=== PATIENT | female | born 1940 | race Caucasian/White ===

== ENCOUNTER 2017-02-01 23:55 | Emergency (ER) | payer MEDICARE, MEDICAID ==
--- NOTE | 2017-02-02 01:19 | EDM.PDOC ---
ED HPI GENERAL MEDICAL PROBLEM - General Chief Complaint: Respiratory Problem Stated Complaint: SAÚL WILSON Time Seen by Provider: 02/02/17 00:15 Source of Information: Reports: Custodial Records, RN Notes Reviewed History Limitations: Reports: Other (Pt sleeping - answered no questions) - History of Present Illness INITIAL COMMENTS - FREE TEXT/NARRATIVE: The patient is brought from the senior living by EMS with a report that the patient is ordinarily on oxygen 3 L per nasal cannula, but that her oxygen saturations were found to be in the low 80s, therefore they increased her oxygen to 4 L, but that her saturation was still in the low 80s. She was also found to have a temperature of 101.8, although when all of this occurred is not known. EMS reports that they placed the patient on 5 L of oxygen per nasal cannula with a resulting oxygen saturation of 86%. They also mentioned that the patient has had a dry cough of unknown duration, however, that is not mentioned in the senior living report. Here in the ED, the patient opened her eyes when I asked her name, but then closed them and went back to sleep. She is afebrile. - Related Data Allergies Allergy/AdvReac Type Severity Reaction Status Date / Time clindamycin Allergy unknown Verified 02/02/17 00:09 Home Meds: Home Meds Acetaminophen [Tylenol] 650 mg PO Q6HR PRN 03/20/14 [History] Calcium Carb & Citrate/Vit D3 [Calcium + Vitamin D3 Caplet] 1 tab PO BID [History] Cranberry Extract [Cranberry] 400 mg PO BID 03/20/14 [History] Divalproex Sodium [Divalproex Sodium ER] 500 mg PO BID 03/20/14 [History] Insulin Aspart [NovoLOG] 18 units SQ TIDMEALS 03/20/14 [History] Insulin Detemir [Levemir] 40 units SQ DAILY 03/20/14 [History] Ipratropium/Albuterol Sulfate [Duoneb 0.5 mg-3 mg/3 ml Soln] 3 ml IH QID PRN 03/27 [History] Ipratropium/Albuterol Sulfate [Iprat-Albut 0.5-3(2.5) MG/3 ML] 1 unit INH BID [History] Magnesium Oxide 400 mg PO BID 03/20/14 [History] Multivitamin [Multivitamins] 1 each PO DAILY 03/20/14 [History] OLANZapine [Olanzapine] 15 mg PO BEDTIME 03/20/14 [History] Paliperidone [Invega] 12 mg PO DAILY 03/20/14 [History] Polyethylene Glycol 3350 [MiraLAX] 17 gm PO DAILY PRN 03/20/14 [History] Rosuvastatin Calcium [Crestor] 10 mg PO DAILY 03/20/14 [History] traZODone HCl [Trazodone HCl] 25 mg PO BEDTIME 03/20/14 [History] Aspirin [Adult Low Dose Aspirin EC] 81 mg PO DAILY 09/21/14 [History] Bisacodyl [Dulcolax] 10 mg RECTAL TID PRN 07/01/15 [History] Ranitidine HCl [Zantac] 150 mg PO BID 05/01/16 [History] guaiFENesin [Mucinex] 600 mg PO BID 05/01/16 [History] Budesonide [Pulmicort] 1 unit INH BID 02/02/17 [History] Levofloxacin [Levaquin] 1 tab PO QPM #4 tablet 02/02/17 [Rx] Levothyroxine [Synthroid] 100 mcg PO DAILY 02/02/17 [History] Liraglutide [Victoza] 1.8 mg SQ BEDTIME 02/02/17 [History] Past Medical History Cardiovascular History: Reports: High Cholesterol, Hypertension Respiratory History: Reports: COPD Psychiatric History: Reports: Anxiety, Schizophrenia Endocrine/Metabolic History: Reports: Diabetes, Type II, Hypothyroidism, Obesity /BMI 30+, Vitamin D Deficiency - Infectious Disease History Infectious Disease History: Reports: MRSA Social & Family History - Family History Family Medical History: Noncontributory - Tobacco Use Smoking Status *Q: Unknown Ever Smoked Second Hand Smoke Exposure: No - Caffeine Use Caffeine Use: Reports: None - Alcohol Use Days Per Week of Alcohol Use: 0 - Recreational Drug Use Recreational Drug Use: No - Living Situation & Occupation Living situation: Reports: Extended Care Facility Occupation: Retired ED ROS GENERAL - Review of Systems Review Of Systems: Unable To Obtain Respiratory: Reports: Cough (as per the HPI) ED EXAM, GENERAL - Physical Exam Exam: See Below Exam Limited By: Uncooperative (Pt did not follow commands) General Appearance: WD/WN, No Apparent Distress Eye Exam: Bilateral Eye: Normal Inspection Ears: Normal External Exam, Hearing Grossly Normal Ear Exam: Bilateral Ear: Auricle Normal Nose: Normal Inspection, No Blood Throat/Mouth: Normal Inspection, Normal Lips, No Airway Compromise Head: Atraumatic, Normocephalic Neck: Normal Inspection Respiratory/Chest: No Respiratory Distress, Lungs Clear, Normal Breath Sounds, No Accessory Muscle Use Cardiovascular: Normal Peripheral Pulses, No Gallop, No JVD, No Murmur, No Rub, Tachycardia (regular) Peripheral Pulses: 4+: Radial (L), Radial (R) GI/Abdominal: Normal Bowel Sounds, Soft, Non-Tender, No Organomegaly, No Distention, No Abnormal Bruit, Other (Obese) (Female) Exam: Deferred Rectal (Female) Exam: Deferred Extremities: No Pedal Edema, Normal Capillary Refill, Other (Bilateral SCD boots on) Neurological: Other (Unable to assess) Psychiatric: Other (Unable to assess) Skin Exam: Warm, Dry, Intact, Normal Color, No Rash Lymphatic: No Adenopathy EKG INTERPRETATION EKG Date: 02/02/17 Time: 00:29 Rhythm: other (Sinus tachycardia) Rate (beats/min): 113 [place]: LAD-left axis deviation P-wave: present QRS: normal ST-T: normal QT: normal Comparison: change from previous EKG (QT prolongation and T-wave inversion in anterior leads on ECG 05/01/2016) Course - Vital Signs Last Recorded V/S: Last Vital Signs Temp 37.2 C 02/02/17 00:05 Pulse 94 02/02/17 03:44 Resp 19 02/02/17 03:44 BP 109/62 02/02/17 03:44 Pulse Ox 88 L 02/02/17 03:44 - Orders/Labs/Meds Orders: Active Orders 24 hr Category Date Time Status EKG Documentation Completion [RC] STAT Care 02/02/17 00:23 Active CULTURE BLOOD [BC] Stat Lab 02/02/17 00:55 Received CULTURE BLOOD [BC] Stat Lab 02/02/17 01:03 Received Labs: Laboratory Tests 02/02/17 02/02/17 02/02/17 Range/Units 00:00 00:00 00:00 WBC 19.05 H (3.98-10.04) K/mm3 RBC 4.11 (3.98-5.22) M/mm3 Hgb 13.8 (11.2-15.7) gm/L Hct 43.3 (34.1-44.9) % MCV 105.4 H (79.4-94.8) fl MCH 33.6 H (25.6-32.2) pg MCHC 31.9 L (32.2-35.5) g/dl RDW Std Deviation 52.9 H (36.4-46.3) fL Plt Count 203 (182-369) K/mm3 MPV 8.9 L (9.4-12.3) fl Neutrophils % (Manual) 83 H (40-60) % Band Neutrophils % 10 (0-10) % Lymphocytes % (Manual) 7 L (20-40) % Atypical Lymphs % 0 % Immat Monocytes % (Man) 0 Monocytes % (Manual) 0 L (2-10) % Eosinophils % (Manual) 0 L (0.7-5.8) % Basophils % (Manual) 0 L (0.1-1.2) Metamyelocytes % 0 Myelocytes % 0 Promyelocytes % 0 Blast Cells % 0 Plasma Cell % (Manual) 0 Nucleated RBCs 0.0 % Platelet Estimate Adequate Anisocytosis 1+ slight Macrocytosis 1+ slight RBC Morph Comment Not Reportable PT 10.5 (8.0-13.0) SECONDS INR 0.97 APTT 35 (22-36) SECONDS D-Dimer, Quantitative 1.56 H (0.19-0.59) mg/L Puncture Site ABG pH (7.35-7.45) ABG pCO2 (35.0-45.0) mmHg ABG pO2 (80.0-100.0) mmHg ABG HCO3 (22.0-26.0) meq/L ABG O2 Saturation (96.0-97.0) % ABG Base Excess (-2-2.0) A-a Gradient mmHg O2 Delivery Device Oxygen Flow Rate FiO2 (21.00-100.00) % Sodium 143 (136-145) mEq/L Potassium 4.7 (3.5-5.1) mEq/L Chloride 103 (98-107) mEq/L Carbon Dioxide 34 H (21-32) mEq/L Anion Gap 10.7 (5-15) BUN 26 H (7-18) mg/dL Creatinine 0.9 (0.55-1.02) mg/dL Est Cr Clr Drug Dosing 50.56 mL/min Estimated GFR (MDRD) > 60 (>60) mL/min BUN/Creatinine Ratio 28.9 H (14-18) Glucose 231 H (83-115) mg/dL Lactic Acid (0.4-2.0) mmol/L Calcium 8.6 (8.5-10.1) mg/dL Total Bilirubin 0.4 (0.2-1.0) mg/dL AST 10 L (15-37) U/L ALT 15 (14-59) U/L Alkaline Phosphatase 54 (46-116) U/L Troponin I < 0.017 (0.00-0.056) ng/mL C-Reactive Protein 3.0 H* (<1.0) mg/dL B-Natriuretic Peptide (0-100) pg/mL Total Protein 7.1 (6.4-8.2) g/dl Albumin 3.0 L (3.4-5.0) g/dl Globulin 4.1 gm/dL Albumin/Globulin Ratio 0.7 L (1-2) Urine Color (Yellow) Urine Appearance (Clear) Urine pH (5.0-8.0) Ur Specific [place] (1.005-1.030) Urine Protein (Negative) Urine Glucose (UA) (Negative) Urine Ketones (Negative) Urine Occult Blood (Negative) Urine Nitrite (Negative) Urine Bilirubin (Negative) Urine Urobilinogen (0.2-1.0) Ur Leukocyte Esterase (Negative) Urine RBC (0-5) /hpf Urine WBC (0-5) /hpf Ur Epithelial Cells Ur Squamous Epith Cells (0-5) /hpf Urine Bacteria (FEW) /hpf Urine Mucus (FEW) /hpf 02/02/17 02/02/17 02/02/17 Range/Units 00:00 00:35 00:55 WBC (3.98-10.04) K/mm3 RBC (3.98-5.22) M/mm3 Hgb (11.2-15.7) gm/L Hct (34.1-44.9) % MCV (79.4-94.8) fl MCH (25.6-32.2) pg MCHC (32.2-35.5) g/dl RDW Std Deviation (36.4-46.3) fL Plt Count (182-369) K/mm3 MPV (9.4-12.3) fl Neutrophils % (Manual) (40-60) % Band Neutrophils % (0-10) % Lymphocytes % (Manual) (20-40) % Atypical Lymphs % % Immat Monocytes % (Man) Monocytes % (Manual) (2-10) % Eosinophils % (Manual) (0.7-5.8) % Basophils % (Manual) (0.1-1.2) Metamyelocytes % Myelocytes % Promyelocytes % Blast Cells % Plasma Cell % (Manual) Nucleated RBCs % Platelet Estimate Anisocytosis Macrocytosis RBC Morph Comment PT (8.0-13.0) SECONDS INR APTT (22-36) SECONDS D-Dimer, Quantitative (0.19-0.59) mg/L Puncture Site Rt radial ABG pH 7.35 (7.35-7.45) ABG pCO2 68.5 H (35.0-45.0) mmHg ABG pO2 51.0 L (80.0-100.0) mmHg ABG HCO3 36.4 H (22.0-26.0) meq/L ABG O2 Saturation 85.5 L (96.0-97.0) % ABG Base Excess 8.4 H (-2-2.0) A-a Gradient 120 mmHg O2 Delivery Device Cannula Oxygen Flow Rate 6.0 FiO2 44.00 (21.00-100.00) % Sodium (136-145) mEq/L Potassium (3.5-5.1) mEq/L Chloride (98-107) mEq/L Carbon Dioxide (21-32) mEq/L Anion Gap (5-15) BUN (7-18) mg/dL Creatinine (0.55-1.02) mg/dL Est Cr Clr Drug Dosing mL/min Estimated GFR (MDRD) (>60) mL/min BUN/Creatinine Ratio (14-18) Glucose (83-115) mg/dL Lactic Acid 2.4 H (0.4-2.0) mmol/L Calcium (8.5-10.1) mg/dL Total Bilirubin (0.2-1.0) mg/dL AST (15-37) U/L ALT (14-59) U/L Alkaline Phosphatase (46-116) U/L Troponin I (0.00-0.056) ng/mL C-Reactive Protein (<1.0) mg/dL B-Natriuretic Peptide 18 (0-100) pg/mL Total Protein (6.4-8.2) g/dl Albumin (3.4-5.0) g/dl Globulin gm/dL Albumin/Globulin Ratio (1-2) Urine Color (Yellow) Urine Appearance (Clear) Urine pH (5.0-8.0) Ur Specific [place] (1.005-1.030) Urine Protein (Negative) Urine Glucose (UA) (Negative) Urine Ketones (Negative) Urine Occult Blood (Negative) Urine Nitrite (Negative) Urine Bilirubin (Negative) Urine Urobilinogen (0.2-1.0) Ur Leukocyte Esterase (Negative) Urine RBC (0-5) /hpf Urine WBC (0-5) /hpf Ur Epithelial Cells Ur Squamous Epith Cells (0-5) /hpf Urine Bacteria (FEW) /hpf Urine Mucus (FEW) /hpf 02/02/17 Range/Units 01:54 WBC (3.98-10.04) K/mm3 RBC (3.98-5.22) M/mm3 Hgb (11.2-15.7) gm/L Hct (34.1-44.9) % MCV (79.4-94.8) fl MCH (25.6-32.2) pg MCHC (32.2-35.5) g/dl RDW Std Deviation (36.4-46.3) fL Plt Count (182-369) K/mm3 MPV (9.4-12.3) fl Neutrophils % (Manual) (40-60) % Band Neutrophils % (0-10) % Lymphocytes % (Manual) (20-40) % Atypical Lymphs % % Immat Monocytes % (Man) Monocytes % (Manual) (2-10) % Eosinophils % (Manual) (0.7-5.8) % Basophils % (Manual) (0.1-1.2) Metamyelocytes % Myelocytes % Promyelocytes % Blast Cells % Plasma Cell % (Manual) Nucleated RBCs % Platelet Estimate Anisocytosis Macrocytosis RBC Morph Comment PT (8.0-13.0) SECONDS INR APTT (22-36) SECONDS D-Dimer, Quantitative (0.19-0.59) mg/L Puncture Site ABG pH (7.35-7.45) ABG pCO2 (35.0-45.0) mmHg ABG pO2 (80.0-100.0) mmHg ABG HCO3 (22.0-26.0) meq/L ABG O2 Saturation (96.0-97.0) % ABG Base Excess (-2-2.0) A-a Gradient mmHg O2 Delivery Device Oxygen Flow Rate FiO2 (21.00-100.00) % Sodium (136-145) mEq/L Potassium (3.5-5.1) mEq/L Chloride (98-107) mEq/L Carbon Dioxide (21-32) mEq/L Anion Gap (5-15) BUN (7-18) mg/dL Creatinine (0.55-1.02) mg/dL Est Cr Clr Drug Dosing mL/min Estimated GFR (MDRD) (>60) mL/min BUN/Creatinine Ratio (14-18) Glucose (83-115) mg/dL Lactic Acid (0.4-2.0) mmol/L Calcium (8.5-10.1) mg/dL Total Bilirubin (0.2-1.0) mg/dL AST (15-37) U/L ALT (14-59) U/L Alkaline Phosphatase (46-116) U/L Troponin I (0.00-0.056) ng/mL C-Reactive Protein (<1.0) mg/dL B-Natriuretic Peptide (0-100) pg/mL Total Protein (6.4-8.2) g/dl Albumin (3.4-5.0) g/dl Globulin gm/dL Albumin/Globulin Ratio (1-2) Urine Color [place] H (Yellow) Urine Appearance Clear (Clear) Urine pH 6.5 (5.0-8.0) Ur Specific [place] 1.025 (1.005-1.030) Urine Protein Negative (Negative) Urine Glucose (UA) Negative (Negative) Urine Ketones Negative (Negative) Urine Occult Blood Negative (Negative) Urine Nitrite Negative (Negative) Urine Bilirubin Negative (Negative) Urine Urobilinogen 1.0 (0.2-1.0) Ur Leukocyte Esterase Negative (Negative) Urine RBC Not seen (0-5) /hpf Urine WBC Not seen (0-5) /hpf Ur Epithelial Cells Not Reportable Ur Squamous Epith Cells 0-5 (0-5) /hpf Urine Bacteria Not seen (FEW) /hpf Urine Mucus Few (FEW) /hpf Meds: Medications Discontinued Medications Generic Name Dose Route Start Last Admin Trade Name Freq PRN Reason Stop Dose Admin Sodium Chloride 1,000 mls @ 100 mls/hr 02/02/17 01:30 02/02/17 02:06 Normal Saline IV 100 mls/hr ASDIRECTED FITO Administration Levofloxacin/Dextrose 750 mg/ 150 mls @ 100 mls/hr 02/02/17 01:24 02/02/17 02 :07 Premix IV 02/02/17 02:53 100 mls/hr ONETIME ONE Administration Sodium Chloride 100 mls @ 65 mls/hr 02/02/17 01:30 02/02/17 02:03 Normal Saline IV 65 mls/hr ASDIRECTED FITO Administration Iopamidol 50 ml 02/02/17 01:28 02/02/17 02:03 Isovue-370 (76%) IVPUSH 02/02/17 01:29 50 ml ONETIME ONE Administration Iopamidol 100 ml 02/02/17 01:28 02/02/17 02:03 Isovue-370 (76%) IVPUSH 02/02/17 01:29 100 ml ONETIME ONE Administration Sodium Chloride 10 ml 02/02/17 01:28 02/02/17 02:03 Saline Flush FLUSH 10 ml ONETIME PRN Administration IV FLUSH - Radiology Interpretation Free Text/Narrative:: Portable chest radiograph reviewed. Cardiac silhouette appears to be at the upper limits of normal. Mild pulmonary vascular congestion. No pleural effusions seen. No focal infiltrate seen, although cannot be excluded. No pneumothorax. Tortuous aorta. Formal read per the Radiologist pending. CT angiogram of the chest is read by [facility] as: 1. No evidence of pulmonary emboli 2. Alveolar and interstitial lung opacities would be most consistent with a diffuse postinflammatory process and small airways disease. - Re-Assessments/Exams Free Text/Narrative Re-Assessment/Exam: 02/02/17 01:25 The patient's ABG reflects chronic hypercapnia and hypoxemia. She is tachycardic, and her D-dimer is mildly elevated at 1.56. I have ordered a CT angiogram to evaluate for PE. Her WBC count is elevated at 19.05 with 10% bandemia, consistent with pneumonia, therefore I have ordered IV Levaquin 750 mg. 02/02/17 02:[address] angiogram of the chest indicates either current or recent pneumonia. I am recommending continuation of Levaquin, which can be given at the senior living orally. Her oxygen saturation is 89% on 4 L O2 per nasal cannula. The patient may therefore return to the senior living. Departure - Departure Time of Disposition: 02:40 Disposition: Home, Self-Care 01 Condition: fair Clinical Impression: Pneumonia - Discharge Information Prescriptions: Levofloxacin [Levaquin] 1 tab PO QPM #4 tablet Instructions: Community-Acquired Pneumonia, Adult, [id number] Referrals: Ray Bonilla MD [Primary Care Provider] - Forms: ED Department Discharge Additional Instructions: Ms. Walker was seen in the emergency room for increased oxygen requirements and fever. Workup in the ER included blood work, blood cultures, an ABG, a urinalysis, an ECG, a chest X-Ray, and a CT angiogram of the chest. Her workup shows that she either has pneumonia, or recently had pneumonia. We are treating her as if she has current pneumonia. She has been started on IV Levaquin 750 mg. Give one bag every 24 hours, starting this evening, 2016, for 4 days. She may continue the rest of her usual medications. Her oxygen has been increased to 4 L per nasal cannula. Please notify her primary care physician in the morning of the situation. If any other problems, please do not hesitate to return Ms. Walker to the ER. - My Orders Last 24 Hours: My Active Orders 02/02/17 00:23 EKG Documentation Completion [RC] STAT 02/02/17 00:55 CULTURE BLOOD [BC] Stat 02/02/17 01:03 CULTURE BLOOD [BC] Stat - Assessment/Plan Last 24 Hours: My Active Orders 02/02/17 00:23 EKG Documentation Completion [RC] STAT 02/02/17 00:55 CULTURE BLOOD [BC] Stat 02/02/17 01:03 CULTURE BLOOD [BC] Stat
[2017-02-02] MEDS ORDERED: Levofloxacin/Dextrose 5%-Water 750 MG in Premix Bag 1 BAG IV ONE (01:24)
[2017-02-02] MEDS ORDERED: Iopamidol 755 MG/ML 50 ML Bottle IVPUSH ONE (01:28)
[2017-02-02] MEDS ORDERED: Iopamidol 755 Mg/ML 100 ML Bottle IVPUSH ONE (01:28)
[2017-02-02] MEDS ORDERED: Sodium Chloride 0.9% 10 ML Syringe FLUSH PRN (01:28)
[2017-02-02] MEDS ORDERED: Sodium Chloride 0.9% 100 ML IV SCH (01:30)
[2017-02-02] MEDS ORDERED: Sodium Chloride 0.9% 1,000 ML IV SCH (01:30)
[2017-02-02 03:57] VITALS: BP 109/62
--- NOTE | 2017-02-02 07:37 | CT ---
CT chest Technique: Multiple axial sections were obtained through the chest. Intravenous contrast was utilized. Study has been performed as a pulmonary angiogram protocol. Findings: Pulmonary arteries are moderately well-opacified and show no filling defects of pulmonary embolism. Heart is enlarged. Small portion of the visualized upper abdominal structures are within normal limits. Several mediastinal lymph nodes are seen which appear within normal limits. No axillary adenopathy is seen. Aorta shows no aneurysmal dilatation as questioned on recent plain film exam. Increased lung markings are noted which appear to be chronic as comparing to chest x-ray. No pleural effusions are seen. Bone window settings show scattered degenerative spurring and disc space narrowing throughout the spine. Impression: 1. No findings of pulmonary embolism. 2. Increased lung markings believed to represent fibrosis and scarring when compared to prior chest x-rays. 3. Other incidental findings. Diagnostic code #3 I agree with preliminary report issued by [facility] ([facility] preliminary report dictated on 02/02/17, 3:18 AM Central Time)
--- NOTE | 2017-02-02 07:37 | CR ---
Chest: Portable view of the chest was obtained. Comparison: Previous chest x-ray of 05/03/16. Heart is enlarged. Aortic knob is enlarged suggesting aortic aneurysm. Lung markings are increased which appear chronic. No acute infiltrates are seen. Bony structures are osteopenic. Degenerative change noted within the spine. Impression: 1. Aortic knob is enlarged suggesting thoracic aortic aneurysm. 2. Chronic increased lung markings and mild cardiomegaly. Diagnostic code #3
== END 2017-02-02 03:44 | disposition home or self-care (01) ==
LOC: JD.ED 23:55
DX: J18.9 Pneumonia, unspecified organism (principal); I10 Essential (primary) hypertension; E78.00 Pure hypercholesterolemia, unspecified; J44.9 Chronic obstructive pulmonary disease, unspecified; F41.9 Anxiety disorder, unspecified; E11.9 Type 2 diabetes mellitus without complications; E03.9 Hypothyroidism, unspecified; E66.9 Obesity, unspecified; Z88.1 Allergy status to other antibiotic agents; Z79.4 Long term (current) use of insulin; Z79.82 Long term (current) use of aspirin; Z79.899 Other long term (current) drug therapy; Z68.38 Body mass index [BMI] 38.0-38.9, adult
CPT/HCPCS: 36415; 36600; 71010; 71275; 80053; 81001; 82803; 83605; 83880; 84484; 85025; 85379; 85610; 85730; 86140; 87040; 93005; 96365; 99285; J1956; J7030; J7040; J7050; P9612; Q9967

== ENCOUNTER 2017-05-25 13:14 | Emergency (ER) | payer MEDICARE, MEDICAID ==
[2017-05-25 13:25] VITALS: BP 118/99
[2017-05-25] MEDS ORDERED: Sodium Chloride 0.9% 10 ML Syringe FLUSH PRN (13:50)
[2017-05-25] MEDS ORDERED: Albuterol/Ipratropium 3.0-0.5 MG/3 ML Neb Soln NEB ONE (16:58)
[2017-05-25] MEDS ORDERED: Levofloxacin 500 MG Tab PO ONE (17:13)
--- NOTE | 2017-05-25 17:36 | EDM.PDOC ---
ED HPI GENERAL MEDICAL PROBLEM - General Chief Complaint: Respiratory Problem Stated Complaint: [facility] Time Seen by Provider: 05/25/17 13:30 Source of Information: Reports: Patient, EMS, Prison Records History Limitations: Reports: No Limitations - History of Present Illness INITIAL COMMENTS - FREE TEXT/NARRATIVE: The patient is a resident of [facility] in [place]. Her oxygen saturations have been lower to day in the mid 80s. She has a history of COPD and pneumonia. She is oxygen dependent. She has been coughing. She feels short of breath. She has no fever here. She has no abdominal pain, nausea or vomiting. She has no dysuria. Onset: Gradual Duration: Hour(s): Severity: Mild Improves with: Reports: None Worsens with: Reports: None Associated Symptoms: Reports: Cough, Shortness of Breath. Denies: Chest Pain, Fever/Chills, Nausea/Vomiting - Related Data Allergies Allergy/AdvReac Type Severity Reaction Status Date / Time clindamycin Allergy unknown Verified 05/25/17 13:53 Home Meds: Home Meds Calcium Carb & Citrate/Vit D3 [Calcium + Vitamin D3 Caplet] 1 tab PO BID [History] Cranberry Extract [Cranberry] 400 mg PO BID 03/20/14 [History] Divalproex Sodium [Divalproex Sodium ER] 500 mg PO BID 03/20/14 [History] Insulin Aspart [NovoLOG] 18 units SQ TIDMEALS 03/20/14 [History] Insulin Detemir [Levemir] 40 units SQ DAILY 03/20/14 [History] Ipratropium/Albuterol Sulfate [Duoneb 0.5 mg-3 mg/3 ml Soln] 3 ml IH BID PRN 03/27 [History] Ipratropium/Albuterol Sulfate [Iprat-Albut 0.5-3(2.5) MG/3 ML] 1 unit INH QID PRN 03/20/14 [History] Magnesium Oxide 400 mg PO BID 03/20/14 [History] Multivitamin [Multivitamins] 1 each PO DAILY 03/20/14 [History] Paliperidone [Invega] 12 mg PO DAILY 03/20/14 [History] Polyethylene Glycol 3350 [MiraLAX] 17 gm PO DAILY PRN 03/20/14 [History] Rosuvastatin Calcium [Crestor] 10 mg PO DAILY 03/20/14 [History] traZODone HCl [Trazodone HCl] 25 mg PO BEDTIME 03/20/14 [History] Aspirin [Adult Low Dose Aspirin EC] 81 mg PO DAILY 09/21/14 [History] Bisacodyl [Dulcolax] 10 mg RECTAL TID PRN 07/01/15 [History] Ranitidine HCl [Zantac] 150 mg PO BID 05/01/16 [History] guaiFENesin [Mucinex] 600 mg PO BID 05/01/16 [History] Budesonide [Pulmicort] 1 unit INH BID 02/02/17 [History] Levothyroxine [Synthroid] 100 mcg PO DAILY 02/02/17 [History] Liraglutide [Victoza] 1.8 mg SQ BEDTIME 02/02/17 [History] Levofloxacin [Levaquin] 500 mg PO Q24H #7 tablet 05/25/17 [Rx] Nystatin [Nystatin Crm] 1 gm TOP BID 05/25/17 [History] OLANZapine [Zyprexa] 15 mg PO BEDTIME 05/25/17 [History] Past Medical History HEENT History: Reports: Cataract Cardiovascular History: Reports: High Cholesterol, Hypertension Other Cardiovascular History: edema, hyponatremia Respiratory History: Reports: COPD Other Respiratory History: aspiration pneumonia, 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, hypoxemia Gastrointestinal History: Reports: Pancreatitis Other Gastrointestinal History: pancreatic mass, Vit D deficiency Genitourinary History: Reports: Urinary Incontinence Musculoskeletal History: Reports: Arthritis Other Musculoskeletal History: ingrown nail Neurological History: Reports: Neuropathy, Diabetic Other Neuro History: resting tremor left arm Psychiatric History: Reports: Anxiety, Schizophrenia Other Psychiatric History: delusional disorder Endocrine/Metabolic History: Reports: Diabetes, Type II, Hypothyroidism, Obesity /BMI 30+, Vitamin D Deficiency Other Oncologic History: Pancreatic mass (dx 2013) of unknown etiology - no tx desired - Infectious Disease History Infectious Disease History: Reports: MRSA - Past Surgical History Other Oncologic Surgeries/Procedures: PANCREATIC MASS Social & Family History - Family History Family Medical History: Noncontributory - Tobacco Use Smoking Status *Q: Unknown Ever Smoked Second Hand Smoke Exposure: No - Caffeine Use Caffeine Use: Reports: None - Alcohol Use Days Per Week of Alcohol Use: 0 - Recreational Drug Use Recreational Drug Use: No - Living Situation & Occupation Living situation: Reports: Extended Care Facility Occupation: Retired ED ROS GENERAL - Review of Systems Review Of Systems: See Below Constitutional: Reports: No Symptoms HEENT: Reports: No Symptoms Respiratory: Reports: Shortness of Breath, Cough Cardiovascular: Reports: No Symptoms Endocrine: Reports: No Symptoms GI/Abdominal: Reports: No Symptoms : Reports: No Symptoms Musculoskeletal: Reports: No Symptoms Skin: Reports: No Symptoms ED EXAM, GENERAL - Physical Exam Exam: See Below Exam Limited By: No Limitations General Appearance: Alert, No Apparent Distress Ears: Normal External Exam Nose: Normal Inspection Head: Atraumatic, Normocephalic Neck: Normal Inspection Respiratory/Chest: No Respiratory Distress, Decreased Breath Sounds Cardiovascular: Regular Rate, Rhythm, No Edema, No Murmur GI/Abdominal: Soft, Non-Tender, No Organomegaly, No Mass Back Exam: Normal Inspection Extremities: Pedal Edema EKG INTERPRETATION EKG Date: 05/25/17 Time: 13:57 Rhythm: NSR Rate (Beats/Min): 82 [place]: LAD-Left [place] Deviation P-Wave: Present QRS: Normal ST-T: Normal QT: Normal Course - Vital Signs Last Recorded V/S: Last Vital Signs Temp 97.4 F 05/25/17 13:21 Pulse 88 05/25/17 13:21 Resp 12 05/25/17 13:21 BP 118/99 H 05/25/17 13:21 Pulse Ox 93 L 05/25/17 17:23 - Orders/Labs/Meds Orders: Active Orders 24 hr Category Date Time Status Cardiac Monitoring [RC] . DIRECTED Care 05/25/17 13:50 Active EKG Documentation Completion [RC] STAT Care 05/25/17 13:51 Active Oxygen Therapy [RC] PRN Care 05/25/17 13:50 Active Peripheral IV Care [RC] . DIRECTED Care 05/25/17 13:51 Active RT Aerosol Therapy [RC] ASDIRECTED Care 05/25/17 16:58 Active Chest 1V Frontal [CR] Stat Exams 05/25/17 13:51 Taken CULTURE BLOOD [BC] Stat Lab 05/25/17 14:40 Received CULTURE BLOOD [BC] Stat Lab 05/25/17 14:55 Received CULTURE URINE [RM] Stat Lab 05/25/17 16:57 Uncollected Sodium Chloride 0.9% [Saline Flush] Med 05/25/17 13:50 Active 10 ml FLUSH ASDIRECTED PRN Blood Culture x2 Reflex Set [OM.PC] Stat Ot 05/25/17 13:52 Ordered Peripheral IV Insertion Adult [OM.PC] Stat Ot 05/25/17 13:50 Ordered Medication Orders Sodium Chloride (Saline Flush) 10 ml FLUSH ASDIRECTED PRN PRN Reason: Keep Vein Open Last Admin: 05/25/17 14:18 Dose: 10 ml Labs: Laboratory Tests 05/25/17 05/25/17 05/25/17 Range/Units 14:40 14:40 15:25 WBC 8.35 (3.98-10.04) K/mm3 RBC 3.92 L (3.98-5.22) M/mm3 Hgb 12.9 (11.2-15.7) gm/L Hct 41.2 (34.1-44.9) % MCV 105.1 H (79.4-94.8) fl MCH 32.9 H (25.6-32.2) pg MCHC 31.3 L (32.2-35.5) g/dl RDW Std Deviation 57.9 H (36.4-46.3) fL Plt Count 212 (182-369) K/mm3 MPV 8.8 L (9.4-12.3) fl Neut % (Auto) 73.6 H (34.0-71.1) % Lymph % (Auto) 15.1 L (19.3-51.7) % [place] % (Auto) 8.5 (4.7-12.5) % Eos % (Auto) 1.8 (0.7-5.8) Baso % (Auto) 0.0 L (0.1-1.2) % Neut # (Auto) 6.15 H (1.56-6.13) K/mm3 Lymph # (Auto) 1.26 (1.18-3.74) K/mm3 [place] # (Auto) 0.71 H (0.24-0.36) K/mm3 Eos # (Auto) 0.15 (0.04-0.36) K/mm3 Baso # (Auto) 0.00 L (0.01-0.08) K/mm3 Manual Slide Review Abnormal smear Sodium 143 (136-145) mEq/L Potassium 4.2 (3.5-5.1) mEq/L Chloride 104 (98-107) mEq/L Carbon Dioxide 36 H (21-32) mEq/L Anion Gap 7.2 (5-15) BUN 15 (7-18) mg/dL Creatinine 0.8 (0.55-1.02) mg/dL Est Cr Clr Drug Dosing 57.19 mL/min Estimated GFR (MDRD) > 60 (>60) mL/min BUN/Creatinine Ratio 18.8 H (14-18) Glucose 152 H (83-115) mg/dL Calcium 9.0 (8.5-10.1) mg/dL Total Bilirubin 0.2 (0.2-1.0) mg/dL AST 12 L (15-37) U/L ALT 14 (14-59) U/L Alkaline Phosphatase 62 (46-116) U/L Troponin I < 0.017 (0.00-0.056) ng/mL NT-Pro-B Natriuret Pep 167 (0-450) pg/mL Total Protein 6.9 (6.4-8.2) g/dl Albumin 2.7 L (3.4-5.0) g/dl Globulin 4.2 gm/dL Albumin/Globulin Ratio 0.6 L (1-2) Urine Color Yellow (Yellow) Urine Appearance Cloudy H (Clear) Urine pH 7.5 (5.0-8.0) Ur Specific [place] 1.025 (1.005-1.030) Urine Protein 1+ H (Negative) Urine Glucose (UA) Negative (Negative) Urine Ketones 1+ H (Negative) Urine Occult Blood Trace-intact H (Negative) Urine Nitrite Negative (Negative) Urine Bilirubin Negative (Negative) Urine Urobilinogen 2.0 H (0.2-1.0) Ur Leukocyte Esterase 1+ H (Negative) Urine RBC 5-10 H (0-5) /hpf Urine WBC >100 H (0-5) /hpf Ur Epithelial Cells 0-5 (0-5) /hpf Amorphous Sediment Moderate H (NOT SEEN) /hpf Urine Bacteria Many H (FEW) /hpf Urine Mucus Not seen (FEW) /hpf Meds: Medications Generic Name Dose Route Start Last Admin Trade Name Freq PRN Reason Stop Dose Admin Sodium Chloride 10 ml 05/25/17 13:50 05/25/17 14:18 Saline Flush FLUSH 10 ml ASDIRECTED PRN Administration Keep Vein Open Discontinued Medications Generic Name Dose Route Start Last Admin Trade Name Chemo PRN Reason Stop Dose Admin Albuterol/Ipratropium 3 ml 05/25/17 16:58 05/25/17 17:22 Duoneb 3.0-0.5 Mg/3 Ml NEB 05/25/17 16:59 3 ml ONETIME ONE Administration Levofloxacin 500 mg 05/25/17 17:13 Levaquin PO 05/25/17 17:14 ONETIME ONE - Re-Assessments/Exams Free Text/Narrative Re-Assessment/Exam: 05/25/17 17:33 I ordered oxygen, EKG, CXR, labs and a cath UA. Her EKG shows a NSR with no acute changes. Her CXR shows no infiltrates just poor inspiration. 05/25/17 17:35 Her CBC looks good. Her CO2 was elevated at 36. Her glucose was 152. Her troponin is negative. Her BNP was negative. Her UA shows a UTI. I ordered blood cultures and urine cultures. I will give her some levaquin 500mg here and a prescription for more. I also ordered a duo neb. 05/25/17 17:36 She has a UTI. Departure - Departure Time of Disposition: 17:40 Disposition: DC/Tfer to [facility] Condition: Good Clinical Impression: UTI (urinary tract infection) Qualifiers: Urinary tract infection type: site unspecified Hematuria presence: without hematuria Qualified Code(s): N39.0 - Urinary tract infection, site not specified - Discharge Information Prescriptions: Levofloxacin [Levaquin] 500 mg PO Q24H #7 tablet Referrals: PCP,None [Primary Care Provider] - Additional Instructions: Take the levaquin daily for 7 days. Continue your other medications. Please return if you are worse. - My Orders Last 24 Hours: My Active Orders 05/25/17 13:50 Cardiac Monitoring [RC] . DIRECTED Oxygen Therapy [RC] PRN Sodium Chloride 0.9% [Saline Flush] 10 ml FLUSH ASDIRECTED PRN Peripheral IV Insertion Adult [OM.PC] Stat 05/25/17 13:51 EKG Documentation Completion [RC] STAT Peripheral IV Care [RC] . DIRECTED Chest 1V Frontal [CR] Stat 05/25/17 13:52 Blood Culture x2 Reflex Set [OM.PC] Stat 05/25/17 14:40 CULTURE BLOOD [BC] Stat 05/25/17 14:55 CULTURE BLOOD [BC] Stat 05/25/17 16:57 CULTURE URINE [RM] Stat 05/25/17 16:58 RT Aerosol Therapy [RC] ASDIRECTED - Assessment/Plan Last 24 Hours: My Active Orders 05/25/17 13:50 Cardiac Monitoring [RC] . DIRECTED Oxygen Therapy [RC] PRN Sodium Chloride 0.9% [Saline Flush] 10 ml FLUSH ASDIRECTED PRN Peripheral IV Insertion Adult [OM.PC] Stat 05/25/17 13:51 EKG Documentation Completion [RC] STAT Peripheral IV Care [RC] . DIRECTED Chest 1V Frontal [CR] Stat 05/25/17 13:52 Blood Culture x2 Reflex Set [OM.PC] Stat 05/25/17 14:40 CULTURE BLOOD [BC] Stat 05/25/17 14:55 CULTURE BLOOD [BC] Stat 05/25/17 16:57 CULTURE URINE [RM] Stat 05/25/17 16:58 RT Aerosol Therapy [RC] ASDIRECTED
--- NOTE | 2017-05-26 07:57 | CR ---
Chest: Portable view of the chest was obtained. Comparison: Previous chest x-ray of 02/02/17. Heart size is slightly enlarged. Widened upper mediastinum is seen which is stable. Slight scarring is noted within both lungs. No acute infiltrates are seen. Bony structures are grossly intact. Impression: 1. Findings as described above which appears stable from prior chest x-ray. Nothing acute is seen. Diagnostic code #2
== END 2017-05-25 19:41 ==
LOC: JD.ED 13:14
DX: J44.9 Chronic obstructive pulmonary disease, unspecified (principal); I10 Essential (primary) hypertension; E78.00 Pure hypercholesterolemia, unspecified; E11.40 Type 2 diabetes mellitus with diabetic neuropathy, unspecified; F41.9 Anxiety disorder, unspecified; E66.9 Obesity, unspecified; Z68.37 Body mass index [BMI] 37.0-37.9, adult; Z87.440 Personal history of urinary (tract) infections; Z79.4 Long term (current) use of insulin; Z88.1 Allergy status to other antibiotic agents; Z79.82 Long term (current) use of aspirin; Z79.899 Other long term (current) drug therapy; Z99.81 Dependence on supplemental oxygen; Z87.01 Personal history of pneumonia (recurrent)
CPT/HCPCS: 36415; 71010; 80053; 81001; 83880; 84484; 85025; 87040; 87086; 87088; 87181; 87184; 93005; 94664; 99285; A9270; J7050; P9612; 99284

== ENCOUNTER 2017-09-03 08:45 | Inpatient (IN) | payer MEDICARE, MEDICAID ==
[2017-09-03] MEDS ORDERED: Sodium Chloride 0.9% 10 ML Syringe FLUSH PRN (09:09)
[2017-09-03] MEDS ORDERED: Albuterol/Ipratropium 3.0-0.5 MG/3 ML Neb Soln NEB ONE (09:11)
[2017-09-03] MEDS ORDERED: Levofloxacin/Dextrose 5%-Water 750 MG in Premix Bag 1 BAG IV ONE (09:12)
--- NOTE | 2017-09-03 09:19 | EDM.PDOC ---
ED HPI GENERAL MEDICAL PROBLEM - General Chief Complaint: Respiratory Problem Stated Complaint: [facility] Time Seen by Provider: 09/03/17 09:01 Source of Information: Reports: Patient, Snf Records History Limitations: Reports: No Limitations - History of Present Illness INITIAL COMMENTS - FREE TEXT/NARRATIVE: The patient presents from [facility] with hypoxia, fever and a productive cough. She has been having troubles for a few days. The mcc checked an influenza on Thursday and that was negative. She had a temp of 101 this morning. She has a productive cough. She has COPD and she is oxygen dependent on 3L by MA. Her oxygen saturations were in the low 80s when EMS arrived. They did a neb treatment and bumped her up to 5L. Her oxygen saturations were better. She complains of a cough and some lower abdominal pain. She denies chest pain. She is short of breath. She has no nausea and vomiting. Onset: Gradual Duration: Day(s): (4) Location: Reports: Abdomen Quality: Reports: Ache Severity: Mild Improves with: Reports: None Worsens with: Reports: None Associated Symptoms: Reports: Cough, Fever/Chills, Shortness of Breath. Denies : Chest Pain, Headaches, Nausea/Vomiting Treatments [employer] DEFENCE: Reports: Acetaminophen, See EMS Report - Related Data Allergies Allergy/AdvReac Type Severity Reaction Status Date / Time clindamycin Allergy unknown Verified 05/25/17 13:53 herbs in pizza Allergy Cannot Uncoded 09/03/17 09:09 Remember Home Meds: Home Meds Acetaminophen 650 mg PO Q4H PRN 09/03/17 [History] Albuterol/Ipratropium [DuoNeb 3.0-0.5 MG/3 ML] 3 ml NEB BIDRT 09/03/17 [History] Albuterol/Ipratropium [DuoNeb 3.0-0.5 MG/3 ML] 3 ml NEB QID PRN 09/03/17 [ History] Aspirin [Halfprin] 81 mg PO DAILY 09/03/17 [History] Budesonide [Pulmicort] 0.5 mg IH BID 09/03/17 [History] Calcium Carbonate/Vitamin D3 [Calcium 600 + Vit D 200] 1 each PO BID 09/03/17 [ History] Cranberry Extract [Cranberry] 400 mg PO BID 09/03/17 [History] Divalproex Sodium [Depakote ER] 500 mg PO BID 09/03/17 [History] Insulin Aspart [Novolog] 18 unit SQ TIDMEALS 09/03/17 [History] Insulin Detemir [Levemir] 40 unit SQ QAM 09/03/17 [History] Levothyroxine [Synthroid] 100 mcg PO QPM 09/03/17 [History] Liraglutide [Victoza] 1.8 mg SUBCUT BEDTIME 09/03/17 [History] Magnesium Oxide [Magnesium] 400 mg PO BID 09/03/17 [History] Multivitamin [Daily Multiple Vitamin] 1 tab PO DAILY 09/03/17 [History] Nystatin [Nystatin Crm] 30 gm TOP BID 09/03/17 [History] OLANZapine [Zyprexa] 15 mg PO BEDTIME 09/03/17 [History] Paliperidone [Invega] 12 mg PO DAILY 09/03/17 [History] Ranitidine [Zantac] 150 mg PO BID 09/03/17 [History] Rosuvastatin [Crestor] 10 mg PO QPM 09/03/17 [History] guaiFENesin [Mucinex] 600 mg PO BID 09/03/17 [History] Past Medical History HEENT History: Reports: Cataract Cardiovascular History: Reports: High Cholesterol, Hypertension Other Cardiovascular History: edema, hyponatremia Respiratory History: Reports: COPD Other Respiratory History: aspiration pneumonia, 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, hypoxemia Gastrointestinal History: Reports: Pancreatitis Other Gastrointestinal History: pancreatic mass, Vit D deficiency Genitourinary History: Reports: Urinary Incontinence Musculoskeletal History: Reports: Arthritis Other Musculoskeletal History: ingrown nail Neurological History: Reports: Neuropathy, Diabetic Other Neuro History: resting tremor left arm Psychiatric History: Reports: Anxiety, Schizophrenia Other Psychiatric History: delusional disorder Endocrine/Metabolic History: Reports: Diabetes, Type II, Hypothyroidism, Obesity /BMI 30+, Vitamin D Deficiency Other Oncologic History: Pancreatic mass (dx 2013) of unknown etiology - no tx desired - Infectious Disease History Infectious Disease History: Reports: MRSA - Past Surgical History Other Oncologic Surgeries/Procedures: PANCREATIC MASS Social & Family History - Family History Family Medical History: Noncontributory - Tobacco Use Smoking Status *Q: Never Smoker Second Hand Smoke Exposure: No - Caffeine Use Caffeine Use: Reports: Coffee - Alcohol Use Days Per Week of Alcohol Use: 0 - Recreational Drug Use Recreational Drug Use: No - Living Situation & Occupation Living situation: Reports: Extended Care Facility Occupation: Retired ED ROS GENERAL - Review of Systems Review Of Systems: See Below Constitutional: Reports: Fever, Weakness, Fatigue HEENT: Reports: No Symptoms Respiratory: Reports: Shortness of Breath, Cough Cardiovascular: Reports: No Symptoms Endocrine: Reports: Fatigue GI/Abdominal: Reports: No Symptoms : Reports: No Symptoms Musculoskeletal: Reports: No Symptoms ED EXAM, GENERAL - Physical Exam Exam: See Below Exam Limited By: No Limitations General Appearance: Alert, No Apparent Distress Ears: Normal External Exam Nose: Normal Inspection Head: Atraumatic, Normocephalic Neck: Normal Inspection Respiratory/Chest: Decreased Breath Sounds, Rhonchi Cardiovascular: Regular Rate, Rhythm, No Edema, No Murmur GI/Abdominal: Soft, Non-Tender, No Organomegaly, No Mass Back Exam: Normal Inspection Extremities: Normal Inspection Course - Vital Signs Last Recorded V/S: Last Vital Signs Temp 98.9 F 09/03/17 09:00 Pulse 86 09/03/17 09:00 Resp 22 H 09/03/17 09:00 BP 102/64 09/03/17 09:00 Pulse Ox 98 09/03/17 09:11 - Orders/Labs/Meds Orders: Active Orders 24 hr Category Date Time Status Cardiac Monitoring [RC] . DIRECTED Care 09/03/17 09:09 Active Insert Urinary Catheter [OM.PC] Q24H Care 09/03/17 10:45 Ordered Oxygen Therapy [RC] PRN Care 09/03/17 09:09 Active Peripheral IV Care [RC] . DIRECTED Care 09/03/17 09:10 Active RT Aerosol Therapy [RC] ASDIRECTED Care 09/03/17 09:11 Active Urinary Catheter Assessment [RC] ASDIRECTED Care 09/03/17 10:34 Active CULTURE BLOOD [BC] Stat Lab 09/03/17 09:37 Received CULTURE BLOOD [BC] Stat Lab 09/03/17 09:53 Received Sodium Chloride 0.9% [Saline Flush] Med 09/03/17 09:09 Active 10 ml FLUSH ASDIRECTED PRN Blood Culture x2 Reflex Set [OM.PC] Stat Oth 09/03/17 09:10 Ordered Peripheral IV Insertion Adult [OM.PC] Stat Oth 09/03/17 09:09 Ordered Medication Orders Sodium Chloride (Saline Flush) 10 ml FLUSH ASDIRECTED PRN PRN Reason: Keep Vein Open Last Admin: 09/03/17 09:32 Dose: 10 ml Labs: Laboratory Tests 09/03/17 09/03/17 09/03/17 Range/Units 08:50 08:50 09:37 WBC 8.39 (3.98-10.04) K/mm3 RBC 3.69 L (3.98-5.22) M/mm3 Hgb 12.3 (11.2-15.7) gm/L Hct 39.2 (34.1-44.9) % MCV 106.2 H (79.4-94.8) fl MCH 33.3 H (25.6-32.2) pg MCHC 31.4 L (32.2-35.5) g/dl RDW Std Deviation 53.9 H (36.4-46.3) fL Plt Count 171 L (182-369) K/mm3 MPV 8.8 L (9.4-12.3) fl Neut % (Auto) 79.4 H (34.0-71.1) % Lymph % (Auto) 9.8 L (19.3-51.7) % [place] % (Auto) 9.4 (4.7-12.5) % Eos % (Auto) 1.1 (0.7-5.8) Baso % (Auto) 0.1 (0.1-1.2) % Neut # (Auto) 6.66 H (1.56-6.13) K/mm3 Lymph # (Auto) 0.82 L (1.18-3.74) K/mm3 [place] # (Auto) 0.79 H (0.24-0.36) K/mm3 Eos # (Auto) 0.09 (0.04-0.36) K/mm3 Baso # (Auto) 0.01 (0.01-0.08) K/mm3 Manual Slide Review Abnormal smear Sodium 144 (136-145) mEq/L Potassium 4.6 (3.5-5.1) mEq/L Chloride 105 (98-107) mEq/L Carbon Dioxide 35 H (21-32) mEq/L Anion Gap 8.6 (5-15) BUN 14 (7-18) mg/dL Creatinine 0.6 (0.55-1.02) mg/dL Est Cr Clr Drug Dosing TNP Estimated GFR (MDRD) > 60 (>60) mL/min BUN/Creatinine Ratio 23.3 H (14-18) Glucose 134 H (83-115) mg/dL Lactic Acid 1.0 (0.4-2.0) mmol/L Calcium 9.0 (8.5-10.1) mg/dL Total Bilirubin 0.2 (0.2-1.0) mg/dL AST 16 (15-37) U/L ALT 17 (14-59) U/L Alkaline Phosphatase 48 (46-116) U/L Total Protein 6.5 (6.4-8.2) g/dl Albumin 2.4 L (3.4-5.0) g/dl Globulin 4.1 gm/dL Albumin/Globulin Ratio 0.6 L (1-2) Urine Color (Yellow) Urine Appearance (Clear) Urine pH (5.0-8.0) Ur Specific [place] (1.005-1.030) Urine Protein (Negative) Urine Glucose (UA) (Negative) Urine Ketones (Negative) Urine Occult Blood (Negative) Urine Nitrite (Negative) Urine Bilirubin (Negative) Urine Urobilinogen (0.2-1.0) Ur Leukocyte Esterase (Negative) Urine RBC (0-5) /hpf Urine WBC (0-5) /hpf Ur Epithelial Cells (0-5) /hpf Urine Bacteria (FEW) /hpf Urine Mucus (FEW) /hpf 09/03/17 Range/Units 10:20 WBC (3.98-10.04) K/mm3 RBC (3.98-5.22) M/mm3 Hgb (11.2-15.7) gm/L Hct (34.1-44.9) % MCV (79.4-94.8) fl MCH (25.6-32.2) pg MCHC (32.2-35.5) g/dl RDW Std Deviation (36.4-46.3) fL Plt Count (182-369) K/mm3 MPV (9.4-12.3) fl Neut % (Auto) (34.0-71.1) % Lymph % (Auto) (19.3-51.7) % [place] % (Auto) (4.7-12.5) % Eos % (Auto) (0.7-5.8) Baso % (Auto) (0.1-1.2) % Neut # (Auto) (1.56-6.13) K/mm3 Lymph # (Auto) (1.18-3.74) K/mm3 [place] # (Auto) (0.24-0.36) K/mm3 Eos # (Auto) (0.04-0.36) K/mm3 Baso # (Auto) (0.01-0.08) K/mm3 Manual Slide Review Sodium (136-145) mEq/L Potassium (3.5-5.1) mEq/L Chloride (98-107) mEq/L Carbon Dioxide (21-32) mEq/L Anion Gap (5-15) BUN (7-18) mg/dL Creatinine (0.55-1.02) mg/dL Est Cr Clr Drug Dosing Estimated GFR (MDRD) (>60) mL/min BUN/Creatinine Ratio (14-18) Glucose (83-115) mg/dL Lactic Acid (0.4-2.0) mmol/L Calcium (8.5-10.1) mg/dL Total Bilirubin (0.2-1.0) mg/dL AST (15-37) U/L ALT (14-59) U/L Alkaline Phosphatase (46-116) U/L Total Protein (6.4-8.2) g/dl Albumin (3.4-5.0) g/dl Globulin gm/dL Albumin/Globulin Ratio (1-2) Urine Color Yellow (Yellow) Urine Appearance Clear (Clear) Urine pH 6.0 (5.0-8.0) Ur Specific [place] 1.025 (1.005-1.030) Urine Protein Negative (Negative) Urine Glucose (UA) Negative (Negative) Urine Ketones 1+ H (Negative) Urine Occult Blood Negative (Negative) Urine Nitrite Negative (Negative) Urine Bilirubin 1+ H (Negative) Urine Urobilinogen 0.2 (0.2-1.0) Ur Leukocyte Esterase Negative (Negative) Urine RBC 0-5 (0-5) /hpf Urine WBC 0-5 (0-5) /hpf Ur Epithelial Cells 0-5 (0-5) /hpf Urine Bacteria Few (FEW) /hpf Urine Mucus Few (FEW) /hpf Meds: Medications Generic Name Dose Route Start Last Admin Trade Name Freq PRN Reason Stop Dose Admin Sodium Chloride 10 ml 09/03/17 09:09 09/03/17 09:32 Saline Flush FLUSH 10 ml ASDIRECTED PRN Administration Keep Vein Open Discontinued Medications Generic Name Dose Route Start Last Admin Trade Name Freq PRN Reason Stop Dose Admin Albuterol/Ipratropium 3 ml 09/03/17 09:11 09/03/17 09:53 Duoneb 3.0-0.5 Mg/3 Ml NEB 09/03/17 09:12 3 ml ONETIME ONE Administration Levofloxacin/Dextrose 750 mg/ 150 mls @ 100 mls/hr 09/03/17 09:12 09/03/17 09 :33 Premix IV 09/03/17 10:41 100 mls/hr ONETIME ONE Administration Sodium Chloride 500 mls @ 500 mls/hr 09/03/17 09:11 09/03/17 10:04 Normal Saline IV 09/03/17 10:10 Not Given .BOLUS ONE Sodium Chloride 1,000 mls @ 500 mls/hr 09/03/17 09:23 09/03/17 09:48 Normal Saline IV 09/03/17 11:10 500 mls/hr .BOLUS ONE Administration - Re-Assessments/Exams Free Text/Narrative Re-Assessment/Exam: 09/03/17 09:17 I am suspecting the patient has pneumonia. I will continue the oxygen and get a CXR, labs, blood cultures and a UA. I will also give her a duoneb and start levaquin after the blood cultures. I will give her a fluid bolus of 1L. This is far less then the 30mLs/kg bolus recommended per guidelines. That comes out to about 2.9Ls. That is an excessive amount for the patient. I discussed this with the patient that this is outside of the recommendations but this is an excessive amount and she is in agreement. Her blood pressure is good. 09/03/17 11:58 Her WBC is normal at 8.39. Her CMP is negative. Her UA shows no UTI. Her influenza is negative. Her UA shows no UTI. Dr Arevalo read her CXR as bronchitis. I feel she has bronchitis and early pneumonia. I talked to Dr Min and he agreed to the admission. Departure - Departure Time of Disposition: 12:05 Disposition: Admitted As Inpatient 67 Condition: Serious Clinical Impression: Bronchitis, Hypoxia Pneumonia Qualifiers: Pneumonia type: due to unspecified organism Laterality: right Lung location: lower lobe of lung Qualified Code(s): J18.9 - Pneumonia, unspecified organism Sepsis Qualifiers: Sepsis type: sepsis due to unspecified organism Qualified Code(s): A41.9 - Sepsis, unspecified organism - Discharge Information Forms: ED Department Discharge - My Orders Last 24 Hours: My Active Orders 09/03/17 09:09 Cardiac Monitoring [RC] . DIRECTED Oxygen Therapy [RC] PRN Sodium Chloride 0.9% [Saline Flush] 10 ml FLUSH ASDIRECTED PRN Peripheral IV Insertion Adult [OM.PC] Stat 09/03/17 09:10 Peripheral IV Care [RC] . DIRECTED Blood Culture x2 Reflex Set [OM.PC] Stat 09/03/17 09:11 RT Aerosol Therapy [RC] ASDIRECTED 09/03/17 09:37 CULTURE BLOOD [BC] Stat 09/03/17 09:53 CULTURE BLOOD [BC] Stat 09/03/17 10:34 Urinary Catheter Assessment [RC] ASDIRECTED 09/03/17 10:45 Insert Urinary Catheter [OM.PC] Q24H - Assessment/Plan Last 24 Hours: My Active Orders 09/03/17 09:09 Cardiac Monitoring [RC] . DIRECTED Oxygen Therapy [RC] PRN Sodium Chloride 0.9% [Saline Flush] 10 ml FLUSH ASDIRECTED PRN Peripheral IV Insertion Adult [OM.PC] Stat 09/03/17 09:10 Peripheral IV Care [RC] . DIRECTED Blood Culture x2 Reflex Set [OM.PC] Stat 09/03/17 09:11 RT Aerosol Therapy [RC] ASDIRECTED 09/03/17 09:37 CULTURE BLOOD [BC] Stat 09/03/17 09:53 CULTURE BLOOD [BC] Stat 09/03/17 10:34 Urinary Catheter Assessment [RC] ASDIRECTED 09/03/17 10:45 Insert Urinary Catheter [OM.PC] Q24H
[2017-09-03] MEDS ORDERED: Sodium Chloride 0.9% 1,000 ML IV ONE (09:23)
[2017-09-03] MEDS: Sodium Chloride 0.9% 500 ML IV ONE ×2 (09:31→10:04)
--- NOTE | 2017-09-03 11:45 | CR ---
Chest: Portable view of the chest was obtained. Comparison: Prior chest x-ray of 05/25/17. Heart size is slightly enlarged. Upper mediastinum is mildly widened which appears stable. Lung markings are increased which appear slightly more prominent on the left side from prior exam and difficult to exclude slight bronchitis. Lungs otherwise are clear. Bony structures show scoliosis within the spine with osteopenia. Impression: 1. Equivocal left-sided bronchitis. 2. Other findings as noted above which are stable from prior chest x-ray. Diagnostic code #3
--- NOTE | 2017-09-03 12:11 | PCM.HP ---
<Darrius Min T - Last Filed: 09/03/17 12:11> H&P History of Present Illness - General Date of Service: 09/03/17 Admit Problem/Dx: Acute Bronchitis with Hypoxemia Source of Information: Patient, Old Records, Provider, RN Notes Reviewed History Limitations: Reports: Respiratory Distress - Related Data Allergies/Adverse Reactions: Allergies Allergy/AdvReac Type Severity Reaction Status Date / Time clindamycin Allergy unknown Verified 09/03/17 13:31 herbs in pizza Allergy Cannot Uncoded 09/03/17 09:09 Remember Home Medications: Home Meds Acetaminophen 650 mg PO Q4H PRN 09/03/17 [History] Albuterol/Ipratropium [DuoNeb 3.0-0.5 MG/3 ML] 3 ml NEB BIDRT 09/03/17 [History] Albuterol/Ipratropium [DuoNeb 3.0-0.5 MG/3 ML] 3 ml NEB QID PRN 09/03/17 [ History] Aspirin [Halfprin] 81 mg PO DAILY 09/03/17 [History] Budesonide [Pulmicort] 0.5 mg IH BID 09/03/17 [History] Calcium Carbonate/Vitamin D3 [Calcium 600 + Vit D 200] 1 each PO BID 09/03/17 [ History] Cranberry Extract [Cranberry] 400 mg PO BID 09/03/17 [History] Divalproex Sodium [Depakote ER] 500 mg PO BID 09/03/17 [History] Insulin Aspart [Novolog] 18 unit SQ TIDMEALS 09/03/17 [History] Insulin Detemir [Levemir] 40 unit SQ QAM 09/03/17 [History] Levothyroxine [Synthroid] 100 mcg PO QPM 09/03/17 [History] Liraglutide [Victoza] 1.8 mg SUBCUT BEDTIME 09/03/17 [History] Magnesium Oxide [Magnesium] 400 mg PO BID 09/03/17 [History] Multivitamin [Daily Multiple Vitamin] 1 tab PO DAILY 09/03/17 [History] Nystatin [Nystatin Crm] 30 gm TOP BID 09/03/17 [History] OLANZapine [Zyprexa] 15 mg PO BEDTIME 09/03/17 [History] Paliperidone [Invega] 12 mg PO DAILY 09/03/17 [History] Ranitidine [Zantac] 150 mg PO BID 09/03/17 [History] Rosuvastatin [Crestor] 10 mg PO QPM 09/03/17 [History] guaiFENesin [Mucinex] 600 mg PO BID 09/03/17 [History] Past Medical History HEENT History: Reports: Cataract Cardiovascular History: Reports: High Cholesterol, Hypertension Other Cardiovascular History: edema, hyponatremia Respiratory History: Reports: COPD Other Respiratory History: aspiration pneumonia, 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, hypoxemia Gastrointestinal History: Reports: Pancreatitis Other Gastrointestinal History: pancreatic mass, Vit D deficiency Genitourinary History: Reports: Urinary Incontinence Musculoskeletal History: Reports: Arthritis Other Musculoskeletal History: ingrown nail Neurological History: Reports: Neuropathy, Diabetic Other Neuro History: resting tremor left arm Psychiatric History: Reports: Anxiety, Schizophrenia Other Psychiatric History: delusional disorder Endocrine/Metabolic History: Reports: Diabetes, Type II, Hypothyroidism, Obesity /BMI 30+, Vitamin D Deficiency Other Oncologic History: Pancreatic mass (dx 2013) of unknown etiology - no tx desired - Infectious Disease History Infectious Disease History: Reports: MRSA - Past Surgical History Other Oncologic Surgeries/Procedures: PANCREATIC MASS Social & Family History - Family History Family Medical History: Noncontributory - Tobacco Use Smoking Status *Q: Never Smoker Second Hand Smoke Exposure: No - Caffeine Use Caffeine Use: Reports: Coffee - Alcohol Use Days Per Week of Alcohol Use: 0 - Recreational Drug Use Recreational Drug Use: No - Living Situation & Occupation Living situation: Reports: Extended Care Facility Occupation: Retired H&P Review of Systems - Review of Systems: Review Of Systems: See Below Exam - Exam Exam: See Below - Vital Signs Vital Signs: Last Vital Signs Temp 37.2 C 09/03/17 09:00 Pulse 86 09/03/17 09:00 Resp 22 H 09/03/17 09:00 BP 102/64 09/03/17 09:00 Pulse Ox 98 09/03/17 09:11 Weight: 214 lb 8 oz - Patient Data Lab Results Last 24 hrs: Laboratory Results - last 24 hr 09/03/17 09/03/17 09/03/17 Range/Units 08:50 08:50 09:37 WBC 8.39 (3.98-10.04) K/mm3 RBC 3.69 L (3.98-5.22) M/mm3 Hgb 12.3 (11.2-15.7) gm/L Hct 39.2 (34.1-44.9) % MCV 106.2 H (79.4-94.8) fl MCH 33.3 H (25.6-32.2) pg MCHC 31.4 L (32.2-35.5) g/dl RDW Std Deviation 53.9 H (36.4-46.3) fL Plt Count 171 L (182-369) K/mm3 MPV 8.8 L (9.4-12.3) fl Neut % (Auto) 79.4 H (34.0-71.1) % Lymph % (Auto) 9.8 L (19.3-51.7) % [place] % (Auto) 9.4 (4.7-12.5) % Eos % (Auto) 1.1 (0.7-5.8) Baso % (Auto) 0.1 (0.1-1.2) % Neut # (Auto) 6.66 H (1.56-6.13) K/mm3 Lymph # (Auto) 0.82 L (1.18-3.74) K/mm3 [place] # (Auto) 0.79 H (0.24-0.36) K/mm3 Eos # (Auto) 0.09 (0.04-0.36) K/mm3 Baso # (Auto) 0.01 (0.01-0.08) K/mm3 Manual Slide Review Abnormal smear Sodium 144 (136-145) mEq/L Potassium 4.6 (3.5-5.1) mEq/L Chloride 105 (98-107) mEq/L Carbon Dioxide 35 H (21-32) mEq/L Anion Gap 8.6 (5-15) BUN 14 (7-18) mg/dL Creatinine 0.6 (0.55-1.02) mg/dL Est Cr Clr Drug Dosing TNP Estimated GFR (MDRD) > 60 (>60) mL/min BUN/Creatinine Ratio 23.3 H (14-18) Glucose 134 H (83-115) mg/dL Lactic Acid 1.0 (0.4-2.0) mmol/L Calcium 9.0 (8.5-10.1) mg/dL Total Bilirubin 0.2 (0.2-1.0) mg/dL AST 16 (15-37) U/L ALT 17 (14-59) U/L Alkaline Phosphatase 48 (46-116) U/L Total Protein 6.5 (6.4-8.2) g/dl Albumin 2.4 L (3.4-5.0) g/dl Globulin 4.1 gm/dL Albumin/Globulin Ratio 0.6 L (1-2) Urine Color (Yellow) Urine Appearance (Clear) Urine pH (5.0-8.0) Ur Specific [place] (1.005-1.030) Urine Protein (Negative) Urine Glucose (UA) (Negative) Urine Ketones (Negative) Urine Occult Blood (Negative) Urine Nitrite (Negative) Urine Bilirubin (Negative) Urine Urobilinogen (0.2-1.0) Ur Leukocyte Esterase (Negative) Urine RBC (0-5) /hpf Urine WBC (0-5) /hpf Ur Epithelial Cells (0-5) /hpf Urine Bacteria (FEW) /hpf Urine Mucus (FEW) /hpf 09/03/17 Range/Units 10:20 WBC (3.98-10.04) K/mm3 RBC (3.98-5.22) M/mm3 Hgb (11.2-15.7) gm/L Hct (34.1-44.9) % MCV (79.4-94.8) fl MCH (25.6-32.2) pg MCHC (32.2-35.5) g/dl RDW Std Deviation (36.4-46.3) fL Plt Count (182-369) K/mm3 MPV (9.4-12.3) fl Neut % (Auto) (34.0-71.1) % Lymph % (Auto) (19.3-51.7) % [place] % (Auto) (4.7-12.5) % Eos % (Auto) (0.7-5.8) Baso % (Auto) (0.1-1.2) % Neut # (Auto) (1.56-6.13) K/mm3 Lymph # (Auto) (1.18-3.74) K/mm3 [place] # (Auto) (0.24-0.36) K/mm3 Eos # (Auto) (0.04-0.36) K/mm3 Baso # (Auto) (0.01-0.08) K/mm3 Manual Slide Review Sodium (136-145) mEq/L Potassium (3.5-5.1) mEq/L Chloride (98-107) mEq/L Carbon Dioxide (21-32) mEq/L Anion Gap (5-15) BUN (7-18) mg/dL Creatinine (0.55-1.02) mg/dL Est Cr Clr Drug Dosing Estimated GFR (MDRD) (>60) mL/min BUN/Creatinine Ratio (14-18) Glucose (83-115) mg/dL Lactic Acid (0.4-2.0) mmol/L Calcium (8.5-10.1) mg/dL Total Bilirubin (0.2-1.0) mg/dL AST (15-37) U/L ALT (14-59) U/L Alkaline Phosphatase (46-116) U/L Total Protein (6.4-8.2) g/dl Albumin (3.4-5.0) g/dl Globulin gm/dL Albumin/Globulin Ratio (1-2) Urine Color Yellow (Yellow) Urine Appearance Clear (Clear) Urine pH 6.0 (5.0-8.0) Ur Specific [place] 1.025 (1.005-1.030) Urine Protein Negative (Negative) Urine Glucose (UA) Negative (Negative) Urine Ketones 1+ H (Negative) Urine Occult Blood Negative (Negative) Urine Nitrite Negative (Negative) Urine Bilirubin 1+ H (Negative) Urine Urobilinogen 0.2 (0.2-1.0) Ur Leukocyte Esterase Negative (Negative) Urine RBC 0-5 (0-5) /hpf Urine WBC 0-5 (0-5) /hpf Ur Epithelial Cells 0-5 (0-5) /hpf Urine Bacteria Few (FEW) /hpf Urine Mucus Few (FEW) /hpf Result Diagrams: 09/03/17 08:50 09/03/17 08:50 Gene Results Last 24 hrs: Microbiology 09/03/17 10:20 Influenza Type A Antigen Screen - Final Nasopharyngeal Swab - Nare, Unspecified NEGATIVE INFLUENZA A VIRUS AG Influenza Type B Antigen Screen - Final NEGATIVE INFLUENZA B VIRUS AG *Q Meaningful Use (ADM) - VTE *Q VTE Criteria *Q: - Stroke *Q Stroke Criteria *Q: - AMI *Q AMI Criteria *Q: Problem List Initiated/Reviewed/Updated: Yes Orders Last 24hrs: Active Orders 24 hr Category Date Time Status Cardiac Monitoring [RC] . DIRECTED Care 09/03/17 09:09 Active Insert Urinary Catheter [OM.PC] Q24H Care 09/03/17 10:45 Ordered Oxygen Therapy [RC] PRN Care 09/03/17 09:09 Active Peripheral IV Care [RC] . DIRECTED Care 09/03/17 09:10 Active RT Aerosol Therapy [RC] ASDIRECTED Care 09/03/17 09:11 Active Urinary Catheter Assessment [RC] ASDIRECTED Care 09/03/17 10:34 Active CULTURE BLOOD [BC] Stat Lab 09/03/17 09:37 Received CULTURE BLOOD [BC] Stat Lab 09/03/17 09:53 Received Sodium Chloride 0.9% [Saline Flush] Med 09/03/17 09:09 Active 10 ml FLUSH ASDIRECTED PRN Blood Culture x2 Reflex Set [OM.PC] Stat Oth 09/03/17 09:10 Ordered Peripheral IV Insertion Adult [OM.PC] Stat Oth 09/03/17 09:09 Ordered Medication Orders Sodium Chloride (Saline Flush) 10 ml FLUSH ASDIRECTED PRN PRN Reason: Keep Vein Open Last Admin: 09/03/17 09:32 Dose: 10 ml <Ismael Albarran - Last Filed: 09/03/17 18:16> H&P History of Present Illness - General Admit Problem/Dx: Admission Diagnosis/Problem Admission Diagnosis/Problem Hypoxia Source of Information: Patient, Old Records, Provider, RN, RN Notes Reviewed History Limitations: Reports: Respiratory Distress, Other (Hx/o schizophrenia and dilusional disorder. Somewhat difficult to inverview as her answers often are unrleated to questions. ) - History of Present Illness Initial Comments - Free Text/Narative: Malika Walker is a 76 yo female who resides at [facility] in [place] who presents to our ED today (09/03/17) with hypoxia, fever, productive cough. She has been having trouble for several days. Influenza was checked on Thursday by nursing staff and that was negative. As far she was found to have a temp of 101 as well as a productive cough. She is a history of COPD and is oxygen dependent, usually on 3 L by nasal cannula. EMS was called and saturations were found to be in the 80s on their arrival. In route now treatments were given and oxygen was increased to 5 L. Arrival her oxygen saturation are better. She complains of cough and some lower abdominal pain. Denies chest pain. She is short of breath, but denies nausea or vomiting. In the ED temp was 98.9F. Pulse 86. Respirations 22. BNP was 102/64. Pulse ox is 90%. Labs were obtained: W CBC was normal at 8.39. Hemoglobin 12.3. Hematocrit 39.2. She is macrocytic. Neutrophils were elevated at 79.4%. Sodium was good at 144. Potassium 4.6. Chloride 105. Carbon dioxide was elevated at 35. Anion gap was 8.6. BUN was 14. Creatinine 0.6. EGFR is greater than 60. Glucose 134. Lactic acid 1.0. Calcium 9.0. Bilirubin was 0.2. Liver enzymes looked good with AST at 16, ALT of 17, alkaline phosphatase of 48. Albumin was low at 2.4. UA was negative however, one plus ketones and 1 + bilirubin were noted. She was given a 500 mL and asked bolus. Levaquin 750 mg was initiated. She was also given duo nebs. Chest x-ray was obtained and interpreted by Dr. Arevalo as 1. He is equivocal left-sided bronchitis. 2. Other findings as noted above which are stable from prior chest x-ray. She carries a history of: HLD, HTN, edema, COPD, vitamin C deficiency, urinary incontinence, diabetic neuropathy, resting left arm tremor, anxiety, schizophrenia, delusional disorder, diabetes type 2, hypothyroidism, obesity, and a pancreatic mass diagnosed in 2013 of unknown etiology-no treatment is desired. She is a nonsmoker. She has subsequently admitted to the medical floor. She is a DNR. Her PCP is Dr. Bonilla at [facility] here in [place]. H&P Review of Systems - Review of Systems: Review Of Systems: See Below Free Text/Narrative: As noted, patient is somewhat difficult to obtain a review of systems from as she often answers questions appropriately or changes in mood from happy to sad. General: Reports: Fever, Chills, Weakness, Fatigue HEENT: Reports: No Symptoms Pulmonary: Reports: Shortness of Breath, Cough, Sputum Cardiovascular: Reports: Edema (chronic ). Denies: Chest Pain, Lightheadedness Gastrointestinal: Reports: No Symptoms. Denies: Abdominal Pain, Constipation, Diarrhea, Nausea, Vomiting Genitourinary: Reports: No Symptoms Musculoskeletal: Reports: No Symptoms Skin: Reports: Wound ("on left foot that will go into my heart and then to my brain") Psychiatric: Reports: Confusion, Mood Lability, Anxiety, Other (History of schizophrenia and delusional disorder.) Neurological: Reports: Confusion. Denies: Headache, Numbness, Trouble Speaking Hematologic/Lymphatic: Reports: No Symptoms Immunologic: Reports: No Symptoms Exam - Exam Exam: See Below - Vital Signs Vital Signs: Last Vital Signs Temp 98.2 F 09/03/17 15:48 Pulse 79 09/03/17 15:48 Resp 20 09/03/17 15:48 BP 112/58 L 09/03/17 15:48 Pulse Ox 93 L 09/03/17 15:48 - Exam Quality Assessment: Supplemental Oxygen, DVT Prophylaxis General: Alert, Cooperative. No: Mild Distress HEENT: Conjunctiva Clear, EACs Clear, EOMI, Hearing Intact, Mucosa Moist & [place] , Nares Patent, Normal Nasal Septum, Posterior Pharynx Clear, PERRLA Neck: Supple, Trachea Midline. No: JVD, Thyromegaly Lungs: Normal Respiratory Effort, Decreased Breath Sounds, Rhonchi Cardiovascular: Regular Rate, Regular Rhythm, Normal S1, Normal S2 GI/Abdominal Exam: Normal Bowel Sounds, Soft, Non-Tender, No Organomegaly, No Distention, No Abnormal Bruit, No Mass, Pelvis Stable (Female) Exam: Deferred Rectal (Female) Exam: Deferred Back Exam: Normal Inspection Extremities: Normal Inspection, Non-Tender, Pedal Edema (1+ ) Peripheral Pulses: 2+: Radial (L), Radial (R), Posterior Tibial (L), Posterior Tibial (R), Dorsalis Pedis (L), Dorsalis Pedis (R) Skin: Warm, Dry, Wound (to left and right buttocks and coccyx. Dressings in place. ) Neurological: Cranial Nerves Intact (Grossly) Neuro Extensive - Mental Status: Alert, Disorientation to Time, Inattentive, Other (Frequently changes conversation. Mood fluctuates rapidly.) Neuro Extensive - Motor, Sensory, Reflexes: CN II-XII Intact (Grossly) Psychiatric: Alert, Labile Mood, Anxious, Other (History of schizophrenia and delusional disorder) - Patient Data Lab Results Last 24 hrs: Laboratory Results - last 24 hr 09/03/17 09/03/17 Range/Units 13:25 16:29 POC Glucose 90 (83-110) mg/dL MRSA (PCR) Negative Result Diagrams: 09/03/17 08:50 09/03/17 08:50 *Q Meaningful Use (ADM) - VTE *Q VTE Criteria *Q: - Stroke *Q Stroke Criteria *Q: - AMI *Q AMI Criteria *Q: - Problem List (1) Bronchitis SNOMED Code(s): 97447104 ICD Code: J40 - BRONCHITIS, NOT SPECIFIED ACUTE OR CHRONIC Status: Acute Priority: High Current Visit: Yes (2) Hypoxia SNOMED Code(s): 801233960 ICD Code: R09.02 - HYPOXEMIA Status: Acute Current Visit: Yes (3) HLD (hyperlipidemia) SNOMED Code(s): 03257173 ICD Code: E78.5 - HYPERLIPIDEMIA, UNSPECIFIED Status: Chronic Priority: Low Current Visit: No Qualifiers: Hyperlipidemia type: unspecified Qualified Code(s): E78.5 - Hyperlipidemia , unspecified (4) HTN (hypertension) SNOMED Code(s): 66959659 ICD Code: I10 - ESSENTIAL (PRIMARY) HYPERTENSION Status: Chronic Priority : Low Current Visit: No Qualifiers: Hypertension type: essential hypertension Qualified Code(s): I10 - Essential (primary) hypertension (5) Diabetic neuropathy SNOMED Code(s): 025732334 ICD Code: E11.40 - TYPE 2 DIABETES MELLITUS WITH DIABETIC NEUROPATHY, UNSP Status: Chronic Priority: Low Current Visit: No Qualifiers: Diabetes mellitus type: type 2 Diabetes mellitus complication detail: with other neurological complication Qualified Code(s): E11.49 - Type 2 diabetes mellitus with other diabetic neurological complication (6) Type II diabetes mellitus SNOMED Code(s): 70101439 ICD Code: E11.9 - TYPE 2 DIABETES MELLITUS WITHOUT COMPLICATIONS Status: Chronic Priority: Medium Current Visit: Yes Qualifiers: Diabetes mellitus complication status: with unspecified complications Diabetes mellitus long-term insulin use: with ecg technician use Qualified Code(s) : E11.8 - Type 2 diabetes mellitus with unspecified complications; Z79.4 - 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 insulin; Z79.4 - 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 insulin; Z79.4 - penitentiary (current) use of insulin; Z79.4 - penitentiary (current) use of insulin (7) Resting tremor SNOMED Code(s): 97432356 ICD Code: R25.9 - UNSPECIFIED ABNORMAL INVOLUNTARY MOVEMENTS Status: Chronic Priority: Low Current Visit: No (8) Anxiety SNOMED Code(s): 05571553 ICD Code: F41.9 - ANXIETY DISORDER, UNSPECIFIED Status: Chronic Priority : Low Current Visit: No (9) Schizophrenia SNOMED Code(s): 18116471 ICD Code: F20.9 - SCHIZOPHRENIA, UNSPECIFIED Status: Chronic Priority: Low Current Visit: Yes Qualifiers: Schizophrenia type: unspecified Qualified Code(s): F20.9 - Schizophrenia, unspecified (10) Delusional disorder SNOMED Code(s): 84299029 ICD Code: F22 - DELUSIONAL DISORDERS Status: Chronic Priority: Low Current Visit: Yes (11) Hypothyroidism SNOMED Code(s): 18114983 ICD Code: E03.9 - HYPOTHYROIDISM, UNSPECIFIED Status: Chronic Priority: Low Current Visit: No Qualifiers: Hypothyroidism type: unspecified Qualified Code(s): E03.9 - Hypothyroidism , unspecified (12) Obesity (BMI 30.0-34.9) SNOMED Code(s): 437684903 ICD Code: E66.9 - OBESITY, UNSPECIFIED Status: Chronic Priority: Low Current Visit: Yes (13) Pancreatic mass SNOMED Code(s): 572380840 ICD Code: K86.9 - DISEASE OF PANCREAS, UNSPECIFIED Status: Chronic Priority: Low Current Visit: No Problem List Initiated/Reviewed/Updated: Yes Orders Last 24hrs: Active Orders 24 hr Category Date Time Status Accu Check [Blood Glucose Check, Bedside] [RC] 07,,17 Care 09/03/17 13:14 Active ,21 Dextromethorphan/guaiFENesin [Robitussin DM] Med 09/03/17 13:15 Active 10 ml PO Q6H PRN methylPREDNISolone Sod Succ [Solu-MEDROL] Med 09/03/17 13:30 Active 40 mg IVPUSH Q8H Resuscitation Status Routine Resus Stat 09/03/17 12:22 Ordered Medication Orders Acetaminophen (Tylenol) 650 mg PO Q4H PRN PRN Reason: Fever Acetaminophen (Tylenol) 650 mg PO Q4H PRN PRN Reason: Pain (Mild 1-3)/fever Hydrocodone Bitart/Acetaminophen ([place] 325-5 Mg) 1 tab PO Q4H PRN PRN Reason: Pain (moderate 4-6) Albuterol/Ipratropium (Duoneb 3.0-0.5 Mg/3 Ml) 3 ml NEB QID PRN PRN Reason: Shortness of Breath Albuterol/Ipratropium (Duoneb 3.0-0.5 Mg/3 Ml) 3 ml NEB BIDRT [facility] Aspirin (Halfprin) 81 mg PO DAILY [facility] Bisacodyl (Dulcolax) 5 mg PO DAILY PRN PRN Reason: Constipation Calcium Carbonate (Calcium Carbonate/Vitamin D 1500 Mg-200 Unit) 1 tab PO BID [facility] Divalproex Sodium (Depakote Sprinkle) 500 mg PO BID [facility] Docusate Sodium (Colace) 100 mg PO BID PRN PRN Reason: Constipation Famotidine (Pepcid) 20 mg PO BID [facility] Guaifenesin/Phenylephrine HCl (Robitussin Dm) 10 ml PO Q6H PRN PRN Reason: COUGH Hydralazine HCl (Apresoline) 20 mg IVPUSH Q4H PRN PRN Reason: Hypertension Hydromorphone HCl (Dilaudid) 0.25 mg IVPUSH Q2H PRN PRN Reason: Pain (severe 7-10) Promethazine HCl 12.5 mg/ (Sodium Chloride) 50.5 mls @ 100 mls/hr IV Q6H PRN PRN Reason: Nausea/Vomiting Azithromycin 500 mg/ Sodium (Chloride) 250 mls @ 250 mls/hr IV Q24H [facility] Ceftriaxone Sodium 1 gm/ (Sodium Chloride) 100 mls @ 200 mls/hr IV Q24H [facility] Insulin Aspart (Novolog) 18 unit SUBCUT TIDMEALS [facility] Last Admin: 09/03/17 16:31 Dose: Not Given Insulin Detemir (Levemir) 40 unit SUBCUT QAM [facility] Levothyroxine Sodium (Synthroid) 100 mcg PO QPM [facility] Lorazepam (Ativan) 0.5 mg IV Q6H PRN PRN Reason: Anxiety Magnesium Oxide (Magnesium Oxide) 400 mg PO BID [facility] Magnesium Sulfate (Pharmacy To Dose - Magnesium Replacement) 1 dose .XX ASDIRECTED [facility] Methylprednisolone Sodium Succinate (Solu-Medrol) 40 mg IVPUSH Q8H [facility] Last Admin: 09/03/17 15:12 Dose: 40 mg Metoprolol Tartrate (Lopressor) 5 mg IVPUSH Q4H PRN PRN Reason: Tachycardia Multivitamins (Thera) 1 each PO DAILY [facility] Nystatin (Nystatin Crm) 30 gm TOP BID [facility] Olanzapine (Zyprexa) 15 mg PO BEDTIME [facility] Ondansetron HCl (Zofran) 4 mg IV Q6H PRN PRN Reason: Nausea/Vomiting Liraglutide 1.8 Mg 0 each SUBCUT BEDTIME [facility] Paliperidone [Invega (] 12 Mg) 0 each PO DAILY [facility] Polyethylene Glycol (Miralax) 17 gm PO DAILY PRN PRN Reason: Constipation Potassium Chloride (Pharmacy To Dose - Potassium Replacement) 1 dose .XX ASDIRECTED [facility] Rosuvastatin Calcium (Crestor) 10 mg PO QPM [facility] Senna/Docusate Sodium (Senna Plus) 1 tab PO BID PRN PRN Reason: Constipation Sodium Chloride (Saline Flush) 10 ml FLUSH ASDIRECTED PRN PRN Reason: Keep Vein Open Last Admin: 09/03/17 09:32 Dose: 10 ml Temazepam (Restoril) 7.5 mg PO BEDTIME PRN PRN Reason: Sleep Assessment/Plan Comment:: I/P: Acute: Bronchitis -[place] reports fever of 101, negative for fever in ED -Negative influenza - checked at [facility] -Productive cough - ? early pneumonia component as well -Hypoxia - Saturations in low 80's on EMS arrival -Hx/o COPD - on oxygen 3L via [place] chronically -CXR in ED on 09/03/[address] Arevalo -1. Equivocal left-sided bronchitis -2. Other findings as noted - stable from prior chest x-ray -WBC 8.39 -Lactic acid 1.0 -CRP ordered -Blood cultures pending -Sputum culture ordered -Levaquin 750mg started in ED - stop -Will start Rocephin 1gm Q24Hr and azithromycin 500 mg Q24Hr -Duonebs/IS/RT to evaluate and treat -Robitussin DM 10ml Q6hr PRN -Solu-medrol 40mg IVP Q8hr -Oxygen, titrate as needed - attempt to return to baseline -Repeat CXR in 24-48 hours Chronic: HLD HTN - stable with home meds Edema COPD - on 3L O2 at home regularly Pancreatic mass - does not want treatment Urinary incontinence Vitamin D deficiency Arthritis Diabetic neuropathy - home meds as ordered Resting left arm tremor Anxiety - stable Schizophrenia - stable Delusional disorder - stable Type II DM - Continue home insulin routine, blood sugars QID AC and bedtime Hypothyroidism Obesity Plan: Admit to medical floor CM for discharge planning PT/OT Other orders as indicated above Home medications as ordered Routine AM labs GI prophylaxis: home pepcid DVT/PE prophylaxis: SCDs and ambulation Code Status: DNR. Her PCP is Dr. Bonilla at [facility] here in [place].
[2017-09-03] MEDS ORDERED: Albuterol/Ipratropium 3.0-0.5 MG/3 ML Neb Soln NEB PRN (12:14)
[2017-09-03] MEDS ORDERED: Acetaminophen 325 MG Tab PO PRN ×2 (12:14→12:22)
[2017-09-03] MEDS ORDERED: Metoprolol Tartrate 5 MG/5 ML SDV IVPUSH PRN (12:21)
[2017-09-03] MEDS ORDERED: hydrALAZINE 20 MG/ML SDV IVPUSH PRN (12:21)
[2017-09-03] MEDS ORDERED: Acetaminophen/HYDROcodone 325-5 MG Tab PO PRN (12:22)
[2017-09-03] MEDS ORDERED: Promethazine 12.5 MG in Sodium Chloride 0.9% 50 ML IV PRN (12:22)
[2017-09-03] MEDS ORDERED: Polyethylene Glycol 3350 Powder 17 GM Packet PO PRN (12:22)
[2017-09-03] MEDS ORDERED: Bisacodyl 5 MG Tab PO PRN (12:22)
[2017-09-03] MEDS ORDERED: Temazepam 7.5 MG Cap PO PRN (12:22)
[2017-09-03] MEDS ORDERED: Docusate Sodium 100 MG Cap PO PRN (12:22)
[2017-09-03] MEDS ORDERED: Ondansetron 4 MG/2 ML SDV IV PRN (12:22)
[2017-09-03] MEDS ORDERED: LORazepam 2 MG/ML MDV IV PRN (12:22)
[2017-09-03] MEDS ORDERED: HYDROmorphone 0.5 MG/0.5 ML Syringe IVPUSH PRN (12:22)
[2017-09-03] MEDS ORDERED: guaiFENesin/Dextromethorphan 100-10 MG/5 ML Soln 5 ML Cup PO SCH (12:30)
[2017-09-03] MEDS: methylPREDNISolone Sodium Succinate 40 MG/1 ML SDV IVPUSH SCH ×2 (15:12→22:14)
[2017-09-03] MEDS: Insulin Aspart 100 Units/ML 3 ML Pen SUBCUT SCH (16:31)
[2017-09-03] MEDS: Rosuvastatin 10 MG Tab PO SCH (18:07)
[2017-09-03] MEDS: Levothyroxine 100 MCG Tab PO SCH (18:07)
[2017-09-03] MEDS: Albuterol/Ipratropium 3.0-0.5 MG/3 ML Neb Soln NEB SCH (20:42)
[2017-09-03] MEDS: Divalproex Sodium Delayed-Release 125 MG Cap.Sprink PO SCH (22:07)
[2017-09-03] MEDS: Calcium Carbonate/Vitamin D3 1500 MG-200 Units Tab PO SCH (22:07)
[2017-09-03] MEDS: Famotidine 20 MG Tab PO SCH (22:09)
[2017-09-03] MEDS: OLANZapine 5 MG Tab PO SCH (22:09)
[2017-09-03] MEDS: Magnesium Oxide 400 MG Tab PO SCH (22:09)
[2017-09-03] MEDS: Nystatin Crm 30 GM Tube TOP SCH (22:33)
[2017-09-03] MEDS: guaiFENesin/Dextromethorphan 100-10 MG/5 ML Soln 5 ML Cup PO PRN (23:44)
[2017-09-04] MEDS ORDERED: 50% Dextrose in Water 50 ML Syringe IVPUSH PRN (00:05)
[2017-09-04] MEDS: methylPREDNISolone Sodium Succinate 40 MG/1 ML SDV IVPUSH SCH ×3 (05:22→22:24)
[2017-09-04] MEDS: Albuterol/Ipratropium 3.0-0.5 MG/3 ML Neb Soln NEB SCH ×2 (06:22→20:39)
--- NOTE | 2017-09-04 07:17 | PCM.PN ---
- General Info Date of Service: 09/04/17 Admission Dx/Problem (Free Text): Admission Diagnosis/Problem Admission Diagnosis/Problem Hypoxia Subjective Update: In to see Malika today. She reports she is feeling "much better." She states her shortness of breath is back to normal. She reports her cough has greatly improved since she began getting cough medicine. She reports no new complaints. No concerns overnight. She will have a chest x-ray tomorrow. Functional Status: Reports: Pain Controlled, Tolerating Diet, Urinating. Denies : New Symptoms - Review of Systems General: Reports: No Symptoms. Denies: Fever, Weakness, Fatigue, Malaise HEENT: Reports: No Symptoms. Denies: Ear Pain, Eye Pain, Headaches, Sore Throat Pulmonary: Reports: Shortness of Breath (chronic - at baseline ), Pleuritic Chest Pain (when coughing ), Cough, Sputum Cardiovascular: Reports: Dyspnea on Exertion (chronic ). Denies: Chest Pain, Palpitations, Lightheadedness Gastrointestinal: Reports: No Symptoms. Denies: Abdominal Pain, Constipation, Diarrhea, Nausea, Vomiting Genitourinary: Reports: No Symptoms Musculoskeletal: Reports: No Symptoms Skin: Reports: No Symptoms Neurological: Reports: No Symptoms Psychiatric: Reports: No Symptoms - Patient Data Vitals - Most Recent: Last Vital Signs Temp 97.2 F 09/04/17 05:31 Pulse 70 09/04/17 05:33 Resp 22 H 09/04/17 05:33 BP 111/61 09/04/17 05:31 Pulse Ox 93 L 09/04/17 06:24 Weight - Most Recent: 224 lb 3.2 oz I&O - Last 24 Hours: Intake & Output 09/03/17 09/04/17 09/04/17 22:59 06:59 14:59 Intake Total 100 200 Balance 100 200 Lab Results Last 24 Hours: Laboratory Results - last 24 hr 09/03/17 09/03/17 09/03/17 Range/Units 13:25 16:29 21:33 POC Glucose 90 262 H (83-110) mg/dL MRSA (PCR) Negative 09/04/17 Range/Units 05:44 POC Glucose 194 H (83-110) mg/dL MRSA (PCR) Med Orders - Current: Current Medications Acetaminophen (Tylenol) 650 mg PO Q4H PRN PRN Reason: Fever Acetaminophen (Tylenol) 650 mg PO Q4H PRN PRN Reason: Pain (Mild 1-3)/fever Hydrocodone Bitart/Acetaminophen ([place] 325-5 Mg) 1 tab PO Q4H PRN PRN Reason: Pain (moderate 4-6) Albuterol/Ipratropium (Duoneb 3.0-0.5 Mg/3 Ml) 3 ml NEB QID PRN PRN Reason: Shortness of Breath Last Admin: 09/04/17 00:04 Dose: 3 ml Albuterol/Ipratropium (Duoneb 3.0-0.5 Mg/3 Ml) 3 ml NEB BIDRT [facility], [facility] Last Admin: 09/04/17 06:22 Dose: 3 ml Aspirin (Halfprin) 81 mg PO DAILY [facility] Benzonatate (Tessalon Perles) 100 mg PO TID PRN PRN Reason: Cough Bisacodyl (Dulcolax) 5 mg PO DAILY PRN PRN Reason: Constipation Calcium Carbonate (Calcium Carbonate/Vitamin D 1500 Mg-200 Unit) 1 tab PO BID [facility] Last Admin: 09/03/17 22:07 Dose: 1 tab Dextrose/Water (Dextrose 50% In Water) 50 ml IVPUSH ASDIRECTED PRN PRN Reason: Hypoglycemia Divalproex Sodium (Depakote Sprinkle) 500 mg PO BID [facility] Last Admin: 09/03/17 22:07 Dose: 500 mg Docusate Sodium (Colace) 100 mg PO BID PRN PRN Reason: Constipation Famotidine (Pepcid) 20 mg PO BID [facility] Last Admin: 09/03/17 22:09 Dose: 20 mg Guaifenesin/Phenylephrine HCl (Robitussin Dm) 10 ml PO Q6H PRN PRN Reason: COUGH Last Admin: 09/03/17 23:44 Dose: 10 ml Hydralazine HCl (Apresoline) 20 mg IVPUSH Q4H PRN PRN Reason: Hypertension Hydromorphone HCl (Dilaudid) 0.25 mg IVPUSH Q2H PRN PRN Reason: Pain (severe 7-10) Promethazine HCl 12.5 mg/ (Sodium Chloride) 50.5 mls @ 100 mls/hr IV Q6H PRN PRN Reason: Nausea/Vomiting Azithromycin 500 mg/ Sodium (Chloride) 250 mls @ 250 mls/hr IV Q24H [facility] Ceftriaxone Sodium 1 gm/ (Sodium Chloride) 100 mls @ 200 mls/hr IV Q24H [facility] Insulin Aspart (Novolog) 18 unit SUBCUT TIDMEALS [facility] Last Admin: 09/03/17 16:31 Dose: Not Given Insulin Aspart (Novolog) 0 unit SUBCUT QIDACANDBED [facility] PRN Reason: Protocol Insulin Detemir (Levemir) 40 unit SUBCUT QAM [facility] Levothyroxine Sodium (Synthroid) 100 mcg PO QPM [facility] Last Admin: 09/03/17 18:07 Dose: 100 mcg Lorazepam (Ativan) 0.5 mg IV Q6H PRN PRN Reason: Anxiety Last Admin: 09/04/17 00:18 Dose: 0.5 mg Magnesium Oxide (Magnesium Oxide) 400 mg PO BID [facility] Last Admin: 09/03/17 22:09 Dose: 400 mg Magnesium Sulfate (Pharmacy To Dose - Magnesium Replacement) 1 dose .XX ASDIRECTED [facility], [facility]1983 Methylprednisolone Sodium Succinate (Solu-Medrol) 40 mg IVPUSH Q8H [facility] Last Admin: 09/04/17 05:22 Dose: 40 mg Metoprolol Tartrate (Lopressor) 5 mg IVPUSH Q4H PRN PRN Reason: Tachycardia Multivitamins (Thera) 1 each PO DAILY [facility] Nystatin (Nystatin Crm) 30 gm TOP BID [facility] Last Admin: 09/03/17 22:33 Dose: 1 applic Olanzapine (Zyprexa) 15 mg PO BEDTIME [facility] Last Admin: 09/03/17 22:09 Dose: 15 mg Ondansetron HCl (Zofran) 4 mg IV Q6H PRN PRN Reason: Nausea/Vomiting Liraglutide 1.8 Mg 0 each SUBCUT BEDTIME [facility] Last Admin: 09/04/17 01:47 Dose: Not Given Paliperidone [Invega (] 12 Mg) 0 each PO DAILY [facility] Polyethylene Glycol (Miralax) 17 gm PO DAILY PRN PRN Reason: Constipation Potassium Chloride (Pharmacy To Dose - Potassium Replacement) 1 dose .XX ASDIRECTED [facility] Rosuvastatin Calcium (Crestor) 10 mg PO QPM [facility] Last Admin: 09/03/17 18:07 Dose: 10 mg Senna/Docusate Sodium (Senna Plus) 1 tab PO BID PRN PRN Reason: Constipation Sodium Chloride (Saline Flush) 10 ml FLUSH ASDIRECTED PRN PRN Reason: Keep Vein Open Last Admin: 09/03/17 09:32 Dose: 10 ml Temazepam (Restoril) 7.5 mg PO BEDTIME PRN PRN Reason: Sleep Discontinued Medications Albuterol/Ipratropium (Duoneb 3.0-0.5 Mg/3 Ml) 3 ml NEB ONETIME ONE Stop: 09/03/17 09:12 Last Admin: 09/03/17 09:53 Dose: 3 ml Guaifenesin/Phenylephrine HCl (Robitussin Dm) 10 ml PO Q6H FITO Last Admin: 09/03/17 13:53 Dose: Not Given Levofloxacin/Dextrose 750 mg/ (Premix) 150 mls @ 100 mls/hr IV ONETIME ONE Stop: 09/03/17 10:41 Last Admin: 09/03/17 09:33 Dose: 100 mls/hr Sodium Chloride (Normal Saline) 500 mls @ 500 mls/hr IV .BOLUS ONE Stop: 09/03/17 10:10 Last Admin: 09/03/17 10:04 Dose: Not Given Sodium Chloride (Normal Saline) 1,000 mls @ 500 mls/hr IV .BOLUS ONE Stop: 09/03/17 11:10 Last Admin: 09/03/17 09:48 Dose: 500 mls/hr - Exam Quality Assessment: Supplemental Oxygen, DVT Prophylaxis General: Alert, Cooperative, No Acute Distress, Other (Mild confusion and somewhat difficult to keep on topic. She does have a history of schizophrenia and delusional disorder.) HEENT: Pupils Equal, Pupils Reactive, EOMI, Mucous Membr. Moist/[place] Neck: Supple, Trachea Midline, No JVD, No Thyromegaly Lungs: Normal Respiratory Effort, Decreased Breath Sounds, Wheezing (right side ) Cardiovascular: Regular Rate, Regular Rhythm, No Murmurs GI/Abdominal Exam: Normal Bowel Sounds, Soft, Non-Tender, No Organomegaly, No Distention, No Abnormal Bruit, No Mass, Pelvis Stable (Female) Exam: Deferred Back Exam: Normal Inspection, Decreased Range of Motion Extremities: Normal Inspection, Normal Range of Motion, Non-Tender, No Pedal Edema, Normal Capillary Refill Peripheral Pulses: 1+: Posterior Tibial (L), Posterior Tibial (R), Dorsalis Pedis (L), Dorsalis Pedis (R), 2+: Radial (L), Radial (R) Skin: Warm, Dry, Intact Wound/Incisions: Healing Well, Dressing Dry and Intact, No Drainage Neurological: No New Focal Deficit Psy/Mental Status: Alert - Problem List & Annotations (1) Bronchitis SNOMED Code(s): 73550046 Code(s): J40 - BRONCHITIS, NOT SPECIFIED ACUTE OR CHRONIC Status: Acute Priority: High Current Visit: Yes (2) Hypoxia SNOMED Code(s): 149807201 Code(s): R09.02 - HYPOXEMIA Status: Acute Current Visit: Yes (3) HLD (hyperlipidemia) SNOMED Code(s): 00999471 Code(s): E78.5 - HYPERLIPIDEMIA, UNSPECIFIED Status: Chronic Priority: Low Current Visit: No Qualifiers: Hyperlipidemia type: unspecified Qualified Code(s): E78.5 - Hyperlipidemia , unspecified (4) HTN (hypertension) SNOMED Code(s): 31997458 Code(s): I10 - ESSENTIAL (PRIMARY) HYPERTENSION Status: Chronic Priority : Low Current Visit: No Qualifiers: Hypertension type: essential hypertension Qualified Code(s): I10 - Essential (primary) hypertension (5) Diabetic neuropathy SNOMED Code(s): 055966390 Code(s): E11.40 - TYPE 2 DIABETES MELLITUS WITH DIABETIC NEUROPATHY, UNSP Status: Chronic Priority: Low Current Visit: No Qualifiers: Diabetes mellitus type: type 2 Diabetes mellitus complication detail: with other neurological complication Qualified Code(s): E11.49 - Type 2 diabetes mellitus with other diabetic neurological complication (6) Type II diabetes mellitus SNOMED Code(s): 23831540 Code(s): E11.9 - TYPE 2 DIABETES MELLITUS WITHOUT COMPLICATIONS Status: Chronic Priority: Medium Current Visit: Yes Qualifiers: Diabetes mellitus complication status: with unspecified complications Diabetes mellitus 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 insulin 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 Qualified Code(s) : E11.8 - Type 2 diabetes mellitus with unspecified complications; Z79.4 - MCC (current) use of insulin; Z79.4 - MCC (current) use of insulin; Z79.4 - MCC (current) use of insulin; Z79.4 - termite technician (current) use of insulin (7) Resting tremor SNOMED Code(s): 91231715 Code(s): R25.9 - UNSPECIFIED ABNORMAL INVOLUNTARY MOVEMENTS Status: Chronic Priority: Low Current Visit: No (8) Anxiety SNOMED Code(s): 19266396 Code(s): F41.9 - ANXIETY DISORDER, UNSPECIFIED Status: Chronic Priority: Low Current Visit: No (9) Schizophrenia SNOMED Code(s): 57859374 Code(s): F20.9 - SCHIZOPHRENIA, UNSPECIFIED Status: Chronic Priority: Low Current Visit: Yes Qualifiers: Schizophrenia type: unspecified Qualified Code(s): F20.9 - Schizophrenia, unspecified (10) Delusional disorder SNOMED Code(s): 63204533 Code(s): F22 - DELUSIONAL DISORDERS Status: Chronic Priority: Low Current Visit: Yes (11) Hypothyroidism SNOMED Code(s): 38582725 Code(s): E03.9 - HYPOTHYROIDISM, UNSPECIFIED Status: Chronic Priority: Low Current Visit: No Qualifiers: Hypothyroidism type: unspecified Qualified Code(s): E03.9 - Hypothyroidism , unspecified (12) Obesity (BMI 30.0-34.9) SNOMED Code(s): 615520369 Code(s): E66.9 - OBESITY, UNSPECIFIED Status: Chronic Priority: Low Current Visit: Yes (13) Pancreatic mass SNOMED Code(s): 275327350 Code(s): K86.9 - DISEASE OF PANCREAS, UNSPECIFIED Status: Chronic Priority: Low Current Visit: No - Problem List Review Problem List Initiated/Reviewed/Updated: Yes - My Orders Last 24 Hours: My Active Orders 09/04/17 00:05 Dextrose 50% in Water 50 ml IVPUSH ASDIRECTED PRN 09/04/17 00:07 Benzonatate [Tessalon Perles] 100 mg PO TID PRN 09/04/17 07:00 Insulin Aspart [NovoLOG] See Protocol SUBCUT QIDACANDBED - Plan Plan:: I/P: Acute: Bronchitis -[place] reports fever of 101, negative for fever in ED -Negative influenza - checked at [place]; repeated here - negative -Productive cough - improving with treatment - ? early pneumonia component as well -Hypoxia - Saturations in low 80's on EMS arrival - low 90's now on 4L -Hx/o COPD - on oxygen 3L via [place] chronically -CXR in ED on 09/03/[address] Arevalo -1. Equivocal left-sided bronchitis -2. Other findings as noted - stable from prior chest x-ray -WBC 8.39-->5.28 -Lactic acid 1.0 -CRP 8.0 -Blood cultures negative -Sputum culture ordered -Levaquin 750mg started in ED - stop -Will start Rocephin 1gm Q24Hr and azithromycin 500 mg Q24Hr -Duonebs/IS/RT to evaluate and treat -Robitussin DM 10ml Q6hr PRN -Tessalon Perles -Solu-medrol 40mg IVP Q8hr -Oxygen, titrate as needed - attempt to return to baseline -Repeat CXR tomorrow Chronic: HLD HTN - stable with home meds Edema COPD - on 3L O2 at home regularly Pancreatic mass - does not want treatment Urinary incontinence Vitamin D deficiency Arthritis Diabetic neuropathy - home meds as ordered Resting left arm tremor Anxiety - stable Schizophrenia - stable Delusional disorder - stable Type II DM - Continue home insulin routine, blood sugars QID AC and bedtime, will add sliding scale Hypothyroidism Obesity Plan: Admit to medical floor CM for discharge planning PT/OT Other orders as indicated above Home medications as ordered Routine AM labs GI prophylaxis: home pepcid DVT/PE prophylaxis: SCDs Code Status: DNR. Her PCP is Dr. Bonilla at [facility] here in [place].
[2017-09-04] MEDS: Nystatin Crm 30 GM Tube TOP SCH ×2 (08:44→22:25)
[2017-09-04] MEDS: Multivitamins,Therapeutic Tab PO SCH (08:44)
[2017-09-04] MEDS: Famotidine 20 MG Tab PO SCH ×2 (08:44→22:25)
[2017-09-04] MEDS: Divalproex Sodium Delayed-Release 125 MG Cap.Sprink PO SCH ×2 (08:44→22:24)
[2017-09-04] MEDS: Aspirin 81 MG Tab.EC PO SCH (08:44)
[2017-09-04] MEDS: Magnesium Oxide 400 MG Tab PO SCH ×2 (08:44→22:24)
[2017-09-04] MEDS: Calcium Carbonate/Vitamin D3 1500 MG-200 Units Tab PO SCH ×2 (08:44→22:24)
[2017-09-04] MEDS: cefTRIAXone 1 GM in Sodium Chloride 0.9% 100 ML IV SCH (08:45)
[2017-09-04] MEDS: Azithromycin 500 MG in Sodium Chloride 0.9% 250 ML IV SCH (08:45)
[2017-09-04] MEDS: Insulin Detemir 100 Units/ML 3 ML Pen SUBCUT SCH (09:04)
[2017-09-04] MEDS: Insulin Aspart 100 Units/ML 3 ML Pen SUBCUT SCH ×7 (09:05→22:29)
[2017-09-04] MEDS: Benzonatate 100 MG Cap PO PRN (09:51)
[2017-09-04] MEDS: PALIPERIDONE 12 MG PO SCH (09:59)
[2017-09-04] MEDS: guaiFENesin/Dextromethorphan 100-10 MG/5 ML Soln 5 ML Cup PO PRN (10:53)
[2017-09-04] MEDS: Rosuvastatin 10 MG Tab PO SCH (18:15)
[2017-09-04] MEDS: Levothyroxine 100 MCG Tab PO SCH (18:15)
[2017-09-04] MEDS: OLANZapine 5 MG Tab PO SCH (22:24)
[2017-09-05] MEDS: guaiFENesin/Dextromethorphan 100-10 MG/5 ML Soln 5 ML Cup PO PRN ×3 (01:44→17:21)
[2017-09-05] MEDS: methylPREDNISolone Sodium Succinate 40 MG/1 ML SDV IVPUSH SCH ×3 (04:30→20:49)
[2017-09-05] MEDS: Albuterol/Ipratropium 3.0-0.5 MG/3 ML Neb Soln NEB SCH ×2 (06:32→20:28)
[2017-09-05] MEDS: cefTRIAXone 1 GM in Sodium Chloride 0.9% 100 ML IV SCH (08:19)
[2017-09-05] MEDS: Multivitamins,Therapeutic Tab PO SCH (08:20)
[2017-09-05] MEDS: Calcium Carbonate/Vitamin D3 1500 MG-200 Units Tab PO SCH ×2 (08:20→20:48)
[2017-09-05] MEDS: Azithromycin 500 MG in Sodium Chloride 0.9% 250 ML IV SCH (08:20)
[2017-09-05] MEDS: Famotidine 20 MG Tab PO SCH ×2 (08:20→20:48)
[2017-09-05] MEDS: Aspirin 81 MG Tab.EC PO SCH (08:20)
[2017-09-05] MEDS: Divalproex Sodium Delayed-Release 125 MG Cap.Sprink PO SCH ×2 (08:20→20:48)
[2017-09-05] MEDS: Magnesium Oxide 400 MG Tab PO SCH ×2 (08:20→20:48)
[2017-09-05] MEDS: Insulin Detemir 100 Units/ML 3 ML Pen SUBCUT SCH (08:24)
[2017-09-05] MEDS: Insulin Aspart 100 Units/ML 3 ML Pen SUBCUT SCH ×7 (08:24→21:01)
[2017-09-05] MEDS: PALIPERIDONE 12 MG PO SCH (09:59)
[2017-09-05] MEDS: Nystatin Crm 30 GM Tube TOP SCH ×2 (09:59→20:49)
[2017-09-05] MEDS: Benzonatate 100 MG Cap PO PRN (10:00)
--- NOTE | 2017-09-05 17:06 | PCM.PN ---
- General Info Date of Service: 09/05/17 Admission Dx/Problem (Free Text): Admission Diagnosis/Problem Admission Diagnosis/Problem Hypoxia Subjective Update: Follow Up Functional Status: Reports: Pain Controlled, Tolerating Diet, Urinating, New Symptoms - Review of Systems General: Denies: Fever, Weakness, Fatigue, Malaise, Chills HEENT: Reports: No Symptoms Pulmonary: Reports: Cough. Denies: Shortness of Breath Cardiovascular: Denies: Chest Pain, Dyspnea on Exertion Gastrointestinal: Denies: Abdominal Pain, Nausea, Vomiting Genitourinary: Reports: No Symptoms Musculoskeletal: Reports: No Symptoms Skin: Denies: Cyanosis, Pallor, Diaphoresis Neurological: Reports: Other (Baseline schizophrenia). Denies: Confusion, Difficulty Walking, Weakness, Gait Disturbance Psychiatric: Denies: Depression, Anxiety, Agitation, Hallucinations Systems Review Comment:: No significant overnight or acute issues. She seems to be doing just fine. She reports her cough is better. However per nurse her cough is way worse then the patient wants me to believe. She is however remains afebrile w/o leukocytosis. Her vitals are stable - Patient Data Vitals - Most Recent: Last Vital Signs Temp 36.6 C 09/05/17 15:32 Pulse 61 09/05/17 15:32 Resp 20 09/05/17 15:32 BP 104/83 09/05/17 15:32 Pulse Ox 93 L 09/05/17 15:32 Weight - Most Recent: 100.199 kg I&O - Last 24 Hours: Intake & Output 09/05/17 09/05/17 09/05/17 06:59 14:59 22:59 Intake Total 8125 012 7618 Balance 7929 742 8058 Lab Results Last 24 Hours: Laboratory Results - last 24 hr 09/04/17 09/04/17 09/05/17 Range/Units 17:26 22:27 06:05 WBC 6.80 (3.98-10.04) K/mm3 RBC 3.43 L (3.98-5.22) M/mm3 Hgb 11.5 (11.2-15.7) gm/L Hct 35.8 (34.1-44.9) % MCV 104.4 H (79.4-94.8) fl MCH 33.5 H (25.6-32.2) pg MCHC 32.1 L (32.2-35.5) g/dl RDW Std Deviation 49.4 H (36.4-46.3) fL Plt Count 183 (182-369) K/mm3 MPV 8.6 L (9.4-12.3) fl Neut % (Auto) 82.4 H (34.0-71.1) % Lymph % (Auto) 12.5 L (19.3-51.7) % [place] % (Auto) 3.4 L (4.7-12.5) % Eos % (Auto) 0 L (0.7-5.8) Baso % (Auto) 0.1 (0.1-1.2) % Neut # (Auto) 5.60 (1.56-6.13) K/mm3 Lymph # (Auto) 0.85 L (1.18-3.74) K/mm3 [place] # (Auto) 0.23 L (0.24-0.36) K/mm3 Eos # (Auto) 0.00 L (0.04-0.36) K/mm3 Baso # (Auto) 0.01 (0.01-0.08) K/mm3 Manual Slide Review Abnormal smear Sodium (136-145) mEq/L Potassium (3.5-5.1) mEq/L Chloride (98-107) mEq/L Carbon Dioxide (21-32) mEq/L Anion Gap (5-15) BUN (7-18) mg/dL Creatinine (0.55-1.02) mg/dL Est Cr Clr Drug Dosing mL/min Estimated GFR (MDRD) (>60) mL/min BUN/Creatinine Ratio (14-18) Glucose (83-115) mg/dL POC Glucose 195 H 179 H (83-110) mg/dL Calcium (8.5-10.1) mg/dL C-Reactive Protein (<1.0) mg/dL 09/05/17 09/05/17 09/05/17 Range/Units 06:05 07:07 11:35 WBC (3.98-10.04) K/mm3 RBC (3.98-5.22) M/mm3 Hgb (11.2-15.7) gm/L Hct (34.1-44.9) % MCV (79.4-94.8) fl MCH (25.6-32.2) pg MCHC (32.2-35.5) g/dl RDW Std Deviation (36.4-46.3) fL Plt Count (182-369) K/mm3 MPV (9.4-12.3) fl Neut % (Auto) (34.0-71.1) % Lymph % (Auto) (19.3-51.7) % [place] % (Auto) (4.7-12.5) % Eos % (Auto) (0.7-5.8) Baso % (Auto) (0.1-1.2) % Neut # (Auto) (1.56-6.13) K/mm3 Lymph # (Auto) (1.18-3.74) K/mm3 [place] # (Auto) (0.24-0.36) K/mm3 Eos # (Auto) (0.04-0.36) K/mm3 Baso # (Auto) (0.01-0.08) K/mm3 Manual Slide Review Sodium 141 (136-145) mEq/L Potassium 4.8 (3.5-5.1) mEq/L Chloride 105 (98-107) mEq/L Carbon Dioxide 35 H (21-32) mEq/L Anion Gap 5.8 (5-15) BUN 27 H (7-18) mg/dL Creatinine 0.4 L (0.55-1.02) mg/dL Est Cr Clr Drug Dosing 122.59 mL/min Estimated GFR (MDRD) > 60 (>60) mL/min BUN/Creatinine Ratio 67.5 H (14-18) Glucose 209 H (83-115) mg/dL POC Glucose 224 H 289 H (83-110) mg/dL Calcium 8.5 (8.5-10.1) mg/dL C-Reactive Protein 2.4 H* (<1.0) mg/dL 09/05/17 Range/Units 16:57 WBC (3.98-10.04) K/mm3 RBC (3.98-5.22) M/mm3 Hgb (11.2-15.7) gm/L Hct (34.1-44.9) % MCV (79.4-94.8) fl MCH (25.6-32.2) pg MCHC (32.2-35.5) g/dl RDW Std Deviation (36.4-46.3) fL Plt Count (182-369) K/mm3 MPV (9.4-12.3) fl Neut % (Auto) (34.0-71.1) % Lymph % (Auto) (19.3-51.7) % [place] % (Auto) (4.7-12.5) % Eos % (Auto) (0.7-5.8) Baso % (Auto) (0.1-1.2) % Neut # (Auto) (1.56-6.13) K/mm3 Lymph # (Auto) (1.18-3.74) K/mm3 [place] # (Auto) (0.24-0.36) K/mm3 Eos # (Auto) (0.04-0.36) K/mm3 Baso # (Auto) (0.01-0.08) K/mm3 Manual Slide Review Sodium (136-145) mEq/L Potassium (3.5-5.1) mEq/L Chloride (98-107) mEq/L Carbon Dioxide (21-32) mEq/L Anion Gap (5-15) BUN (7-18) mg/dL Creatinine (0.55-1.02) mg/dL Est Cr Clr Drug Dosing mL/min Estimated GFR (MDRD) (>60) mL/min BUN/Creatinine Ratio (14-18) Glucose (83-115) mg/dL POC Glucose 243 H (83-110) mg/dL Calcium (8.5-10.1) mg/dL C-Reactive Protein (<1.0) mg/dL Med Orders - Current: Current Medications Acetaminophen (Tylenol) 650 mg PO Q4H PRN PRN Reason: Pain (Mild 1-3)/fever Hydrocodone Bitart/Acetaminophen ([place] 325-5 Mg) 1 tab PO Q4H PRN PRN Reason: Pain (moderate 4-6) Albuterol/Ipratropium (Duoneb 3.0-0.5 Mg/3 Ml) 3 ml NEB QID PRN PRN Reason: Shortness of Breath Last Admin: 09/04/17 00:04 Dose: 3 ml Albuterol/Ipratropium (Duoneb 3.0-0.5 Mg/3 Ml) 3 ml NEB BIDRT FITO Last Admin: 09/05/17 06:32 Dose: 3 ml Aspirin (Halfprin) 81 mg PO DAILY [facility] Last Admin: 09/05/17 08:20 Dose: 81 mg Benzonatate (Tessalon Perles) 100 mg PO TID PRN PRN Reason: Cough Last Admin: 09/05/17 10:00 Dose: 100 mg Bisacodyl (Dulcolax) 5 mg PO DAILY PRN PRN Reason: Constipation Calcium Carbonate (Calcium Carbonate/Vitamin D 1500 Mg-200 Unit) 1 tab PO BID [facility] Last Admin: 09/05/17 08:20 Dose: 1 tab Dextrose/Water (Dextrose 50% In Water) 50 ml IVPUSH ASDIRECTED PRN PRN Reason: Hypoglycemia Divalproex Sodium (Depakote Sprinkle) 500 mg PO BID [facility] Last Admin: 09/05/17 08:20 Dose: 500 mg Docusate Sodium (Colace) 100 mg PO BID PRN PRN Reason: Constipation Famotidine (Pepcid) 20 mg PO BID [facility] Last Admin: 09/05/17 08:20 Dose: 20 mg Guaifenesin/Phenylephrine HCl (Robitussin Dm) 10 ml PO Q6H PRN PRN Reason: COUGH Last Admin: 09/05/17 10:00 Dose: 10 ml Hydralazine HCl (Apresoline) 20 mg IVPUSH Q4H PRN PRN Reason: Hypertension Hydromorphone HCl (Dilaudid) 0.25 mg IVPUSH Q2H PRN PRN Reason: Pain (severe 7-10) Promethazine HCl 12.5 mg/ (Sodium Chloride) 50.5 mls @ 100 mls/hr IV Q6H PRN PRN Reason: Nausea/Vomiting Azithromycin 500 mg/ Sodium (Chloride) 250 mls @ 250 mls/hr IV Q24H [facility] Last Admin: 09/05/17 08:20 Dose: 250 mls/hr Ceftriaxone Sodium 1 gm/ (Sodium Chloride) 100 mls @ 200 mls/hr IV Q24H [facility] Last Admin: 09/05/17 08:19 Dose: 200 mls/hr Insulin Aspart (Novolog) 18 unit SUBCUT TIDMEALS [facility] Last Admin: 09/05/17 11:47 Dose: 18 units Insulin Aspart (Novolog) 0 unit SUBCUT QIDACANDBED [facility] PRN Reason: Protocol Last Admin: 09/05/17 11:48 Dose: 3 unit Insulin Detemir (Levemir) 40 unit SUBCUT QAM [facility] Last Admin: 09/05/17 08:24 Dose: 40 units Levothyroxine Sodium (Synthroid) 100 mcg PO QPM [facility] Last Admin: 09/04/17 18:15 Dose: 100 mcg Lorazepam (Ativan) 0.5 mg IV Q6H PRN PRN Reason: Anxiety Last Admin: 09/04/17 00:18 Dose: 0.5 mg Magnesium Oxide (Magnesium Oxide) 400 mg PO BID [facility] Last Admin: 09/05/17 08:20 Dose: 400 mg Magnesium Sulfate (Pharmacy To Dose - Magnesium Replacement) 1 dose .XX ASDIRECTED [facility] Methylprednisolone Sodium Succinate (Solu-Medrol) 40 mg IVPUSH Q8H [facility] Last Admin: 09/05/17 13:19 Dose: 40 mg Metoprolol Tartrate (Lopressor) 5 mg IVPUSH Q4H PRN PRN Reason: Tachycardia Multivitamins (Thera) 1 each PO DAILY [facility] Last Admin: 09/05/17 08:20 Dose: 1 each Nystatin (Nystatin Crm) 30 gm TOP BID [facility] Last Admin: 09/05/17 09:59 Dose: 1 applic Olanzapine (Zyprexa) 15 mg PO BEDTIME [facility] Last Admin: 09/04/17 22:24 Dose: 15 mg Ondansetron HCl (Zofran) 4 mg IV Q6H PRN PRN Reason: Nausea/Vomiting Liraglutide 1.8 Mg 0 each SUBCUT BEDTIME [facility] Last Admin: 09/04/17 22:25 Dose: Not Given Paliperidone [Invega (] 12 Mg) 0 each PO DAILY [facility] Last Admin: 09/05/17 09:59 Dose: Not Given Polyethylene Glycol (Miralax) 17 gm PO DAILY PRN PRN Reason: Constipation Potassium Chloride (Pharmacy To Dose - Potassium Replacement) 1 dose .XX ASDIRECTED [facility] Rosuvastatin Calcium (Crestor) 10 mg PO QPM [facility] Last Admin: 09/04/17 18:15 Dose: 10 mg Senna/Docusate Sodium (Senna Plus) 1 tab PO BID PRN PRN Reason: Constipation Sodium Chloride (Saline Flush) 10 ml FLUSH ASDIRECTED PRN PRN Reason: Keep Vein Open Last Admin: 09/03/17 09:32 Dose: 10 ml Temazepam (Restoril) 7.5 mg PO BEDTIME PRN PRN Reason: Sleep Discontinued Medications Acetaminophen (Tylenol) 650 mg PO Q4H PRN PRN Reason: Fever Albuterol/Ipratropium (Duoneb 3.0-0.5 Mg/3 Ml) 3 ml NEB ONETIME ONE Stop: 09/03/17 09:12 Last Admin: 09/03/17 09:53 Dose: 3 ml Guaifenesin/Phenylephrine HCl (Robitussin Dm) 10 ml PO Q6H [facility] Last Admin: 09/03/17 13:53 Dose: Not Given Levofloxacin/Dextrose 750 mg/ (Premix) 150 mls @ 100 mls/hr IV ONETIME ONE Stop: 09/03/17 10:41 Last Admin: 09/03/17 09:33 Dose: 100 mls/hr Sodium Chloride (Normal Saline) 500 mls @ 500 mls/hr IV .BOLUS ONE Stop: 09/03/17 10:10 Last Admin: 09/03/17 10:04 Dose: Not Given Sodium Chloride (Normal Saline) 1,000 mls @ 500 mls/hr IV .BOLUS ONE Stop: 09/03/17 11:10 Last Admin: 09/03/17 09:48 Dose: 500 mls/hr - Exam General: Alert, Oriented, Cooperative, No Acute Distress, Other (Obese) HEENT: Pupils Equal, Pupils Reactive, EOMI, Mucous Membr. Moist/[place] Lungs: Normal Respiratory Effort, Decreased Breath Sounds, Other (Poor inspiratory and expiratory effort) Cardiovascular: Regular Rate, Regular Rhythm GI/Abdominal Exam: Normal Bowel Sounds, Soft, Non-Tender, No Organomegaly, No Distention, No Abnormal Bruit, No Mass, Other (Obese) (Female) Exam: Deferred Back Exam: Normal Inspection, Decreased Range of Motion Extremities: Normal Inspection, Normal Range of Motion, Non-Tender, No Pedal Edema, Normal Capillary Refill Peripheral Pulses: 2+: Dorsalis Pedis (L), Dorsalis Pedis (R) Skin: Warm, Dry, Intact Neurological: No New Focal Deficit Psy/Mental Status: Alert, Normal Affect, Normal Mood - Problem List Review Problem List Initiated/Reviewed/Updated: Yes - My Orders Last 24 Hours: My Active Orders 09/05/17 11:16 Chest Physiotherapy [RT Chest Physiotherapy] [RC] ASDIRECTED - Plan Plan:: I/P: Acute: Bronchitis - NH reports fever of 101, negative for fever in ED - Negative influenza - checked at [place]; repeated here - negative - Productive cough - improving with treatment - ? early pneumonia component as well - Hypoxia - Saturations in low 80's on EMS arrival - low 90's now on 4L - Hx/o COPD - on oxygen 3L via [place] chronically - CXR in ED on 09/03/[address] Arevalo 1. Equivocal left-sided bronchitis 2. Other findings as noted - stable from prior chest x-ray - WBC 8.39--> 5.28; Lactic acid 1.0; CRP 8.0--> 2.4 - Blood cultures and influenza screening negative - Sputum culture- pending - Received Levaquin 750mg in ED x1; switched to Rocephin 1gm Q24Hr and azithromycin 500 mg Q24Hr - Continue Duonebs/IS/RT to evaluate and treat, Robitussin DM 10ml Q6hr PRN, Tessalon Perles, Solu-medrol 40mg IVP Q8hr - Oxygen, titrate as needed - attempt to return to baseline - Repeat CXR: Opacities in the left mid lung and left base may represent atelectasis or pneumonia- essentially the same Chronic: HLD HTN - stable with home meds Edema COPD - on 3L O2 at home regularly Pancreatic mass - does not want treatment Urinary incontinence Vitamin D deficiency Arthritis Diabetic neuropathy - home meds as ordered Resting left arm tremor Anxiety - stable Schizophrenia - stable Delusional disorder - stable Type II DM - Continue home insulin routine, blood sugars QID AC and bedtime, will add sliding scale Hypothyroidism Obesity Plan: She remains clinically stable Continue PT/OT/RT Other orders as indicated above Routine AM labs GI prophylaxis: home pepcid DVT/PE prophylaxis: SCDs CM for discharge planning Possible d/c in AM Code Status: DNR. Her PCP is Dr. Bonilla at [facility] here in [place].
[2017-09-05] MEDS: Rosuvastatin 10 MG Tab PO SCH (17:21)
[2017-09-05] MEDS: Levothyroxine 100 MCG Tab PO SCH (17:22)
[2017-09-05] MEDS: OLANZapine 5 MG Tab PO SCH (20:48)
--- NOTE | 2017-09-05 20:58 | PCM.DCSUM1 ---
Discharge Summary - Hospital Course Brief History: Malika Walker is a 76 yo female who resides at [facility] in [place] , comes in to ED with complaints of hypoxia, fever, productive cough for serval days and was admitted for acute bronchitis. - Discharge Data Discharge Date: 09/06/17 Discharge Disposition: Home, Self-Care 01 Condition: Fair - Discharge Diagnosis/Problem(s) (1) Bronchitis SNOMED Code(s): 50850344 ICD Code: J40 - BRONCHITIS, NOT SPECIFIED ACUTE OR CHRONIC Status: Acute Priority: High - Patient Summary/Data Operative Procedure(s) Performed: None Complications: None Consults: None Labs Pending at D/C: None Recommended Follow-up Testing/Procedures: None Planned Operative Procedure(s) after DC: None Hospital Course: Patient was primarily admitted for medical management of acute bronchitis. She carried a hx/o COPD. All her basic work up to include blood and influenza screening were all negative. But her chest x-ray showed opacities in the left mid lung and left base suggestive more of atelectasis rather than pneumonia. She was however provided respiratory care and pneumonia treatment was utilized. Her hospital course was uncomplicated. The rest of her chronic medical illness remained stable during this admission. Patient was stable upon discharge. She was discharged with additional course of oral antibiotic to complete her treatment. She was advised to follow-up with her primary care in 1 week. She was further advised to come back or seek immediate care should her symptoms persist or get worse. The patient expressed understanding and in agreement with the plans as discussed above. All questions were answered. - Patient Instructions Diet: Heart Healthy Diet, Usual Diet as Tolerated, Diabetic Diet Activity: As Tolerated Driving: Do Not Drive Showering/Bathing: May Shower Notify Provider of: Fever, Increased Pain, Swelling and Redness, Nausea and/or Vomiting Other/Special Instructions: - Please take new medication as directed. - Continue all home medications. - Follow up with your PCP in 1 week. - Call your doctor for any questions or concerns after discharge - Discharge Plan Prescriptions/Med Rec: Lactobac Cmb #3/Fos/Pantethine [Probiotic & Acidophilus] 1 each PO DAILY #3 capsule Levofloxacin [Levaquin] 750 mg PO DAILY #3 tablet Home Medications: Home Meds Acetaminophen 650 mg PO Q4H PRN 09/03/17 [History] Albuterol/Ipratropium [DuoNeb 3.0-0.5 MG/3 ML] 3 ml NEB BIDRT 09/03/17 [History] Albuterol/Ipratropium [DuoNeb 3.0-0.5 MG/3 ML] 3 ml NEB QID PRN 09/03/17 [ History] Aspirin [Halfprin] 81 mg PO DAILY 09/03/17 [History] Budesonide [Pulmicort] 0.5 mg IH BID 09/03/17 [History] Calcium Carbonate/Vitamin D3 [Calcium 600 + Vit D 200] 1 each PO BID 09/03/17 [ History] Cranberry Extract [Cranberry] 400 mg PO BID 09/03/17 [History] Divalproex Sodium [Depakote ER] 500 mg PO BID 09/03/17 [History] Insulin Aspart [Novolog] 18 unit SQ TIDMEALS 09/03/17 [History] Insulin Detemir [Levemir] 40 unit SQ QAM 09/03/17 [History] Levothyroxine [Synthroid] 100 mcg PO QPM 09/03/17 [History] Liraglutide [Victoza] 1.8 mg SUBCUT BEDTIME 09/03/17 [History] Magnesium Oxide [Magnesium] 400 mg PO BID 09/03/17 [History] Multivitamin [Daily Multiple Vitamin] 1 tab PO DAILY 09/03/17 [History] Nystatin [Nystatin Crm] 30 gm TOP BID 09/03/17 [History] OLANZapine [Zyprexa] 15 mg PO BEDTIME 09/03/17 [History] Paliperidone [Invega] 12 mg PO DAILY 09/03/17 [History] Ranitidine [Zantac] 150 mg PO BID 09/03/17 [History] Rosuvastatin [Crestor] 10 mg PO QPM 09/03/17 [History] guaiFENesin [Mucinex] 600 mg PO BID 09/03/17 [History] Lactobac Cmb #3/Fos/Pantethine [Probiotic & Acidophilus] 1 each PO DAILY #3 capsule 09/05/17 [Rx] Levofloxacin [Levaquin] 750 mg PO DAILY #3 tablet 09/05/17 [Rx] Referrals: Ray Bonilla MD [Primary Care Provider] - - Discharge Summary/Plan Comment DC Time >30 min.: Yes (45 mins) Discharge Summary/Plan Comment: Discharge back to [facility] Info Date of Service: 09/06/17 Admission Dx/Problem (Free Text: Admission Diagnosis/Problem Admission Diagnosis/Problem Hypoxia Subjective Update: Follow Up Functional Status: Reports: Pain Controlled, Tolerating Diet, Urinating. Denies : New Symptoms - Review of Systems General: Denies: Fever, Weakness, Fatigue, Malaise, Chills HEENT: Reports: No Symptoms Pulmonary: Reports: Cough, Sputum. Denies: Shortness of Breath Cardiovascular: Denies: Chest Pain, Palpitations, Dyspnea on Exertion, Lightheadedness Gastrointestinal: Denies: Abdominal Pain, Nausea, Vomiting Genitourinary: Reports: Incontinence Musculoskeletal: Reports: No Symptoms Skin: Denies: Cyanosis, Jaundice, Pallor, Diaphoresis, Pruritis, Rash Neurological: Denies: Confusion, Difficulty Walking, Weakness, Gait Disturbance Psychiatric: Denies: Depression, Anxiety, Agitation, Hallucinations Systems Review Comment: No overnight or acute issues. She was relatively well. She reported no new complaints. - Patient Data Vitals - Most Recent: Last Vital Signs Temp 36.6 C 09/05/17 15:32 Pulse 61 09/05/17 15:32 Resp 20 09/05/17 15:32 BP 104/83 09/05/17 15:32 Pulse Ox 93 L 09/05/17 20:30 Weight - Most Recent: 100.199 kg I&O - Last 24 hours: Intake & Output 09/05/17 09/05/17 09/05/17 06:59 14:59 22:59 Intake Total 5930 027 8512 Balance 0720 708 4514 Lab Results - Last 24 hrs: Laboratory Results - last 24 hr 09/04/17 09/05/17 09/05/17 Range/Units 22:27 06:05 06:05 WBC 6.80 (3.98-10.04) K/mm3 RBC 3.43 L (3.98-5.22) M/mm3 Hgb 11.5 (11.2-15.7) gm/L Hct 35.8 (34.1-44.9) % MCV 104.4 H (79.4-94.8) fl MCH 33.5 H (25.6-32.2) pg MCHC 32.1 L (32.2-35.5) g/dl RDW Std Deviation 49.4 H (36.4-46.3) fL Plt Count 183 (182-369) K/mm3 MPV 8.6 L (9.4-12.3) fl Neut % (Auto) 82.4 H (34.0-71.1) % Lymph % (Auto) 12.5 L (19.3-51.7) % [place] % (Auto) 3.4 L (4.7-12.5) % Eos % (Auto) 0 L (0.7-5.8) Baso % (Auto) 0.1 (0.1-1.2) % Neut # (Auto) 5.60 (1.56-6.13) K/mm3 Lymph # (Auto) 0.85 L (1.18-3.74) K/mm3 [place] # (Auto) 0.23 L (0.24-0.36) K/mm3 Eos # (Auto) 0.00 L (0.04-0.36) K/mm3 Baso # (Auto) 0.01 (0.01-0.08) K/mm3 Manual Slide Review Abnormal smear Sodium 141 (136-145) mEq/L Potassium 4.8 (3.5-5.1) mEq/L Chloride 105 (98-107) mEq/L Carbon Dioxide 35 H (21-32) mEq/L Anion Gap 5.8 (5-15) BUN 27 H (7-18) mg/dL Creatinine 0.4 L (0.55-1.02) mg/dL Est Cr Clr Drug Dosing 122.59 mL/min Estimated GFR (MDRD) > 60 (>60) mL/min BUN/Creatinine Ratio 67.5 H (14-18) Glucose 209 H (83-115) mg/dL POC Glucose 179 H (83-110) mg/dL Calcium 8.5 (8.5-10.1) mg/dL C-Reactive Protein 2.4 H* (<1.0) mg/dL 09/05/17 09/05/17 09/05/17 Range/Units 07:07 11:35 16:57 WBC (3.98-10.04) K/mm3 RBC (3.98-5.22) M/mm3 Hgb (11.2-15.7) gm/L Hct (34.1-44.9) % MCV (79.4-94.8) fl MCH (25.6-32.2) pg MCHC (32.2-35.5) g/dl RDW Std Deviation (36.4-46.3) fL Plt Count (182-369) K/mm3 MPV (9.4-12.3) fl Neut % (Auto) (34.0-71.1) % Lymph % (Auto) (19.3-51.7) % [place] % (Auto) (4.7-12.5) % Eos % (Auto) (0.7-5.8) Baso % (Auto) (0.1-1.2) % Neut # (Auto) (1.56-6.13) K/mm3 Lymph # (Auto) (1.18-3.74) K/mm3 [place] # (Auto) (0.24-0.36) K/mm3 Eos # (Auto) (0.04-0.36) K/mm3 Baso # (Auto) (0.01-0.08) K/mm3 Manual Slide Review Sodium (136-145) mEq/L Potassium (3.5-5.1) mEq/L Chloride (98-107) mEq/L Carbon Dioxide (21-32) mEq/L Anion Gap (5-15) BUN (7-18) mg/dL Creatinine (0.55-1.02) mg/dL Est Cr Clr Drug Dosing mL/min Estimated GFR (MDRD) (>60) mL/min BUN/Creatinine Ratio (14-18) Glucose (83-115) mg/dL POC Glucose 224 H 289 H 243 H (83-110) mg/dL Calcium (8.5-10.1) mg/dL C-Reactive Protein (<1.0) mg/dL Med Orders - Current: Current Medications Acetaminophen (Tylenol) 650 mg PO Q4H PRN PRN Reason: Pain (Mild 1-3)/fever Hydrocodone Bitart/Acetaminophen ([place] 325-5 Mg) 1 tab PO Q4H PRN PRN Reason: Pain (moderate 4-6) Albuterol/Ipratropium (Duoneb 3.0-0.5 Mg/3 Ml) 3 ml NEB QID PRN PRN Reason: Shortness of Breath Last Admin: 09/04/17 00:04 Dose: 3 ml Albuterol/Ipratropium (Duoneb 3.0-0.5 Mg/3 Ml) 3 ml NEB BIDRT [facility] Last Admin: 09/05/17 20:28 Dose: 3 ml Aspirin (Halfprin) 81 mg PO DAILY [facility] Last Admin: 09/05/17 08:20 Dose: 81 mg Benzonatate (Tessalon Perles) 100 mg PO TID PRN PRN Reason: Cough Last Admin: 09/05/17 10:00 Dose: 100 mg Bisacodyl (Dulcolax) 5 mg PO DAILY PRN PRN Reason: Constipation Calcium Carbonate (Calcium Carbonate/Vitamin D 1500 Mg-200 Unit) 1 tab PO BID [facility] Last Admin: 09/05/17 20:48 Dose: 1 tab Dextrose/Water (Dextrose 50% In Water) 50 ml IVPUSH ASDIRECTED PRN PRN Reason: Hypoglycemia Divalproex Sodium (Depakote Sprinkle) 500 mg PO BID [facility] Last Admin: 09/05/17 20:48 Dose: 500 mg Docusate Sodium (Colace) 100 mg PO BID PRN PRN Reason: Constipation Famotidine (Pepcid) 20 mg PO BID [facility] Last Admin: 09/05/17 20:48 Dose: 20 mg Guaifenesin/Phenylephrine HCl (Robitussin Dm) 10 ml PO Q6H PRN PRN Reason: COUGH Last Admin: 09/05/17 17:21 Dose: 10 ml Hydralazine HCl (Apresoline) 20 mg IVPUSH Q4H PRN PRN Reason: Hypertension Hydromorphone HCl (Dilaudid) 0.25 mg IVPUSH Q2H PRN PRN Reason: Pain (severe 7-10) Promethazine HCl 12.5 mg/ (Sodium Chloride) 50.5 mls @ 100 mls/hr IV Q6H PRN PRN Reason: Nausea/Vomiting Azithromycin 500 mg/ Sodium (Chloride) 250 mls @ 250 mls/hr IV Q24H [facility] Last Admin: 09/05/17 08:20 Dose: 250 mls/hr Ceftriaxone Sodium 1 gm/ (Sodium Chloride) 100 mls @ 200 mls/hr IV Q24H [facility] Last Admin: 09/05/17 08:19 Dose: 200 mls/hr Insulin Aspart (Novolog) 18 unit SUBCUT TIDMEALS [facility] Last Admin: 09/05/17 17:22 Dose: 18 units Insulin Aspart (Novolog) 0 unit SUBCUT QIDACANDBED [facility] PRN Reason: Protocol Last Admin: 09/05/17 17:22 Dose: 2 unit Insulin Detemir (Levemir) 40 unit SUBCUT QAM [facility] Last Admin: 09/05/17 08:24 Dose: 40 units Levothyroxine Sodium (Synthroid) 100 mcg PO QPM [facility] Last Admin: 09/05/17 17:22 Dose: 100 mcg Lorazepam (Ativan) 0.5 mg IV Q6H PRN PRN Reason: Anxiety Last Admin: 09/04/17 00:18 Dose: 0.5 mg Magnesium Oxide (Magnesium Oxide) 400 mg PO BID [facility] Last Admin: 09/05/17 20:48 Dose: 400 mg Magnesium Sulfate (Pharmacy To Dose - Magnesium Replacement) 1 dose .XX ASDIRECTED [facility] Methylprednisolone Sodium Succinate (Solu-Medrol) 40 mg IVPUSH Q8H [facility] Last Admin: 09/05/17 20:49 Dose: 40 mg Metoprolol Tartrate (Lopressor) 5 mg IVPUSH Q4H PRN PRN Reason: Tachycardia Multivitamins (Thera) 1 each PO DAILY [facility] Last Admin: 09/05/17 08:20 Dose: 1 each Nystatin (Nystatin Crm) 30 gm TOP BID [facility] Last Admin: 09/05/17 20:49 Dose: 1 applic Olanzapine (Zyprexa) 15 mg PO BEDTIME [facility] Last Admin: 09/05/17 20:48 Dose: 15 mg Ondansetron HCl (Zofran) 4 mg IV Q6H PRN PRN Reason: Nausea/Vomiting Liraglutide 1.8 Mg 0 each SUBCUT BEDTIME [facility] Last Admin: 09/04/17 22:25 Dose: Not Given Paliperidone [Invega (] 12 Mg) 0 each PO DAILY [facility] Last Admin: 09/05/17 09:59 Dose: Not Given Polyethylene Glycol (Miralax) 17 gm PO DAILY PRN PRN Reason: Constipation Potassium Chloride (Pharmacy To Dose - Potassium Replacement) 1 dose .XX ASDIRECTED [facility] Rosuvastatin Calcium (Crestor) 10 mg PO QPM [facility] Last Admin: 09/05/17 17:21 Dose: 10 mg Senna/Docusate Sodium (Senna Plus) 1 tab PO BID PRN PRN Reason: Constipation Sodium Chloride (Saline Flush) 10 ml FLUSH ASDIRECTED PRN PRN Reason: Keep Vein Open Last Admin: 09/03/17 09:32 Dose: 10 ml Temazepam (Restoril) 7.5 mg PO BEDTIME PRN PRN Reason: Sleep Discontinued Medications Acetaminophen (Tylenol) 650 mg PO Q4H PRN PRN Reason: Fever Albuterol/Ipratropium (Duoneb 3.0-0.5 Mg/3 Ml) 3 ml NEB ONETIME ONE Stop: 09/03/17 09:12 Last Admin: 09/03/17 09:53 Dose: 3 ml Guaifenesin/Phenylephrine HCl (Robitussin Dm) 10 ml PO Q6H [facility] Last Admin: 09/03/17 13:53 Dose: Not Given Levofloxacin/Dextrose 750 mg/ (Premix) 150 mls @ 100 mls/hr IV ONETIME ONE Stop: 09/03/17 10:41 Last Admin: 09/03/17 09:33 Dose: 100 mls/hr Sodium Chloride (Normal Saline) 500 mls @ 500 mls/hr IV .BOLUS ONE Stop: 09/03/17 10:10 Last Admin: 09/03/17 10:04 Dose: Not Given Sodium Chloride (Normal Saline) 1,000 mls @ 500 mls/hr IV .BOLUS ONE Stop: 09/03/17 11:10 Last Admin: 09/03/17 09:48 Dose: 500 mls/hr - Exam General: Reports: Alert, Oriented, Cooperative, No Acute Distress, Other (Obese) HEENT: Reports: Pupils Equal, Pupils Reactive, EOMI, Mucous Membr. Moist/[place] Neck: Reports: No JVD Lungs: Reports: Normal Respiratory Effort, Decreased Breath Sounds, Other (Poor inspiratory and expiratory effort) GI/Abdominal Exam: Normal Bowel Sounds, Soft, Non-Tender, No Organomegaly, No Distention, No Abnormal Bruit (Female) Exam: Deferred Rectal (Female) Exam: Deferred Back Exam: Reports: Normal Inspection, Decreased Range of Motion Extremities: Normal Inspection, Normal Range of Motion, Non-Tender, No Pedal Edema, Normal Capillary Refill Skin: Reports: Warm, Dry, Intact Neurological: Reports: No New Focal Deficit Psy/Mental Status: Reports: Alert, Normal Affect, Normal Mood *Q Meaningful Use (DIS) - VTE *Q VTE Criteria *Q: - Stroke *Q Stroke Criteria *Q: - AMI *Q AMI Criteria *Q:
[2017-09-06] MEDS: guaiFENesin/Dextromethorphan 100-10 MG/5 ML Soln 5 ML Cup PO PRN ×2 (03:56→13:20)
[2017-09-06] MEDS: methylPREDNISolone Sodium Succinate 40 MG/1 ML SDV IVPUSH SCH ×2 (05:53→13:21)
[2017-09-06] MEDS: Albuterol/Ipratropium 3.0-0.5 MG/3 ML Neb Soln NEB SCH (06:16)
--- NOTE | 2017-09-06 10:11 | CR ---
Chest: Portable view of the chest was obtained. Comparison: Prior chest x-ray of 09/03/17. Increased density is identified within the left mid and lower lung. Slight atelectasis noted within the right base. Heart size is normal. Tortuous thoracic aorta is seen. Mild scoliosis and degenerative spurring are seen within the spine. Impression: 1. Increased density within left mid to lower lung most likely representing pneumonia. Please correlate if patient has correlating symptoms. 2. Minimal atelectasis within the right lung base and other incidental findings. Diagnostic code #3 I agree with preliminary report issued by [facility] ([facility] report finalized on 09/05/17, 11:04 AM Central Time)
[2017-09-06] MEDS: cefTRIAXone 1 GM in Sodium Chloride 0.9% 100 ML IV SCH (10:59)
[2017-09-06] MEDS: Multivitamins,Therapeutic Tab PO SCH (11:02)
[2017-09-06] MEDS: Famotidine 20 MG Tab PO SCH (11:02)
[2017-09-06] MEDS: Calcium Carbonate/Vitamin D3 1500 MG-200 Units Tab PO SCH (11:03)
[2017-09-06] MEDS: Aspirin 81 MG Tab.EC PO SCH (11:03)
[2017-09-06] MEDS: Magnesium Oxide 400 MG Tab PO SCH (11:03)
[2017-09-06] MEDS: Insulin Aspart 100 Units/ML 3 ML Pen SUBCUT SCH ×4 (11:04→14:07)
[2017-09-06] MEDS: Insulin Detemir 100 Units/ML 3 ML Pen SUBCUT SCH (11:08)
[2017-09-06] MEDS: Azithromycin 500 MG in Sodium Chloride 0.9% 250 ML IV SCH (11:34)
[2017-09-06] MEDS: Divalproex Sodium Delayed-Release 125 MG Cap.Sprink PO SCH (11:34)
[2017-09-06] MEDS: Nystatin Crm 30 GM Tube TOP SCH (11:35)
[2017-09-06] MEDS: PALIPERIDONE 12 MG PO SCH (11:37)
[2017-09-06 13:28] VITALS: BP 123/75
== END 2017-09-06 14:39 | disposition home or self-care (01) | DRG 195 ==
LOC: JD.ED 08:45 → UNDOADMIN 12:22 → JD.MS 12:22
PROVIDERS: ADMIT Internal Medicine; ATTEND Internal Medicine
DX: J18.9 Pneumonia, unspecified organism (principal); J40 Bronchitis, not specified as acute or chronic; E78.00 Pure hypercholesterolemia, unspecified; R09.02 Hypoxemia; J44.9 Chronic obstructive pulmonary disease, unspecified; E03.9 Hypothyroidism, unspecified; E78.5 Hyperlipidemia, unspecified; Z79.4 Long term (current) use of insulin; I10 Essential (primary) hypertension; E11.40 Type 2 diabetes mellitus with diabetic neuropathy, unspecified; R25.9 Unspecified abnormal involuntary movements; F41.9 Anxiety disorder, unspecified; F22 Delusional disorders; Z99.81 Dependence on supplemental oxygen; Z79.899 Other long term (current) drug therapy; Z88.8 Allergy status to other drugs, medicaments and biological substances; K86.9 Disease of pancreas, unspecified; E55.9 Vitamin D deficiency, unspecified
CPT/HCPCS: 36415; 71010; 80053; 81001; 83605; 85025; 87040 ×2; 87804 ×2; 94640; 94762; 96361; 96365; 96366; 99285; J1956; J7040; J7050; P9612; 80048; 82962; 83735; 86140; 87641; 94667; 94760; 94761; 97110-GO; 97110-GP; 97161-GP; 97167-GO; 99284; A9270-GY; J0456; J0696; J1815-GY; J2060; J2920; J7030

== ENCOUNTER 2017-09-08 12:40 | Inpatient (IN) | payer MEDICARE, MEDICAID ==
--- NOTE | 2017-09-08 13:13 | EDM.PDOC ---
ED HPI GENERAL MEDICAL PROBLEM - General Chief Complaint: Respiratory Problem Stated Complaint: [facility] Time Seen by Provider: 09/08/17 13:00 Source of Information: Reports: Patient History Limitations: Reports: No Limitations - History of Present Illness INITIAL COMMENTS - FREE TEXT/NARRATIVE: 76-year-old female currently residing [facility] in [place] presents to the ED once again due to apparent hypoxia at the intermediate. Sats were in the low 80s and they could not get them higher. Patient was admitted to the hospital with bronchitis on 03 September and was discharged on the after receiving a combination of Rocephin 1 g IV daily and oral Zithromax. She states she is still coughing up sputum. This makes her more short of breath. 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 He would be switched to a nasal cannula at 5 L/m. [employer] your records and I could not find ABG to see if she is a retainer. ABGs will be done once he is on the 5 L per nasal cannula for a period of time. Patient is very pallid in appearance. She is working hard to breathe. She is alert and oriented and able to answer most questions. Onset: Today (Apparent hypoxemia identified at the intermediate today with sats in the 80s and could not get them higher even with increasing her O2 supply.), Other (Patient is been chronically ill. Recent pneumonia in the left lingula and lower lobe identified on x-ray. Treated with Rocephin and Zithromax.) Onset Date: 09/01/17 (Admitted to the hospital September 03 to the at which time she was discharged. Discharged 2 days ago.) Duration: Day(s): (Has been ill for over a week.) Location: Reports: Chest (Congested cough with pneumonia) Severity: Severe Improves with: Reports: Other Worsens with: Reports: Movement (Breathing treatments themselves do not seem to help much.) Context: Denies: Activity, Exercise, Lifting, Sick Contact, Trauma, Other Associated Symptoms: Reports: Cough, cough w sputum, Diaphoresis, Fever/Chills, Loss of Appetite, Malaise, Shortness of Breath (Is chronically oxygen dependent. ), Weakness. 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 (see below) Left Lower Abdomen Pain Score (Numeric/FACES): 4 - Related Data Allergies Allergy/AdvReac Type Severity Reaction Status Date / Time clindamycin Allergy unknown Verified 09/08/17 16:19 herbs in pizza Allergy Cannot Uncoded 09/08/17 16:19 Remember Home Meds: Home Meds Acetaminophen 650 mg PO Q4H PRN 09/03/17 [History] Albuterol/Ipratropium [DuoNeb 3.0-0.5 MG/3 ML] 3 ml NEB BID 09/03/17 [History] Aspirin [Halfprin] 81 mg PO DAILY 09/03/17 [History] Budesonide [Pulmicort] 0.5 mg IH BID 09/03/17 [History] Calcium Carbonate/Vitamin D3 [Calcium 600 + Vit D 200] 1 each PO BID 09/03/17 [ History] Cranberry Extract [Cranberry] 400 mg PO BID 09/03/17 [History] Divalproex Sodium [Depakote ER] 500 mg PO BID 09/03/17 [History] Insulin Aspart [Novolog] 18 unit SQ TIDMEALS 09/03/17 [History] Insulin Detemir [Levemir] 40 unit SQ QAM 09/03/17 [History] Levothyroxine [Synthroid] 100 mcg PO QPM 09/03/17 [History] Liraglutide [Victoza] 1.8 mg SUBCUT BEDTIME 09/03/17 [History] Magnesium Oxide [Magnesium] 400 mg PO BID 09/03/17 [History] Multivitamin [Daily Multiple Vitamin] 1 tab PO DAILY 09/03/17 [History] Nystatin [Nystatin Crm] 30 gm TOP BID 09/03/17 [History] OLANZapine [Zyprexa] 15 mg PO BEDTIME 09/03/17 [History] Paliperidone [Invega] 12 mg PO DAILY 09/03/17 [History] Ranitidine [Zantac] 150 mg PO BID 09/03/17 [History] Rosuvastatin [Crestor] 10 mg PO QPM 09/03/17 [History] guaiFENesin [Mucinex] 600 mg PO BID 09/03/17 [History] Lactobac Cmb #3/Fos/Pantethine [Probiotic & Acidophilus] 1 each PO DAILY #3 capsule 09/05/17 [Rx] Levofloxacin [Levaquin] 750 mg PO DAILY #3 tablet 09/05/17 [Rx] Albuterol/Ipratropium [DuoNeb 3.0-0.5 MG/3 ML] 3 ml INH QID PRN 09/08/17 [ History] Ondansetron [Zofran ODT] 4 mg PO Q4H PRN 09/08/17 [History] Past Medical History HEENT History: Reports: Cataract Cardiovascular History: Reports: High Cholesterol, Hypertension Other Cardiovascular History: edema, hyponatremia Respiratory History: Reports: COPD Other Respiratory History: aspiration pneumonia, 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, hypoxemia Gastrointestinal History: Reports: Pancreatitis Other Gastrointestinal History: pancreatic mass, Vit D deficiency Genitourinary History: Reports: Urinary Incontinence Musculoskeletal History: Reports: Arthritis Other Musculoskeletal History: ingrown nail Neurological History: Reports: Neuropathy, Diabetic Other Neuro History: resting tremor left arm Psychiatric History: Reports: Anxiety, Schizophrenia Other Psychiatric History: delusional disorder Endocrine/Metabolic History: Reports: Diabetes, Type II, Hypothyroidism, Obesity /BMI 30+, Vitamin D Deficiency Other Oncologic History: Pancreatic mass (dx 2013) of unknown etiology - no tx desired - Infectious Disease History Infectious Disease History: Reports: MRSA - Past Surgical History Other Oncologic Surgeries/Procedures: PANCREATIC MASS Social & Family History - Family History Family Medical History: Noncontributory - Tobacco Use Smoking Status *Q: Unknown Ever Smoked Second Hand Smoke Exposure: No - Caffeine Use Caffeine Use: Reports: Coffee - Alcohol Use Days Per Week of Alcohol Use: 0 - Recreational Drug Use Recreational Drug Use: No - Living Situation & Occupation Living situation: Reports: Extended Care Facility Occupation: Retired ED ROS GENERAL - Review of Systems Review Of Systems: See Below Constitutional: Reports: Malaise, Weakness, Fatigue, Decreased Appetite, Weight Loss. Denies: Fever, Chills HEENT: Reports: No Symptoms Respiratory: Reports: Shortness of Breath, Cough, Sputum. Denies: Wheezing, Pleuritic Chest Pain, Hemoptysis Cardiovascular: Reports: Blood Pressure Problem, Dyspnea on Exertion (Mildly in her lower extremities), Edema, Orthopnea. Denies: Chest Pain, Claudication ( Often runs a bit long the low side.), Lightheadedness Endocrine: Reports: Fatigue GI/Abdominal: Reports: Decreased Appetite, Nausea. Denies: Abdominal Pain, Vomiting (Intermittently) : Reports: Frequency Musculoskeletal: Reports: Neck Pain (Knees and hips), Back Pain, Joint Pain Skin: Reports: Pallor, Bruising Neurological: Reports: No Symptoms (Bruises fairly easily.) Psychiatric: Reports: No Symptoms ED EXAM, GENERAL - Physical Exam Exam: See Below Exam Limited By: Physical Impairment (She is speaking through a nonrebreather mask which makes understanding her speech somewhat difficult.) General Appearance: Moderate Distress (She is working hard to breathe.) Eye Exam: Bilateral Eye: Normal Inspection (Does have pallor of the conjunctiva left all margins.) Throat/Mouth: Other Head: Atraumatic (Tongue is dry and coated. Lips are very chapped and dry.), Normocephalic Neck: Normal Inspection, Limited Range of Motion. No: Carotid Bruit, Lymphadenopathy (L), Lymphadenopathy (R) Respiratory/Chest: Respiratory Distress (Tachypnea at rest 24/m. O2 sats 84% on 3 L/m.), Decreased Breath Sounds (Breath sounds are diminished to the lower 50% of lung doran posteriorly.), Rhonchi (Left posterior lung.). No: Wheezing Cardiovascular: No Murmur, No Rub, Tachycardia (Resting tachycardia of 1 28/m.) Peripheral Pulses: 0: Posterior Tibial (L), Posterior Tibial (R), Dorsalis Pedis (L), Dorsalis Pedis (R) GI/Abdominal: Other (Abdomen is distended and firm to palpation and diffusely typically to percussion. Liver is possibly 3 finger breaths below the cut right costal margin. There is a abdominal wall hernia inferior lateral to the umbilicus on the right side that is tender to palpation. It is about the size of a base ball.) Extremities: Other (Diffuse venous stasis dermatitis to both lower extremities with no open ulcerations. Minimal edema appreciated at the ankles.) Neurological: Alert, Oriented, CN II-XII Intact, Normal Cognition. No: Normal Gait Psychiatric: Normal Affect, Normal Mood Skin Exam: Warm, Dry, Pallor (Markedly palate in color.) EKG INTERPRETATION EKG Date: 09/08/17 Time: 13:25 Rhythm: Other (Sinus tachycardia at 1 15/m) Rate (Beats/Min): 115 [place]: LAD-Left [place] Deviation (-30) P-Wave: Present QRS: Other (There is early R-wave transition with delayed R-wave transition. This suggests right ventricular hypertrophy pattern. There are also Q waves in leads 3 and aVF suggesting possible old inferior wall myocardial infarction.) ST-T: Other (T-wave flattening in leads 1 and aVL which are nonspecific findings.) QT: Normal EKG Interpretation Comments: Abnormal ECG Course - Vital Signs Last Recorded V/S: Last Vital Signs Temp 36.4 C 09/08/17 16:33 Pulse 96 09/08/17 16:33 Resp 16 09/08/17 16:33 BP 128/73 09/08/17 16:33 Pulse Ox 92 L 09/08/17 16:50 - Orders/Labs/Meds Orders: Active Orders 24 hr Category Date Time Status Insert [place] Catheter [Insert Urinary Catheter] [OM.PC] Care 09/08/17 13:30 Ordered Stat RT BiPAP/CPAP [RC] ASDIRECTED Care 09/08/17 15:09 Active Medication Orders Acetaminophen (Tylenol) 650 mg PO Q4H PRN PRN Reason: Pain (Mild 1-3)/fever Hydrocodone Bitart/Acetaminophen ([place] 325-5 Mg) 1 tab PO Q4H PRN PRN Reason: Pain (moderate 4-6) Albuterol/Ipratropium (Duoneb 3.0-0.5 Mg/3 Ml) 3 ml NEB Q4H PRN PRN Reason: Shortness Of Breath/wheezing Last Admin: 09/08/17 17:26 Dose: 3 ml Albuterol/Ipratropium (Duoneb 3.0-0.5 Mg/3 Ml) 3 ml NEB BIDRT FITO Albuterol/Ipratropium (Duoneb 3.0-0.5 Mg/3 Ml) 3 ml INH QID PRN PRN Reason: Dyspnea Aspirin (Halfprin) 81 mg PO DAILY [facility]O Bisacodyl (Dulcolax) 5 mg PO DAILY PRN PRN Reason: Constipation Calcium Carbonate (Calcium Carbonate/Vitamin D 1500 Mg-200 Unit) 1 tab PO BID [facility]O Dextrose/Water (Dextrose 50% In Water) 50 ml IVPUSH ASDIRECTED PRN PRN Reason: Hypoglycemia Docusate Sodium (Colace) 100 mg PO BID PRN PRN Reason: Constipation Enoxaparin Sodium (Lovenox) 40 mg SUBCUT DAILY [facility] Famotidine (Pepcid) 20 mg PO BEDTIME [facility] Guaifenesin/Phenylephrine HCl (Robitussin Dm) 10 ml PO Q4H PRN PRN Reason: Cough Hydralazine HCl (Apresoline) 20 mg IVPUSH Q4H PRN PRN Reason: Hypertension Lactated Ringer's (Ringers, Lactated) 1,000 mls @ 75 mls/hr IV ASDIRECTED [facility] Promethazine HCl 12.5 mg/ (Sodium Chloride) 50.5 mls @ 100 mls/hr IV Q6H PRN PRN Reason: Nausea/Vomiting Azithromycin 500 mg/ Sodium (Chloride) 250 mls @ 250 mls/hr IV Q24H [facility] Ceftriaxone Sodium 1 gm/ (Sodium Chloride) 100 mls @ 200 mls/hr IV Q24H [facility] Insulin Aspart (Novolog) 18 unit SUBCUT TIDMEALS [facility] Last Admin: 09/08/17 18:06 Dose: Insulin Aspart (Novolog) 0 unit SUBCUT QIDACANDBED [facility] PRN Reason: Protocol Insulin Detemir (Levemir) 40 unit SUBCUT DAILY@0800 [facility] Levothyroxine Sodium (Synthroid) 100 mcg PO QPM [facility] Last Admin: 09/08/17 17:52 Dose: 100 mcg Lorazepam (Ativan) 0.5 mg IV Q6H PRN PRN Reason: Anxiety Magnesium Oxide (Magnesium Oxide) 400 mg PO BID [facility] Magnesium Sulfate (Pharmacy To Dose - Magnesium Replacement) 1 dose .XX ASDIRECTED [facility] Methylprednisolone Sodium Succinate (Solu-Medrol) 60 mg IVPUSH Q6H [facility] Metoprolol Tartrate (Lopressor) 5 mg IVPUSH Q4H PRN PRN Reason: Tachycardia Morphine Sulfate (Morphine) 0.5 mg IVPUSH Q4H PRN PRN Reason: Other Stop: 09/09/17 16:09 Multivitamins (Thera) 1 each PO DAILY [facility] Non-Formulary Medication (Cranberry Extract [Cranberry]) 400 mg PO BID [facility] Non-Formulary Medication (Divalproex Sodium) 500 mg PO BID [facility] Non-Formulary Medication (Lactobac Cmb #3/Fos/Pantethine [Probiotic & Acidophilus]) 1 each PO DAILY [facility] Non-Formulary Medication (Liraglutide) 1.8 mg SUBCUT BEDTIME [facility] Non-Formulary Medication (Paliperidone [Invega]) 12 mg PO DAILY [facility] Nystatin (Nystatin Crm) 0 gm TOP BID [facility] Olanzapine (Zyprexa) 15 mg PO BEDTIME [facility] Ondansetron HCl (Zofran) 4 mg IV Q6H PRN PRN Reason: Nausea/Vomiting Ondansetron HCl (Zofran Odt) 4 mg PO Q4H PRN PRN Reason: Nausea Polyethylene Glycol (Miralax) 17 gm PO DAILY PRN PRN Reason: Constipation Potassium Chloride (Pharmacy To Dose - Potassium Replacement) 1 dose .XX ASDIRECTED [facility] Rosuvastatin Calcium (Crestor) 10 mg PO QPM [facility] Last Admin: 09/08/17 17:52 Dose: 10 mg Senna/Docusate Sodium (Senna Plus) 1 tab PO BID PRN PRN Reason: Constipation Temazepam (Restoril) 7.5 mg PO BEDTIME PRN PRN Reason: Sleep Labs: Laboratory Tests 09/08/17 09/08/17 09/08/17 Range/Units 13:10 13:30 13:30 WBC 17.07 H (3.98-10.04) K/mm3 RBC 4.58 (3.98-5.22) M/mm3 Hgb 15.0 (11.2-15.7) gm/L Hct 47.2 H (34.1-44.9) % MCV 103.1 H (79.4-94.8) fl MCH 32.8 H (25.6-32.2) pg MCHC 31.8 L (32.2-35.5) g/dl RDW Std Deviation 53.0 H (36.4-46.3) fL Plt Count 278 (182-369) K/mm3 MPV 8.4 L (9.4-12.3) fl Neutrophils % (Manual) 63 H (40-60) % Band Neutrophils % 6 (0-10) % Lymphocytes % (Manual) 20 (20-40) % Atypical Lymphs % 0 % Monocytes % (Manual) 11 H (2-10) % Eosinophils % (Manual) 0 L (0.7-5.8) % Basophils % (Manual) 0 L (0.1-1.2) Platelet Estimate Adequate RBC Morph Comment Normal PT 11.4 (8.0-13.0) SECONDS INR 1.04 Puncture Site Lt radial ABG pH 7.38 (7.35-7.45) ABG pCO2 62.2 H (35.0-45.0) mmHg ABG pO2 60.0 L (80.0-100.0) mmHg ABG HCO3 36.0 H (22.0-26.0) meq/L ABG O2 Saturation 89.0 L (96.0-97.0) % ABG Base Excess 8.5 H (-2-2.0) Ryan Test Positive O2 Delivery Device Nasal cannula Oxygen Flow Rate 5.0 FiO2 0.00 L (21.00-100.00) % Sodium (136-145) mEq/L Potassium (3.5-5.1) mEq/L Chloride (98-107) mEq/L Carbon Dioxide (21-32) mEq/L Anion Gap (5-15) BUN (7-18) mg/dL Creatinine (0.55-1.02) mg/dL Est Cr Clr Drug Dosing mL/min Estimated GFR (MDRD) (>60) mL/min BUN/Creatinine Ratio (14-18) Glucose (83-115) mg/dL Calcium (8.5-10.1) mg/dL Magnesium (1.8-2.4) mg/dl Total Bilirubin (0.2-1.0) mg/dL AST (15-37) U/L ALT (14-59) U/L Alkaline Phosphatase (46-116) U/L CK-MB (CK-2) (0-3.6) ng/ml Troponin I (0.00-0.056) ng/mL C-Reactive Protein (<1.0) mg/dL NT-Pro-B Natriuret Pep (0-450) pg/mL Total Protein (6.4-8.2) g/dl Albumin (3.4-5.0) g/dl Globulin gm/dL Albumin/Globulin Ratio (1-2) Urine Color (Yellow) Urine Appearance (Clear) Urine pH (5.0-8.0) Ur Specific [place] (1.005-1.030) Urine Protein (Negative) Urine Glucose (UA) (Negative) Urine Ketones (Negative) Urine Occult Blood (Negative) Urine Nitrite (Negative) Urine Bilirubin (Negative) Urine Urobilinogen (0.2-1.0) Ur Leukocyte Esterase (Negative) 09/08/17 09/08/17 09/08/17 Range/Units 13:30 13:30 13:35 WBC (3.98-10.04) K/mm3 RBC (3.98-5.22) M/mm3 Hgb (11.2-15.7) gm/L Hct (34.1-44.9) % MCV (79.4-94.8) fl MCH (25.6-32.2) pg MCHC (32.2-35.5) g/dl RDW Std Deviation (36.4-46.3) fL Plt Count (182-369) K/mm3 MPV (9.4-12.3) fl Neutrophils % (Manual) (40-60) % Band Neutrophils % (0-10) % Lymphocytes % (Manual) (20-40) % Atypical Lymphs % % Monocytes % (Manual) (2-10) % Eosinophils % (Manual) (0.7-5.8) % Basophils % (Manual) (0.1-1.2) Platelet Estimate RBC Morph Comment PT (8.0-13.0) SECONDS INR Puncture Site ABG pH (7.35-7.45) ABG pCO2 (35.0-45.0) mmHg ABG pO2 (80.0-100.0) mmHg ABG HCO3 (22.0-26.0) meq/L ABG O2 Saturation (96.0-97.0) % ABG Base Excess (-2-2.0) Ryan Test O2 Delivery Device Oxygen Flow Rate FiO2 (21.00-100.00) % Sodium 140 (136-145) mEq/L Potassium 4.8 (3.5-5.1) mEq/L Chloride 99 (98-107) mEq/L Carbon Dioxide 36 H (21-32) mEq/L Anion Gap 9.8 (5-15) BUN 24 H (7-18) mg/dL Creatinine 0.8 (0.55-1.02) mg/dL Est Cr Clr Drug Dosing 59.09 mL/min Estimated GFR (MDRD) > 60 (>60) mL/min BUN/Creatinine Ratio 30.0 H (14-18) Glucose 249 H (83-115) mg/dL Calcium 9.9 (8.5-10.1) mg/dL Magnesium 2.3 (1.8-2.4) mg/dl Total Bilirubin 0.2 (0.2-1.0) mg/dL AST 21 (15-37) U/L ALT 28 (14-59) U/L Alkaline Phosphatase 53 (46-116) U/L CK-MB (CK-2) 0.8 (0-3.6) ng/ml Troponin I < 0.017 (0.00-0.056) ng/mL C-Reactive Protein 1.1 H* (<1.0) mg/dL NT-Pro-B Natriuret Pep 753 H (0-450) pg/mL Total Protein 6.9 (6.4-8.2) g/dl Albumin 2.9 L (3.4-5.0) g/dl Globulin 4.0 gm/dL Albumin/Globulin Ratio 0.7 L (1-2) Urine Color Yellow (Yellow) Urine Appearance Clear (Clear) Urine pH 8.0 (5.0-8.0) Ur Specific [place] 1.020 (1.005-1.030) Urine Protein Negative (Negative) Urine Glucose (UA) Negative (Negative) Urine Ketones Negative (Negative) Urine Occult Blood Trace-intact H (Negative) Urine Nitrite Negative (Negative) Urine Bilirubin Negative (Negative) Urine Urobilinogen 0.2 (0.2-1.0) Ur Leukocyte Esterase Negative (Negative) Meds: Medications Generic Name Dose Route Start Last Admin Trade Name Freq PRN Reason Stop Dose Admin Acetaminophen 650 mg 09/08/17 16:03 Tylenol PO Q4H PRN Pain (Mild 1-3)/fever Hydrocodone Bitart/Acetaminophen 1 tab 09/08/17 16:03 [place] 325-5 Mg PO Q4H PRN Pain (moderate 4-6) Albuterol/Ipratropium 3 ml 09/08/17 16:09 09/08/17 17:26 Duoneb 3.0-0.5 Mg/3 Ml NEB 3 ml Q4H PRN Administration Shortness Of Breath/wheezing Albuterol/Ipratropium 3 ml 09/08/17 21:00 Duoneb 3.0-0.5 Mg/3 Ml NEB BIDRT FITO Albuterol/Ipratropium 3 ml 09/08/17 16:14 Duoneb 3.0-0.5 Mg/3 Ml INH QID PRN Dyspnea Aspirin 81 mg 09/09/17 09:00 Halfprin PO DAILY [facility] Bisacodyl 5 mg 09/08/17 16:09 Dulcolax PO DAILY PRN Constipation Calcium Carbonate 1 tab 09/08/17 21:00 Calcium Carbonate/Vitamin D 1500 Mg-200 Unit PO BID [facility] Dextrose/Water 50 ml 09/08/17 18:06 Dextrose 50% In Water IVPUSH ASDIRECTED PRN Hypoglycemia Docusate Sodium 100 mg 09/08/17 16:09 Colace PO BID PRN Constipation Enoxaparin Sodium 40 mg 09/09/17 09:00 Lovenox SUBCUT DAILY [facility] Famotidine 20 mg 09/08/17 21:00 Pepcid PO BEDTIME [facility] Guaifenesin/Phenylephrine HCl 10 ml 09/08/17 16:52 Robitussin Dm PO Q4H PRN Cough Hydralazine HCl 20 mg 09/08/17 16:16 Apresoline IVPUSH Q4H PRN Hypertension Lactated Ringer's 1,000 mls @ 75 mls/hr 09/08/17 16:15 Ringers, Lactated IV ASDIRECTED [facility] Promethazine HCl 12.5 mg/ 50.5 mls @ 100 mls/hr 09/08/17 16:09 Sodium Chloride IV Q6H PRN Nausea/Vomiting Azithromycin 500 mg/ Sodium 250 mls @ 250 mls/hr 09/09/17 17:00 Chloride IV Q24H [facility] Ceftriaxone Sodium 1 gm/ 100 mls @ 200 mls/hr 09/09/17 15:00 Sodium Chloride IV Q24H [facility] Insulin Aspart 18 unit 09/08/17 17:00 09/08/17 18:06 Novolog SUBCUT Not Given TIDMEALS [facility] Insulin Aspart 0 unit 09/08/17 22:00 Novolog SUBCUT QIDACANDBED [facility] Protocol Insulin Detemir 40 unit 09/09/17 08:00 Levemir SUBCUT DAILY@0800 [facility] Levothyroxine Sodium 100 mcg 09/08/17 18:00 09/08/17 17:52 Synthroid PO 100 mcg QPM [facility] Administration Lorazepam 0.5 mg 09/08/17 16:09 Ativan IV Q6H PRN Anxiety Magnesium Oxide 400 mg 09/08/17 21:00 Magnesium Oxide PO BID [facility] Magnesium Sulfate 1 dose 09/08/17 16:30 Pharmacy To Dose - Magnesium Replacement .XX ASDIRECTED [facility] Methylprednisolone Sodium Succinate 60 mg 09/09/17 06:00 Solu-Medrol IVPUSH Q6H [facility] Metoprolol Tartrate 5 mg 09/08/17 16:16 Lopressor IVPUSH Q4H PRN Tachycardia Morphine Sulfate 0.5 mg 09/08/17 16:03 Morphine IVPUSH 09/09/17 16:09 Q4H PRN Other Multivitamins 1 each 09/09/17 09:00 Thera PO DAILY [facility] Non-Formulary Medication 400 mg 09/08/17 21:00 Cranberry Extract [Cranberry] PO BID [facility] Non-Formulary Medication 500 mg 09/08/17 21:00 Divalproex Sodium PO BID [facility] Non-Formulary Medication 1 each 09/09/17 09:00 Lactobac Cmb #3/Fos/Pantethine [Probiotic & Acidophilus] PO DAILY [facility] Non-Formulary Medication 1.8 mg 09/08/17 21:00 Liraglutide SUBCUT BEDTIME [facility] Non-Formulary Medication 12 mg 09/09/17 09:00 Paliperidone [Invega] PO DAILY [facility] Nystatin 0 gm 09/08/17 21:00 Nystatin Crm TOP BID [facility] Olanzapine 15 mg 09/08/17 21:00 Zyprexa PO BEDTIME [facility] Ondansetron HCl 4 mg 09/08/17 16:09 Zofran IV Q6H PRN Nausea/Vomiting Ondansetron HCl 4 mg 09/08/17 16:14 Zofran Odt PO Q4H PRN Nausea Polyethylene Glycol 17 gm 09/08/17 16:09 Miralax PO DAILY PRN Constipation Potassium Chloride 1 dose 09/08/17 16:30 Pharmacy To Dose - Potassium Replacement .XX ASDIRECTED [facility] Rosuvastatin Calcium 10 mg 09/08/17 18:00 09/08/17 17:52 Crestor PO 10 mg QPM [facility] Administration Senna/Docusate Sodium 1 tab 09/08/17 16:09 Senna Plus PO BID PRN Constipation Temazepam 7.5 mg 09/08/17 16:09 Restoril PO BEDTIME PRN Sleep Discontinued Medications Generic Name Dose Route Start Last Admin Trade Name Freq PRN Reason Stop Dose Admin Acetaminophen 650 mg 09/08/17 16:14 Tylenol PO Q4H PRN Fever Ceftriaxone Sodium 2 gm/ 100 mls @ 200 mls/hr 09/08/17 15:20 09/08/17 15:28 Sodium Chloride IV 09/08/17 15:49 200 mls/hr ONETIME ONE Administration Azithromycin 500 mg/ Sodium 250 mls @ 250 mls/hr 09/08/17 17:00 09/08/17 17: 51 Chloride IV 09/08/17 17:59 250 mls/hr ONETIME ONE Administration Methylprednisolone Sodium Succinate 125 mg 09/08/17 16:17 09/08/17 17:49 Solu-Medrol IM 09/08/17 16:18 Not Given ONETIME ONE Methylprednisolone Sodium Succinate 125 mg 09/08/17 17:50 09/08/17 17:58 Solu-Medrol IVPUSH 09/08/17 17:51 125 mg ONETIME ONE Administration Pantoprazole Sodium 40 mg 09/08/17 17:00 09/08/17 17:50 Protonix Iv IV 09/08/17 17:01 40 mg ONETIME ONE Administration - Radiology Interpretation Free Text/Narrative:: 76-year-old female presents to the ED after discharge from hospital 2 days ago due to hypoxia. Patient is on oxygen chronically but apparently her O2 sats dropped into the 80s today and would not come up even with increased oxygen supplied. In the ED she presents with a mask nonrebreather at 5 L/m which is ineffectual at providing oxygen at this level. I do not have any blood gases on most recent lab admission to indicate whether or not she is a CO2 retainer but I suspect she has. Her chest x-ray was suggesting a left lingular and lower lobar pneumonia developing prior to discharge. She was treated with intravenous Rocephin 1 g IV for 3 days and Zithromax orally. She denies feeling febrile. She still has a productive cough. She hasn't felt that her nebulizer treatments are helping her much. Plan nasal cannula at 5 L/m and then blood gases to be done. Chest x-ray of course will be repeated with routine labs. - Re-Assessments/Exams Free Text/Narrative Re-Assessment/Exam: 09/08/17 13:41 ABGs have returned revealing a pH of 7.38 but a PCO2 of 62.2 and PO2 of less than 60. This is on oxygen via nasal cannula at 5 L/m. Sats were 89% . I'm therefore going to change her to a Venturi mask at 50% oxygen. Chest x- ray done portably reveals an improvement in the infiltrate in the left lingula and lower lobe as compared to films done on the of this month. 09/08/17 13:51 straight catheter carried out and revealed 1050 mils of urine that appeared to be quite clear. She therefore does appear to be in urinary retention with a neurogenic bladder.Labs reveal an elevated white count at 17.07 with a left shift of 63% neutrophils and 6% bands. Hemoglobin is 15.0 with hematocrit of 47.2 MCV is elevated at 103.1. Plan to count 278,000. PT is 11.4 with an INR 1.04. Initial blood gases revealed a pH of 7.38. PCO2 was 62.2. PaO2 of 60. His O2 saturations of 89% this was on 5 L by nasal cannula. Sodium is 140 potassium is 4.8. Chloride 99 bicarbonate is 36 indicating she is a CO2 retainer. Anion gap is 9.8. BUNs 24. Glucose 249. Calcium 9.9. Magnesium okay at 2.3. Liver function normal. CK-MB fraction 0.8 troponin I is less than 0.017. C-reactive protein is 1.1. BNP is 753. Urine is negative for any infection. 09/08/17 15:15 Venturi mask at 50% failed to improve her O2 sats greater than 84 %. Therefore started on BiPAP with initial pressures of 10/5. And then increase to 12/6 at 45% FiO2. Satting at 91%. She will need repeat blood gases in approximately one half hour from now. Spoke with Dr. Min extrusion press adjuster hospitalist and he is accepted care of this patient. She'll be taken to the intensive care unit. Due to elevated white count ,patient is to receive Rocephin 2 g IV as well. Departure - Departure Time of Disposition: 15:17 Disposition: Admitted As Inpatient 67 Condition: Serious Clinical Impression: Respiratory failure Qualifiers: Chronicity: acute on chronic Respiratory failure complication: hypercapnia Qualified Code(s): J96.22 - Acute and chronic respiratory failure with hypercapnia - Discharge Information - My Orders Last 24 Hours: My Active Orders 12/26/17 13:30 Insert [place] Catheter [Insert Urinary Catheter] [OM.PC] Stat 09/08/17 15:09 RT BiPAP/CPAP [RC] ASDIRECTED - Assessment/Plan Last 24 Hours: My Active Orders 09/08/17 13:30 Insert [place] Catheter [Insert Urinary Catheter] [OM.PC] Stat 09/08/17 15:09 RT BiPAP/CPAP [RC] ASDIRECTED
--- NOTE | 2017-09-08 15:19 | CR ---
Chest: Portable view of the chest was obtained. Comparison: Prior chest x-ray of 09/05/17. Mild increased density is seen within the left lung base behind the left heart. This shows improvement from previous exam. Left upper lung and right lung are clear. Heart size and mediastinum are within normal limits for portable technique. Mild scoliosis and degenerative change is seen within the spine. Impression: 1. Improved left lower lung pneumonia from prior exam. No new abnormality is seen. Diagnostic code #3
[2017-09-08] MEDS ORDERED: cefTRIAXone 2 GM in Sodium Chloride 0.9% 100 ML IV ONE (15:20)
--- NOTE | 2017-09-08 15:49 | PCM.HP ---
H&P History of Present Illness - General Date of Service: 09/08/17 Admit Problem/Dx: Admission Diagnosis/Problem Admission Diagnosis/Problem Respiratory failure with hypercapnia Source of Information: Patient, Rand Tacker, Old Records, Provider, RN Notes Reviewed History Limitations: Reports: Respiratory Distress - History of Present Illness Initial Comments - Free Text/Narative: This is a 76 yo elderly white female with past medical hx/o Cataract, HLD, HTN, Peripheral Edema, COPD on 3L O2 at home regularly, Hx/o Pancreatic mass, Hypothyroidism, DM2 with Diabetic Neuropathy, Urinary incontinence, Vitamin D deficiency, Osteoarthritis, Resting left arm tremor, Anxiety, Schizophrenia/ Delusional disorder, and Obesity with BMI of 34 who was recently discharged from here for treatment of Bronchitis. She comes again due to hypoxia. She was found sating in the low 80s and staff at [facility] could get her sats to go up. Her initial work up in ED shows a CBC remarkable for WBC of 17.07, hematocrit of 37.2, MCV of 100.1, MCH of 32.8, MCH of 31.8, RDW of 53, neutrophils of 60%, and monocytes of 11%. Her initial ABG shows pH of 7.38 PCO2 of 62.2, PO2 of 60, HCO3 of 36, O2 sat of 89% on 5 L nasal cannula. Her chemistry is remarkable for CO2 of 36, BUN of 24, glucose of 249, CRP of 1.1, proBNP of 753, and albumin of 2.9. Her UA is negative for UTI. Her Chest x-ray report reads improved left lower lung pneumonia from prior exam. No new abnormality seen. She is being admitted for acute respiratory failure. She is DNR/DNI and currently on BiPAP. Left Lower Abdomen Pain Score (Numeric/FACES): 4 - Related Data Allergies/Adverse Reactions: Allergies Allergy/AdvReac Type Severity Reaction Status Date / Time clindamycin Allergy unknown Verified 09/08/17 16:19 herbs in pizza Allergy Cannot Uncoded 09/08/17 16:19 Remember Home Medications: Home Meds Acetaminophen 650 mg PO Q4H PRN 09/03/17 [History] Albuterol/Ipratropium [DuoNeb 3.0-0.5 MG/3 ML] 3 ml NEB BID 09/03/17 [History] Aspirin [Halfprin] 81 mg PO DAILY 09/03/17 [History] Budesonide [Pulmicort] 0.5 mg IH BID 09/03/17 [History] Calcium Carbonate/Vitamin D3 [Calcium 600 + Vit D 200] 1 each PO BID 09/03/17 [ History] Cranberry Extract [Cranberry] 400 mg PO BID 09/03/17 [History] Insulin Aspart [Novolog] 18 unit SQ TIDMEALS 09/03/17 [History] Insulin Detemir [Levemir] 40 unit SQ QAM 09/03/17 [History] Levothyroxine [Synthroid] 100 mcg PO QPM 09/03/17 [History] Liraglutide [Victoza] 1.8 mg SUBCUT BEDTIME 09/03/17 [History] Magnesium Oxide [Magnesium] 400 mg PO BID 09/03/17 [History] Multivitamin [Daily Multiple Vitamin] 1 tab PO DAILY 09/03/17 [History] Nystatin [Nystatin Crm] 30 gm TOP BID 09/03/17 [History] OLANZapine [Zyprexa] 15 mg PO BEDTIME 09/03/17 [History] Paliperidone [Invega] 12 mg PO DAILY 09/03/17 [History] Ranitidine [Zantac] 150 mg PO BID 09/03/17 [History] Rosuvastatin [Crestor] 10 mg PO QPM 09/03/17 [History] guaiFENesin [Mucinex] 600 mg PO BID 09/03/17 [History] Lactobac Cmb #3/Fos/Pantethine [Probiotic & Acidophilus] 1 each PO DAILY #3 capsule 09/05/17 [Rx] Levofloxacin [Levaquin] 750 mg PO DAILY #3 tablet 09/05/17 [Rx] Albuterol/Ipratropium [DuoNeb 3.0-0.5 MG/3 ML] 3 ml INH QID PRN 09/08/17 [ History] Divalproex Sodium [Depakote] 500 mg PO BID 09/08/17 [History] Ondansetron [Zofran ODT] 4 mg PO Q4H PRN 09/08/17 [History] Past Medical History HEENT History: Reports: Cataract Cardiovascular History: Reports: High Cholesterol, Hypertension Other Cardiovascular History: edema, hyponatremia Respiratory History: Reports: COPD Other Respiratory History: aspiration pneumonia, 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, hypoxemia Gastrointestinal History: Reports: Pancreatitis Other Gastrointestinal History: pancreatic mass, Vit D deficiency Genitourinary History: Reports: Urinary Incontinence Musculoskeletal History: Reports: Arthritis Other Musculoskeletal History: ingrown nail Neurological History: Reports: Neuropathy, Diabetic Other Neuro History: resting tremor left arm Psychiatric History: Reports: Anxiety, Schizophrenia Other Psychiatric History: delusional disorder Endocrine/Metabolic History: Reports: Diabetes, Type II, Hypothyroidism, Obesity /BMI 30+, Vitamin D Deficiency Other Oncologic History: Pancreatic mass (dx 2013) of unknown etiology - no tx desired - Infectious Disease History Infectious Disease History: Reports: MRSA - Past Surgical History Other Oncologic Surgeries/Procedures: PANCREATIC MASS Social & Family History - Family History Family Medical History: Noncontributory - Tobacco Use Smoking Status *Q: Unknown Ever Smoked Second Hand Smoke Exposure: No - Caffeine Use Caffeine Use: Reports: Coffee - Alcohol Use Days Per Week of Alcohol Use: 0 - Recreational Drug Use Recreational Drug Use: No - Living Situation & Occupation Living situation: Reports: Extended Care Facility Occupation: Retired H&P Review of Systems - Review of Systems: Review Of Systems: See Below Free Text/Narrative: ROS obtained from ED notes. Currently she is on BIPAP General: Reports: Weakness, Fatigue, Decreased Appetite. Denies: Chills HEENT: Reports: No Symptoms Pulmonary: Reports: Shortness of Breath, Cough, Sputum Cardiovascular: Reports: Dyspnea on Exertion, Blood Pressure Problem Gastrointestinal: Reports: Abdominal Pain, Nausea. Denies: Anorexia, Vomiting Genitourinary: Reports: Frequency Musculoskeletal: Reports: Joint Pain Skin: Reports: Pallor, Bruising Psychiatric: Denies: Depression, Anxiety, Agitation Neurological: Denies: Confusion, Difficulty Walking, Weakness, Gait Disturbance Hematologic/Lymphatic: Reports: No Symptoms Immunologic: Reports: No Symptoms Exam - Exam Exam: See Below - Vital Signs Vital Signs: Last Vital Signs Temp 36.1 C 09/08/17 12:44 Pulse 120 H 09/08/17 12:44 Resp 18 09/08/17 12:44 BP 110/59 L 09/08/17 12:44 Pulse Ox 90 L 09/08/17 13:47 Weight: 100.108 kg - Exam Quality Assessment: Other (BIPAP) General: Alert, Cooperative, Moderate Distress HEENT: Conjunctiva Clear, Hearing Intact, PERRLA Neck: Supple, Trachea Midline, +2 Carotid Pulse wo Bruit Lungs: Decreased Breath Sounds, Rhonchi. No: Normal Respiratory Effort Cardiovascular: Regular Rhythm, Tachycardia GI/Abdominal Exam: Normal Bowel Sounds, Soft, Non-Tender, No Organomegaly, No Distention, No Abnormal Bruit, No Mass, Other (Obese) (Female) Exam: Deferred Rectal (Female) Exam: Deferred Back Exam: Normal Inspection Extremities: Normal Inspection, Normal Range of Motion, Non-Tender, Other ( minimal edema) Peripheral Pulses: 2+: Dorsalis Pedis (L), Dorsalis Pedis (R) Neuro Extensive - Mental Status: Alert Neuro Extensive - Motor, Sensory, Reflexes: CN II-XII Intact (limited she is currently on BIPAP due to respiratory distress), Abnormal Gait Psychiatric: Alert, Normal Affect, Normal Mood - Patient Data Lab Results Last 24 hrs: Laboratory Results - last 24 hr 09/08/17 09/08/17 09/08/17 Range/Units 13:10 13:30 13:30 WBC 17.07 H (3.98-10.04) K/mm3 RBC 4.58 (3.98-5.22) M/mm3 Hgb 15.0 (11.2-15.7) gm/L Hct 47.2 H (34.1-44.9) % MCV 103.1 H (79.4-94.8) fl MCH 32.8 H (25.6-32.2) pg MCHC 31.8 L (32.2-35.5) g/dl RDW Std Deviation 53.0 H (36.4-46.3) fL Plt Count 278 (182-369) K/mm3 MPV 8.4 L (9.4-12.3) fl Neutrophils % (Manual) 63 H (40-60) % Band Neutrophils % 6 (0-10) % Lymphocytes % (Manual) 20 (20-40) % Atypical Lymphs % 0 % Monocytes % (Manual) 11 H (2-10) % Eosinophils % (Manual) 0 L (0.7-5.8) % Basophils % (Manual) 0 L (0.1-1.2) Platelet Estimate Adequate RBC Morph Comment Normal PT 11.4 (8.0-13.0) SECONDS INR 1.04 Puncture Site Lt radial ABG pH 7.38 (7.35-7.45) ABG pCO2 62.2 H (35.0-45.0) mmHg ABG pO2 60.0 L (80.0-100.0) mmHg ABG HCO3 36.0 H (22.0-26.0) meq/L ABG O2 Saturation 89.0 L (96.0-97.0) % ABG Base Excess 8.5 H (-2-2.0) Ryan Test Positive O2 Delivery Device Nasal cannula Oxygen Flow Rate 5.0 FiO2 0.00 L (21.00-100.00) % Sodium (136-145) mEq/L Potassium (3.5-5.1) mEq/L Chloride (98-107) mEq/L Carbon Dioxide (21-32) mEq/L Anion Gap (5-15) BUN (7-18) mg/dL Creatinine (0.55-1.02) mg/dL Est Cr Clr Drug Dosing mL/min Estimated GFR (MDRD) (>60) mL/min BUN/Creatinine Ratio (14-18) Glucose (83-115) mg/dL Calcium (8.5-10.1) mg/dL Magnesium (1.8-2.4) mg/dl Total Bilirubin (0.2-1.0) mg/dL AST (15-37) U/L ALT (14-59) U/L Alkaline Phosphatase (46-116) U/L CK-MB (CK-2) (0-3.6) ng/ml Troponin I (0.00-0.056) ng/mL C-Reactive Protein (<1.0) mg/dL NT-Pro-B Natriuret Pep (0-450) pg/mL Total Protein (6.4-8.2) g/dl Albumin (3.4-5.0) g/dl Globulin gm/dL Albumin/Globulin Ratio (1-2) Urine Color (Yellow) Urine Appearance (Clear) Urine pH (5.0-8.0) Ur Specific [place] (1.005-1.030) Urine Protein (Negative) Urine Glucose (UA) (Negative) Urine Ketones (Negative) Urine Occult Blood (Negative) Urine Nitrite (Negative) Urine Bilirubin (Negative) Urine Urobilinogen (0.2-1.0) Ur Leukocyte Esterase (Negative) 09/08/17 09/08/17 09/08/17 Range/Units 13:30 13:30 13:35 WBC (3.98-10.04) K/mm3 RBC (3.98-5.22) M/mm3 Hgb (11.2-15.7) gm/L Hct (34.1-44.9) % MCV (79.4-94.8) fl MCH (25.6-32.2) pg MCHC (32.2-35.5) g/dl RDW Std Deviation (36.4-46.3) fL Plt Count (182-369) K/mm3 MPV (9.4-12.3) fl Neutrophils % (Manual) (40-60) % Band Neutrophils % (0-10) % Lymphocytes % (Manual) (20-40) % Atypical Lymphs % % Monocytes % (Manual) (2-10) % Eosinophils % (Manual) (0.7-5.8) % Basophils % (Manual) (0.1-1.2) Platelet Estimate RBC Morph Comment PT (8.0-13.0) SECONDS INR Puncture Site ABG pH (7.35-7.45) ABG pCO2 (35.0-45.0) mmHg ABG pO2 (80.0-100.0) mmHg ABG HCO3 (22.0-26.0) meq/L ABG O2 Saturation (96.0-97.0) % ABG Base Excess (-2-2.0) Ryan Test O2 Delivery Device Oxygen Flow Rate FiO2 (21.00-100.00) % Sodium 140 (136-145) mEq/L Potassium 4.8 (3.5-5.1) mEq/L Chloride 99 (98-107) mEq/L Carbon Dioxide 36 H (21-32) mEq/L Anion Gap 9.8 (5-15) BUN 24 H (7-18) mg/dL Creatinine 0.8 (0.55-1.02) mg/dL Est Cr Clr Drug Dosing 59.09 mL/min Estimated GFR (MDRD) > 60 (>60) mL/min BUN/Creatinine Ratio 30.0 H (14-18) Glucose 249 H (83-115) mg/dL Calcium 9.9 (8.5-10.1) mg/dL Magnesium 2.3 (1.8-2.4) mg/dl Total Bilirubin 0.2 (0.2-1.0) mg/dL AST 21 (15-37) U/L ALT 28 (14-59) U/L Alkaline Phosphatase 53 (46-116) U/L CK-MB (CK-2) 0.8 (0-3.6) ng/ml Troponin I < 0.017 (0.00-0.056) ng/mL C-Reactive Protein 1.1 H* (<1.0) mg/dL NT-Pro-B Natriuret Pep 753 H (0-450) pg/mL Total Protein 6.9 (6.4-8.2) g/dl Albumin 2.9 L (3.4-5.0) g/dl Globulin 4.0 gm/dL Albumin/Globulin Ratio 0.7 L (1-2) Urine Color Yellow (Yellow) Urine Appearance Clear (Clear) Urine pH 8.0 (5.0-8.0) Ur Specific [place] 1.020 (1.005-1.030) Urine Protein Negative (Negative) Urine Glucose (UA) Negative (Negative) Urine Ketones Negative (Negative) Urine Occult Blood Trace-intact H (Negative) Urine Nitrite Negative (Negative) Urine Bilirubin Negative (Negative) Urine Urobilinogen 0.2 (0.2-1.0) Ur Leukocyte Esterase Negative (Negative) Result Diagrams: 09/09/17 06:10 09/09/17 06:10 *Q Meaningful Use (ADM) - VTE *Q VTE Criteria *Q: - Stroke *Q Stroke Criteria *Q: - AMI *Q AMI Criteria *Q: Problem List Initiated/Reviewed/Updated: Yes Orders Last 24hrs: Active Orders 24 hr Category Date Time Status Admission Status [Patient Status] [ADT] Routine ADT 09/08/17 15:21 Active EKG Documentation Completion [RC] STAT Care 09/08/17 13:09 Active Insert [place] Catheter [Insert Urinary Catheter] [OM.PC] Care 09/08/17 13:30 Ordered Stat RT BiPAP/CPAP [RC] ASDIRECTED Care 09/08/17 15:09 Active Urinary Catheter Assessment [RC] ASDIRECTED Care 09/08/17 13:30 Active cefTRIAXone [Rocephin] 2 gm Med 09/08/17 15:20 Active Sodium Chloride 0.9% [Normal Saline] 100 ml IV ONETIME Medication Orders Ceftriaxone Sodium 2 gm/ (Sodium Chloride) 100 mls @ 200 mls/hr IV ONETIME ONE Stop: 09/08/17 15:49 Last Admin: 09/08/17 15:28 Dose: 200 mls/hr Assessment/Plan Comment:: Assessment/Plan: Acute: Acute Respiratory Failure - Combined Hypercapneic and Hypoxic - Suspect Mucus Plugging or Inspissated Sputum - Currently on BIPAP 10/5 with VT 300 - Initial ABG: pCO2 62.2 and pO2 60; repeat pCO2 is 68 and pO2 64 - Increased VT to over 400ml and titrated IPAP/EPAP to 20/8 RR 10 on 50% F1O2 - Consider adding water/mist to humidify air - She is DNR/DNI Pneumonia/Bronchitis - CXR in ED on 09/08/[address] Arevalo: improved left lower lung pneumonia from prior exam. No new abnormality seen - WBC 17.07; CRP 1.1 - Continue Rocephin 1gm Q24Hr and start azithromycin 500 mg Q24Hr - Duonebs/IS/RT to evaluate and treat - Robitussin DM 10ml Q4hr PRN - Solu-medrol 125 mg IVP x1 then 60 mg IVP Q6hr starting tomorrow at 0600 - Oxygen, titrate as needed - attempt to return to baseline - Repeat CXR in 24-48 hours Chronic: Cataract HLD HTN - stable with home meds Peripheral Edema COPD - on 3L O2 at home regularly Pancreatic mass - does not want treatment Hypothyroidism DM2 with Diabetic Neuropathy - Continue home insulin routine, blood sugars QID AC and bedtime Urinary incontinence Vitamin D deficiency Osteoarthritis Resting left arm tremor Anxiety - stable Schizophrenia/Delusional disorder - stable Obesity with BMI of 34 Plan: Admit to the unit Routine AM labs Home medications as ordered PT/OT/RT consult Other orders as indicated above GI prophylaxis: H2B DVT/PE prophylaxis: Lovenox SubQ daily SW/CM for discharge planning Code Status: DNR/DNI Prognosis is serious-critical.
[2017-09-08] MEDS ORDERED: Acetaminophen/HYDROcodone 325-5 MG Tab PO PRN (16:03)
[2017-09-08] MEDS ORDERED: Acetaminophen 325 MG Tab PO PRN ×2 (16:03→16:14)
[2017-09-08] MEDS ORDERED: Morphine 2 MG/ML Syringe IVPUSH PRN (16:03)
[2017-09-08] MEDS ORDERED: Albuterol/Ipratropium 3.0-0.5 MG/3 ML Neb Soln NEB PRN (16:09)
[2017-09-08] MEDS ORDERED: Ondansetron 4 MG/2 ML SDV IV PRN (16:09)
[2017-09-08] MEDS ORDERED: LORazepam 2 MG/ML MDV IV PRN (16:09)
[2017-09-08] MEDS ORDERED: Polyethylene Glycol 3350 Powder 17 GM Packet PO PRN (16:09)
[2017-09-08] MEDS ORDERED: Bisacodyl 5 MG Tab PO PRN (16:09)
[2017-09-08] MEDS ORDERED: Temazepam 7.5 MG Cap PO PRN (16:09)
[2017-09-08] MEDS ORDERED: Docusate Sodium 100 MG Cap PO PRN (16:09)
[2017-09-08] MEDS ORDERED: Promethazine 12.5 MG in Sodium Chloride 0.9% 50 ML IV PRN (16:09)
[2017-09-08] MEDS ORDERED: Albuterol/Ipratropium 3.0-0.5 MG/3 ML Neb Soln INH PRN (16:14)
[2017-09-08] MEDS ORDERED: Ondansetron 4 MG Tab.DIS PO PRN (16:14)
[2017-09-08] MEDS ORDERED: Lactated Ringers 1,000 ML IV SCH (16:15)
[2017-09-08] MEDS ORDERED: Metoprolol Tartrate 5 MG/5 ML SDV IVPUSH PRN (16:16)
[2017-09-08] MEDS ORDERED: hydrALAZINE 20 MG/ML SDV IVPUSH PRN (16:16)
[2017-09-08] MEDS ORDERED: methylPREDNISolone Sodium Succinate 125 MG/2 ML SDV IM ONE (16:17)
[2017-09-08] MEDS ORDERED: guaiFENesin/Dextromethorphan 100-10 MG/5 ML Soln 5 ML Cup PO PRN (16:52)
[2017-09-08] MEDS ORDERED: Pantoprazole 40 MG Vial IV ONE (17:00)
[2017-09-08] MEDS ORDERED: Azithromycin 500 MG in Sodium Chloride 0.9% 250 ML IV ONE (17:00)
[2017-09-08] MEDS ORDERED: methylPREDNISolone Sodium Succinate 125 MG/2 ML SDV IVPUSH ONE (17:50)
[2017-09-08] MEDS: Rosuvastatin 10 MG Tab PO SCH (17:52)
[2017-09-08] MEDS: Levothyroxine 100 MCG Tab PO SCH (17:52)
[2017-09-08] MEDS ORDERED: 50% Dextrose in Water 50 ML Syringe IVPUSH PRN (18:06)
[2017-09-08] MEDS: Insulin Aspart 100 Units/ML 3 ML Pen SUBCUT SCH ×2 (18:06→21:02)
[2017-09-08] MEDS: Nystatin Crm 30 GM Tube TOP SCH ×2 (20:43→20:50)
[2017-09-08] MEDS: Calcium Carbonate/Vitamin D3 1500 MG-200 Units Tab PO SCH (20:43)
[2017-09-08] MEDS: OLANZapine 5 MG Tab PO SCH (20:43)
[2017-09-08] MEDS: Famotidine 20 MG Tab PO SCH (20:43)
[2017-09-08] MEDS: Magnesium Oxide 400 MG Tab PO SCH (20:43)
[2017-09-08] MEDS ORDERED: DIVALPROEX SODIUM 500 MG PO SCH (21:00)
[2017-09-08] MEDS: Albuterol/Ipratropium 3.0-0.5 MG/3 ML Neb Soln NEB SCH (21:42)
[2017-09-08] MEDS: Divalproex Sodium Delayed-Release 500 MG Tab.CR PO SCH (22:19)
[2017-09-09] MEDS: Divalproex Sodium Delayed-Release 500 MG Tab.CR PO SCH ×2 (06:28→17:18)
[2017-09-09] MEDS: methylPREDNISolone Sodium Succinate 40 MG/1 ML SDV IVPUSH SCH ×3 (06:28→17:18)
[2017-09-09] MEDS: Albuterol/Ipratropium 3.0-0.5 MG/3 ML Neb Soln NEB SCH ×2 (06:37→20:32)
[2017-09-09] MEDS: Insulin Aspart 100 Units/ML 3 ML Pen SUBCUT SCH ×5 (08:03→17:19)
--- NOTE | 2017-09-09 08:17 | PCM.PN ---
- General Info Date of Service: 09/09/17 Admission Dx/Problem (Free Text): Admission Diagnosis/Problem Admission Diagnosis/Problem Respiratory failure with hypercapnia Subjective Update: Follow Up Functional Status: Reports: Pain Controlled, Urinating. Denies: New Symptoms - Review of Systems General: Denies: Fever, Chills HEENT: Reports: No Symptoms Pulmonary: Denies: Shortness of Breath, Cough, Sputum Cardiovascular: Denies: Chest Pain Gastrointestinal: Denies: Abdominal Pain, Nausea, Vomiting Genitourinary: Reports: No Symptoms Musculoskeletal: Reports: No Symptoms Skin: Denies: Cyanosis, Pallor, Diaphoresis Neurological: Reports: Gait Disturbance. Denies: Confusion, Weakness Psychiatric: Denies: Mood Lability, Anxiety, Agitation, Hallucinations Systems Review Comment:: No significant overnight or acute issues. She is doing much better this morning. She is now off BIPAP but on at 3L NC sating at 86-87%. She reports no new complaints. Her K is slightly elevated at 5.4. - Patient Data Vitals - Most Recent: Last Vital Signs Temp 36.6 C 09/09/17 00:00 Pulse 60 09/09/17 04:00 Resp 14 09/09/17 04:00 BP 96/54 L 09/09/17 04:00 Pulse Ox 95 09/09/17 06:37 Weight - Most Recent: 100.698 kg I&O - Last 24 Hours: Intake & Output 09/08/17 09/09/17 09/09/17 22:59 06:59 14:59 Intake Total 345 Output Total 100 330 Balance -100 15 Lab Results Last 24 Hours: Laboratory Results - last 24 hr 09/08/17 09/08/17 09/08/17 Range/Units 16:49 17:57 20:58 WBC (3.98-10.04) K/mm3 RBC (3.98-5.22) M/mm3 Hgb (11.2-15.7) gm/L Hct (34.1-44.9) % MCV (79.4-94.8) fl MCH (25.6-32.2) pg MCHC (32.2-35.5) g/dl RDW Std Deviation (36.4-46.3) fL Plt Count (182-369) K/mm3 MPV (9.4-12.3) fl Neut % (Auto) (34.0-71.1) % Lymph % (Auto) (19.3-51.7) % [place] % (Auto) (4.7-12.5) % Eos % (Auto) (0.7-5.8) Baso % (Auto) (0.1-1.2) % Neut # (Auto) (1.56-6.13) K/mm3 Lymph # (Auto) (1.18-3.74) K/mm3 [place] # (Auto) (0.24-0.36) K/mm3 Eos # (Auto) (0.04-0.36) K/mm3 Baso # (Auto) (0.01-0.08) K/mm3 Manual Slide Review Puncture Site Lt radial ABG pH 7.36 (7.35-7.45) ABG pCO2 68.0 H (35.0-45.0) mmHg ABG pO2 64.0 L (80.0-100.0) mmHg ABG HCO3 37.2 H (22.0-26.0) meq/L ABG O2 Saturation 90.5 L (96.0-97.0) % ABG Base Excess 8.9 H (-2-2.0) Ryan Test Positive A-a Gradient mmHg O2 Delivery Device Bipap FiO2 0.00 L (21.00-100.00) % Sodium (136-145) mEq/L Potassium (3.5-5.1) mEq/L Chloride (98-107) mEq/L Carbon Dioxide (21-32) mEq/L Anion Gap (5-15) BUN (7-18) mg/dL Creatinine (0.55-1.02) mg/dL Est Cr Clr Drug Dosing mL/min Estimated GFR (MDRD) (>60) mL/min BUN/Creatinine Ratio (14-18) Glucose (83-115) mg/dL POC Glucose 239 H 204 H (83-110) mg/dL Calcium (8.5-10.1) mg/dL Magnesium (1.8-2.4) mg/dl C-Reactive Protein (<1.0) mg/dL 09/08/17 09/09/17 09/09/17 Range/Units 21:43 06:10 06:10 WBC 7.23 (3.98-10.04) K/mm3 RBC 4.13 (3.98-5.22) M/mm3 Hgb 13.8 (11.2-15.7) gm/L Hct 42.4 (34.1-44.9) % MCV 102.7 H (79.4-94.8) fl MCH 33.4 H (25.6-32.2) pg MCHC 32.5 (32.2-35.5) g/dl RDW Std Deviation 52.5 H (36.4-46.3) fL Plt Count 252 (182-369) K/mm3 MPV 8.8 L (9.4-12.3) fl Neut % (Auto) 79.9 H (34.0-71.1) % Lymph % (Auto) 11.5 L (19.3-51.7) % [place] % (Auto) 5.5 (4.7-12.5) % Eos % (Auto) 0 L (0.7-5.8) Baso % (Auto) 0.1 (0.1-1.2) % Neut # (Auto) 5.77 (1.56-6.13) K/mm3 Lymph # (Auto) 0.83 L (1.18-3.74) K/mm3 [place] # (Auto) 0.40 H (0.24-0.36) K/mm3 Eos # (Auto) 0.00 L (0.04-0.36) K/mm3 Baso # (Auto) 0.01 (0.01-0.08) K/mm3 Manual Slide Review Abnormal smear Puncture Site Rt radial ABG pH 7.40 (7.35-7.45) ABG pCO2 62.6 H (35.0-45.0) mmHg ABG pO2 87.0 (80.0-100.0) mmHg ABG HCO3 37.6 H (22.0-26.0) meq/L ABG O2 Saturation 96.7 (96.0-97.0) % ABG Base Excess 10.5 H (-2-2.0) Ryan Test Positive A-a Gradient 154 mmHg O2 Delivery Device FiO2 0.00 L (21.00-100.00) % Sodium 142 (136-145) mEq/L Potassium 5.4 H (3.5-5.1) mEq/L Chloride 102 (98-107) mEq/L Carbon Dioxide 36 H (21-32) mEq/L Anion Gap 9.4 (5-15) BUN 27 H (7-18) mg/dL Creatinine 0.7 (0.55-1.02) mg/dL Est Cr Clr Drug Dosing 67.53 mL/min Estimated GFR (MDRD) > 60 (>60) mL/min BUN/Creatinine Ratio 38.6 H (14-18) Glucose 253 H (83-115) mg/dL POC Glucose (83-110) mg/dL Calcium 9.2 (8.5-10.1) mg/dL Magnesium 2.3 (1.8-2.4) mg/dl C-Reactive Protein 4.9 H* (<1.0) mg/dL 09/09/17 Range/Units 06:53 WBC (3.98-10.04) K/mm3 RBC (3.98-5.22) M/mm3 Hgb (11.2-15.7) gm/L Hct (34.1-44.9) % MCV (79.4-94.8) fl MCH (25.6-32.2) pg MCHC (32.2-35.5) g/dl RDW Std Deviation (36.4-46.3) fL Plt Count (182-369) K/mm3 MPV (9.4-12.3) fl Neut % (Auto) (34.0-71.1) % Lymph % (Auto) (19.3-51.7) % [place] % (Auto) (4.7-12.5) % Eos % (Auto) (0.7-5.8) Baso % (Auto) (0.1-1.2) % Neut # (Auto) (1.56-6.13) K/mm3 Lymph # (Auto) (1.18-3.74) K/mm3 [place] # (Auto) (0.24-0.36) K/mm3 Eos # (Auto) (0.04-0.36) K/mm3 Baso # (Auto) (0.01-0.08) K/mm3 Manual Slide Review Puncture Site ABG pH (7.35-7.45) ABG pCO2 (35.0-45.0) mmHg ABG pO2 (80.0-100.0) mmHg ABG HCO3 (22.0-26.0) meq/L ABG O2 Saturation (96.0-97.0) % ABG Base Excess (-2-2.0) Ryan Test A-a Gradient mmHg O2 Delivery Device FiO2 (21.00-100.00) % Sodium (136-145) mEq/L Potassium (3.5-5.1) mEq/L Chloride (98-107) mEq/L Carbon Dioxide (21-32) mEq/L Anion Gap (5-15) BUN (7-18) mg/dL Creatinine (0.55-1.02) mg/dL Est Cr Clr Drug Dosing mL/min Estimated GFR (MDRD) (>60) mL/min BUN/Creatinine Ratio (14-18) Glucose (83-115) mg/dL POC Glucose 220 H (83-110) mg/dL Calcium (8.5-10.1) mg/dL Magnesium (1.8-2.4) mg/dl C-Reactive Protein (<1.0) mg/dL Med Orders - Current: Current Medications Acetaminophen (Tylenol) 650 mg PO Q4H PRN PRN Reason: Pain (Mild 1-3)/fever Hydrocodone Bitart/Acetaminophen ([place] 325-5 Mg) 1 tab PO Q4H PRN PRN Reason: Pain (moderate 4-6) Albuterol/Ipratropium (Duoneb 3.0-0.5 Mg/3 Ml) 3 ml NEB Q4H PRN PRN Reason: Shortness Of Breath/wheezing Last Admin: 09/08/17 17:26 Dose: 3 ml Albuterol/Ipratropium (Duoneb 3.0-0.5 Mg/3 Ml) 3 ml NEB BIDRT [facility] Last Admin: 09/09/17 06:37 Dose: 3 ml Albuterol/Ipratropium (Duoneb 3.0-0.5 Mg/3 Ml) 3 ml INH QID PRN PRN Reason: Dyspnea Aspirin (Halfprin) 81 mg PO DAILY FITO Bisacodyl (Dulcolax) 5 mg PO DAILY PRN PRN Reason: Constipation Calcium Carbonate (Calcium Carbonate/Vitamin D 1500 Mg-200 Unit) 1 tab PO BID [facility] Last Admin: 09/08/17 20:43 Dose: 1 tab Dextrose/Water (Dextrose 50% In Water) 50 ml IVPUSH ASDIRECTED PRN PRN Reason: Hypoglycemia Divalproex Sodium (Depakote) 500 mg PO BIDMEALS [facility] Last Admin: 09/09/17 06:28 Dose: 500 mg Docusate Sodium (Colace) 100 mg PO BID PRN PRN Reason: Constipation Enoxaparin Sodium (Lovenox) 40 mg SUBCUT DAILY [facility] Famotidine (Pepcid) 20 mg PO BEDTIME [facility] Last Admin: 09/08/17 20:43 Dose: 20 mg Guaifenesin/Phenylephrine HCl (Robitussin Dm) 10 ml PO Q4H PRN PRN Reason: Cough Hydralazine HCl (Apresoline) 20 mg IVPUSH Q4H PRN PRN Reason: Hypertension Lactated Ringer's (Ringers, Lactated) 1,000 mls @ 75 mls/hr IV ASDIRECTED [facility] Last Admin: 09/08/17 23:40 Dose: 75 mls/hr Promethazine HCl 12.5 mg/ (Sodium Chloride) 50.5 mls @ 100 mls/hr IV Q6H PRN PRN Reason: Nausea/Vomiting Azithromycin 500 mg/ Sodium (Chloride) 250 mls @ 250 mls/hr IV Q24H [facility] Ceftriaxone Sodium 1 gm/ (Sodium Chloride) 100 mls @ 200 mls/hr IV Q24H [facility] Insulin Aspart (Novolog) 18 unit SUBCUT TIDMEALS [facility] Last Admin: 09/09/17 08:04 Dose: Not Given Insulin Aspart (Novolog) 0 unit SUBCUT QIDACANDBED [facility] PRN Reason: Protocol Last Admin: 09/09/17 08:03 Dose: 2 units Insulin Detemir (Levemir) 40 unit SUBCUT DAILY@0800 [facility] Levothyroxine Sodium (Synthroid) 100 mcg PO QPM [facility] Last Admin: 09/08/17 17:52 Dose: 100 mcg Lorazepam (Ativan) 0.5 mg IV Q6H PRN PRN Reason: Anxiety Magnesium Oxide (Magnesium Oxide) 400 mg PO BID [facility] Last Admin: 09/08/17 20:43 Dose: 400 mg Magnesium Sulfate (Pharmacy To Dose - Magnesium Replacement) 1 dose .XX ASDIRECTED [facility] Methylprednisolone Sodium Succinate (Solu-Medrol) 60 mg IVPUSH Q6H [facility] Last Admin: 09/09/17 06:28 Dose: 60 mg Metoprolol Tartrate (Lopressor) 5 mg IVPUSH Q4H PRN PRN Reason: Tachycardia Morphine Sulfate (Morphine) 0.5 mg IVPUSH Q4H PRN PRN Reason: Other Stop: 09/09/17 16:09 Multivitamins (Thera) 1 each PO DAILY [facility] Nystatin (Nystatin Crm) 0 gm TOP BID [facility] Last Admin: 09/08/17 20:50 Dose: Not Given Olanzapine (Zyprexa) 15 mg PO BEDTIME [facility] Last Admin: 09/08/17 20:43 Dose: 15 mg Ondansetron HCl (Zofran) 4 mg IV Q6H PRN PRN Reason: Nausea/Vomiting Ondansetron HCl (Zofran Odt) 4 mg PO Q4H PRN PRN Reason: Nausea Cranberry Extract (400mg) 400 each PO BID [facility] Ptom - Liraclutide ( (Victoza) 1.8mg Dose) 1 each SUBCUT BEDTIME [facility] Invega (Paliperidone () 12mg Dose) 1 each PO DAILY [facility] Polyethylene Glycol (Miralax) 17 gm PO DAILY PRN PRN Reason: Constipation Potassium Chloride (Pharmacy To Dose - Potassium Replacement) 1 dose .XX ASDIRECTED [facility] Rosuvastatin Calcium (Crestor) 10 mg PO QPM [facility] Last Admin: 09/08/17 17:52 Dose: 10 mg Saccharomyces Boulardii (Florastor) 250 mg PO DAILY [facility] Senna/Docusate Sodium (Senna Plus) 1 tab PO BID PRN PRN Reason: Constipation Temazepam (Restoril) 7.5 mg PO BEDTIME PRN PRN Reason: Sleep Discontinued Medications Acetaminophen (Tylenol) 650 mg PO Q4H PRN PRN Reason: Fever Ceftriaxone Sodium 2 gm/ (Sodium Chloride) 100 mls @ 200 mls/hr IV ONETIME ONE Stop: 09/08/17 15:49 Last Admin: 09/08/17 15:28 Dose: 200 mls/hr Azithromycin 500 mg/ Sodium (Chloride) 250 mls @ 250 mls/hr IV ONETIME ONE Stop: 09/08/17 17:59 Last Admin: 09/08/17 17:51 Dose: 250 mls/hr Methylprednisolone Sodium Succinate (Solu-Medrol) 125 mg IM ONETIME ONE Stop: 09/08/17 16:18 Last Admin: 09/08/17 17:49 Dose: Not Given Methylprednisolone Sodium Succinate (Solu-Medrol) 125 mg IVPUSH ONETIME ONE Stop: 09/08/17 17:51 Last Admin: 09/08/17 17:58 Dose: 125 mg Non-Formulary Medication (Lactobac Cmb #3/Fos/Pantethine [Probiotic & Acidophilus]) 1 each PO DAILY FITO Pantoprazole Sodium (Protonix Iv) 40 mg IV ONETIME ONE Stop: 09/08/17 17:01 Last Admin: 09/08/17 17:50 Dose: 40 mg - Exam Quality Assessment: Supplemental Oxygen General: Alert, Oriented, Cooperative, No Acute Distress HEENT: Pupils Equal, Pupils Reactive, EOMI, Mucous Membr. Moist/[place], Other ( Poor Dentition) Neck: Supple, Trachea Midline, No JVD Lungs: Normal Respiratory Effort, Decreased Breath Sounds, Other (Poor inspiratory and expiratory effort) Cardiovascular: Regular Rate, Regular Rhythm GI/Abdominal Exam: Normal Bowel Sounds, Soft, Non-Tender, No Organomegaly, No Distention, No Abnormal Bruit, Other (Obese) (Female) Exam: Deferred Back Exam: Normal Inspection, Decreased Range of Motion Extremities: Normal Inspection, Normal Range of Motion, Non-Tender, No Pedal Edema, Normal Capillary Refill Peripheral Pulses: 2+: Dorsalis Pedis (L), Dorsalis Pedis (R) Skin: Warm, Dry, Intact Neurological: No New Focal Deficit Psy/Mental Status: Alert, Normal Affect, Normal Mood - Problem List Review Problem List Initiated/Reviewed/Updated: Yes - My Orders Last 24 Hours: My Active Orders 09/08/17 16:03 Ambulate [RC] ASDIRECTED Height and Weight [RC] 04 Oxygen Therapy [RC] PRN Up ad Molly [RC] ASDIRECTED VTE/DVT Education [RC] QSHIFT Vital Signs [RC] Q4HR Acetaminophen [Tylenol] 650 mg PO Q4H PRN Acetaminophen/HYDROcodone [[place] 325-5 MG] 1 tab PO Q4H PRN Morphine 0.5 mg IVPUSH Q4H PRN Resuscitation Status Routine 09/08/17 16:04 Cardiac Monitoring [RC] CONTINUOUS Intake and Output [RC] Q2HR Pulse Oximetry [RC] CONTINUOUS 09/08/17 16:09 Albuterol/Ipratropium [DuoNeb 3.0-0.5 MG/3 ML] 3 ml NEB Q4H PRN Bisacodyl [Dulcolax] 5 mg PO DAILY PRN Docusate Sodium [Colace] 100 mg PO BID PRN Docusate Sodium/Sennosides [Senna Plus] 1 tab PO BID PRN LORazepam [Ativan] 0.5 mg IV Q6H PRN Ondansetron [Zofran] 4 mg IV Q6H PRN Polyethylene Glycol 3350 [MiraLAX] 17 gm PO DAILY PRN Promethazine [Phenergan] 12.5 mg Sodium Chloride 0.9% [Normal Saline] 50 ml IV Q6H Temazepam [Restoril] 7.5 mg PO BEDTIME PRN 09/08/17 16:11 RT Aerosol Therapy [RC] ASDIRECTED 09/08/17 16:12 Consult to Case Management [CONS] Routine Consult to Polygraph Operator [CONS] Routine OT Evaluation and Treatment [CONS] Routine PT Evaluation and Treatment [CONS] Routine Respiratory Care Assess and Treatment [CONS] Routine 09/08/17 16:14 Albuterol/Ipratropium [DuoNeb 3.0-0.5 MG/3 ML] 3 ml INH QID PRN Ondansetron [Zofran ODT] 4 mg PO Q4H PRN 09/08/17 16:15 Lactated Ringers [Ringers, Lactated] 1,000 ml IV ASDIRECTED 09/08/17 16:16 Metoprolol Tartrate [Lopressor] 5 mg IVPUSH Q4H PRN hydrALAZINE [Apresoline] 20 mg IVPUSH Q4H PRN 09/08/17 16:19 Incentive Spirometry [RT Incentive Spirometry] [RC] ASDIRECTED 09/08/17 16:30 Magnesium Rep Pharmacy to Dose [Pharmacy to Dose - Magnesium Replacement] 1 dose .XX ASDIRECTED Potassium Rep Pharmacy to Dose [Pharmacy to Dose - Potassium Replacement] 1 dose .XX ASDIRECTED 09/08/17 16:52 Flutter Valve Therapy [RT Chest Physiotherapy] [RC] ASDIRECTED Dextromethorphan/guaiFENesin [Robitussin DM] 10 ml PO Q4H PRN 09/08/17 17:00 Insulin Aspart [NovoLOG] 18 unit SUBCUT TIDMEALS 09/08/17 18:00 Levothyroxine [Synthroid] 100 mcg PO QPM Rosuvastatin [Crestor] 10 mg PO QPM 09/08/17 18:06 Blood Glucose Check, Bedside [RC] QIDACANDBED Dextrose 50% in Water 50 ml IVPUSH ASDIRECTED PRN 09/08/17 19:45 [place] Catheter Insertion [Insert Urinary Catheter] [OM.PC] Q24H Urinary Catheter Assessment [RC] 04,08,12,16,20,00 09/08/17 21:00 Albuterol/Ipratropium [DuoNeb 3.0-0.5 MG/3 ML] 3 ml NEB BIDRT Calcium Carbonate/Vitamin D3 [Calcium Carbonate/Vitamin D 1500 MG-200 Unit] 1 tab PO BID Famotidine [Pepcid] 20 mg PO BEDTIME Magnesium Oxide 400 mg PO BID Nystatin [Nystatin Crm] 0 gm TOP BID OLANZapine [ZyPREXA] 15 mg PO BEDTIME Patient's Own Medication [Ptom] 1 each SUBCUT BEDTIME Patient's Own Medication [Ptom] 400 each PO BID 09/08/17 21:30 Divalproex Sodium [Depakote] 500 mg PO BIDMEALS 09/08/17 22:00 Insulin Aspart [NovoLOG] See Protocol SUBCUT QIDACANDBED 09/08/17 Dinner Consistent Carbohydrate Diet [DIET] Heart Healthy Diet [DIET] 09/09/17 06:00 methylPREDNISolone Sod Succ [Solu-MEDROL] 60 mg IVPUSH Q6H 09/09/17 06:10 A1C [GLYCOSYLATED HEMOGLOBIN,HGBA1C] [CHEM] Urgent 09/09/17 08:00 Insulin Detemir [Levemir] 40 unit SUBCUT DAILY@0800 09/09/17 09:00 Aspirin [Halfprin] 81 mg PO DAILY Enoxaparin [Lovenox] 40 mg SUBCUT DAILY Multivitamins,Therapeutic [Thera] 1 each PO DAILY Patient's Own Medication [Ptom] 1 each PO DAILY Saccharomyces Boulardii [Florastor] 250 mg PO DAILY 09/09/17 15:00 cefTRIAXone [Rocephin] 1 gm Sodium Chloride 0.9% [Normal Saline] 100 ml IV Q24H 09/09/17 17:00 Azithromycin [Zithromax] 500 mg Sodium Chloride 0.9% [Normal Saline] 250 ml IV Q24H 09/10/17 05:11 Chest 1V Frontal [CR] AM BASIC METABOLIC PANEL,BMP [CHEM] AM C-REACTIVE PROTEIN [CHEM] AM CBC WITH AUTO DIFF [HEME] AM MAGNESIUM [CHEM] AM 09/11/17 05:11 BASIC METABOLIC PANEL,BMP [CHEM] AM C-REACTIVE PROTEIN [CHEM] AM CBC WITH AUTO DIFF [HEME] AM MAGNESIUM [CHEM] AM 09/12/17 05:11 BASIC METABOLIC PANEL,BMP [CHEM] AM C-REACTIVE PROTEIN [CHEM] AM CBC WITH AUTO DIFF [HEME] AM MAGNESIUM [CHEM] AM - Plan Plan:: Assessment/Plan: Acute: Acute Respiratory Failure, Improved - Combined Hypercapneic and Hypoxic - Suspect Mucus Plugging or Inspissated Sputum - Now off BIPAP; PRN now - Initial ABG: pCO2 62.2 and pO2 60; repeat pCO2 is 68 and pO2 64 - Increased VT to over 500ml and titrated IPAP/EPAP to 20/8 RR 10 on 50% F1O2 - Supplemental O2 increased to 4L NC now sating at 89-91% - She is DNR/DNI Pneumonia/Bronchitis - CXR in ED on 09/08/[address] Arevalo: improved left lower lung pneumonia from prior exam. No new abnormality seen - WBC 17.07; CRP 1.1 - Continue Rocephin 1gm Q24Hr and start azithromycin 500 mg Q24Hr, Duonebs/IS /RT to evaluate and treat, Robitussin DM 10ml Q4hr PRN - Solu-medrol 60 mg IVP Q6hr - Oxygen, titrate as needed - attempt to return to baseline - Repeat CXR in 24-48 hours Mild Hyperkalemia - K 5.4 - Will monitor - We expect to improve with breathing treatment Chronic: Cataract HLD HTN - stable with home meds Peripheral Edema COPD - on 3L O2 at home regularly Pancreatic mass - does not want treatment Hypothyroidism DM2 with Diabetic Neuropathy - Continue home insulin routine, blood sugars QID AC and bedtime Urinary incontinence Vitamin D deficiency Osteoarthritis Resting left arm tremor Anxiety - stable Schizophrenia/Delusional disorder - stable Obesity with BMI of 34 Plan: She is clinically much better Transfer to Med-Surg with PRN pulse oximeter Routine AM labs Continue PT/OT/RT D/c current IVF and switch to 0.9 NS at 75cc/hr Other orders as indicated above Encourage to use FV/IS as tolerated GI prophylaxis: H2B DVT/PE prophylaxis: Lovenox SubQ daily SW/CM for discharge planning Code Status: DNR/DNI Possible d/c in 1-2 days
[2017-09-09] MEDS: Insulin Detemir 100 Units/ML 3 ML Pen SUBCUT SCH (08:52)
[2017-09-09] MEDS: Enoxaparin 40 MG/0.4 ML Syringe SUBCUT SCH (08:53)
[2017-09-09] MEDS: Multivitamins,Therapeutic Tab PO SCH (08:53)
[2017-09-09] MEDS: Magnesium Oxide 400 MG Tab PO SCH ×2 (08:53→21:00)
[2017-09-09] MEDS: Calcium Carbonate/Vitamin D3 1500 MG-200 Units Tab PO SCH ×2 (08:53→21:00)
[2017-09-09] MEDS: Aspirin 81 MG Tab.EC PO SCH (08:53)
[2017-09-09] MEDS: Nystatin Crm 30 GM Tube TOP SCH ×2 (08:54→21:01)
[2017-09-09] MEDS: CRANBERRY EXTRACT 400 MG PO SCH ×2 (08:54→21:02)
[2017-09-09] MEDS: Saccharomyces Boulardii (Probiotic) 250 MG Cap PO SCH (08:54)
[2017-09-09] MEDS ORDERED: INVEGA PO SCH (09:00)
[2017-09-09] MEDS: Sodium Chloride 0.9% 1,000 ML IV SCH (10:43)
[2017-09-09] MEDS ORDERED: cefTRIAXone 1 GM in Sodium Chloride 0.9% 100 ML IV SCH (15:00)
[2017-09-09] MEDS ORDERED: Azithromycin 500 MG in Sodium Chloride 0.9% 250 ML IV SCH (17:00)
[2017-09-09] MEDS: Azithromycin 250 MG Tab PO SCH (17:18)
[2017-09-09] MEDS: Rosuvastatin 10 MG Tab PO SCH (17:18)
[2017-09-09] MEDS: Levothyroxine 100 MCG Tab PO SCH (17:18)
[2017-09-09] MEDS ORDERED: Bisacodyl 10 MG Supp RECTAL ONE (18:00)
[2017-09-09] MEDS: Famotidine 20 MG Tab PO SCH (21:00)
[2017-09-09] MEDS: OLANZapine 5 MG Tab PO SCH (21:00)
[2017-09-09] MEDS: LIRAGLUTIDE 1.8 MG SUBCUT SCH (21:03)
[2017-09-10] MEDS: Sodium Chloride 0.9% 1,000 ML IV SCH (00:21)
[2017-09-10] MEDS: methylPREDNISolone Sodium Succinate 40 MG/1 ML SDV IVPUSH SCH ×3 (00:22→20:26)
[2017-09-10] MEDS: Albuterol/Ipratropium 3.0-0.5 MG/3 ML Neb Soln NEB SCH ×2 (05:48→20:45)
[2017-09-10] MEDS: Divalproex Sodium Delayed-Release 500 MG Tab.CR PO SCH ×2 (06:43→17:13)
--- NOTE | 2017-09-10 07:44 | CR ---
Chest: Portable view of the chest was obtained. Comparison: Prior chest x-ray of 09/08/17. Heart size and mediastinum appear within normal limits for portable technique. Mild increased density is noted within the left retrocardiac region which appears to be fairly stable. Mild superimposed atelectasis is seen within the left base as well as right base. Bony structures are grossly intact. Impression: 1. Mild persisting parenchymal density within the left retrocardiac region as well as mild bibasilar atelectasis. Diagnostic code #3
[2017-09-10] MEDS: Insulin Aspart 100 Units/ML 3 ML Pen SUBCUT SCH ×3 (08:35→17:12)
[2017-09-10] MEDS: Magnesium Oxide 400 MG Tab PO SCH ×2 (08:37→20:25)
[2017-09-10] MEDS: Aspirin 81 MG Tab.EC PO SCH (08:37)
[2017-09-10] MEDS: Multivitamins,Therapeutic Tab PO SCH (08:37)
[2017-09-10] MEDS: Calcium Carbonate/Vitamin D3 1500 MG-200 Units Tab PO SCH ×2 (08:37→20:26)
[2017-09-10] MEDS: Saccharomyces Boulardii (Probiotic) 250 MG Cap PO SCH (08:37)
[2017-09-10] MEDS: Insulin Detemir 100 Units/ML 3 ML Pen SUBCUT SCH (08:37)
[2017-09-10] MEDS: Nystatin Crm 30 GM Tube TOP SCH ×2 (08:38→20:29)
[2017-09-10] MEDS: Enoxaparin 40 MG/0.4 ML Syringe SUBCUT SCH (08:38)
[2017-09-10] MEDS: CRANBERRY EXTRACT 400 MG PO SCH ×3 (08:41→20:27)
[2017-09-10] MEDS: INVEGA 6 MG PO SCH (08:41)
--- NOTE | 2017-09-10 09:11 | PCM.PN ---
- General Info Date of Service: 09/10/17 Admission Dx/Problem (Free Text): Admission Diagnosis/Problem Admission Diagnosis/Problem Respiratory failure with hypercapnia Subjective Update: Follow Up Functional Status: Reports: Pain Controlled, Tolerating Diet, Urinating. Denies : Ambulating, New Symptoms - Review of Systems General: Denies: Fever, Weakness, Fatigue, Malaise, Chills HEENT: Reports: No Symptoms Pulmonary: Reports: Cough. Denies: Shortness of Breath Cardiovascular: Denies: Chest Pain Gastrointestinal: Denies: Abdominal Pain, Nausea, Vomiting Genitourinary: Reports: No Symptoms Musculoskeletal: Reports: No Symptoms Neurological: Reports: Difficulty Walking, Gait Disturbance. Denies: Confusion , Weakness Psychiatric: Denies: No Symptoms, Depression, Anxiety, Hallucinations Systems Review Comment:: No overnight or acute issues. She is not in good spirit this morning. She screams and yells as staff. She is also non-compliant with PT/OT and RT with activities. Her labs and vitals are stable. - Patient Data Vitals - Most Recent: Last Vital Signs Temp 36.4 C 09/10/17 07:27 Pulse 59 L 09/10/17 07:27 Resp 24 H 09/10/17 07:27 BP 134/88 09/10/17 08:09 Pulse Ox 95 09/10/17 08:30 Weight - Most Recent: 100.698 kg I&O - Last 24 Hours: Intake & Output 09/09/17 09/10/17 09/10/17 22:59 06:59 14:59 Intake Total 630 964 Output Total 704 Balance -74 964 Lab Results Last 24 Hours: Laboratory Results - last 24 hr 09/09/17 09/09/17 09/09/17 Range/Units 11:45 17:01 21:07 WBC (3.98-10.04) K/mm3 RBC (3.98-5.22) M/mm3 Hgb (11.2-15.7) gm/L Hct (34.1-44.9) % MCV (79.4-94.8) fl MCH (25.6-32.2) pg MCHC (32.2-35.5) g/dl RDW Std Deviation (36.4-46.3) fL Plt Count (182-369) K/mm3 MPV (9.4-12.3) fl Neut % (Auto) (34.0-71.1) % Lymph % (Auto) (19.3-51.7) % [place] % (Auto) (4.7-12.5) % Eos % (Auto) (0.7-5.8) Baso % (Auto) (0.1-1.2) % Neut # (Auto) (1.56-6.13) K/mm3 Lymph # (Auto) (1.18-3.74) K/mm3 [place] # (Auto) (0.24-0.36) K/mm3 Eos # (Auto) (0.04-0.36) K/mm3 Baso # (Auto) (0.01-0.08) K/mm3 Manual Slide Review Sodium (136-145) mEq/L Potassium (3.5-5.1) mEq/L Chloride (98-107) mEq/L Carbon Dioxide (21-32) mEq/L Anion Gap (5-15) BUN (7-18) mg/dL Creatinine (0.55-1.02) mg/dL Est Cr Clr Drug Dosing mL/min Estimated GFR (MDRD) (>60) mL/min BUN/Creatinine Ratio (14-18) Glucose (83-115) mg/dL POC Glucose 383 H 283 H 278 H (83-110) mg/dL Calcium (8.5-10.1) mg/dL Magnesium (1.8-2.4) mg/dl C-Reactive Protein (<1.0) mg/dL 09/10/17 09/10/17 09/10/17 Range/Units 05:27 05:27 06:45 WBC 9.32 (3.98-10.04) K/mm3 RBC 3.82 L (3.98-5.22) M/mm3 Hgb 12.6 (11.2-15.7) gm/L Hct 38.7 (34.1-44.9) % MCV 101.3 H (79.4-94.8) fl MCH 33.0 H (25.6-32.2) pg MCHC 32.6 (32.2-35.5) g/dl RDW Std Deviation 51.6 H (36.4-46.3) fL Plt Count 244 (182-369) K/mm3 MPV 8.6 L (9.4-12.3) fl Neut % (Auto) 85.1 H (34.0-71.1) % Lymph % (Auto) 7.8 L (19.3-51.7) % [place] % (Auto) 5.8 (4.7-12.5) % Eos % (Auto) 0.1 L (0.7-5.8) Baso % (Auto) 0.1 (0.1-1.2) % Neut # (Auto) 7.93 H (1.56-6.13) K/mm3 Lymph # (Auto) 0.73 L (1.18-3.74) K/mm3 [place] # (Auto) 0.54 H (0.24-0.36) K/mm3 Eos # (Auto) 0.01 L (0.04-0.36) K/mm3 Baso # (Auto) 0.01 (0.01-0.08) K/mm3 Manual Slide Review Abnormal smear Sodium 141 (136-145) mEq/L Potassium 4.3 (3.5-5.1) mEq/L Chloride 105 (98-107) mEq/L Carbon Dioxide 33 H (21-32) mEq/L Anion Gap 7.3 (5-15) BUN 26 H (7-18) mg/dL Creatinine 0.6 (0.55-1.02) mg/dL Est Cr Clr Drug Dosing 78.78 mL/min Estimated GFR (MDRD) > 60 (>60) mL/min BUN/Creatinine Ratio 43.3 H (14-18) Glucose 173 H (83-115) mg/dL POC Glucose 215 H (83-110) mg/dL Calcium 8.6 (8.5-10.1) mg/dL Magnesium 2.3 (1.8-2.4) mg/dl C-Reactive Protein 1.7 H* (<1.0) mg/dL Med Orders - Current: Current Medications Acetaminophen (Tylenol) 650 mg PO Q4H PRN PRN Reason: Pain (Mild 1-3)/fever Hydrocodone Bitart/Acetaminophen ([place] 325-5 Mg) 1 tab PO Q4H PRN PRN Reason: Pain (moderate 4-6) Albuterol/Ipratropium (Duoneb 3.0-0.5 Mg/3 Ml) 3 ml NEB Q4H PRN PRN Reason: Shortness Of Breath/wheezing Last Admin: 09/08/17 17:26 Dose: 3 ml Albuterol/Ipratropium (Duoneb 3.0-0.5 Mg/3 Ml) 3 ml NEB BIDRT [facility] Last Admin: 09/10/17 05:48 Dose: 3 ml Aspirin (Halfprin) 81 mg PO DAILY [facility] Last Admin: 09/10/17 08:37 Dose: 81 mg Azithromycin (Zithromax) 250 mg PO Q24H [facility] Last Admin: 09/09/17 17:18 Dose: 250 mg Bisacodyl (Dulcolax) 5 mg PO DAILY PRN PRN Reason: Constipation Calcium Carbonate (Calcium Carbonate/Vitamin D 1500 Mg-200 Unit) 1 tab PO BID [facility] Last Admin: 09/10/17 08:37 Dose: 1 tab Dextrose/Water (Dextrose 50% In Water) 50 ml IVPUSH ASDIRECTED PRN PRN Reason: Hypoglycemia Divalproex Sodium (Depakote) 500 mg PO BIDMEALS [facility] Last Admin: 09/10/17 06:43 Dose: 500 mg Docusate Sodium (Colace) 100 mg PO BID PRN PRN Reason: Constipation Enoxaparin Sodium (Lovenox) 40 mg SUBCUT DAILY [facility] Last Admin: 09/10/17 08:38 Dose: 40 mg Famotidine (Pepcid) 20 mg PO BEDTIME [facility] Last Admin: 09/09/17 21:00 Dose: 20 mg Guaifenesin/Phenylephrine HCl (Robitussin Dm) 10 ml PO Q4H PRN PRN Reason: Cough Hydralazine HCl (Apresoline) 20 mg IVPUSH Q4H PRN PRN Reason: Hypertension Promethazine HCl 12.5 mg/ (Sodium Chloride) 50.5 mls @ 100 mls/hr IV Q6H PRN PRN Reason: Nausea/Vomiting Sodium Chloride (Normal Saline) 1,000 mls @ 75 mls/hr IV ASDIRECTED [facility] Last Admin: 09/10/17 00:21 Dose: 75 mls/hr Insulin Aspart (Novolog) 18 unit SUBCUT TIDMEALS [facility] Last Admin: 09/10/17 08:35 Dose: 18 units Insulin Detemir (Levemir) 40 unit SUBCUT DAILY@0800 [facility] Last Admin: 09/10/17 08:37 Dose: 40 units Levothyroxine Sodium (Synthroid) 100 mcg PO QPM [facility] Last Admin: 09/09/17 17:18 Dose: 100 mcg Lorazepam (Ativan) 0.5 mg IV Q6H PRN PRN Reason: Anxiety Magnesium Oxide (Magnesium Oxide) 400 mg PO BID [facility] Last Admin: 09/10/17 08:37 Dose: 400 mg Magnesium Sulfate (Pharmacy To Dose - Magnesium Replacement) 1 dose .XX ASDIRECTED [facility] Methylprednisolone Sodium Succinate (Solu-Medrol) 60 mg IVPUSH Q6H [facility] Last Admin: 09/10/17 06:43 Dose: 60 mg Metoprolol Tartrate (Lopressor) 5 mg IVPUSH Q4H PRN PRN Reason: Tachycardia Multivitamins (Thera) 1 each PO DAILY [facility] Last Admin: 09/10/17 08:37 Dose: 1 each Nystatin (Nystatin Crm) 0 gm TOP BID [facility] Last Admin: 09/10/17 08:38 Dose: Not Given Olanzapine (Zyprexa) 15 mg PO BEDTIME [facility] Last Admin: 09/09/17 21:00 Dose: 15 mg Ondansetron HCl (Zofran) 4 mg IV Q6H PRN PRN Reason: Nausea/Vomiting Ondansetron HCl (Zofran Odt) 4 mg PO Q4H PRN PRN Reason: Nausea Cranberry Extract (400mg) 400 each PO BID [facility] Last Admin: 09/10/17 08:41 Dose: 400 each Ptom - Liraglutide ( (Victoza) 1.8mg Dose) 1 each SUBCUT BEDTIME [facility] Last Admin: 09/09/17 21:03 Dose: 1 each Invega (Paliperidone () 6mg Tablet) 2 each PO DAILY [facility] Last Admin: 09/10/17 08:41 Dose: 2 each Polyethylene Glycol (Miralax) 17 gm PO DAILY PRN PRN Reason: Constipation Potassium Chloride (Pharmacy To Dose - Potassium Replacement) 1 dose .XX ASDIRECTED [facility] Rosuvastatin Calcium (Crestor) 10 mg PO QPM [facility] Last Admin: 09/09/17 17:18 Dose: 10 mg Saccharomyces Boulardii (Florastor) 250 mg PO DAILY [facility] Last Admin: 09/10/17 08:37 Dose: 250 mg Senna/Docusate Sodium (Senna Plus) 1 tab PO BID PRN PRN Reason: Constipation Temazepam (Restoril) 7.5 mg PO BEDTIME PRN PRN Reason: Sleep Discontinued Medications Acetaminophen (Tylenol) 650 mg PO Q4H PRN PRN Reason: Fever Albuterol/Ipratropium (Duoneb 3.0-0.5 Mg/3 Ml) 3 ml INH QID PRN PRN Reason: Dyspnea Bisacodyl (Dulcolax) 10 mg RECTAL ONETIME ONE Stop: 09/09/17 18:01 Last Admin: 09/09/17 17:56 Dose: 10 mg Ceftriaxone Sodium 2 gm/ (Sodium Chloride) 100 mls @ 200 mls/hr IV ONETIME ONE Stop: 09/08/17 15:49 Last Admin: 09/08/17 15:28 Dose: 200 mls/hr Lactated Ringer's (Ringers, Lactated) 1,000 mls @ 75 mls/hr IV ASDIRECTED [facility] Last Admin: 09/08/17 23:40 Dose: 75 mls/hr Azithromycin 500 mg/ Sodium (Chloride) 250 mls @ 250 mls/hr IV ONETIME ONE Stop: 09/08/17 17:59 Last Admin: 09/08/17 17:51 Dose: 250 mls/hr Azithromycin 500 mg/ Sodium (Chloride) 250 mls @ 250 mls/hr IV Q24H FITO Ceftriaxone Sodium 1 gm/ (Sodium Chloride) 100 mls @ 200 mls/hr IV Q24H [facility] Insulin Aspart (Novolog) 0 unit SUBCUT QIDACANDBED [facility] PRN Reason: Protocol Last Admin: 09/09/17 11:50 Dose: Not Given Methylprednisolone Sodium Succinate (Solu-Medrol) 125 mg IM ONETIME ONE Stop: 09/08/17 16:18 Last Admin: 09/08/17 17:49 Dose: Not Given Methylprednisolone Sodium Succinate (Solu-Medrol) 125 mg IVPUSH ONETIME ONE Stop: 09/08/17 17:51 Last Admin: 09/08/17 17:58 Dose: 125 mg Morphine Sulfate (Morphine) 0.5 mg IVPUSH Q4H PRN PRN Reason: Other Stop: 09/09/17 16:09 Non-Formulary Medication (Lactobac Cmb #3/Fos/Pantethine [Probiotic & Acidophilus]) 1 each PO DAILY [facility] Pantoprazole Sodium (Protonix Iv) 40 mg IV ONETIME ONE Stop: 09/08/17 17:01 Last Admin: 09/08/17 17:50 Dose: 40 mg Invega (Paliperidone () 12mg Dose) 1 each PO DAILY [facility] Last Admin: 09/09/17 08:55 Dose: Not Given - Exam Quality Assessment: Supplemental Oxygen General: Alert, No Acute Distress HEENT: Pupils Equal, Pupils Reactive, Mucous Membr. Moist/[place] Neck: Supple, Trachea Midline, No JVD Lungs: Normal Respiratory Effort, Decreased Breath Sounds, Other (Poor inspiratory and expiratory effort) Cardiovascular: Regular Rate, Regular Rhythm GI/Abdominal Exam: Normal Bowel Sounds, Soft, Non-Tender, No Organomegaly, No Distention, No Abnormal Bruit, No Mass (Female) Exam: Deferred Back Exam: Normal Inspection, Decreased Range of Motion Extremities: Normal Inspection, Normal Range of Motion, Non-Tender, No Pedal Edema, Normal Capillary Refill Peripheral Pulses: 2+: Dorsalis Pedis (L), Dorsalis Pedis (R) Skin: Warm, Dry, Intact Neurological: No New Focal Deficit Psy/Mental Status: Alert, Normal Affect, Anxious, Other (fesity and non- compliant) - Problem List Review Problem List Initiated/Reviewed/Updated: Yes - My Orders Last 24 Hours: My Active Orders 09/09/17 09:00 Aspirin [Halfprin] 81 mg PO DAILY Enoxaparin [Lovenox] 40 mg SUBCUT DAILY Multivitamins,Therapeutic [Thera] 1 each PO DAILY Saccharomyces Boulardii [Florastor] 250 mg PO DAILY 09/09/17 09:25 Patient Status [ADT] Routine 09/09/17 10:45 Sodium Chloride 0.9% [Normal Saline] 1,000 ml IV ASDIRECTED 09/09/17 12:06 Patient's Own Medication [Ptom] 2 each PO DAILY 09/09/17 17:00 Azithromycin [Zithromax] 250 mg PO Q24H 09/11/17 05:11 BASIC METABOLIC PANEL,BMP [CHEM] AM C-REACTIVE PROTEIN [CHEM] AM CBC WITH AUTO DIFF [HEME] AM MAGNESIUM [CHEM] AM 09/12/17 05:11 BASIC METABOLIC PANEL,BMP [CHEM] AM C-REACTIVE PROTEIN [CHEM] AM CBC WITH AUTO DIFF [HEME] AM MAGNESIUM [CHEM] AM - Plan Plan:: Assessment/Plan: Acute: S/p Acute Respiratory Failure, continues to improve - Combined Hypercapneic and Hypoxic - Suspect Mucus Plugging or Inspissated Sputum - Now off BIPAP; PRN now - Initial ABG: pCO2 62.2 and pO2 60; repeat pCO2 is 68 and pO2 64 - Increased VT to over 500ml and titrated IPAP/EPAP to 20/8 RR 10 on 50% F1O2 - Supplemental O2 still at 4L sating at 91-95% - She is DNR/DNI Pneumonia/Bronchitis - CXR in ED on 09/08/[address] Arevalo: improved left lower lung pneumonia from prior exam. No new abnormality seen - WBC 17.07; CRP 1.1 - Continue oral azithromycin 250 mg Q24Hr, Duonebs/IS/RT to evaluate and treat, Robitussin DM 10ml Q4hr PRN - Solu-medrol 60 mg IVP change to BID - Oxygen, titrate as needed - attempt to return to baseline S/p Mild Hyperkalemia - K 5.4 --> 4.3 - Will monitor Non-compliant and Aggressiveness - Refusing PT/OT and RT services - She gets feisty with staff - Also creams and yells unnecessarily - Encourage to work with us Chronic: Cataract HLD HTN - stable with home meds Peripheral Edema COPD - on 3L O2 at home regularly Pancreatic mass - does not want treatment Hypothyroidism DM2 with Diabetic Neuropathy - Continue home insulin routine, blood sugars QID AC and bedtime Urinary incontinence Vitamin D deficiency Osteoarthritis Resting left arm tremor Anxiety - stable Schizophrenia/Delusional disorder - stable Obesity with BMI of 34 Plan: She remains clinically stable Routine AM labs Other orders as indicated above Encourage to work with PT/OT/RT GI prophylaxis: H2B DVT/PE prophylaxis: Lovenox SubQ daily SW/CM for discharge planning Code Status: DNR/DNI Possible d/c in AM Called and spoke to Dr. Bonilla about her clinical progress. Informed her she is non-compliant with activities (PT/OT/RT) and she screams and yells at staff. We anticipate discharge tomorrow.
[2017-09-10] MEDS: Levothyroxine 100 MCG Tab PO SCH (17:13)
[2017-09-10] MEDS: Rosuvastatin 10 MG Tab PO SCH (17:13)
[2017-09-10] MEDS: Azithromycin 250 MG Tab PO SCH (17:13)
[2017-09-10] MEDS: LIRAGLUTIDE 1.8 MG SUBCUT SCH ×2 (19:36→20:27)
[2017-09-10] MEDS: OLANZapine 5 MG Tab PO SCH (20:25)
[2017-09-10] MEDS: Famotidine 20 MG Tab PO SCH (20:26)
[2017-09-11] MEDS: Albuterol/Ipratropium 3.0-0.5 MG/3 ML Neb Soln NEB SCH (05:47)
[2017-09-11] MEDS: Divalproex Sodium Delayed-Release 500 MG Tab.CR PO SCH (06:25)
[2017-09-11] MEDS: Insulin Aspart 100 Units/ML 3 ML Pen SUBCUT SCH ×2 (06:29→11:19)
--- NOTE | 2017-09-11 07:46 | PCM.DCSUM1 ---
Discharge Summary - Hospital Course Brief History: This is a 76 yo elderly white female with past medical hx/o Cataract, HLD, HTN, Peripheral Edema, COPD on 3L O2 at home regularly, Hx/o Pancreatic mass, Hypothyroidism, DM2 with Diabetic Neuropathy, Urinary incontinence, Vitamin D deficiency, Osteoarthritis, Resting left arm tremor, Anxiety, Schizophrenia/Delusional disorder, and Obesity with BMI of 34 who was recently discharged here at [facility] for treatment of Bronchitis. She was admitted for acute respiratory failure. - Discharge Data Discharge Date: 09/11/17 Discharge Disposition: DC/Tfer to [facility] Condition: Good - Discharge Diagnosis/Problem(s) (1) Respiratory failure SNOMED Code(s): 819037280 ICD Code: J96.90 - RESPIRATORY FAILURE, UNSP, UNSP W HYPOXIA OR HYPERCAPNIA Status: Resolved Qualifiers: Chronicity: acute on chronic Respiratory failure complication: hypercapnia Qualified Code(s): J96.22 - Acute and chronic respiratory failure with hypercapnia (2) Bronchitis SNOMED Code(s): 35067713 ICD Code: J40 - BRONCHITIS, NOT SPECIFIED ACUTE OR CHRONIC Status: Acute Priority: High - Patient Summary/Data Operative Procedure(s) Performed: None Complications: None Consults: Consultations 09/08/17 16:12 Consult to Case Management [CONS] Routine Consult to Chef Broiler Or Fry [CONS] Routine OT Evaluation and Treatment [CONS] Routine PT Evaluation and Treatment [CONS] Routine Respiratory Care Assess and Treatment [CONS] Routine Labs Pending at D/C: None Recommended Follow-up Testing/Procedures: None Planned Operative Procedure(s) after DC: None Hospital Course: Patient was primarily admitted for acute respiratory failure. She was just recently discharged here for treatment of bronchitis/pneumonitis. She was provided with oral antibiotic and continued with her home decongestant. Unfortunately, she did not do well just after she returned to the ID. She was found hypoxic with O2 sat in the low 80%. Staff tried to increase her supplemental O2 but she was still short of breath and remained hypoxic. Upon admission, she was put on BIPAP and routine respiratory care. Slowly, she improved on this regimen. Her hospital course was uncomplicated. However, on the floor she was non-compliant with medical treatment. At times she yelled and screamed at staff. Numerous times, she refused physical and occupational therapy. However despite her non-compliance, we managed to get her to at least partially work with us. And prior to discharge, we were able to get her Supplemental O2 down to her baseline of 3L. Patient was stable upon discharge. She was advised to continue to uses her IS and FV as directed. She was further advised to follow up with her PCP in 1 week. She expressed understanding and in agreement with the plans as discussed above. - Patient Instructions Diet: Heart Healthy Diet, Usual Diet as Tolerated, Diabetic Diet, Weight Loss Diet Activity: As Tolerated Driving: Do Not Drive Showering/Bathing: May Shower Notify Provider of: Fever, Increased Pain, Nausea and/or Vomiting Other/Special Instructions: - Please resume all home medications. - Continue routine home acitivities. - Recommend you use incentive spirometry and flutter valve as directed. - If you experience sudden drop in O2 sat, give yourself a few big coughs and/or use incentive spirometry and call you doctor. - Follow up with your PCP in 1 week. - Call your doctor for any questions or concerns after discharge - Discharge Plan Home Medications: Home Meds Acetaminophen 650 mg PO Q4H PRN 09/03/17 [History] Albuterol/Ipratropium [DuoNeb 3.0-0.5 MG/3 ML] 3 ml NEB BID 09/03/17 [History] Aspirin [Halfprin] 81 mg PO DAILY 09/03/17 [History] Budesonide [Pulmicort] 0.5 mg IH BID 09/03/17 [History] Calcium Carbonate/Vitamin D3 [Calcium 600 + Vit D 200] 1 each PO BID 09/03/17 [ History] Cranberry Extract [Cranberry] 400 mg PO BID 09/03/17 [History] Insulin Aspart [Novolog Flexpen] 18 unit SQ TIDMEALS 09/03/17 [History] Insulin Detemir [Levemir] 40 unit SQ QAM 09/03/17 [History] Levothyroxine [Synthroid] 100 mcg PO QPM 09/03/17 [History] Liraglutide [Victoza] 1.8 mg SUBCUT BEDTIME 09/03/17 [History] Magnesium Oxide [Magnesium] 400 mg PO BID 09/03/17 [History] Multivitamin [Daily Multiple Vitamin] 1 tab PO DAILY 09/03/17 [History] Nystatin [Nystatin Crm] 30 gm TOP BID 09/03/17 [History] OLANZapine [Zyprexa] 15 mg PO BEDTIME 09/03/17 [History] Paliperidone [Invega] 12 mg PO DAILY 09/03/17 [History] Ranitidine [Zantac] 150 mg PO BID 09/03/17 [History] Rosuvastatin [Crestor] 10 mg PO QPM 09/03/17 [History] guaiFENesin [Mucinex] 600 mg PO BID 09/03/17 [History] Albuterol/Ipratropium [DuoNeb 3.0-0.5 MG/3 ML] 3 ml INH QID PRN 09/08/17 [ History] Divalproex Sodium [Depakote] 500 mg PO BID 09/08/17 [History] Ondansetron [Zofran ODT] 4 mg PO Q4H PRN 09/08/17 [History] Patient Handouts: Heart Failure, [id number], Heart Failure Referrals: Ray Bonilla MD [Primary Care Provider] - (Please make a follow-up appointment within 1 week.) - Discharge Summary/Plan Comment DC Time >30 min.: Yes (45 mins) Discharge Summary/Plan Comment: Discharge to Home - General Info Date of Service: 09/11/17 Admission Dx/Problem (Free Text: Admission Diagnosis/Problem Admission Diagnosis/Problem Respiratory failure with hypercapnia Subjective Update: Follow Up Functional Status: Reports: Pain Controlled, Tolerating Diet, Urinating. Denies : New Symptoms - Review of Systems General: Denies: Fever, Weakness, Fatigue, Malaise, Chills HEENT: Reports: No Symptoms Pulmonary: Denies: Shortness of Breath, Cough Cardiovascular: Denies: Chest Pain Gastrointestinal: Denies: Abdominal Pain, Nausea, Vomiting Genitourinary: Denies: No Symptoms Musculoskeletal: Denies: No Symptoms Skin: Denies: Cyanosis, Pallor, Diaphoresis Neurological: Reports: Difficulty Walking, Gait Disturbance. Denies: Confusion , Weakness Psychiatric: Denies: Depression, Anxiety, Agitation, Hallucinations Systems Review Comment: No significant overnight or acute issues. She was doing just fine. She was back her baseline O2 of 3L. She reported no new complaints. - Patient Data Vitals - Most Recent: Last Vital Signs Temp 36.4 C 09/11/17 03:27 Pulse 63 09/11/17 03:27 Resp 20 09/11/17 03:27 BP 141/86 H 09/11/17 03:27 Pulse Ox 93 L 09/11/17 05:47 Weight - Most Recent: 101.559 kg I&O - Last 24 hours: Intake & Output 09/10/17 09/11/17 09/11/17 22:59 06:59 14:59 Intake Total 840 300 Balance 840 300 Lab Results - Last 24 hrs: Laboratory Results - last 24 hr 09/10/17 09/10/17 09/10/17 Range/Units 10:10 10:37 16:46 WBC (3.98-10.04) K/mm3 RBC (3.98-5.22) M/mm3 Hgb (11.2-15.7) gm/L Hct (34.1-44.9) % MCV (79.4-94.8) fl MCH (25.6-32.2) pg MCHC (32.2-35.5) g/dl RDW Std Deviation (36.4-46.3) fL Plt Count (182-369) K/mm3 MPV (9.4-12.3) fl Neut % (Auto) (34.0-71.1) % Lymph % (Auto) (19.3-51.7) % Rabun % (Auto) (4.7-12.5) % Eos % (Auto) (0.7-5.8) Baso % (Auto) (0.1-1.2) % Neut # (Auto) (1.56-6.13) K/mm3 Lymph # (Auto) (1.18-3.74) K/mm3 Rabun # (Auto) (0.24-0.36) K/mm3 Eos # (Auto) (0.04-0.36) K/mm3 Baso # (Auto) (0.01-0.08) K/mm3 Sodium (136-145) mEq/L Potassium (3.5-5.1) mEq/L Chloride (98-107) mEq/L Carbon Dioxide (21-32) mEq/L Anion Gap (5-15) BUN (7-18) mg/dL Creatinine (0.55-1.02) mg/dL Est Cr Clr Drug Dosing mL/min Estimated GFR (MDRD) (>60) mL/min BUN/Creatinine Ratio (14-18) Glucose (83-115) mg/dL POC Glucose 331 H 253 H (83-110) mg/dL Calcium (8.5-10.1) mg/dL Magnesium (1.8-2.4) mg/dl C-Reactive Protein (<1.0) mg/dL MRSA (PCR) Positive H 09/10/17 09/11/17 09/11/17 Range/Units 20:32 05:55 05:55 WBC 8.63 (3.98-10.04) K/mm3 RBC 4.10 (3.98-5.22) M/mm3 Hgb 13.4 (11.2-15.7) gm/L Hct 41.4 (34.1-44.9) % MCV 101.0 H (79.4-94.8) fl MCH 32.7 H (25.6-32.2) pg MCHC 32.4 (32.2-35.5) g/dl RDW Std Deviation 51.9 H (36.4-46.3) fL Plt Count 246 (182-369) K/mm3 MPV 8.7 L (9.4-12.3) fl Neut % (Auto) 87.1 H (34.0-71.1) % Lymph % (Auto) 8.2 L (19.3-51.7) % Rabun % (Auto) 3.4 L (4.7-12.5) % Eos % (Auto) 0 L (0.7-5.8) Baso % (Auto) 0.0 L (0.1-1.2) % Neut # (Auto) 7.52 H (1.56-6.13) K/mm3 Lymph # (Auto) 0.71 L (1.18-3.74) K/mm3 Rabun # (Auto) 0.29 (0.24-0.36) K/mm3 Eos # (Auto) 0.00 L (0.04-0.36) K/mm3 Baso # (Auto) 0.00 L (0.01-0.08) K/mm3 Sodium 141 (136-145) mEq/L Potassium 4.5 (3.5-5.1) mEq/L Chloride 103 (98-107) mEq/L Carbon Dioxide 34 H (21-32) mEq/L Anion Gap 8.5 (5-15) BUN 23 H (7-18) mg/dL Creatinine 0.6 (0.55-1.02) mg/dL Est Cr Clr Drug Dosing 78.78 mL/min Estimated GFR (MDRD) > 60 (>60) mL/min BUN/Creatinine Ratio 38.3 H (14-18) Glucose 272 H (83-115) mg/dL POC Glucose 247 H (83-110) mg/dL Calcium 9.0 (8.5-10.1) mg/dL Magnesium 2.1 (1.8-2.4) mg/dl C-Reactive Protein < 0.2 (<1.0) mg/dL MRSA (PCR) 09/11/17 Range/Units 06:22 WBC (3.98-10.04) K/mm3 RBC (3.98-5.22) M/mm3 Hgb (11.2-15.7) gm/L Hct (34.1-44.9) % MCV (79.4-94.8) fl MCH (25.6-32.2) pg MCHC (32.2-35.5) g/dl RDW Std Deviation (36.4-46.3) fL Plt Count (182-369) K/mm3 MPV (9.4-12.3) fl Neut % (Auto) (34.0-71.1) % Lymph % (Auto) (19.3-51.7) % Rabun % (Auto) (4.7-12.5) % Eos % (Auto) (0.7-5.8) Baso % (Auto) (0.1-1.2) % Neut # (Auto) (1.56-6.13) K/mm3 Lymph # (Auto) (1.18-3.74) K/mm3 Rabun # (Auto) (0.24-0.36) K/mm3 Eos # (Auto) (0.04-0.36) K/mm3 Baso # (Auto) (0.01-0.08) K/mm3 Sodium (136-145) mEq/L Potassium (3.5-5.1) mEq/L Chloride (98-107) mEq/L Carbon Dioxide (21-32) mEq/L Anion Gap (5-15) BUN (7-18) mg/dL Creatinine (0.55-1.02) mg/dL Est Cr Clr Drug Dosing mL/min Estimated GFR (MDRD) (>60) mL/min BUN/Creatinine Ratio (14-18) Glucose (83-115) mg/dL POC Glucose 291 H (83-110) mg/dL Calcium (8.5-10.1) mg/dL Magnesium (1.8-2.4) mg/dl C-Reactive Protein (<1.0) mg/dL MRSA (PCR) Med Orders - Current: Current Medications Acetaminophen (Tylenol) 650 mg PO Q4H PRN PRN Reason: Pain (Mild 1-3)/fever Hydrocodone Bitart/Acetaminophen ([place] 325-5 Mg) 1 tab PO Q4H PRN PRN Reason: Pain (moderate 4-6) Last Admin: 09/10/17 20:30 Dose: 1 tab Albuterol/Ipratropium (Duoneb 3.0-0.5 Mg/3 Ml) 3 ml NEB Q4H PRN PRN Reason: Shortness Of Breath/wheezing Last Admin: 09/08/17 17:26 Dose: 3 ml Albuterol/Ipratropium (Duoneb 3.0-0.5 Mg/3 Ml) 3 ml NEB BIDRT [facility] Last Admin: 09/11/17 05:47 Dose: 3 ml Aspirin (Halfprin) 81 mg PO DAILY [facility] Last Admin: 09/10/17 08:37 Dose: 81 mg Azithromycin (Zithromax) 250 mg PO Q24H [facility] Last Admin: 09/10/17 17:13 Dose: 250 mg Bisacodyl (Dulcolax) 5 mg PO DAILY PRN PRN Reason: Constipation Calcium Carbonate (Calcium Carbonate/Vitamin D 1500 Mg-200 Unit) 1 tab PO BID [facility] Last Admin: 09/10/17 20:26 Dose: 1 tab Dextrose/Water (Dextrose 50% In Water) 50 ml IVPUSH ASDIRECTED PRN PRN Reason: Hypoglycemia Divalproex Sodium (Depakote) 500 mg PO BIDMEALS [facility] Last Admin: 09/11/17 06:25 Dose: 500 mg Docusate Sodium (Colace) 100 mg PO BID PRN PRN Reason: Constipation Enoxaparin Sodium (Lovenox) 40 mg SUBCUT DAILY [facility] Last Admin: 09/10/17 08:38 Dose: 40 mg Famotidine (Pepcid) 20 mg PO BEDTIME [facility] Last Admin: 09/10/17 20:26 Dose: 20 mg Guaifenesin/Phenylephrine HCl (Robitussin Dm) 10 ml PO Q4H PRN PRN Reason: Cough Hydralazine HCl (Apresoline) 20 mg IVPUSH Q4H PRN PRN Reason: Hypertension Last Admin: 09/11/17 04:07 Dose: 20 mg Promethazine HCl 12.5 mg/ (Sodium Chloride) 50.5 mls @ 100 mls/hr IV Q6H PRN PRN Reason: Nausea/Vomiting Insulin Aspart (Novolog) 18 unit SUBCUT TIDMEALS [facility] Last Admin: 09/11/17 06:29 Dose: 18 units Insulin Detemir (Levemir) 40 unit SUBCUT DAILY@0800 [facility] Last Admin: 09/10/17 08:37 Dose: 40 units Levothyroxine Sodium (Synthroid) 100 mcg PO QPM [facility] Last Admin: 09/10/17 17:13 Dose: 100 mcg Lorazepam (Ativan) 0.5 mg IV Q6H PRN PRN Reason: Anxiety Magnesium Oxide (Magnesium Oxide) 400 mg PO BID [facility] Last Admin: 09/10/17 20:25 Dose: 400 mg Magnesium Sulfate (Pharmacy To Dose - Magnesium Replacement) 1 dose .XX ASDIRECTED [facility] Methylprednisolone Sodium Succinate (Solu-Medrol) 60 mg IVPUSH Q12H [facility] Last Admin: 09/10/17 20:26 Dose: 60 mg Metoprolol Tartrate (Lopressor) 5 mg IVPUSH Q4H PRN PRN Reason: Tachycardia Multivitamins (Thera) 1 each PO DAILY [facility] Last Admin: 09/10/17 08:37 Dose: 1 each Nystatin (Nystatin Crm) 0 gm TOP BID [facility] Last Admin: 09/10/17 20:29 Dose: Not Given Olanzapine (Zyprexa) 15 mg PO BEDTIME [facility] Last Admin: 09/10/17 20:25 Dose: 15 mg Ondansetron HCl (Zofran) 4 mg IV Q6H PRN PRN Reason: Nausea/Vomiting Ondansetron HCl (Zofran Odt) 4 mg PO Q4H PRN PRN Reason: Nausea Cranberry Extract (400mg) 400 each PO BID [facility] Last Admin: 09/10/17 20:27 Dose: 400 each Ptom - Liraglutide ( (Victoza) 1.8mg Dose) 1 each SUBCUT BEDTIME [facility] Last Admin: 09/10/17 20:27 Dose: 1 each Invega (Paliperidone () 6mg Tablet) 2 each PO DAILY [facility] Last Admin: 09/10/17 08:41 Dose: 2 each Polyethylene Glycol (Miralax) 17 gm PO DAILY PRN PRN Reason: Constipation Potassium Chloride (Pharmacy To Dose - Potassium Replacement) 1 dose .XX ASDIRECTED [facility] Rosuvastatin Calcium (Crestor) 10 mg PO QPM [facility] Last Admin: 09/10/17 17:13 Dose: 10 mg Saccharomyces Boulardii (Florastor) 250 mg PO DAILY [facility] Last Admin: 09/10/17 08:37 Dose: 250 mg Senna/Docusate Sodium (Senna Plus) 1 tab PO BID PRN PRN Reason: Constipation Temazepam (Restoril) 7.5 mg PO BEDTIME PRN PRN Reason: Sleep Discontinued Medications Acetaminophen (Tylenol) 650 mg PO Q4H PRN PRN Reason: Fever Albuterol/Ipratropium (Duoneb 3.0-0.5 Mg/3 Ml) 3 ml INH QID PRN PRN Reason: Dyspnea Bisacodyl (Dulcolax) 10 mg RECTAL ONETIME ONE Stop: 09/09/17 18:01 Last Admin: 09/09/17 17:56 Dose: 10 mg Ceftriaxone Sodium 2 gm/ (Sodium Chloride) 100 mls @ 200 mls/hr IV ONETIME ONE Stop: 09/08/17 15:49 Last Admin: 09/08/17 15:28 Dose: 200 mls/hr Lactated Ringer's (Ringers, Lactated) 1,000 mls @ 75 mls/hr IV ASDIRECTED [facility] Last Admin: 09/08/17 23:40 Dose: 75 mls/hr Azithromycin 500 mg/ Sodium (Chloride) 250 mls @ 250 mls/hr IV ONETIME ONE Stop: 09/08/17 17:59 Last Admin: 09/08/17 17:51 Dose: 250 mls/hr Azithromycin 500 mg/ Sodium (Chloride) 250 mls @ 250 mls/hr IV Q24H [facility] Ceftriaxone Sodium 1 gm/ (Sodium Chloride) 100 mls @ 200 mls/hr IV Q24H [facility] Sodium Chloride (Normal Saline) 1,000 mls @ 75 mls/hr IV ASDIRECTED [facility] Last Admin: 09/10/17 00:21 Dose: 75 mls/hr Insulin Aspart (Novolog) 0 unit SUBCUT QIDACANDBED [facility] PRN Reason: Protocol Last Admin: 09/09/17 11:50 Dose: Not Given Methylprednisolone Sodium Succinate (Solu-Medrol) 60 mg IVPUSH Q6H [facility] Last Admin: 09/10/17 06:43 Dose: 60 mg Methylprednisolone Sodium Succinate (Solu-Medrol) 125 mg IM ONETIME ONE Stop: 09/08/17 16:18 Last Admin: 09/08/17 17:49 Dose: Not Given Methylprednisolone Sodium Succinate (Solu-Medrol) 125 mg IVPUSH ONETIME ONE Stop: 09/08/17 17:51 Last Admin: 09/08/17 17:58 Dose: 125 mg Morphine Sulfate (Morphine) 0.5 mg IVPUSH Q4H PRN PRN Reason: Other Stop: 09/09/17 16:09 Non-Formulary Medication (Lactobac Cmb #3/Fos/Pantethine [Probiotic & Acidophilus]) 1 each PO DAILY [facility] Pantoprazole Sodium (Protonix Iv) 40 mg IV ONETIME ONE Stop: 09/08/17 17:01 Last Admin: 09/08/17 17:50 Dose: 40 mg Invega (Paliperidone () 12mg Dose) 1 each PO DAILY [facility] Last Admin: 09/09/17 08:55 Dose: Not Given - Exam Quality Assessment: Reports: Supplemental Oxygen (Now back at 3L NC (baseline)) General: Reports: Alert, Cooperative, No Acute Distress, Other (Obese) HEENT: Reports: Pupils Equal, Pupils Reactive, EOMI, Mucous Membr. Moist/[place] Lungs: Reports: Normal Respiratory Effort, Decreased Breath Sounds, Other (Poor inspiratory and expiratory effort) Cardiovascular: Reports: Regular Rate, Regular Rhythm GI/Abdominal Exam: Normal Bowel Sounds, Soft, Non-Tender, No Organomegaly, No Distention, No Abnormal Bruit, No Mass (Female) Exam: Deferred Rectal (Female) Exam: Deferred Back Exam: Reports: Normal Inspection, Decreased Range of Motion Extremities: Normal Inspection, Normal Range of Motion, Non-Tender, No Pedal Edema, Normal Capillary Refill Skin: Reports: Warm, Dry, Intact Neurological: Reports: No New Focal Deficit Psy/Mental Status: Reports: Alert, Normal Affect, Normal Mood *Q Meaningful Use (DIS) - VTE *Q VTE Criteria *Q: - Stroke *Q Stroke Criteria *Q: - AMI *Q AMI Criteria *Q:
[2017-09-11] MEDS: Multivitamins,Therapeutic Tab PO SCH (08:38)
[2017-09-11] MEDS: methylPREDNISolone Sodium Succinate 40 MG/1 ML SDV IVPUSH SCH (08:38)
[2017-09-11] MEDS: Nystatin Crm 30 GM Tube TOP SCH (08:38)
[2017-09-11] MEDS: Aspirin 81 MG Tab.EC PO SCH (08:38)
[2017-09-11] MEDS: Enoxaparin 40 MG/0.4 ML Syringe SUBCUT SCH (08:38)
[2017-09-11] MEDS: Magnesium Oxide 400 MG Tab PO SCH (08:38)
[2017-09-11] MEDS: Saccharomyces Boulardii (Probiotic) 250 MG Cap PO SCH (08:38)
[2017-09-11] MEDS: Calcium Carbonate/Vitamin D3 1500 MG-200 Units Tab PO SCH (08:38)
[2017-09-11] MEDS: Insulin Detemir 100 Units/ML 3 ML Pen SUBCUT SCH (08:39)
[2017-09-11] MEDS: INVEGA 6 MG PO SCH (08:40)
[2017-09-11] MEDS: CRANBERRY EXTRACT 400 MG PO SCH (08:40)
[2017-09-11 12:31] VITALS: BP 94/52
== END 2017-09-11 13:22 | DRG 189 ==
LOC: JD.ED 12:40 → JD.ICU 15:21 → UNDOADMIN 16:22 → JD.MS 09-09 12:14
PROVIDERS: ADMIT Internal Medicine; ATTEND Internal Medicine
DX: J96.22 Acute and chronic respiratory failure with hypercapnia (principal); F20.89 Other schizophrenia; E78.00 Pure hypercholesterolemia, unspecified; J40 Bronchitis, not specified as acute or chronic; E87.5 Hyperkalemia; E78.5 Hyperlipidemia, unspecified; I10 Essential (primary) hypertension; R60.9 Edema, unspecified; F20.9 Schizophrenia, unspecified; J44.9 Chronic obstructive pulmonary disease, unspecified; K86.9 Disease of pancreas, unspecified; Z88.0 Allergy status to penicillin; E03.9 Hypothyroidism, unspecified; Z99.81 Dependence on supplemental oxygen; E11.40 Type 2 diabetes mellitus with diabetic neuropathy, unspecified; Z79.4 Long term (current) use of insulin; E55.9 Vitamin D deficiency, unspecified; M19.90 Unspecified osteoarthritis, unspecified site; R25.1 Tremor, unspecified; F41.9 Anxiety disorder, unspecified; E66.9 Obesity, unspecified; Z68.34 Body mass index [BMI] 34.0-34.9, adult; Z66 Do not resuscitate; Z91.19 Patient's noncompliance with other medical treatment and regimen; R32 Unspecified urinary incontinence; Z88.1 Allergy status to other antibiotic agents; Z79.82 Long term (current) use of aspirin; Z79.899 Other long term (current) drug therapy
CPT/HCPCS: 36415; 36600; 71010; 71010-26; 80048; 80053; 81003; 82553; 82803; 82962; 83036; 83735; 83880; 84484; 85025; 85610; 86140; 87641; 93005; 93010; 94640; 94660; 94667; 94668; 94760; 94761; 96365; 97110-GO; 97110-GP; 97161-GP; 97167-GO; 97530-GO; 99285-25; A9270-GY; C9113; J0360; J0456; J0696; J1650; J1815-GY; J2920; J2930; J7030; J7040; J7050; J7120

== ENCOUNTER 2017-11-04 13:11 | Inpatient (IN) | payer MEDICARE, MEDICAID ==
[2017-11-04] MEDS ORDERED: Sodium Chloride 0.9% 10 ML Syringe FLUSH PRN (14:23)
[2017-11-04] MEDS ORDERED: Levofloxacin/Dextrose 5%-Water 750 MG in Premix Bag 1 BAG IV ONE (15:36)
--- NOTE | 2017-11-04 15:46 | CR ---
Chest: Portable view of the chest was obtained. Comparison: Prior chest x-ray of 09/10/17. Heart size is slightly enlarged. Tortuous thoracic aorta is seen. Slight increased density within the upper right chest is seen as an interval change. Lungs otherwise show no acute change. Bony structures are osteopenic with mild scoliosis noted within the spine. Impression: 1. Slight increased density within the upper right lung either due to atelectasis or small area of pneumonia if patient has correlating symptoms. 2. Other findings within the chest remain fairly stable from previous study. Diagnostic code #3
[2017-11-04] MEDS ORDERED: Albuterol/Ipratropium 3.0-0.5 MG/3 ML Neb Soln NEB ONE (16:09)
--- NOTE | 2017-11-04 16:09 | EDM.PDOC ---
ED HPI GENERAL MEDICAL PROBLEM - General Chief Complaint: Respiratory Problem Stated Complaint: [facility] Time Seen by Provider: 11/04/17 14:30 Source of Information: Reports: Patient, Penitentiary Records History Limitations: Reports: No Limitations - History of Present Illness INITIAL COMMENTS - FREE TEXT/NARRATIVE: 76-year-old female presents via [place] ambulance service for evaluation and treatment of increased oxygen need and a fever. Patient resides at [facility]. Reportedly had a fever of 101.9 around 10:30 this morning. Given Tylenol. Normally uses oxygen at night. Oxygen sats are normally in the low 90s. Reportedly she has required more oxygen to maintain her sats in the low 90s. Upon he in EMS arrival she had a temperature of 100.6 and was 84% on 4 L via nasal cannula. She is alert and confused. She is alert and oriented person place and time but has confused conversation. Unclear if this is her baseline. She is denying to me any pain. She states she does not know why she is here. Denies any nausea, vomiting, chest pain or shortness of breath. Reviewed the patient's records so that she was hospitalist for pneumonia in August. Patient is a DNR, DNI Treatments GILL TENDER: Reports: Acetaminophen - Related Data Allergies Allergy/AdvReac Type Severity Reaction Status Date / Time clindamycin Allergy unknown Verified 11/04/17 13:27 herbs in pizza Allergy Cannot Uncoded 11/04/17 15:35 Remember Home Meds: Home Meds Acetaminophen 650 mg PO Q4H PRN 09/03/17 [History] Albuterol/Ipratropium [DuoNeb 3.0-0.5 MG/3 ML] 3 ml NEB BID 09/03/17 [History] Budesonide [Pulmicort] 0.5 mg IH BID 09/03/17 [History] Calcium Carbonate/Vitamin D3 [Calcium 600 + Vit D 200] 1 each PO BID 09/03/17 [ History] Cranberry Extract [Cranberry] 400 mg PO BID 09/03/17 [History] Insulin Aspart [Novolog Flexpen] 18 unit SQ TIDMEALS 09/03/17 [History] Insulin Detemir [Levemir] 40 unit SQ QAM 09/03/17 [History] Levothyroxine [Synthroid] 100 mcg PO 0600 09/03/17 [History] Liraglutide [Victoza] 1.8 mg SUBCUT BEDTIME 09/03/17 [History] Magnesium Oxide [Magnesium] 400 mg PO BID 09/03/17 [History] Multivitamin [Daily Multiple Vitamin] 1 tab PO DAILY 09/03/17 [History] OLANZapine [Zyprexa] 15 mg PO BEDTIME 09/03/17 [History] Paliperidone [Invega] 12 mg PO DAILY 09/03/17 [History] Ranitidine [Zantac] 150 mg PO BID 09/03/17 [History] Rosuvastatin [Crestor] 10 mg PO QPM 09/03/17 [History] guaiFENesin [Mucinex] 600 mg PO BID 09/03/17 [History] Albuterol/Ipratropium [DuoNeb 3.0-0.5 MG/3 ML] 3 ml INH QID PRN 09/08/17 [ History] Divalproex Sodium [Depakote] 500 mg PO BID 09/08/17 [History] Ondansetron [Zofran ODT] 4 mg PO Q4H PRN 09/08/17 [History] Aspirin [Halfprin] 81 mg PO DAILY 11/04/17 [History] Losartan [Cozaar] 25 mg PO DAILY 11/04/17 [History] Nystatin [Nystatin Crm] 30 gm TOP BID 11/04/17 [History] Past Medical History HEENT History: Reports: Cataract Cardiovascular History: Reports: Heart Failure, High Cholesterol, Hypertension Other Cardiovascular History: edema, hyponatremia Respiratory History: Reports: COPD, Pneumonia, Recurrent, Other (See Below) Other Respiratory History: oxygen use at home, hypoxemia Gastrointestinal History: Reports: Pancreatitis, Other (See Below) Other Gastrointestinal History: pancreatic mass Genitourinary History: Reports: Urinary Incontinence Musculoskeletal History: Reports: Arthritis Other Musculoskeletal History: ingrown nail Neurological History: Reports: Neuropathy, Diabetic Other Neuro History: resting tremor left arm Psychiatric History: Reports: Anxiety, Schizophrenia Other Psychiatric History: delusional disorder Endocrine/Metabolic History: Reports: Diabetes, Type II, Hypothyroidism, Obesity /BMI 30+, Vitamin D Deficiency Oncologic (Cancer) History: Reports: Other (See Below) Other Oncologic History: Pancreatic mass (dx 2013) of unknown etiology - no tx desired - Infectious Disease History Infectious Disease History: Reports: MRSA - Past Surgical History Other Oncologic Surgeries/Procedures: PANCREATIC MASS Social & Family History - Family History Family Medical History: Noncontributory - Tobacco Use Smoking Status *Q: Never Smoker Second Hand Smoke Exposure: No - Caffeine Use Caffeine Use: Reports: None - Alcohol Use Days Per Week of Alcohol Use: 0 - Recreational Drug Use Recreational Drug Use: No - Living Situation & Occupation Living situation: Reports: Extended Care Facility Occupation: Retired ED ROS GENERAL - Review of Systems Review Of Systems: See Below Constitutional: Reports: Fever Respiratory: Reports: Other (hypoxic). Denies: Shortness of Breath, Cough Cardiovascular: Denies: Chest Pain GI/Abdominal: Denies: Abdominal Pain, Nausea, Vomiting Neurological: Reports: Confusion ED EXAM, GENERAL - Physical Exam Exam: See Below Exam Limited By: Other (confused conversation; AxOx3) General Appearance: Alert, WD/WN, No Apparent Distress Eye Exam: Bilateral Eye: Normal Inspection Ears: Normal External Exam Nose: Normal Inspection Throat/Mouth: Normal Inspection, Normal Lips, Normal Voice, No Airway Compromise Respiratory/Chest: No Respiratory Distress, Lungs Clear, Normal Breath Sounds Cardiovascular: Normal Peripheral Pulses, Regular Rate, Rhythm, No Murmur GI/Abdominal: Normal Bowel Sounds, Soft, Non-Tender Neurological: Alert, Oriented, Confused Psychiatric: Normal Affect, Normal Mood Skin Exam: Warm, Dry, Normal Color Course - Vital Signs Last Recorded V/S: Last Vital Signs Temp 36.8 C 11/04/17 19:44 Pulse 88 11/04/17 21:03 Resp 22 H 11/04/17 19:44 BP 110/69 11/04/17 19:44 Pulse Ox 92 L 11/04/17 21:03 - Orders/Labs/Meds Orders: Active Orders 24 hr Category Date Time Status Patient Status [ADT] Routine ADT 11/04/17 17:17 Active Cardiac Monitoring [RC] . DIRECTED Care 11/04/17 14:21 Active Oxygen Therapy [RC] ASDIRECTED Care 11/04/17 14:21 Active CULTURE BLOOD [BC] Stat Lab 11/04/17 14:41 Received CULTURE BLOOD [BC] Stat Lab 11/04/17 14:49 Received CULTURE URINE [RM] Stat Lab 11/04/17 15:04 Received Sodium Chloride 0.9% [Saline Flush] Med 11/04/17 14:23 Active 10 ml FLUSH ASDIRECTED PRN Blood Culture x2 Reflex Set [OM.PC] Stat Oth 11/04/17 14:21 Ordered Peripheral IV Insertion Adult [OM.PC] Routine Oth 11/04/17 14:23 Ordered Medication Orders Acetaminophen (Tylenol) 650 mg PO Q4H PRN PRN Reason: Pain (Mild 1-3)/fever Hydrocodone Bitart/Acetaminophen ([place]leaf 325-5 Mg) 1 tab PO Q4H PRN PRN Reason: Pain (moderate 4-6) Albuterol (Proventil Neb Soln) 2.5 mg NEB Q2H PRN PRN Reason: Shortness Of Breath/wheezing Albuterol/Ipratropium (Duoneb 3.0-0.5 Mg/3 Ml) 3 ml NEB Q6HRRT [facility] Last Admin: 11/04/17 21:02 Dose: 3 ml Bisacodyl (Dulcolax) 5 mg PO DAILY PRN PRN Reason: Constipation Dextrose/Water (Dextrose 50% In Water) 50 ml IVPUSH ASDIRECTED PRN PRN Reason: Hypoglycemia Docusate Sodium (Colace) 100 mg PO BID PRN PRN Reason: Constipation Enoxaparin Sodium (Lovenox) 40 mg SUBCUT DAILY [facility] Famotidine (Pepcid) 20 mg PO BID [facility] Last Admin: 11/04/17 22:18 Dose: 20 mg Fluconazole (Diflucan) 100 mg PO DAILY [facility] Last Admin: 11/04/17 18:59 Dose: 100 mg Hydralazine HCl (Apresoline) 10 mg IVPUSH Q6H PRN PRN Reason: Hypertension Levofloxacin/Dextrose 750 mg/ (Premix) 150 mls @ 100 mls/hr IV Q24H [facility] Insulin Aspart (Novolog) 0 unit SUBCUT QIDACANDBED [facility] PRN Reason: Protocol Last Admin: 11/04/17 22:18 Dose: 1 unit Magnesium Sulfate (Pharmacy To Dose - Magnesium Replacement) 1 dose .XX ASDIRECTED [facility] Methylprednisolone Sodium Succinate (Solu-Medrol) 40 mg IVPUSH Q8H [facility] Last Admin: 11/04/17 19:00 Dose: 40 mg Metoprolol Tartrate (Lopressor) 5 mg IVPUSH Q4H PRN PRN Reason: Tachycardia Ondansetron HCl (Zofran Odt) 4 mg PO Q6H PRN PRN Reason: nausea, able to take PO Ondansetron HCl (Zofran) 4 mg IV Q6H PRN PRN Reason: Nausea/Vomiting Polyethylene Glycol (Miralax) 17 gm PO DAILY PRN PRN Reason: Constipation Potassium Chloride (Pharmacy To Dose - Potassium Replacement) 1 dose .XX ASDIRECTED FITO Senna/Docusate Sodium (Senna Plus) 1 tab PO BID PRN PRN Reason: Constipation Sodium Chloride (Saline Flush) 10 ml FLUSH ASDIRECTED PRN PRN Reason: Keep Vein Open Last Admin: 11/04/17 14:33 Dose: 10 ml Labs: Laboratory Tests 11/04/17 11/04/17 11/04/17 Range/Units 14:41 14:41 14:41 WBC 8.75 (3.98-10.04) K/mm3 RBC 3.83 L (3.98-5.22) M/mm3 Hgb 12.8 (11.2-15.7) gm/L Hct 40.7 (34.1-44.9) % MCV 106.3 H (79.4-94.8) fl MCH 33.4 H (25.6-32.2) pg MCHC 31.4 L (32.2-35.5) g/dl RDW Std Deviation 56.0 H (36.4-46.3) fL Plt Count 226 (182-369) K/mm3 MPV 8.8 L (9.4-12.3) fl Neutrophils % (Manual) 85 H (40-60) % Band Neutrophils % 1 (0-10) % Lymphocytes % (Manual) 12 L (20-40) % Atypical Lymphs % 0 % Monocytes % (Manual) 1 L (2-10) % Eosinophils % (Manual) 1 (0.7-5.8) % Basophils % (Manual) 0 L (0.1-1.2) Platelet Estimate Adequate Poikilocytosis 1+ slight Anisocytosis 1+ slight Macrocytosis 2+ moderate RBC Morph Comment Not Reportable Sodium 145 (136-145) mEq/L Potassium 4.4 (3.5-5.1) mEq/L Chloride 106 (98-107) mEq/L Carbon Dioxide 32 (21-32) mEq/L Anion Gap 11.4 (5-15) BUN 16 (7-18) mg/dL Creatinine 0.7 (0.55-1.02) mg/dL Est Cr Clr Drug Dosing 67.53 mL/min Estimated GFR (MDRD) > 60 (>60) mL/min BUN/Creatinine Ratio 22.9 H (14-18) Glucose 141 H (83-115) mg/dL Lactic Acid 1.5 (0.4-2.0) mmol/L Calcium 8.9 (8.5-10.1) mg/dL Total Bilirubin 0.2 (0.2-1.0) mg/dL AST 11 L (15-37) U/L ALT 18 (14-59) U/L Alkaline Phosphatase 52 (46-116) U/L C-Reactive Protein 2.0 H* (<1.0) mg/dL NT-Pro-B Natriuret Pep (0-450) pg/mL Total Protein 6.2 L (6.4-8.2) g/dl Albumin 2.6 L (3.4-5.0) g/dl Globulin 3.6 gm/dL Albumin/Globulin Ratio 0.7 L (1-2) Urine Color (Yellow) Urine Appearance (Clear) Urine pH (5.0-8.0) Ur Specific [place] (1.005-1.030) Urine Protein (Negative) Urine Glucose (UA) (Negative) Urine Ketones (Negative) Urine Occult Blood (Negative) Urine Nitrite (Negative) Urine Bilirubin (Negative) Urine Urobilinogen (0.2-1.0) Ur Leukocyte Esterase (Negative) Urine RBC (0-5) /hpf Urine WBC (0-5) /hpf Ur Epithelial Cells (0-5) /hpf Urine Bacteria (FEW) /hpf Urine Mucus (FEW) /hpf Urine Yeast (Budding) (NOT SEEN) Mycoplasma pneumon IgM (NEGATIVE) 11/04/17 11/04/17 11/04/17 Range/Units 14:41 14:41 15:14 WBC (3.98-10.04) K/mm3 RBC (3.98-5.22) M/mm3 Hgb (11.2-15.7) gm/L Hct (34.1-44.9) % MCV (79.4-94.8) fl MCH (25.6-32.2) pg MCHC (32.2-35.5) g/dl RDW Std Deviation (36.4-46.3) fL Plt Count (182-369) K/mm3 MPV (9.4-12.3) fl Neutrophils % (Manual) (40-60) % Band Neutrophils % (0-10) % Lymphocytes % (Manual) (20-40) % Atypical Lymphs % % Monocytes % (Manual) (2-10) % Eosinophils % (Manual) (0.7-5.8) % Basophils % (Manual) (0.1-1.2) Platelet Estimate Poikilocytosis Anisocytosis Macrocytosis RBC Morph Comment Sodium (136-145) mEq/L Potassium (3.5-5.1) mEq/L Chloride (98-107) mEq/L Carbon Dioxide (21-32) mEq/L Anion Gap (5-15) BUN (7-18) mg/dL Creatinine (0.55-1.02) mg/dL Est Cr Clr Drug Dosing mL/min Estimated GFR (MDRD) (>60) mL/min BUN/Creatinine Ratio (14-18) Glucose (83-115) mg/dL Lactic Acid (0.4-2.0) mmol/L Calcium (8.5-10.1) mg/dL Total Bilirubin (0.2-1.0) mg/dL AST (15-37) U/L ALT (14-59) U/L Alkaline Phosphatase (46-116) U/L C-Reactive Protein (<1.0) mg/dL NT-Pro-B Natriuret Pep 174 (0-450) pg/mL Total Protein (6.4-8.2) g/dl Albumin (3.4-5.0) g/dl Globulin gm/dL Albumin/Globulin Ratio (1-2) Urine Color Yellow (Yellow) Urine Appearance Slt cloudy H (Clear) Urine pH 7.5 (5.0-8.0) Ur Specific [place] 1.025 (1.005-1.030) Urine Protein 2+ H (Negative) Urine Glucose (UA) Negative (Negative) Urine Ketones 1+ H (Negative) Urine Occult Blood Negative (Negative) Urine Nitrite Negative (Negative) Urine Bilirubin Negative (Negative) Urine Urobilinogen 0.2 (0.2-1.0) Ur Leukocyte Esterase 2+ H (Negative) Urine RBC Not seen (0-5) /hpf Urine WBC 10-20 H (0-5) /hpf Ur Epithelial Cells 0-5 (0-5) /hpf Urine Bacteria Moderate H (FEW) /hpf Urine Mucus Few (FEW) /hpf Urine Yeast (Budding) Few H (NOT SEEN) Mycoplasma pneumon IgM Negative (NEGATIVE) Meds: Medications Generic Name Dose Route Start Last Admin Trade Name Freq PRN Reason Stop Dose Admin Acetaminophen 650 mg 11/04/17 17:32 Tylenol PO Q4H PRN Pain (Mild 1-3)/fever Hydrocodone Bitart/Acetaminophen 1 tab 11/04/17 17:32 Greenleaf 325-5 Mg PO Q4H PRN Pain (moderate 4-6) Albuterol 2.5 mg 11/04/17 17:32 Proventil Neb Soln NEB Q2H PRN Shortness Of Breath/wheezing Albuterol/Ipratropium 3 ml 11/04/17 21:00 11/04/17 21:02 Duoneb 3.0-0.5 Mg/3 Ml NEB 3 ml Q6HRRT [facility] Administration Bisacodyl 5 mg 11/04/17 17:32 Dulcolax PO DAILY PRN Constipation Dextrose/Water 50 ml 11/04/17 19:24 Dextrose 50% In Water IVPUSH ASDIRECTED PRN Hypoglycemia Docusate Sodium 100 mg 11/04/17 17:32 Colace PO BID PRN Constipation Enoxaparin Sodium 40 mg 11/05/17 09:00 Lovenox SUBCUT DAILY [facility] Famotidine 20 mg 11/04/17 21:00 11/04/17 22:18 Pepcid PO 20 mg BID FITO Administration Fluconazole 100 mg 11/04/17 18:00 11/04/17 18:59 Diflucan PO 100 mg DAILY [facility] Administration Hydralazine HCl 10 mg 11/04/17 17:48 Apresoline IVPUSH Q6H PRN Hypertension Levofloxacin/Dextrose 750 mg/ 150 mls @ 100 mls/hr 11/05/17 15:00 Premix IV Q24H [facility] Insulin Aspart 0 unit 11/04/17 22:00 11/04/17 22:18 Novolog SUBCUT 1 unit QIDACANDBED [facility] Administration Protocol Magnesium Sulfate 1 dose 11/04/17 18:00 Pharmacy To Dose - Magnesium Replacement .XX ASDIRECTED FITO Methylprednisolone Sodium Succinate 40 mg 11/04/17 19:00 02/21/18 19:00 Solu-Medrol IVPUSH 40 mg Q8H FITO Administration Metoprolol Tartrate 5 mg 11/04/17 17:48 Lopressor IVPUSH Q4H PRN Tachycardia Ondansetron HCl 4 mg 11/04/17 17:32 Zofran Odt PO Q6H PRN nausea, able to take PO Ondansetron HCl 4 mg 11/04/17 17:32 Zofran IV Q6H PRN Nausea/Vomiting Polyethylene Glycol 17 gm 11/04/17 17:32 Miralax PO DAILY PRN Constipation Potassium Chloride 1 dose 11/04/17 18:00 Pharmacy To Dose - Potassium Replacement .XX ASDIRECTED FITO Senna/Docusate Sodium 1 tab 11/04/17 17:32 Senna Plus PO BID PRN Constipation Sodium Chloride 10 ml 11/04/17 14:23 11/04/17 14:33 Saline Flush FLUSH 10 ml ASDIRECTED PRN Administration Keep Vein Open Discontinued Medications Generic Name Dose Route Start Last Admin Trade Name Freq PRN Reason Stop Dose Admin Albuterol/Ipratropium 3 ml 11/04/17 16:09 11/04/17 16:23 Duoneb 3.0-0.5 Mg/3 Ml NEB 11/04/17 16:10 3 ml ONETIME ONE Administration Levofloxacin/Dextrose 750 mg/ 150 mls @ 100 mls/hr 11/04/17 15:36 11/04/17 16 :11 Premix IV 11/04/17 17:05 100 mls/hr ONETIME ONE Administration - Radiology Interpretation Free Text/Narrative:: Chest: Portable view of the chest was obtained. Comparison: Prior chest x-ray of 09/10/17. Heart size is slightly enlarged. Tortuous thoracic aorta is seen. Slight increased density within the upper right chest is seen as an interval change. Lungs otherwise show no acute change. Bony structures are osteopenic with mild scoliosis noted within the spine. Impression: 1. Slight increased density within the upper right lung either due to atelectasis or small area of pneumonia if patient has correlating symptoms. 2. Other findings within the chest remain fairly stable from previous study. - Re-Assessments/Exams Free Text/Narrative Re-Assessment/Exam: 11/04/17 17:03 Labs have returned. I went to review the labs and imaging with the patient. When I entered the room the patient excitedly exclaimed "you are Bernie ". Given her pneumonia, urinary tract infection, hypoxia and increased confusion I feel she needs to be admitted. I discussed this case with Dr. Molina, hospitalist on-call. He agrees to the admission. Departure - Departure Time of Disposition: 17:05 Disposition: Admitted As Inpatient 67 Condition: Poor Clinical Impression: UTI (urinary tract infection) Qualifiers: Urinary tract infection type: site unspecified Hematuria presence: without hematuria Qualified Code(s): N39.0 - Urinary tract infection, site not specified Pneumonia Qualifiers: Pneumonia type: due to unspecified organism Laterality: right Lung location: upper lobe of lung Qualified Code(s): J18.1 - Lobar pneumonia, unspecified organism Type II diabetes mellitus Qualifiers: Diabetes mellitus complication status: with unspecified complications Diabetes mellitus long term care administrator insulin use: with usp use Qualified Code(s): E11.8 - Type 2 diabetes mellitus with unspecified complications - Discharge Information - My Orders Last 24 Hours: My Active Orders 11/04/17 14:21 Cardiac Monitoring [RC] . DIRECTED Oxygen Therapy [RC] ASDIRECTED Blood Culture x2 Reflex Set [OM.PC] Stat 11/04/17 14:23 Sodium Chloride 0.9% [Saline Flush] 10 ml FLUSH ASDIRECTED PRN Peripheral IV Insertion Adult [OM.PC] Routine 11/04/17 14:41 CULTURE BLOOD [BC] Stat 11/04/17 14:49 CULTURE BLOOD [BC] Stat 11/04/17 15:04 CULTURE URINE [RM] Stat 11/04/17 17:17 Patient Status [ADT] Routine - Assessment/Plan Last 24 Hours: My Active Orders 11/04/17 14:21 Cardiac Monitoring [RC] . DIRECTED Oxygen Therapy [RC] ASDIRECTED Blood Culture x2 Reflex Set [OM.PC] Stat 11/04/17 14:23 Sodium Chloride 0.9% [Saline Flush] 10 ml FLUSH ASDIRECTED PRN Peripheral IV Insertion Adult [OM.PC] Routine 11/04/17 14:41 CULTURE BLOOD [BC] Stat 11/04/17 14:49 CULTURE BLOOD [BC] Stat 11/04/17 15:04 CULTURE URINE [RM] Stat 11/04/17 17:17 Patient Status [ADT] Routine
[2017-11-04] MEDS ORDERED: Ondansetron 4 MG Tab.DIS PO PRN ×2 (17:32→23:48)
[2017-11-04] MEDS ORDERED: Polyethylene Glycol 3350 Powder 17 GM Packet PO PRN (17:32)
[2017-11-04] MEDS ORDERED: Bisacodyl 5 MG Tab PO PRN (17:32)
[2017-11-04] MEDS ORDERED: Ondansetron 4 MG/2 ML SDV IV PRN (17:32)
[2017-11-04] MEDS ORDERED: Albuterol 0.083% 2.5 MG/3 ML Neb Soln NEB PRN (17:32)
[2017-11-04] MEDS ORDERED: Acetaminophen/HYDROcodone 325-5 MG Tab PO PRN (17:32)
[2017-11-04] MEDS ORDERED: Acetaminophen 325 MG Tab PO PRN ×2 (17:32→23:48)
[2017-11-04] MEDS ORDERED: Docusate Sodium 100 MG Cap PO PRN (17:32)
[2017-11-04] MEDS ORDERED: hydrALAZINE 20 MG/ML SDV IVPUSH PRN (17:48)
[2017-11-04] MEDS ORDERED: Metoprolol Tartrate 5 MG/5 ML SDV IVPUSH PRN (17:48)
--- NOTE | 2017-11-04 18:12 | PCM.HP ---
H&P History of Present Illness - General Date of Service: 11/04/17 Admit Problem/Dx: Admission Diagnosis/Problem Admission Diagnosis/Problem Pneumonia Source of Information: Patient, Provider, RN, RN Notes Reviewed History Limitations: Reports: Altered Mental Status (at baseline ) - History of Present Illness Initial Comments - Free Text/Narative: Malika Walker is a 76 yo female who is well known to this service. She presented to our ED today (11/04/17) from [facility] with a fever 101.9 that began around 10:30 this morning. This is treated with Tylenol. She normally utilizes oxygen at night with sats in the low 90s. It is reported she has been using more oxygen to keep her sats in the low 90s. Upon EMS arrival showed a temperature of 100.6 and was 84% on 4 L via nasal cannula. She is alert and confused. She is orientated to person place and time however her conversations do not make sense. This is her baseline. She denies any pain and does not know why she is here. Denies any nausea vomiting chest pain or shortness of breath. She recently hospitalized in August for pneumonia. In the ED temperature 37.6. Pulse 97. Respirations 21. Blood pressure 103/ 64. Pulse ox 91%. Labs were obtained: CBC was normal at 8.75. Hemoglobin 12.8. Hematocrit 40.7. She is macrocytic. Pulse are normal at 226,000. Neutrophils are elevated at 85%. A 1% band neutrophils. Sodium is 145. Potassium 4.4. Chloride 106. Carbon dioxide 32. Anion gap 11.4. BUN 16. Creatinine 0.7. EGFR is greater than 60. Glucose is 141. Lactic acid 1.5. Calcium 8.9. Bilirubin 0.2. AST is 11, ALT 18, alkaline phosphatase 52. CRP is slightly elevated at 2.0. ProBNP is 174. She is low at 6.2. Albumin 2.6. UA is positive. It is slightly cloudy, urine proteins 2+, ketones 1+, leuk esterase 2+, wbc's 10-20, moderate bacteria and few budding urine yeast. Surface milligram Levaquin is started. Blood and urine cultures are obtained and pending. Chest x-ray is obtained and shows "1. Slight increased density within the upper right lung due to atelectasis or small airway pneumonia if patient has correlating symptoms. 2. Other findings within the chest remained fairly stable from previous study." This is interpreted by Dr. Arevalo. He was carrying a history of: Heart failure, HLD, HTN, COPD, recurrent pneumonia , oxygen use at home, arthritis, diabetic neuropathy, resting left arm tremor, anxiety, schizophrenia, delusional disorder, type II DM, thyroidism, obesity, pancreatic mass diagnosed in 2013 with no treatment desired. She does have a history of MRSA. She was never a smoker. - Related Data Allergies/Adverse Reactions: Allergies Allergy/AdvReac Type Severity Reaction Status Date / Time clindamycin Allergy unknown Verified 11/04/17 13:27 herbs in pizza Allergy Cannot Uncoded 11/04/17 15:35 Remember Home Medications: Home Meds Acetaminophen 650 mg PO Q4H PRN 09/03/17 [History] Albuterol/Ipratropium [DuoNeb 3.0-0.5 MG/3 ML] 3 ml NEB BID 09/03/17 [History] Aspirin [Halfprin] 81 mg PO DAILY 09/03/17 [History] Budesonide [Pulmicort] 0.5 mg IH BID 09/03/17 [History] Calcium Carbonate/Vitamin D3 [Calcium 600 + Vit D 200] 1 each PO BID 09/03/17 [ History] Cranberry Extract [Cranberry] 400 mg PO BID 09/03/17 [History] Insulin Aspart [Novolog Flexpen] 18 unit SQ TIDMEALS 09/03/17 [History] Insulin Detemir [Levemir] 40 unit SQ QAM 09/03/17 [History] Levothyroxine [Synthroid] 100 mcg PO QPM 09/03/17 [History] Liraglutide [Victoza] 1.8 mg SUBCUT BEDTIME 09/03/17 [History] Magnesium Oxide [Magnesium] 400 mg PO BID 09/03/17 [History] Multivitamin [Daily Multiple Vitamin] 1 tab PO DAILY 09/03/17 [History] OLANZapine [Zyprexa] 15 mg PO BEDTIME 09/03/17 [History] Paliperidone [Invega] 12 mg PO DAILY 09/03/17 [History] Ranitidine [Zantac] 150 mg PO BID 09/03/17 [History] Rosuvastatin [Crestor] 10 mg PO QPM 09/03/17 [History] guaiFENesin [Mucinex] 600 mg PO BID 09/03/17 [History] Albuterol/Ipratropium [DuoNeb 3.0-0.5 MG/3 ML] 3 ml INH QID PRN 09/08/17 [ History] Divalproex Sodium [Depakote] 500 mg PO BID 09/08/17 [History] Ondansetron [Zofran ODT] 4 mg PO Q4H PRN 09/08/17 [History] Aspirin [Halfprin] 81 mg PO DAILY 11/04/17 [History] Losartan [Cozaar] 25 mg PO DAILY 11/04/17 [History] Nystatin [Nystatin Crm] 30 gm TOP BID 11/04/17 [History] Past Medical History HEENT History: Reports: Cataract Cardiovascular History: Reports: Heart Failure, High Cholesterol, Hypertension Other Cardiovascular History: edema, hyponatremia Respiratory History: Reports: COPD, Pneumonia, Recurrent, Other (See Below) Other Respiratory History: oxygen use at home, hypoxemia Gastrointestinal History: Reports: Pancreatitis, Other (See Below) Other Gastrointestinal History: pancreatic mass Genitourinary History: Reports: Urinary Incontinence Musculoskeletal History: Reports: Arthritis Other Musculoskeletal History: ingrown nail Neurological History: Reports: Neuropathy, Diabetic Other Neuro History: resting tremor left arm Psychiatric History: Reports: Anxiety, Schizophrenia Other Psychiatric History: delusional disorder Endocrine/Metabolic History: Reports: Diabetes, Type II, Hypothyroidism, Obesity /BMI 30+, Vitamin D Deficiency Oncologic (Cancer) History: Reports: Other (See Below) Other Oncologic History: Pancreatic mass (dx 2013) of unknown etiology - no tx desired Dermatologic History: Reports: Other (See Below) Other Dermatologic History: rash and other nonspecific skin eruption-bilateral groins - Infectious Disease History Infectious Disease History: Reports: MRSA - Past Surgical History Other Oncologic Surgeries/Procedures: PANCREATIC MASS Social & Family History - Family History Family Medical History: Noncontributory - Tobacco Use Smoking Status *Q: Never Smoker Second Hand Smoke Exposure: No - Caffeine Use Caffeine Use: Reports: None - Alcohol Use Days Per Week of Alcohol Use: 0 - Recreational Drug Use Recreational Drug Use: No - Living Situation & Occupation Living situation: Reports: Extended Care Facility Occupation: Retired H&P Review of Systems - Review of Systems: Review Of Systems: See Below General: Reports: Fever, Chills, Malaise, Weakness HEENT: Denies: Ear Pain, Rhinitis Pulmonary: Reports: Shortness of Breath, Wheezing, Cough, Sputum Cardiovascular: Reports: Edema. Denies: Chest Pain, Palpitations, Dyspnea on Exertion Gastrointestinal: Reports: No Symptoms. Denies: Abdominal Pain, Constipation, Diarrhea, Nausea, Vomiting Genitourinary: Reports: No Symptoms. Denies: Dysuria, Frequency, Burning, Pain , Urgency Musculoskeletal: Reports: No Symptoms Skin: Reports: No Symptoms Psychiatric: Reports: Confusion (Baseline ), Mood Lability (baseline ), Agitation (baseline ) Neurological: Reports: No Symptoms Hematologic/Lymphatic: Reports: No Symptoms Immunologic: Reports: No Symptoms Exam - Exam Exam: See Below - Vital Signs Vital Signs: Last Vital Signs Temp 99.7 F 11/04/17 13:23 Pulse 97 11/04/17 13:23 Resp 21 H 11/04/17 13:23 BP 103/64 11/04/17 13:23 Pulse Ox 91 L 11/04/17 16:24 Weight: 218 lb 9.6 oz - Exam Quality Assessment: Supplemental Oxygen General: Alert, Cooperative. No: Mild Distress HEENT: PERRLA, Hearing Intact, Mucosa Moist & [place], Nares Patent, Normal Nasal Septum, Posterior Pharynx Clear, Conjunctiva Clear, EOMI, EACs Clear, TMs Clear Neck: Supple, Trachea Midline Lungs: Normal Respiratory Effort, Decreased Breath Sounds, Wheezing (mild) Cardiovascular: Regular Rate, Regular Rhythm GI/Abdominal Exam: Normal Bowel Sounds, Soft, Non-Tender, No Organomegaly, No Distention, No Abnormal Bruit, No Mass, Pelvis Stable (Female) Exam: Deferred Rectal (Female) Exam: Deferred Back Exam: Normal Inspection, Full Range of Motion Extremities: Normal Range of Motion, Non-Tender, No Pedal Edema, Normal Capillary Refill, Other (Dried scaly skin bilaterally on lower sections of legs. ) Peripheral Pulses: 0: Posterior Tibial (L), Posterior Tibial (R), Dorsalis Pedis (L), Dorsalis Pedis (R), 3+: Radial (L), Radial (R) Skin: Warm, Dry, Intact Neurological: Cranial Nerves Intact (Grossly) Neuro Extensive - Mental Status: Alert, Other (History of schizophrenia and delusional disorder. Appears to be at baseline currently.) Psychiatric: Alert, Labile Mood (Baseline), Agitated (Baseline) - Patient Data Result Diagrams: 11/04/17 14:41 11/04/17 14:41 *Q Meaningful Use (ADM) - VTE *Q VTE Criteria *Q: - Stroke *Q Stroke Criteria *Q: - AMI *Q AMI Criteria *Q: - Problem List (1) UTI (urinary tract infection) SNOMED Code(s): 91534112 ICD Code: N39.0 - URINARY TRACT INFECTION, SITE NOT SPECIFIED Status: Acute Priority: High Current Visit: Yes Qualifiers: Urinary tract infection type: site unspecified Hematuria presence: without hematuria Qualified Code(s): N39.0 - Urinary tract infection, site not specified (2) Pneumonia SNOMED Code(s): 892161036 ICD Code: J18.9 - PNEUMONIA, UNSPECIFIED ORGANISM Status: Acute Priority : High Current Visit: Yes Qualifiers: Pneumonia type: due to unspecified organism Laterality: right Lung location: upper lobe of lung Qualified Code(s): J18.1 - Lobar pneumonia, unspecified organism (3) Anxiety SNOMED Code(s): 29911894 ICD Code: F41.9 - ANXIETY DISORDER, UNSPECIFIED Status: Chronic Priority : Low Current Visit: No (4) Delusional disorder SNOMED Code(s): 02563264 ICD Code: F22 - DELUSIONAL DISORDERS Status: Chronic Priority: Low Current Visit: Yes (5) Diabetes SNOMED Code(s): 19445702 ICD Code: E11.9 - TYPE 2 DIABETES MELLITUS WITHOUT COMPLICATIONS Status: Chronic Priority: High Current Visit: No Qualifiers: Diabetes mellitus type: type 2 Diabetes mellitus complication status: without complication Diabetes mellitus terminal press operator insulin use: without terminal press operator use Qualified Code(s): E11.9 - Type 2 diabetes mellitus without complications (6) Diabetic neuropathy SNOMED Code(s): 474927459 ICD Code: E11.40 - TYPE 2 DIABETES MELLITUS WITH DIABETIC NEUROPATHY, UNSP Status: Chronic Priority: Low Current Visit: No Qualifiers: Diabetes mellitus type: type 2 Diabetes mellitus complication detail: with other neurological complication Qualified Code(s): E11.49 - Type 2 diabetes mellitus with other diabetic neurological complication (7) HLD (hyperlipidemia) SNOMED Code(s): 39996709 ICD Code: E78.5 - HYPERLIPIDEMIA, UNSPECIFIED Status: Chronic Priority: Low Current Visit: No Qualifiers: Hyperlipidemia type: unspecified Qualified Code(s): E78.5 - Hyperlipidemia , unspecified (8) HTN (hypertension) SNOMED Code(s): 46988049 ICD Code: I10 - ESSENTIAL (PRIMARY) HYPERTENSION Status: Chronic Priority : Low Current Visit: No Qualifiers: Hypertension type: essential hypertension Qualified Code(s): I10 - Essential (primary) hypertension (9) Hypothyroidism SNOMED Code(s): 02664178 ICD Code: E03.9 - HYPOTHYROIDISM, UNSPECIFIED Status: Chronic Priority: Low Current Visit: No Qualifiers: Hypothyroidism type: unspecified Qualified Code(s): E03.9 - Hypothyroidism , unspecified (10) Obesity (BMI 30.0-34.9) SNOMED Code(s): 524925568 ICD Code: E66.9 - OBESITY, UNSPECIFIED Status: Chronic Priority: Low Current Visit: No (11) Pancreatic mass SNOMED Code(s): 361236213 ICD Code: K86.9 - DISEASE OF PANCREAS, UNSPECIFIED Status: Chronic Priority: Low Current Visit: No (12) Resting tremor SNOMED Code(s): 81520825 ICD Code: R25.9 - UNSPECIFIED ABNORMAL INVOLUNTARY MOVEMENTS Status: Chronic Priority: Low Current Visit: No (13) Schizophrenia SNOMED Code(s): 25321461 ICD Code: F20.9 - SCHIZOPHRENIA, UNSPECIFIED Status: Chronic Priority: Low Current Visit: No Qualifiers: Schizophrenia type: unspecified Qualified Code(s): F20.9 - Schizophrenia, unspecified Problem List Initiated/Reviewed/Updated: Yes Orders Last 24hrs: Active Orders 24 hr Category Date Time Status Acapella [RT Chest Physiotherapy] [RC] ASDIRECTED Care 11/04/17 17:47 Active Height and Weight [RC] DAILY Care 11/04/17 17:32 Active Intake and Output [RC] QSHIFT Care 11/04/17 17:43 Active Oxygen Therapy [RC] PRN Care 11/04/17 17:22 Active Pulse Oximetry [RC] PRN Care 11/04/17 17:43 Active RT Aerosol Therapy [RC] ASDIRECTED Care 11/04/17 17:44 Active RT Incentive Spirometry [RC] ASDIRECTED Care 11/04/17 17:47 Active Up With Assistance [RC] ASDIRECTED Care 11/04/17 17:32 Active VTE/DVT Education [RC] PER UNIT ROUTINE Care 11/04/17 17:22 Active Vital Signs [RC] Q4H Care 11/04/17 17:22 Active Consult to Case Management [CONS] Routine Cons 11/04/17 17:32 Active Consult to Instrument Lens Grinder [CONS] Routine Cons 11/04/17 17:32 Active OT Evaluation and Treatment [CONS] Routine Cons 11/04/17 17:32 Active PT Evaluation and Treatment [CONS] Routine Cons 11/04/17 17:32 Active Respiratory Care Assess and Treatment [CONS] Routine Cons 11/04/17 17:32 Active Consistent Carbohydrate Diet [DIET] Diet 11/04/17 Dinner Active Chest 2V [CR] Routine Exams 11/06/17 08:00 Ordered BASIC METABOLIC PANEL,BMP [CHEM] AM Lab 11/05/17 05:11 Ordered BASIC METABOLIC PANEL,BMP [CHEM] AM Lab 11/06/17 05:11 Ordered BASIC METABOLIC PANEL,BMP [CHEM] AM Lab 11/07/17 05:11 Ordered BASIC METABOLIC PANEL,BMP [CHEM] AM Lab 11/08/17 05:11 Ordered CBC WITH AUTO DIFF [HEME] AM Lab 11/05/17 05:11 Ordered CBC WITH AUTO DIFF [HEME] AM Lab 11/06/17 05:11 Ordered CBC WITH AUTO DIFF [HEME] AM Lab 11/07/17 05:11 Ordered CBC WITH AUTO DIFF [HEME] AM Lab 11/08/17 05:11 Ordered CRP [C-REACTIVE PROTEIN] [CHEM] AM Lab 11/05/17 05:11 Ordered CRP [C-REACTIVE PROTEIN] [CHEM] AM Lab 11/06/17 05:11 Ordered CRP [C-REACTIVE PROTEIN] [CHEM] AM Lab 11/07/17 05:11 Ordered CRP [C-REACTIVE PROTEIN] [CHEM] AM Lab 11/08/17 05:11 Ordered CULTURE SPUTUM + SMEAR [RM] Routine Lab 11/04/17 17:51 Ordered INFLUENZA A+B AG SCREEN [RM] Routine Lab 11/04/17 17:53 Ordered MAGNESIUM [CHEM] AM Lab 11/05/17 05:11 Ordered MAGNESIUM [CHEM] AM Lab 11/06/17 05:11 Ordered MAGNESIUM [CHEM] AM Lab 11/07/17 05:11 Ordered MAGNESIUM [CHEM] AM Lab 11/08/17 05:11 Ordered MYCOPLASMA PNEUMONIAE IGM AB [CHEM] Routine Lab 11/04/17 17:50 Ordered STREP PNEUMONIAE ANTIGEN [MREF] Routine Lab 11/04/17 17:49 Ordered Acetaminophen [Tylenol] Med 11/04/17 17:32 Active 650 mg PO Q4H PRN Acetaminophen/HYDROcodone [Bradley 325-5 MG] Med 11/04/17 17:32 Active 1 tab PO Q4H PRN Albuterol [Proventil Neb Soln] Med 11/04/17 17:32 Active 2.5 mg NEB Q2H PRN Albuterol/Ipratropium [DuoNeb 3.0-0.5 MG/3 ML] Med 11/04/17 21:00 Active 3 ml NEB Q6HRRT Bisacodyl [Dulcolax] Med 11/04/17 17:32 Active 5 mg PO DAILY PRN Docusate Sodium [Colace] Med 11/04/17 17:32 Active 100 mg PO BID PRN Docusate Sodium/Sennosides [Senna Plus] Med 11/04/17 17:32 Active 1 tab PO BID PRN Enoxaparin [Lovenox] Med 11/05/17 09:00 Active 40 mg SUBCUT DAILY Fluconazole [Diflucan] Med 11/04/17 18:00 Active 100 mg PO DAILY Levofloxacin/Dextrose 5%-Water [Levaquin in D5W 750 MG/ Med 11/05/17 15:00 Active 150 ML] 750 mg Premix Bag 1 bag IV Q24H Magnesium Rep Pharmacy to Dose [Pharmacy to Dose - Med 11/04/17 18:00 Active Magnesium Replacement] 1 dose .XX ASDIRECTED Metoprolol Tartrate [Lopressor] Med 11/04/17 17:48 Active 5 mg IVPUSH Q4H PRN Ondansetron [Zofran ODT] Med 11/04/17 17:32 Active 4 mg PO Q6H PRN Ondansetron [Zofran] Med 11/04/17 17:32 Active 4 mg IV Q6H PRN Polyethylene Glycol 3350 [MiraLAX] Med 11/04/17 17:32 Active 17 gm PO DAILY PRN Potassium Rep Pharmacy to Dose [Pharmacy to Dose - Med 11/04/17 18:00 Active Potassium Replacement] 1 dose .XX ASDIRECTED hydrALAZINE [Apresoline] Med 11/04/17 17:48 Active 10 mg IVPUSH Q6H PRN Resuscitation Status Routine Resus Stat 11/04/17 17:43 Ordered Medication Orders Acetaminophen (Tylenol) 650 mg PO Q4H PRN PRN Reason: Pain (Mild 1-3)/fever Hydrocodone Bitart/Acetaminophen (Bradley 325-5 Mg) 1 tab PO Q4H PRN PRN Reason: Pain (moderate 4-6) Albuterol (Proventil Neb Soln) 2.5 mg NEB Q2H PRN PRN Reason: Shortness Of Breath/wheezing Albuterol/Ipratropium (Duoneb 3.0-0.5 Mg/3 Ml) 3 ml NEB Q6HRRT FITO Bisacodyl (Dulcolax) 5 mg PO DAILY PRN PRN Reason: Constipation Docusate Sodium (Colace) 100 mg PO BID PRN PRN Reason: Constipation Enoxaparin Sodium (Lovenox) 40 mg SUBCUT DAILY FITO Fluconazole (Diflucan) 100 mg PO DAILY FITO Hydralazine HCl (Apresoline) 10 mg IVPUSH Q6H PRN PRN Reason: Hypertension Levofloxacin/Dextrose 750 mg/ (Premix) 150 mls @ 100 mls/hr IV Q24H [facility] Magnesium Sulfate (Pharmacy To Dose - Magnesium Replacement) 1 dose .XX ASDIRECTED [facility] Metoprolol Tartrate (Lopressor) 5 mg IVPUSH Q4H PRN PRN Reason: Tachycardia Ondansetron HCl (Zofran Odt) 4 mg PO Q6H PRN PRN Reason: nausea, able to take PO Ondansetron HCl (Zofran) 4 mg IV Q6H PRN PRN Reason: Nausea/Vomiting Polyethylene Glycol (Miralax) 17 gm PO DAILY PRN PRN Reason: Constipation Potassium Chloride (Pharmacy To Dose - Potassium Replacement) 1 dose .XX ASDIRECTED [facility] Senna/Docusate Sodium (Senna Plus) 1 tab PO BID PRN PRN Reason: Constipation Sodium Chloride (Saline Flush) 10 ml FLUSH ASDIRECTED PRN PRN Reason: Keep Vein Open Last Admin: 11/04/17 14:33 Dose: 10 ml Assessment/Plan Comment:: I/P: Acute: UTI -Reported fever of 101.[address] [facility] -Denies symptoms although poor historian -No leukocytosis, CRP 2.0 -Lactic acid 1.5 -UA positive, few budding yeast noted as well -Levaquin given in ED - continue -Start fluconazole -IV fluids as ordered Pneumonia -Questionable -NH reports fever of 101, negative for fever in ED although tylenol [employer] -Influenza ordered -Productive cough -Hypoxia - Saturations in low 80's on EMS arrival -Hx/o COPD - on oxygen 3L via [place] chronically -CXR in ED on 11/04/[address] Arevalo -1. Increased density within right upper lung due to atelectasis or small area of PNA -2. Other findings as noted - stable from prior chest x-ray -WBC 8.75 -Lactic acid 1.5 -CRP 2.0 -Blood cultures pending -Sputum culture ordered -Levaquin 750mg started in ED - continue -Duonebs/IS/RT to evaluate and treat -Solu-medrol 40mg IVP Q8hr -Oxygen, titrate as needed -Repeat CXR in 24-48 hours Chronic: Cataract HLD HTN - stable with home meds Peripheral Edema COPD - on 3L O2 at home regularly Pancreatic mass - does not want treatment Hypothyroidism DM2 with Diabetic Neuropathy - Continue home insulin routine, blood sugars QID AC and bedtime Urinary incontinence Vitamin D deficiency Osteoarthritis Resting left arm tremor Anxiety - stable Schizophrenia/Delusional disorder - stable Obesity with BMI of 34 Plan: Admit to medical floor Routine AM labs Home medications as ordered PT/OT/RT consult Other orders as indicated above GI prophylaxis: H2B DVT/PE prophylaxis: Lovenox SubQ daily SW/CM for discharge planning Code Status: DNR/DNI; PCP: Dr. Bonilla
[2017-11-04] MEDS: Fluconazole 100 MG Tab PO SCH (18:59)
[2017-11-04] MEDS: methylPREDNISolone Sodium Succinate 40 MG/1 ML SDV IVPUSH SCH (19:00)
[2017-11-04] MEDS ORDERED: 50% Dextrose in Water 50 ML Syringe IVPUSH PRN (19:24)
[2017-11-04] MEDS: Albuterol/Ipratropium 3.0-0.5 MG/3 ML Neb Soln NEB SCH (21:02)
[2017-11-04] MEDS: Insulin Aspart 100 Units/ML 3 ML Pen SUBCUT SCH (22:18)
[2017-11-04] MEDS: Famotidine 20 MG Tab PO SCH (22:18)
[2017-11-04] MEDS ORDERED: Albuterol/Ipratropium 3.0-0.5 MG/3 ML Neb Soln INH PRN (23:48)
[2017-11-05] MEDS: Albuterol/Ipratropium 3.0-0.5 MG/3 ML Neb Soln NEB SCH ×4 (02:20→20:28)
[2017-11-05] MEDS: methylPREDNISolone Sodium Succinate 40 MG/1 ML SDV IVPUSH SCH ×3 (03:06→18:10)
[2017-11-05] MEDS: Levothyroxine 100 MCG Tab PO SCH (05:40)
[2017-11-05] MEDS ORDERED: Budesonide 0.5 MG/2 ML Neb Susp INH SCH (06:00)
[2017-11-05] MEDS: Divalproex Sodium Delayed-Release 500 MG Tab.CR PO SCH ×2 (08:41→22:37)
[2017-11-05] MEDS: Famotidine 20 MG Tab PO SCH ×2 (08:41→22:37)
[2017-11-05] MEDS: Calcium Carbonate/Vitamin D3 1500 MG-200 Units Tab PO SCH ×2 (08:41→22:37)
[2017-11-05] MEDS: Magnesium Oxide 400 MG Tab PO SCH ×2 (08:41→22:37)
[2017-11-05] MEDS: Fluconazole 100 MG Tab PO SCH (08:41)
[2017-11-05] MEDS: Aspirin 81 MG Tab.EC PO SCH (08:41)
[2017-11-05] MEDS: guaiFENesin 600 MG Tab.ER PO SCH ×2 (08:41→22:37)
[2017-11-05] MEDS: Nystatin Crm 30 GM Tube TOP SCH ×2 (08:53→22:37)
[2017-11-05] MEDS: Enoxaparin 40 MG/0.4 ML Syringe SUBCUT SCH (08:53)
[2017-11-05] MEDS: Losartan 25 MG Tab PO SCH (08:54)
[2017-11-05] MEDS ORDERED: Famotidine 20 MG Tab PO SCH (09:00)
[2017-11-05] MEDS ORDERED: CRANBERRY EXTRACT 400 MG PO SCH (09:00)
[2017-11-05] MEDS ORDERED: Albuterol/Ipratropium 3.0-0.5 MG/3 ML Neb Soln NEB SCH (09:00)
[2017-11-05] MEDS ORDERED: Non-Formulary Medication 1 Each (Ranitidine 150 MG) PO SCH (09:00)
[2017-11-05] MEDS: Insulin Detemir 100 Units/ML 3 ML Pen SUBCUT SCH (09:02)
[2017-11-05] MEDS: Insulin Aspart 100 Units/ML 3 ML Pen SUBCUT SCH ×7 (09:04→22:32)
[2017-11-05] MEDS: Budesonide 0.5 MG/2 ML Neb Susp INH SCH ×2 (09:37→20:28)
--- NOTE | 2017-11-05 09:52 | PCM.PN ---
- General Info Date of Service: 11/05/17 Admission Dx/Problem (Free Text): Admission Diagnosis/Problem Admission Diagnosis/Problem Pneumonia Functional Status: Reports: Pain Controlled, Tolerating Diet, Urinating, Incentive Spirometry. Denies: Ambulating, New Symptoms - Review of Systems General: Reports: No Symptoms HEENT: Reports: No Symptoms Pulmonary: Reports: No Symptoms Cardiovascular: Reports: No Symptoms Gastrointestinal: Reports: No Symptoms Genitourinary: Reports: No Symptoms Musculoskeletal: Reports: No Symptoms Skin: Reports: No Symptoms Neurological: Reports: No Symptoms Psychiatric: Reports: No Symptoms - Patient Data Vitals - Most Recent: Last Vital Signs Temp 99.0 F 11/05/17 07:47 Pulse 88 11/05/17 07:47 Resp 20 11/05/17 07:47 BP 134/75 11/05/17 08:54 Pulse Ox 91 L 11/05/17 09:37 Weight - Most Recent: 214 lb 11.2 oz I&O - Last 24 Hours: Intake & Output 11/04/17 11/05/17 11/05/17 22:59 06:59 14:59 Intake Total 240 300 Balance 240 300 Lab Results Last 24 Hours: Laboratory Results - last 24 hr 11/04/17 11/05/17 11/05/17 Range/Units 21:28 06:23 06:23 WBC 6.81 (3.98-10.04) K/mm3 RBC 3.77 L (3.98-5.22) M/mm3 Hgb 13.0 (11.2-15.7) gm/L Hct 38.6 (34.1-44.9) % MCV 102.4 H (79.4-94.8) fl MCH 34.5 H (25.6-32.2) pg MCHC 33.7 (32.2-35.5) g/dl RDW Std Deviation 53.5 H (36.4-46.3) fL Plt Count 220 (182-369) K/mm3 MPV 9.1 L (9.4-12.3) fl Neut % (Auto) 92.9 H (34.0-71.1) % Lymph % (Auto) 6.0 L (19.3-51.7) % [place] % (Auto) 1.0 L (4.7-12.5) % Eos % (Auto) 0 L (0.7-5.8) Baso % (Auto) 0.1 (0.1-1.2) % Neut # (Auto) 6.32 H (1.56-6.13) K/mm3 Lymph # (Auto) 0.41 L (1.18-3.74) K/mm3 [place] # (Auto) 0.07 L (0.24-0.36) K/mm3 Eos # (Auto) 0.00 L (0.04-0.36) K/mm3 Baso # (Auto) 0.01 (0.01-0.08) K/mm3 Manual Slide Review Abnormal smear Sodium 140 (136-145) mEq/L Potassium 4.4 (3.5-5.1) mEq/L Chloride 103 (98-107) mEq/L Carbon Dioxide 31 (21-32) mEq/L Anion Gap 10.4 (5-15) BUN 17 (7-18) mg/dL Creatinine 0.6 (0.55-1.02) mg/dL Est Cr Clr Drug Dosing 78.78 mL/min Estimated GFR (MDRD) > 60 (>60) mL/min BUN/Creatinine Ratio 28.3 H (14-18) Glucose 254 H (83-115) mg/dL POC Glucose 192 H (83-110) mg/dL Calcium 8.7 (8.5-10.1) mg/dL Magnesium 2.1 (1.8-2.4) mg/dl C-Reactive Protein 4.0 H* (<1.0) mg/dL 11/05/17 Range/Units 06:35 WBC (3.98-10.04) K/mm3 RBC (3.98-5.22) M/mm3 Hgb (11.2-15.7) gm/L Hct (34.1-44.9) % MCV (79.4-94.8) fl MCH (25.6-32.2) pg MCHC (32.2-35.5) g/dl RDW Std Deviation (36.4-46.3) fL Plt Count (182-369) K/mm3 MPV (9.4-12.3) fl Neut % (Auto) (34.0-71.1) % Lymph % (Auto) (19.3-51.7) % [place] % (Auto) (4.7-12.5) % Eos % (Auto) (0.7-5.8) Baso % (Auto) (0.1-1.2) % Neut # (Auto) (1.56-6.13) K/mm3 Lymph # (Auto) (1.18-3.74) K/mm3 [place] # (Auto) (0.24-0.36) K/mm3 Eos # (Auto) (0.04-0.36) K/mm3 Baso # (Auto) (0.01-0.08) K/mm3 Manual Slide Review Sodium (136-145) mEq/L Potassium (3.5-5.1) mEq/L Chloride (98-107) mEq/L Carbon Dioxide (21-32) mEq/L Anion Gap (5-15) BUN (7-18) mg/dL Creatinine (0.55-1.02) mg/dL Est Cr Clr Drug Dosing mL/min Estimated GFR (MDRD) (>60) mL/min BUN/Creatinine Ratio (14-18) Glucose (83-115) mg/dL POC Glucose 274 H (83-110) mg/dL Calcium (8.5-10.1) mg/dL Magnesium (1.8-2.4) mg/dl C-Reactive Protein (<1.0) mg/dL Gene Results Last 24 Hours: Microbiology 11/04/17 18:25 Influenza Type A Antigen Screen - Final Nasal Aspirate, Unspecified NEGATIVE INFLUENZA A VIRUS AG Influenza Type B Antigen Screen - Final NEGATIVE INFLUENZA B VIRUS AG Med Orders - Current: Current Medications Acetaminophen (Tylenol) 650 mg PO Q4H PRN PRN Reason: Pain (Mild 1-3)/fever Hydrocodone Bitart/Acetaminophen ([place] 325-5 Mg) 1 tab PO Q4H PRN PRN Reason: Pain (moderate 4-6) Albuterol (Proventil Neb Soln) 2.5 mg NEB Q2H PRN PRN Reason: Shortness Of Breath/wheezing Albuterol/Ipratropium (Duoneb 3.0-0.5 Mg/3 Ml) 3 ml NEB Q6HRRT FITO Last Admin: 11/05/17 09:37 Dose: 3 ml Albuterol/Ipratropium (Duoneb 3.0-0.5 Mg/3 Ml) 3 ml INH QID PRN PRN Reason: Dyspnea Aspirin (Halfprin) 81 mg PO DAILY [facility] Last Admin: 11/05/17 08:41 Dose: 81 mg Bisacodyl (Dulcolax) 5 mg PO DAILY PRN PRN Reason: Constipation Budesonide (Pulmicort) 0.5 mg INH BID@0900,2100 [facility] Last Admin: 11/05/17 09:37 Dose: 0.5 mg Calcium Carbonate (Calcium Carbonate/Vitamin D 1500 Mg-200 Unit) 1 tab PO BID [facility] Last Admin: 11/05/17 08:41 Dose: 1 tab Dextrose/Water (Dextrose 50% In Water) 50 ml IVPUSH ASDIRECTED PRN PRN Reason: Hypoglycemia Divalproex Sodium (Depakote) 500 mg PO BID [facility] Last Admin: 11/05/17 08:41 Dose: 500 mg Docusate Sodium (Colace) 100 mg PO BID PRN PRN Reason: Constipation Enoxaparin Sodium (Lovenox) 40 mg SUBCUT DAILY [facility] Last Admin: 11/05/17 08:53 Dose: 40 mg Famotidine (Pepcid) 20 mg PO BID [facility] Last Admin: 11/05/17 08:41 Dose: 20 mg Fluconazole (Diflucan) 100 mg PO DAILY [facility] Last Admin: 11/05/17 08:41 Dose: 100 mg Guaifenesin (Mucinex) 600 mg PO BID [facility] Last Admin: 11/05/17 08:41 Dose: 600 mg Hydralazine HCl (Apresoline) 10 mg IVPUSH Q6H PRN PRN Reason: Hypertension Levofloxacin/Dextrose 750 mg/ (Premix) 150 mls @ 100 mls/hr IV Q24H [facility] Insulin Aspart (Novolog) 0 unit SUBCUT QIDACANDBED [facility] PRN Reason: Protocol Last Admin: 11/05/17 09:04 Dose: 3 unit Insulin Aspart (Novolog) 18 unit SUBCUT TIDMEALS [facility] Last Admin: 11/05/17 09:05 Dose: 18 units Insulin Detemir (Levemir) 40 unit SUBCUT QAM [facility] Last Admin: 11/05/17 09:02 Dose: 40 units Levothyroxine Sodium (Synthroid) 100 mcg PO ACBRK [facility] Last Admin: 11/05/17 05:40 Dose: 100 mcg Losartan Potassium (Cozaar) 25 mg PO DAILY [facility] Last Admin: 11/05/17 08:54 Dose: 25 mg Magnesium Oxide (Magnesium Oxide) 400 mg PO BID [facility] Last Admin: 11/05/17 08:41 Dose: 400 mg Magnesium Sulfate (Pharmacy To Dose - Magnesium Replacement) 1 dose .XX ASDIRECTED [facility] Methylprednisolone Sodium Succinate (Solu-Medrol) 40 mg IVPUSH Q8H [facility] Last Admin: 11/05/17 03:06 Dose: 40 mg Metoprolol Tartrate (Lopressor) 5 mg IVPUSH Q4H PRN PRN Reason: Tachycardia Multivitamins (Thera) 1 each PO DAILY [facility] Nystatin (Nystatin Crm) 0 gm TOP BID [facility] Last Admin: 11/05/17 08:53 Dose: 30 gm Olanzapine (Zyprexa) 15 mg PO BEDTIME [facility] Ondansetron HCl (Zofran) 4 mg IV Q6H PRN PRN Reason: Nausea/Vomiting Ondansetron HCl (Zofran Odt) 4 mg PO Q4H PRN PRN Reason: Nausea Liraglutide 1.8 Mg 0 each SUBCUT BEDTIME [facility] Paliperidone [Invega (] 12 Mg) 0 each PO DAILY [facility] Polyethylene Glycol (Miralax) 17 gm PO DAILY PRN PRN Reason: Constipation Potassium Chloride (Pharmacy To Dose - Potassium Replacement) 1 dose .XX ASDIRECTED [facility] Rosuvastatin Calcium (Crestor) 10 mg PO QPM [facility] Senna/Docusate Sodium (Senna Plus) 1 tab PO BID PRN PRN Reason: Constipation Sodium Chloride (Saline Flush) 10 ml FLUSH ASDIRECTED PRN PRN Reason: Keep Vein Open Last Admin: 11/04/17 14:33 Dose: 10 ml Discontinued Medications Acetaminophen (Tylenol) 650 mg PO Q4H PRN PRN Reason: Fever Albuterol/Ipratropium (Duoneb 3.0-0.5 Mg/3 Ml) 3 ml NEB ONETIME ONE Stop: 11/04/17 16:10 Last Admin: 11/04/17 16:23 Dose: 3 ml Albuterol/Ipratropium (Duoneb 3.0-0.5 Mg/3 Ml) 3 ml NEB BID [facility] Budesonide (Pulmicort) 0.5 mg INH BIDRT [facility] Levofloxacin/Dextrose 750 mg/ (Premix) 150 mls @ 100 mls/hr IV ONETIME ONE Stop: 11/04/17 17:05 Last Admin: 11/04/17 16:11 Dose: 100 mls/hr Non-Formulary Medication (Cranberry Extract [Cranberry]) 400 mg PO BID [facility] Ondansetron HCl (Zofran Odt) 4 mg PO Q6H PRN PRN Reason: nausea, able to take PO - Exam Quality Assessment: Supplemental Oxygen, DVT Prophylaxis General: Alert, Cooperative, No Acute Distress HEENT: Pupils Equal, Pupils Reactive, EOMI, Mucous Membr. Moist/[place] Neck: Supple, Trachea Midline, No JVD Lungs: Normal Respiratory Effort, Decreased Breath Sounds, Wheezing Cardiovascular: Regular Rate, Regular Rhythm GI/Abdominal Exam: Normal Bowel Sounds, Soft, Non-Tender, No Organomegaly, No Distention, No Abnormal Bruit, No Mass, Pelvis Stable (Female) Exam: Deferred Extremities: Normal Range of Motion, Non-Tender, No Pedal Edema, Normal Capillary Refill, Other (color changes, dry scaly skin bilaterally to lower extremities ) Peripheral Pulses: 1+: Posterior Tibial (L), Posterior Tibial (R), Dorsalis Pedis (L), Dorsalis Pedis (R), 2+: Radial (L), Radial (R) Skin: Warm, Dry, Intact Neurological: No New Focal Deficit Psy/Mental Status: Alert, Labile Mood (baseline ), Anxious (baseline ), Other ( confusion which is baseline with patients psychiatric past. ) - Problem List & Annotations (1) UTI (urinary tract infection) SNOMED Code(s): 95986726 Code(s): N39.0 - URINARY TRACT INFECTION, SITE NOT SPECIFIED Status: Acute Priority: High Current Visit: Yes Qualifiers: Urinary tract infection type: site unspecified Hematuria presence: without hematuria Qualified Code(s): N39.0 - Urinary tract infection, site not specified (2) Pneumonia SNOMED Code(s): 578340292 Code(s): J18.9 - PNEUMONIA, UNSPECIFIED ORGANISM Status: Acute Priority: High Current Visit: Yes Qualifiers: Pneumonia type: due to unspecified organism Laterality: right Lung location: upper lobe of lung Qualified Code(s): J18.1 - Lobar pneumonia, unspecified organism (3) Anxiety SNOMED Code(s): 83229907 Code(s): F41.9 - ANXIETY DISORDER, UNSPECIFIED Status: Chronic Priority: Low Current Visit: No (4) Delusional disorder SNOMED Code(s): 09730451 Code(s): F22 - DELUSIONAL DISORDERS Status: Chronic Priority: Low Current Visit: Yes (5) Diabetes SNOMED Code(s): 94396094 Code(s): E11.9 - TYPE 2 DIABETES MELLITUS WITHOUT COMPLICATIONS Status: Chronic Priority: High Current Visit: No Qualifiers: Diabetes mellitus type: type 2 Diabetes mellitus complication status: without complication Diabetes mellitus tank terminal gauger insulin use: without assisted use Qualified Code(s): E11.9 - Type 2 diabetes mellitus without complications (6) Diabetic neuropathy SNOMED Code(s): 267709727 Code(s): E11.40 - TYPE 2 DIABETES MELLITUS WITH DIABETIC NEUROPATHY, UNSP Status: Chronic Priority: Low Current Visit: No Qualifiers: Diabetes mellitus type: type 2 Diabetes mellitus complication detail: with other neurological complication Qualified Code(s): E11.49 - Type 2 diabetes mellitus with other diabetic neurological complication (7) HLD (hyperlipidemia) SNOMED Code(s): 04976816 Code(s): E78.5 - HYPERLIPIDEMIA, UNSPECIFIED Status: Chronic Priority: Low Current Visit: No Qualifiers: Hyperlipidemia type: unspecified Qualified Code(s): E78.5 - Hyperlipidemia , unspecified (8) HTN (hypertension) SNOMED Code(s): 42405082 Code(s): I10 - ESSENTIAL (PRIMARY) HYPERTENSION Status: Chronic Priority : Low Current Visit: No Qualifiers: Hypertension type: essential hypertension Qualified Code(s): I10 - Essential (primary) hypertension (9) Hypothyroidism SNOMED Code(s): 05537482 Code(s): E03.9 - HYPOTHYROIDISM, UNSPECIFIED Status: Chronic Priority: Low Current Visit: No Qualifiers: Hypothyroidism type: unspecified Qualified Code(s): E03.9 - Hypothyroidism , unspecified (10) Obesity (BMI 30.0-34.9) SNOMED Code(s): 525701713 Code(s): E66.9 - OBESITY, UNSPECIFIED Status: Chronic Priority: Low Current Visit: No (11) Pancreatic mass SNOMED Code(s): 268941233 Code(s): K86.9 - DISEASE OF PANCREAS, UNSPECIFIED Status: Chronic Priority: Low Current Visit: No (12) Resting tremor SNOMED Code(s): 54043053 Code(s): R25.9 - UNSPECIFIED ABNORMAL INVOLUNTARY MOVEMENTS Status: Chronic Priority: Low Current Visit: No (13) Schizophrenia SNOMED Code(s): 40101410 Code(s): F20.9 - SCHIZOPHRENIA, UNSPECIFIED Status: Chronic Priority: Low Current Visit: No Qualifiers: Schizophrenia type: unspecified Qualified Code(s): F20.9 - Schizophrenia, unspecified - Problem List Review Problem List Initiated/Reviewed/Updated: Yes - My Orders Last 24 Hours: My Active Orders 11/04/17 15:04 STREP PNEUMONIAE ANTIGEN [MREF] Routine 11/04/17 17:22 Oxygen Therapy [RC] PRN VTE/DVT Education [RC] QSHIFT Vital Signs [RC] Q4HR 11/04/17 17:32 Height and Weight [RC] 04 Up With Assistance [RC] ASDIRECTED Consult to Case Management [CONS] Routine Consult to Mud Mixer Helper [CONS] Routine OT Evaluation and Treatment [CONS] Routine PT Evaluation and Treatment [CONS] Routine Respiratory Care Assess and Treatment [CONS] Routine Acetaminophen [Tylenol] 650 mg PO Q4H PRN Acetaminophen/HYDROcodone [[place] 325-5 MG] 1 tab PO Q4H PRN Albuterol [Proventil Neb Soln] 2.5 mg NEB Q2H PRN Bisacodyl [Dulcolax] 5 mg PO DAILY PRN Docusate Sodium [Colace] 100 mg PO BID PRN Docusate Sodium/Sennosides [Senna Plus] 1 tab PO BID PRN Ondansetron [Zofran] 4 mg IV Q6H PRN Polyethylene Glycol 3350 [MiraLAX] 17 gm PO DAILY PRN 11/04/17 17:43 Intake and Output [RC] 04,16 Pulse Oximetry [RC] PRN 11/04/17 17:44 RT Aerosol Therapy [RC] ASDIRECTED 11/04/17 17:47 Acapella [RT Chest Physiotherapy] [RC] ASDIRECTED RT Incentive Spirometry [RC] ASDIRECTED 11/04/17 17:48 Metoprolol Tartrate [Lopressor] 5 mg IVPUSH Q4H PRN hydrALAZINE [Apresoline] 10 mg IVPUSH Q6H PRN 11/04/17 17:51 CULTURE SPUTUM + SMEAR [RM] Routine 11/04/17 18:00 Fluconazole [Diflucan] 100 mg PO DAILY Magnesium Rep Pharmacy to Dose [Pharmacy to Dose - Magnesium Replacement] 1 dose .XX ASDIRECTED Potassium Rep Pharmacy to Dose [Pharmacy to Dose - Potassium Replacement] 1 dose .XX ASDIRECTED 11/04/17 19:00 methylPREDNISolone Sod Succ [Solu-MEDROL] 40 mg IVPUSH Q8H 11/04/17 19:24 Blood Glucose Check, Bedside [RC] QIDACANDBED Dextrose 50% in Water 50 ml IVPUSH ASDIRECTED PRN 11/04/17 21:00 Albuterol/Ipratropium [DuoNeb 3.0-0.5 MG/3 ML] 3 ml NEB Q6HRRT Famotidine [Pepcid] 20 mg PO BID 11/04/17 22:00 Insulin Aspart [NovoLOG] See Protocol SUBCUT QIDACANDBED 11/04/17 Dinner Consistent Carbohydrate Diet [DIET] 11/05/17 09:00 Enoxaparin [Lovenox] 40 mg SUBCUT DAILY 11/05/17 15:00 Levofloxacin/Dextrose 5%-Water [Levaquin in D5W 750 MG/150 ML] 750 mg Premix Bag 1 bag IV Q24H 11/06/17 05:11 BASIC METABOLIC PANEL,BMP [CHEM] AM CBC WITH AUTO DIFF [HEME] AM CRP [C-REACTIVE PROTEIN] [CHEM] AM MAGNESIUM [CHEM] AM 11/06/17 08:00 Chest 2V [CR] Routine 11/07/17 05:11 BASIC METABOLIC PANEL,BMP [CHEM] AM CBC WITH AUTO DIFF [HEME] AM CRP [C-REACTIVE PROTEIN] [CHEM] AM MAGNESIUM [CHEM] AM 11/08/17 05:11 BASIC METABOLIC PANEL,BMP [CHEM] AM CBC WITH AUTO DIFF [HEME] AM CRP [C-REACTIVE PROTEIN] [CHEM] AM MAGNESIUM [CHEM] AM - Plan Plan:: I/P: Acute: UTI -Reported fever of 101.[address] [facility] -Denies symptoms although poor historian -No leukocytosis, CRP 2.0-->4.0 -Lactic acid 1.5 -UA positive, few budding yeast noted as well -Levaquin given in ED - found UTI resistant last visit, will switch to Rocephin -Start fluconazole - 3 day course -IV fluids as ordered COPD exacerbation -Dx/ed with PNA in ED, doubtful -[facility] reports fever of 101, negative for fever in ED and on floor -Influenza negative -Productive cough -Hypoxia - Saturations in low 80's on EMS arrival -Hx/o COPD - on oxygen 3L via [place] chronically -CXR in ED on 11/04/[address] Arevalo -1. Increased density within right upper lung due to atelectasis or small area of PNA -2. Other findings as noted - stable from prior chest x-ray -WBC 8.75-->6.81 -Lactic acid 1.5 -CRP 2.0-->4.0 -Blood cultures pending -Sputum culture ordered -Levaquin 750mg started in ED - switch to Rocephin, add azithromycin -Duonebs/IS/RT to evaluate and treat -Solu-medrol 40mg IVP Q8hr -Oxygen, titrate as needed -Repeat CXR tomorrow Chronic: Cataract HLD HTN - stable with home meds Peripheral Edema COPD - on 3L O2 at home regularly Pancreatic mass - does not want treatment Hypothyroidism DM2 with Diabetic Neuropathy - Continue home insulin routine, blood sugars QID AC and bedtime Urinary incontinence Vitamin D deficiency Osteoarthritis Resting left arm tremor Anxiety - stable Schizophrenia/Delusional disorder - stable Obesity with BMI of 34 Plan: Admit to medical floor Routine AM labs Home medications as ordered PT/OT/RT consult Other orders as indicated above GI prophylaxis: H2B DVT/PE prophylaxis: Lovenox SubQ daily SW/CM for discharge planning Code Status: DNR/DNI; PCP: Dr. Bonilla
[2017-11-05] MEDS: PALIPERIDONE 12 MG PO SCH (10:53)
[2017-11-05] MEDS: Multivitamins,Therapeutic Tab PO SCH (11:10)
[2017-11-05] MEDS: cefTRIAXone 1 GM in Sodium Chloride 0.9% 100 ML IV SCH (12:02)
[2017-11-05] MEDS ORDERED: Azithromycin 500 MG in Sodium Chloride 0.9% 250 ML IV SCH (14:15)
[2017-11-05] MEDS ORDERED: Levofloxacin/Dextrose 5%-Water 750 MG in Premix Bag 1 BAG IV SCH (15:00)
[2017-11-05] MEDS: Rosuvastatin 10 MG Tab PO SCH (18:07)
[2017-11-05] MEDS: OLANZapine 5 MG Tab PO SCH (22:36)
[2017-11-06] MEDS: Albuterol/Ipratropium 3.0-0.5 MG/3 ML Neb Soln NEB SCH ×4 (02:32→20:35)
[2017-11-06] MEDS: methylPREDNISolone Sodium Succinate 40 MG/1 ML SDV IVPUSH SCH ×3 (03:39→22:33)
[2017-11-06] MEDS: Levothyroxine 100 MCG Tab PO SCH (06:16)
[2017-11-06] MEDS: Budesonide 0.5 MG/2 ML Neb Susp INH SCH ×2 (08:05→20:36)
[2017-11-06] MEDS: Fluconazole 100 MG Tab PO SCH (09:00)
--- NOTE | 2017-11-06 09:42 | CR ---
Chest: Frontal view of the chest was obtained. Comparison: Prior chest x-ray of 11/04/17. Heart size appears minimally enlarged. Tortuous thoracic aorta is seen. Lungs are clear. Bony structures are osteopenic. Slight scoliosis is noted. Impression: 1. Nothing acute is seen on frontal chest x-ray. Diagnostic code #2
[2017-11-06] MEDS: Aspirin 81 MG Tab.EC PO SCH (10:14)
[2017-11-06] MEDS: Famotidine 20 MG Tab PO SCH ×2 (10:15→22:23)
[2017-11-06] MEDS: guaiFENesin 600 MG Tab.ER PO SCH ×2 (10:15→22:22)
[2017-11-06] MEDS: Divalproex Sodium Delayed-Release 500 MG Tab.CR PO SCH ×2 (10:15→22:21)
[2017-11-06] MEDS: Magnesium Oxide 400 MG Tab PO SCH ×2 (10:15→22:21)
[2017-11-06] MEDS: Losartan 25 MG Tab PO SCH (10:15)
[2017-11-06] MEDS: Multivitamins,Therapeutic Tab PO SCH (10:15)
[2017-11-06] MEDS: Calcium Carbonate/Vitamin D3 1500 MG-200 Units Tab PO SCH ×2 (10:15→22:21)
[2017-11-06] MEDS: Insulin Detemir 100 Units/ML 3 ML Pen SUBCUT SCH (10:16)
[2017-11-06] MEDS: Enoxaparin 40 MG/0.4 ML Syringe SUBCUT SCH (10:16)
[2017-11-06] MEDS: Insulin Aspart 100 Units/ML 3 ML Pen SUBCUT SCH ×7 (10:17→22:28)
[2017-11-06] MEDS: Nystatin Crm 30 GM Tube TOP SCH ×2 (10:21→22:27)
[2017-11-06] MEDS: PALIPERIDONE 12 MG PO SCH (10:21)
[2017-11-06] MEDS: cefTRIAXone 1 GM in Sodium Chloride 0.9% 100 ML IV SCH (10:36)
--- NOTE | 2017-11-06 11:01 | PCM.PN ---
- General Info Date of Service: 11/06/17 Admission Dx/Problem (Free Text): Admission Diagnosis/Problem Admission Diagnosis/Problem Pneumonia Subjective Update: In to see Malika today. She is doing quite well. Her mental status is at baseline. She denies any current symptoms. It was originally communicated that she is on 3L via NS but in reviewing SNF notes it appears she is actually on 4L at baseline. She has completed her fluconazole treatment course. No overnight concerns. Possible discharge this weekend pending her usual SNF allowing. Functional Status: Reports: Pain Controlled, Tolerating Diet, Urinating, Incentive Spirometry. Denies: Ambulating, New Symptoms - Review of Systems General: Reports: No Symptoms. Denies: Fever, Weakness, Fatigue, Malaise HEENT: Reports: No Symptoms. Denies: Eye Pain, Headaches Pulmonary: Reports: Cough. Denies: Shortness of Breath (no worse than normal), Sputum, Wheezing Cardiovascular: Reports: No Symptoms. Denies: Chest Pain, Palpitations Gastrointestinal: Reports: No Symptoms. Denies: Abdominal Pain, Constipation, Diarrhea, Nausea, Vomiting Genitourinary: Reports: No Symptoms Musculoskeletal: Reports: No Symptoms Skin: Reports: No Symptoms Neurological: Reports: No Symptoms Psychiatric: Reports: No Symptoms - Patient Data Vitals - Most Recent: Last Vital Signs Temp 97.3 F 11/06/17 03:38 Pulse 59 L 11/06/17 03:38 Resp 17 11/06/17 03:38 BP 125/68 11/06/17 10:15 Pulse Ox 93 L 11/06/17 08:09 Weight - Most Recent: 214 lb 3.2 oz I&O - Last 24 Hours: Intake & Output 11/05/17 11/06/17 11/06/17 22:59 06:59 14:59 Intake Total 950 500 Balance 950 500 Lab Results Last 24 Hours: Laboratory Results - last 24 hr 11/05/17 11/05/17 11/05/17 Range/Units 11:12 17:49 22:32 WBC (3.98-10.04) K/mm3 RBC (3.98-5.22) M/mm3 Hgb (11.2-15.7) gm/L Hct (34.1-44.9) % MCV (79.4-94.8) fl MCH (25.6-32.2) pg MCHC (32.2-35.5) g/dl RDW Std Deviation (36.4-46.3) fL Plt Count (182-369) K/mm3 MPV (9.4-12.3) fl Neut % (Auto) (34.0-71.1) % Lymph % (Auto) (19.3-51.7) % [place] % (Auto) (4.7-12.5) % Eos % (Auto) (0.7-5.8) Baso % (Auto) (0.1-1.2) % Neut # (Auto) (1.56-6.13) K/mm3 Lymph # (Auto) (1.18-3.74) K/mm3 [place] # (Auto) (0.24-0.36) K/mm3 Eos # (Auto) (0.04-0.36) K/mm3 Baso # (Auto) (0.01-0.08) K/mm3 Manual Slide Review Sodium (136-145) mEq/L Potassium (3.5-5.1) mEq/L Chloride (98-107) mEq/L Carbon Dioxide (21-32) mEq/L Anion Gap (5-15) BUN (7-18) mg/dL Creatinine (0.55-1.02) mg/dL Est Cr Clr Drug Dosing mL/min Estimated GFR (MDRD) (>60) mL/min BUN/Creatinine Ratio (14-18) Glucose (83-115) mg/dL POC Glucose 298 H 207 H 285 H (83-110) mg/dL Calcium (8.5-10.1) mg/dL Magnesium (1.8-2.4) mg/dl C-Reactive Protein (<1.0) mg/dL 11/06/17 11/06/17 11/06/17 Range/Units 06:10 06:21 06:21 WBC 8.14 (3.98-10.04) K/mm3 RBC 3.86 L (3.98-5.22) M/mm3 Hgb 12.7 (11.2-15.7) gm/L Hct 39.2 (34.1-44.9) % MCV 101.6 H (79.4-94.8) fl MCH 32.9 H (25.6-32.2) pg MCHC 32.4 (32.2-35.5) g/dl RDW Std Deviation 51.2 H (36.4-46.3) fL Plt Count 226 (182-369) K/mm3 MPV 8.9 L (9.4-12.3) fl Neut % (Auto) 87.9 H (34.0-71.1) % Lymph % (Auto) 7.6 L (19.3-51.7) % [place] % (Auto) 3.7 L (4.7-12.5) % Eos % (Auto) 0 L (0.7-5.8) Baso % (Auto) 0.1 (0.1-1.2) % Neut # (Auto) 7.15 H (1.56-6.13) K/mm3 Lymph # (Auto) 0.62 L (1.18-3.74) K/mm3 [place] # (Auto) 0.30 (0.24-0.36) K/mm3 Eos # (Auto) 0.00 L (0.04-0.36) K/mm3 Baso # (Auto) 0.01 (0.01-0.08) K/mm3 Manual Slide Review Abnormal smear Sodium 140 (136-145) mEq/L Potassium 4.2 (3.5-5.1) mEq/L Chloride 103 (98-107) mEq/L Carbon Dioxide 31 (21-32) mEq/L Anion Gap 10.2 (5-15) BUN 24 H (7-18) mg/dL Creatinine 0.6 (0.55-1.02) mg/dL Est Cr Clr Drug Dosing 78.78 mL/min Estimated GFR (MDRD) > 60 (>60) mL/min BUN/Creatinine Ratio 40.0 H (14-18) Glucose 266 H (83-115) mg/dL POC Glucose 262 H (83-110) mg/dL Calcium 8.8 (8.5-10.1) mg/dL Magnesium 2.3 (1.8-2.4) mg/dl C-Reactive Protein 0.9 (<1.0) mg/dL Med Orders - Current: Current Medications Acetaminophen (Tylenol) 650 mg PO Q4H PRN PRN Reason: Pain (Mild 1-3)/fever Hydrocodone Bitart/Acetaminophen ([place] 325-5 Mg) 1 tab PO Q4H PRN PRN Reason: Pain (moderate 4-6) Albuterol (Proventil Neb Soln) 2.5 mg NEB Q2H PRN PRN Reason: Shortness Of Breath/wheezing Albuterol/Ipratropium (Duoneb 3.0-0.5 Mg/3 Ml) 3 ml NEB Q6HRRT [facility] Last Admin: 11/06/17 08:06 Dose: 3 ml Albuterol/Ipratropium (Duoneb 3.0-0.5 Mg/3 Ml) 3 ml INH QID PRN PRN Reason: Dyspnea Aspirin (Halfprin) 81 mg PO DAILY [facility] Last Admin: 11/06/17 10:14 Dose: 81 mg Bisacodyl (Dulcolax) 5 mg PO DAILY PRN PRN Reason: Constipation Budesonide (Pulmicort) 0.5 mg INH BID@0900,2100 [facility] Last Admin: 11/06/17 08:05 Dose: 0.5 mg Calcium Carbonate (Calcium Carbonate/Vitamin D 1500 Mg-200 Unit) 1 tab PO BID [facility] Last Admin: 11/06/17 10:15 Dose: 1 tab Dextrose/Water (Dextrose 50% In Water) 50 ml IVPUSH ASDIRECTED PRN PRN Reason: Hypoglycemia Divalproex Sodium (Depakote) 500 mg PO BID [facility] Last Admin: 11/06/17 10:15 Dose: 500 mg Docusate Sodium (Colace) 100 mg PO BID PRN PRN Reason: Constipation Enoxaparin Sodium (Lovenox) 40 mg SUBCUT DAILY [facility] Last Admin: 11/06/17 10:16 Dose: 40 mg Famotidine (Pepcid) 20 mg PO BID [facility] Last Admin: 11/06/17 10:15 Dose: 20 mg Fluconazole (Diflucan) 100 mg PO DAILY [facility] Last Admin: 11/06/17 09:00 Dose: 100 mg Guaifenesin (Mucinex) 600 mg PO BID [facility] Last Admin: 11/06/17 10:15 Dose: 600 mg Hydralazine HCl (Apresoline) 10 mg IVPUSH Q6H PRN PRN Reason: Hypertension Ceftriaxone Sodium 1 gm/ (Sodium Chloride) 100 mls @ 200 mls/hr IV Q24H [facility] Last Admin: 11/06/17 10:36 Dose: 200 mls/hr Azithromycin 500 mg/ Sodium (Chloride) 250 mls @ 250 mls/hr IV Q24H [facility] Last Admin: 11/05/17 14:48 Dose: 250 mls/hr Insulin Aspart (Novolog) 0 unit SUBCUT QIDACANDBED [facility] PRN Reason: Protocol Last Admin: 11/06/17 10:17 Dose: 3 unit Insulin Aspart (Novolog) 18 unit SUBCUT TIDMEALS [facility] Last Admin: 11/06/17 10:17 Dose: 18 units Insulin Detemir (Levemir) 40 unit SUBCUT QAM [facility] Last Admin: 11/06/17 10:16 Dose: 40 units Levothyroxine Sodium (Synthroid) 100 mcg PO ACBRK [facility] Last Admin: 11/06/17 06:16 Dose: 100 mcg Losartan Potassium (Cozaar) 25 mg PO DAILY [facility] Last Admin: 11/06/17 10:15 Dose: 25 mg Magnesium Oxide (Magnesium Oxide) 400 mg PO BID [facility] Last Admin: 11/06/17 10:15 Dose: 400 mg Magnesium Sulfate (Pharmacy To Dose - Magnesium Replacement) 1 dose .XX ASDIRECTED [facility] Methylprednisolone Sodium Succinate (Solu-Medrol) 40 mg IVPUSH Q8H [facility] Last Admin: 11/06/17 10:16 Dose: 40 mg Metoprolol Tartrate (Lopressor) 5 mg IVPUSH Q4H PRN PRN Reason: Tachycardia Multivitamins (Thera) 1 each PO DAILY [facility] Last Admin: 11/06/17 10:15 Dose: 1 each Nystatin (Nystatin Crm) 0 gm TOP BID [facility] Last Admin: 11/06/17 10:21 Dose: 1 applic Olanzapine (Zyprexa) 15 mg PO BEDTIME [facility] Last Admin: 11/05/17 22:36 Dose: 15 mg Ondansetron HCl (Zofran) 4 mg IV Q6H PRN PRN Reason: Nausea/Vomiting Ondansetron HCl (Zofran Odt) 4 mg PO Q4H PRN PRN Reason: Nausea Liraglutide 1.8 Mg 0 each SUBCUT BEDTIME [facility] Last Admin: 11/05/17 22:38 Dose: Not Given Paliperidone [Invega (] 12 Mg) 0 each PO DAILY [facility] Last Admin: 11/06/17 10:21 Dose: Not Given Polyethylene Glycol (Miralax) 17 gm PO DAILY PRN PRN Reason: Constipation Potassium Chloride (Pharmacy To Dose - Potassium Replacement) 1 dose .XX ASDIRECTED [facility] Rosuvastatin Calcium (Crestor) 10 mg PO QPM [facility] Last Admin: 11/05/17 18:07 Dose: 10 mg Senna/Docusate Sodium (Senna Plus) 1 tab PO BID PRN PRN Reason: Constipation Sodium Chloride (Saline Flush) 10 ml FLUSH ASDIRECTED PRN PRN Reason: Keep Vein Open Last Admin: 11/04/17 14:33 Dose: 10 ml Discontinued Medications Acetaminophen (Tylenol) 650 mg PO Q4H PRN PRN Reason: Fever Albuterol/Ipratropium (Duoneb 3.0-0.5 Mg/3 Ml) 3 ml NEB ONETIME ONE Stop: 11/04/17 16:10 Last Admin: 11/04/17 16:23 Dose: 3 ml Albuterol/Ipratropium (Duoneb 3.0-0.5 Mg/3 Ml) 3 ml NEB BID [facility] Budesonide (Pulmicort) 0.5 mg INH BIDRT [facility] Levofloxacin/Dextrose 750 mg/ (Premix) 150 mls @ 100 mls/hr IV ONETIME ONE Stop: 11/04/17 17:05 Last Admin: 11/04/17 16:11 Dose: 100 mls/hr Levofloxacin/Dextrose 750 mg/ (Premix) 150 mls @ 100 mls/hr IV Q24H [facility] Non-Formulary Medication (Cranberry Extract [Cranberry]) 400 mg PO BID [facility] Ondansetron HCl (Zofran Odt) 4 mg PO Q6H PRN PRN Reason: nausea, able to take PO - Exam Quality Assessment: Supplemental Oxygen (4L which is baseline ), DVT Prophylaxis General: Alert, Cooperative, No Acute Distress HEENT: Pupils Equal, Pupils Reactive, EOMI, Mucous Membr. Moist/[place] Neck: Supple, Trachea Midline, No JVD Lungs: Normal Respiratory Effort, Decreased Breath Sounds, Wheezing (mild ) Cardiovascular: Regular Rate, Regular Rhythm GI/Abdominal Exam: Normal Bowel Sounds, Soft, Non-Tender, No Organomegaly, No Distention, No Abnormal Bruit, No Mass, Pelvis Stable (Female) Exam: Deferred Extremities: Normal Inspection, Normal Range of Motion, Non-Tender, No Pedal Edema, Normal Capillary Refill Peripheral Pulses: 3+: Radial (L), Radial (R), Posterior Tibial (L), Posterior Tibial (R), Dorsalis Pedis (L), Dorsalis Pedis (R) Skin: Warm, Dry, Intact Neurological: No New Focal Deficit Psy/Mental Status: Alert, Labile Mood (baseline ) - Problem List & Annotations (1) UTI (urinary tract infection) SNOMED Code(s): 19708406 Code(s): N39.0 - URINARY TRACT INFECTION, SITE NOT SPECIFIED Status: Acute Priority: High Current Visit: Yes Qualifiers: Urinary tract infection type: site unspecified Hematuria presence: without hematuria Qualified Code(s): N39.0 - Urinary tract infection, site not specified (2) Anxiety SNOMED Code(s): 94827823 Code(s): F41.9 - ANXIETY DISORDER, UNSPECIFIED Status: Chronic Priority: Low Current Visit: No (3) Delusional disorder SNOMED Code(s): 75044179 Code(s): F22 - DELUSIONAL DISORDERS Status: Chronic Priority: Low Current Visit: Yes (4) Diabetes SNOMED Code(s): 68545062 Code(s): E11.9 - TYPE 2 DIABETES MELLITUS WITHOUT COMPLICATIONS Status: Chronic Priority: High Current Visit: No Qualifiers: Diabetes mellitus type: type 2 Diabetes mellitus complication status: without complication Diabetes mellitus penitentiary insulin use: without keno terminal operator use Qualified Code(s): E11.9 - Type 2 diabetes mellitus without complications (5) Diabetic neuropathy SNOMED Code(s): 392409131 Code(s): E11.40 - TYPE 2 DIABETES MELLITUS WITH DIABETIC NEUROPATHY, UNSP Status: Chronic Priority: Low Current Visit: No Qualifiers: Diabetes mellitus type: type 2 Diabetes mellitus complication detail: with other neurological complication Qualified Code(s): E11.49 - Type 2 diabetes mellitus with other diabetic neurological complication (6) HLD (hyperlipidemia) SNOMED Code(s): 54718692 Code(s): E78.5 - HYPERLIPIDEMIA, UNSPECIFIED Status: Chronic Priority: Low Current Visit: No Qualifiers: Hyperlipidemia type: unspecified Qualified Code(s): E78.5 - Hyperlipidemia , unspecified (7) HTN (hypertension) SNOMED Code(s): 07928235 Code(s): I10 - ESSENTIAL (PRIMARY) HYPERTENSION Status: Chronic Priority : Low Current Visit: No Qualifiers: Hypertension type: essential hypertension Qualified Code(s): I10 - Essential (primary) hypertension (8) Hypothyroidism SNOMED Code(s): 74373575 Code(s): E03.9 - HYPOTHYROIDISM, UNSPECIFIED Status: Chronic Priority: Low Current Visit: No Qualifiers: Hypothyroidism type: unspecified Qualified Code(s): E03.9 - Hypothyroidism , unspecified (9) Obesity (BMI 30.0-34.9) SNOMED Code(s): 884416902 Code(s): E66.9 - OBESITY, UNSPECIFIED Status: Chronic Priority: Low Current Visit: No (10) Pancreatic mass SNOMED Code(s): 263643991 Code(s): K86.9 - DISEASE OF PANCREAS, UNSPECIFIED Status: Chronic Priority: Low Current Visit: No (11) Resting tremor SNOMED Code(s): 24610187 Code(s): R25.9 - UNSPECIFIED ABNORMAL INVOLUNTARY MOVEMENTS Status: Chronic Priority: Low Current Visit: No (12) Schizophrenia SNOMED Code(s): 10445639 Code(s): F20.9 - SCHIZOPHRENIA, UNSPECIFIED Status: Chronic Priority: Low Current Visit: No Qualifiers: Schizophrenia type: unspecified Qualified Code(s): F20.9 - Schizophrenia, unspecified - Problem List Review Problem List Initiated/Reviewed/Updated: Yes - My Orders Last 24 Hours: My Active Orders 11/05/17 11:30 cefTRIAXone [Rocephin] 1 gm Sodium Chloride 0.9% [Normal Saline] 100 ml IV Q24H 11/05/17 14:15 Azithromycin [Zithromax] 500 mg Sodium Chloride 0.9% [Normal Saline] 250 ml IV Q24H 11/07/17 05:11 BASIC METABOLIC PANEL,BMP [CHEM] AM CBC WITH AUTO DIFF [HEME] AM CRP [C-REACTIVE PROTEIN] [CHEM] AM MAGNESIUM [CHEM] AM 11/08/17 05:11 BASIC METABOLIC PANEL,BMP [CHEM] AM CBC WITH AUTO DIFF [HEME] AM CRP [C-REACTIVE PROTEIN] [CHEM] AM MAGNESIUM [CHEM] AM - Plan Plan:: I/P: Acute: UTI -Reported fever of 101.9 at [facility] -Denies symptoms although poor historian -No leukocytosis, CRP 2.0-->4.0-->0.9 -Lactic acid 1.5 -UA positive, few budding yeast noted as well -Levaquin given in ED - found UTI resistant last visit, will switch to Rocephin -Start fluconazole - 3 day course--> completed -IV fluids as ordered COPD exacerbation -Dx/ed with PNA in ED, doubtful, more likely COPD exacerbation -ND reports fever of 101, negative for fever in ED and on floor -Influenza negative -Productive cough -Hypoxia - Saturations in low 80's on EMS arrival -Hx/o COPD - on oxygen 4L via [place] chronically per SNF notes -CXR in ED on 11/04/[address] Arevalo -1. Increased density within right upper lung due to atelectasis or small area of PNA -2. Other findings as noted - stable from prior chest x-ray -CXR on 11/06/17 shows clear lungs and nothing acute. -WBC 8.75-->6.81-->8.14 -Lactic acid 1.5 -CRP 2.0-->4.0-->0.9 -Blood cultures pending -Sputum culture ordered -Levaquin 750mg started in ED - switch to Rocephin, add azithromycin -Duonebs/IS/RT to evaluate and treat -Solu-medrol 40mg IVP Q8hr-->reduced to Q12 -Oxygen, titrate as needed Chronic: Cataract HLD HTN - stable with home meds Peripheral Edema COPD - on 4L O2 at home regularly Pancreatic mass - does not want treatment Hypothyroidism DM2 with Diabetic Neuropathy - Continue home insulin routine, blood sugars QID AC and bedtime Urinary incontinence Vitamin D deficiency Osteoarthritis Resting left arm tremor Anxiety - stable Schizophrenia/Delusional disorder - stable Obesity with BMI of 34 Plan: Admit to medical floor Routine AM labs Home medications as ordered PT/OT/RT consult Other orders as indicated above GI prophylaxis: H2B DVT/PE prophylaxis: Lovenox SubQ daily SW/CM for discharge planning Code Status: DNR/DNI; PCP: Dr. Bonilla Likely discharge in next 24-48 hours pending SNF agreement and continued improvement.
[2017-11-06] MEDS: Azithromycin 250 MG Tab PO SCH (14:40)
[2017-11-06] MEDS: Rosuvastatin 10 MG Tab PO SCH (17:25)
[2017-11-06] MEDS: OLANZapine 5 MG Tab PO SCH (22:22)
[2017-11-07] MEDS: Albuterol/Ipratropium 3.0-0.5 MG/3 ML Neb Soln NEB SCH ×4 (02:55→21:37)
[2017-11-07] MEDS: Levothyroxine 100 MCG Tab PO SCH (05:54)
--- NOTE | 2017-11-07 07:41 | PCM.PN ---
- General Info Date of Service: 11/07/17 Admission Dx/Problem (Free Text): Admission Diagnosis/Problem Admission Diagnosis/Problem Pneumonia Functional Status: Reports: Pain Controlled, Tolerating Diet, Urinating - Review of Systems General: Denies: Fever, Weakness, Fatigue, Malaise HEENT: Reports: No Symptoms Pulmonary: Reports: Shortness of Breath Gastrointestinal: Denies: Abdominal Pain, Constipation, Diarrhea, Nausea, Vomiting Genitourinary: Reports: No Symptoms Musculoskeletal: Reports: No Symptoms Skin: Denies: Cyanosis, Mottled, Pallor, Diaphoresis Neurological: Reports: Difficulty Walking, Weakness, Gait Disturbance. Denies: Confusion Psychiatric: Reports: Other. Denies: Depression, Anxiety, Agitation, Hallucinations Systems Review Comment:: No overnight or acute issues. She slpet pretty good. She still cough but not as much as it used to. She report no new complaints. - Patient Data Vitals - Most Recent: Last Vital Signs Temp 36.6 C 11/07/17 06:25 Pulse 62 11/07/17 06:25 Resp 16 11/07/17 06:25 BP 109/72 11/07/17 06:25 Pulse Ox 93 L 11/07/17 06:25 Weight - Most Recent: 97.069 kg I&O - Last 24 Hours: Intake & Output 11/06/17 11/07/17 11/07/17 22:59 06:59 14:59 Intake Total 700 600 Balance 700 600 Lab Results Last 24 Hours: Laboratory Results - last 24 hr 11/06/17 11/06/17 11/06/17 Range/Units 06:21 06:21 13:01 WBC (3.98-10.04) K/mm3 RBC (3.98-5.22) M/mm3 Hgb (11.2-15.7) gm/L Hct (34.1-44.9) % MCV (79.4-94.8) fl MCH (25.6-32.2) pg MCHC (32.2-35.5) g/dl RDW Std Deviation (36.4-46.3) fL Plt Count (182-369) K/mm3 MPV (9.4-12.3) fl Neut % (Auto) (34.0-71.1) % Lymph % (Auto) (19.3-51.7) % [place] % (Auto) (4.7-12.5) % Eos % (Auto) (0.7-5.8) Baso % (Auto) (0.1-1.2) % Neut # (Auto) (1.56-6.13) K/mm3 Lymph # (Auto) (1.18-3.74) K/mm3 [place] # (Auto) (0.24-0.36) K/mm3 Eos # (Auto) (0.04-0.36) K/mm3 Baso # (Auto) (0.01-0.08) K/mm3 Manual Slide Review Abnormal smear Sodium 140 (136-145) mEq/L Potassium 4.2 (3.5-5.1) mEq/L Chloride 103 (98-107) mEq/L Carbon Dioxide 31 (21-32) mEq/L Anion Gap 10.2 (5-15) BUN 24 H (7-18) mg/dL Creatinine 0.6 (0.55-1.02) mg/dL Est Cr Clr Drug Dosing 78.78 mL/min Estimated GFR (MDRD) > 60 (>60) mL/min BUN/Creatinine Ratio 40.0 H (14-18) Glucose 266 H (83-115) mg/dL POC Glucose 332 H (83-110) mg/dL Calcium 8.8 (8.5-10.1) mg/dL Magnesium 2.3 (1.8-2.4) mg/dl C-Reactive Protein 0.9 (<1.0) mg/dL 11/06/17 11/06/17 11/07/17 Range/Units 17:44 20:33 05:53 WBC (3.98-10.04) K/mm3 RBC (3.98-5.22) M/mm3 Hgb (11.2-15.7) gm/L Hct (34.1-44.9) % MCV (79.4-94.8) fl MCH (25.6-32.2) pg MCHC (32.2-35.5) g/dl RDW Std Deviation (36.4-46.3) fL Plt Count (182-369) K/mm3 MPV (9.4-12.3) fl Neut % (Auto) (34.0-71.1) % Lymph % (Auto) (19.3-51.7) % [place] % (Auto) (4.7-12.5) % Eos % (Auto) (0.7-5.8) Baso % (Auto) (0.1-1.2) % Neut # (Auto) (1.56-6.13) K/mm3 Lymph # (Auto) (1.18-3.74) K/mm3 [place] # (Auto) (0.24-0.36) K/mm3 Eos # (Auto) (0.04-0.36) K/mm3 Baso # (Auto) (0.01-0.08) K/mm3 Manual Slide Review Sodium (136-145) mEq/L Potassium (3.5-5.1) mEq/L Chloride (98-107) mEq/L Carbon Dioxide (21-32) mEq/L Anion Gap (5-15) BUN (7-18) mg/dL Creatinine (0.55-1.02) mg/dL Est Cr Clr Drug Dosing mL/min Estimated GFR (MDRD) (>60) mL/min BUN/Creatinine Ratio (14-18) Glucose (83-115) mg/dL POC Glucose 304 H 249 H 291 H (83-110) mg/dL Calcium (8.5-10.1) mg/dL Magnesium (1.8-2.4) mg/dl C-Reactive Protein (<1.0) mg/dL 11/07/17 11/07/17 Range/Units 06:15 06:15 WBC 10.73 H (3.98-10.04) K/mm3 RBC 4.02 (3.98-5.22) M/mm3 Hgb 13.3 (11.2-15.7) gm/L Hct 41.0 (34.1-44.9) % MCV 102.0 H (79.4-94.8) fl MCH 33.1 H (25.6-32.2) pg MCHC 32.4 (32.2-35.5) g/dl RDW Std Deviation 53.0 H (36.4-46.3) fL Plt Count 228 (182-369) K/mm3 MPV 9.0 L (9.4-12.3) fl Neut % (Auto) 92.0 H (34.0-71.1) % Lymph % (Auto) 4.0 L (19.3-51.7) % [place] % (Auto) 3.6 L (4.7-12.5) % Eos % (Auto) 0 L (0.7-5.8) Baso % (Auto) 0.0 L (0.1-1.2) % Neut # (Auto) 9.87 H (1.56-6.13) K/mm3 Lymph # (Auto) 0.43 L (1.18-3.74) K/mm3 [place] # (Auto) 0.39 H (0.24-0.36) K/mm3 Eos # (Auto) 0.00 L (0.04-0.36) K/mm3 Baso # (Auto) 0.00 L (0.01-0.08) K/mm3 Manual Slide Review Abnormal smear Sodium 142 (136-145) mEq/L Potassium 4.7 (3.5-5.1) mEq/L Chloride 103 (98-107) mEq/L Carbon Dioxide 32 (21-32) mEq/L Anion Gap 11.7 (5-15) BUN 21 H (7-18) mg/dL Creatinine 0.7 (0.55-1.02) mg/dL Est Cr Clr Drug Dosing 67.53 mL/min Estimated GFR (MDRD) > 60 (>60) mL/min BUN/Creatinine Ratio 30.0 H (14-18) Glucose 303 H (83-115) mg/dL POC Glucose (83-110) mg/dL Calcium 8.8 (8.5-10.1) mg/dL Magnesium 2.3 (1.8-2.4) mg/dl C-Reactive Protein < 0.2 (<1.0) mg/dL Med Orders - Current: Current Medications Acetaminophen (Tylenol) 650 mg PO Q4H PRN PRN Reason: Pain (Mild 1-3)/fever Hydrocodone Bitart/Acetaminophen ([place] 325-5 Mg) 1 tab PO Q4H PRN PRN Reason: Pain (moderate 4-6) Albuterol (Proventil Neb Soln) 2.5 mg NEB Q2H PRN PRN Reason: Shortness Of Breath/wheezing Albuterol/Ipratropium (Duoneb 3.0-0.5 Mg/3 Ml) 3 ml NEB Q6HRRT [facility] Last Admin: 11/07/17 02:55 Dose: 3 ml Albuterol/Ipratropium (Duoneb 3.0-0.5 Mg/3 Ml) 3 ml INH QID PRN PRN Reason: Dyspnea Aspirin (Halfprin) 81 mg PO DAILY [facility] Last Admin: 11/06/17 10:14 Dose: 81 mg Azithromycin (Zithromax) 250 mg PO Q24H [facility] Last Admin: 11/06/17 14:40 Dose: 250 mg Bisacodyl (Dulcolax) 5 mg PO DAILY PRN PRN Reason: Constipation Budesonide (Pulmicort) 0.5 mg INH BID@0900,2100 [facility] Last Admin: 11/06/17 20:36 Dose: 0.5 mg Calcium Carbonate (Calcium Carbonate/Vitamin D 1500 Mg-200 Unit) 1 tab PO BID [facility] Last Admin: 11/06/17 22:21 Dose: 1 tab Dextrose/Water (Dextrose 50% In Water) 50 ml IVPUSH ASDIRECTED PRN PRN Reason: Hypoglycemia Divalproex Sodium (Depakote) 500 mg PO BID [facility] Last Admin: 11/06/17 22:21 Dose: 500 mg Docusate Sodium (Colace) 100 mg PO BID PRN PRN Reason: Constipation Enoxaparin Sodium (Lovenox) 40 mg SUBCUT DAILY [facility] Last Admin: 11/06/17 10:16 Dose: 40 mg Famotidine (Pepcid) 20 mg PO BID [facility] Last Admin: 11/06/17 22:23 Dose: 20 mg Guaifenesin (Mucinex) 600 mg PO BID [facility] Last Admin: 11/06/17 22:22 Dose: 600 mg Hydralazine HCl (Apresoline) 10 mg IVPUSH Q6H PRN PRN Reason: Hypertension Ceftriaxone Sodium 1 gm/ (Sodium Chloride) 100 mls @ 200 mls/hr IV Q24H [facility] Last Admin: 11/06/17 10:36 Dose: 200 mls/hr Insulin Aspart (Novolog) 0 unit SUBCUT QIDACANDBED [facility] PRN Reason: Protocol Last Admin: 11/06/17 22:28 Dose: 2 unit Insulin Aspart (Novolog) 18 unit SUBCUT TIDMEALS [facility] Last Admin: 11/06/17 17:43 Dose: 18 units Insulin Detemir (Levemir) 40 unit SUBCUT QAM [facility] Last Admin: 11/06/17 10:16 Dose: 40 units Levothyroxine Sodium (Synthroid) 100 mcg PO ACBRK [facility] Last Admin: 11/07/17 05:54 Dose: 100 mcg Losartan Potassium (Cozaar) 25 mg PO DAILY [facility] Last Admin: 11/06/17 10:15 Dose: 25 mg Magnesium Oxide (Magnesium Oxide) 400 mg PO BID [facility] Last Admin: 11/06/17 22:21 Dose: 400 mg Magnesium Sulfate (Pharmacy To Dose - Magnesium Replacement) 1 dose .XX ASDIRECTED [facility] Methylprednisolone Sodium Succinate (Solu-Medrol) 40 mg IVPUSH Q12H [facility] Last Admin: 11/06/17 22:33 Dose: 40 mg Metoprolol Tartrate (Lopressor) 5 mg IVPUSH Q4H PRN PRN Reason: Tachycardia Multivitamins (Thera) 1 each PO DAILY [facility] Last Admin: 11/06/17 10:15 Dose: 1 each Nystatin (Nystatin Crm) 0 gm TOP BID [facility] Last Admin: 11/06/17 22:27 Dose: 1 applic Olanzapine (Zyprexa) 15 mg PO BEDTIME [facility] Last Admin: 11/06/17 22:22 Dose: 15 mg Ondansetron HCl (Zofran) 4 mg IV Q6H PRN PRN Reason: Nausea/Vomiting Ondansetron HCl (Zofran Odt) 4 mg PO Q4H PRN PRN Reason: Nausea Liraglutide 1.8 Mg 0 each SUBCUT BEDTIME [facility] Last Admin: 11/06/17 22:29 Dose: Not Given Paliperidone [Invega (] 12 Mg) 0 each PO DAILY [facility] Last Admin: 11/06/17 10:21 Dose: Not Given Polyethylene Glycol (Miralax) 17 gm PO DAILY PRN PRN Reason: Constipation Potassium Chloride (Pharmacy To Dose - Potassium Replacement) 1 dose .XX ASDIRECTED [facility] Rosuvastatin Calcium (Crestor) 10 mg PO QPM [facility] Last Admin: 11/06/17 17:25 Dose: 10 mg Senna/Docusate Sodium (Senna Plus) 1 tab PO BID PRN PRN Reason: Constipation Sodium Chloride (Saline Flush) 10 ml FLUSH ASDIRECTED PRN PRN Reason: Keep Vein Open Last Admin: 11/04/17 14:33 Dose: 10 ml Discontinued Medications Acetaminophen (Tylenol) 650 mg PO Q4H PRN PRN Reason: Fever Albuterol/Ipratropium (Duoneb 3.0-0.5 Mg/3 Ml) 3 ml NEB ONETIME ONE Stop: 11/04/17 16:10 Last Admin: 11/04/17 16:23 Dose: 3 ml Albuterol/Ipratropium (Duoneb 3.0-0.5 Mg/3 Ml) 3 ml NEB BID [facility] Budesonide (Pulmicort) 0.5 mg INH BIDRT [facility] Fluconazole (Diflucan) 100 mg PO DAILY [facility] Last Admin: 11/06/17 09:00 Dose: 100 mg Levofloxacin/Dextrose 750 mg/ (Premix) 150 mls @ 100 mls/hr IV ONETIME ONE Stop: 11/04/17 17:05 Last Admin: 11/04/17 16:11 Dose: 100 mls/hr Levofloxacin/Dextrose 750 mg/ (Premix) 150 mls @ 100 mls/hr IV Q24H [facility] Azithromycin 500 mg/ Sodium (Chloride) 250 mls @ 250 mls/hr IV Q24H [facility] Last Admin: 11/05/17 14:48 Dose: 250 mls/hr Methylprednisolone Sodium Succinate (Solu-Medrol) 40 mg IVPUSH Q8H [facility] Last Admin: 11/06/17 10:16 Dose: 40 mg Non-Formulary Medication (Cranberry Extract [Cranberry]) 400 mg PO BID [facility] Ondansetron HCl (Zofran Odt) 4 mg PO Q6H PRN PRN Reason: nausea, able to take PO - Exam Quality Assessment: Supplemental Oxygen General: Alert, Cooperative, No Acute Distress, Other (Obese) HEENT: Pupils Equal, Pupils Reactive, EOMI Neck: Supple, Trachea Midline, No JVD, No Thyromegaly, Other (short and thick) Lungs: Normal Respiratory Effort, Decreased Breath Sounds Cardiovascular: Regular Rate, Regular Rhythm GI/Abdominal Exam: Normal Bowel Sounds, Soft, Non-Tender, No Organomegaly, No Distention, No Abnormal Bruit, Other (Obese) (Female) Exam: Deferred Back Exam: Normal Inspection, Decreased Range of Motion Extremities: Normal Inspection, Normal Range of Motion, Non-Tender, No Pedal Edema, Normal Capillary Refill Peripheral Pulses: 2+: Dorsalis Pedis (L), Dorsalis Pedis (R) Skin: Warm, Dry, Intact Neurological: No New Focal Deficit. No: Normal Gait Psy/Mental Status: Alert, Normal Affect, Normal Mood. No: Anxious, Agitated, Suicidal Ideation - Problem List Review Problem List Initiated/Reviewed/Updated: Yes - Plan Plan:: I/P: Acute: UTI 2/ E. faecalis -Reported fever of 101.9 at [facility] -Denies symptoms although poor historian -No leukocytosis, CRP 2.0-->4.0-->0.9 -Lactic acid 1.5 -UA positive, few budding yeast noted as well -Levaquin given in ED - found UTI resistant last visit, will switch to Rocephin -Start fluconazole - 3 day course--> completed -IV fluids as ordered COPD Exacerbation, Improved -Dx/ed with PNA in ED, doubtful, more likely COPD exacerbation -CT reports fever of 101, negative for fever in ED and on floor -Influenza negative -Productive cough -Hypoxia - Saturations in low 80's on EMS arrival -Hx/o COPD - on oxygen 4L via [place] chronically per SNF notes -CXR in ED on 11/04/[address] Arevalo -1. Increased density within right upper lung due to atelectasis or small area of PNA -2. Other findings as noted - stable from prior chest x-ray -CXR on 11/06/17 shows clear lungs and nothing acute. -WBC 8.75-->6.81-->8.14 -Lactic acid 1.5 -CRP 2.0-->4.0-->0.9--> 0.2 (normal) -Blood cultures pending -Sputum culture ordered -Resume Levaquin 750mg -Duonebs/IS/RT to evaluate and treat -Solu-medrol 40mg IVP Q8hr-->reduced to Q12 -Oxygen, titrate as needed Chronic: Cataract HLD HTN - stable with home meds Peripheral Edema COPD - on 4L O2 at home regularly Pancreatic mass - does not want treatment Hypothyroidism DM2 with Diabetic Neuropathy - Continue home insulin routine, blood sugars QID AC and bedtime Urinary incontinence Vitamin D deficiency Osteoarthritis Resting left arm tremor Anxiety - stable Schizophrenia/Delusional disorder - stable Obesity with BMI of 34 Plan: She is clinically stable Continue current treatment Routine AM labs Continue PT/OT/RT GI prophylaxis: H2B DVT/PE prophylaxis: Lovenox SubQ daily SW/CM for discharge planning Other orders as indicated above Code Status: DNR/DNI; PCP: Dr. Bonilla Possible d/c in 1-2 days LOS > 96 hrs due to slow response to treatment
[2017-11-07] MEDS: Insulin Aspart 100 Units/ML 3 ML Pen SUBCUT SCH ×7 (08:22→22:49)
[2017-11-07] MEDS: Insulin Detemir 100 Units/ML 3 ML Pen SUBCUT SCH (08:23)
[2017-11-07] MEDS: methylPREDNISolone Sodium Succinate 40 MG/1 ML SDV IVPUSH SCH ×2 (08:24→22:47)
[2017-11-07] MEDS: Losartan 25 MG Tab PO SCH (08:25)
[2017-11-07] MEDS: guaiFENesin 600 MG Tab.ER PO SCH ×2 (08:25→22:46)
[2017-11-07] MEDS: Divalproex Sodium Delayed-Release 500 MG Tab.CR PO SCH ×2 (08:25→22:46)
[2017-11-07] MEDS: Multivitamins,Therapeutic Tab PO SCH (08:26)
[2017-11-07] MEDS: Magnesium Oxide 400 MG Tab PO SCH ×2 (08:26→22:46)
[2017-11-07] MEDS: Calcium Carbonate/Vitamin D3 1500 MG-200 Units Tab PO SCH ×2 (08:26→22:46)
[2017-11-07] MEDS: Aspirin 81 MG Tab.EC PO SCH (08:27)
[2017-11-07] MEDS: Nystatin Crm 30 GM Tube TOP SCH ×2 (08:27→22:46)
[2017-11-07] MEDS: Famotidine 20 MG Tab PO SCH ×2 (08:27→22:46)
[2017-11-07] MEDS: PALIPERIDONE 12 MG PO SCH (08:28)
[2017-11-07] MEDS: Enoxaparin 40 MG/0.4 ML Syringe SUBCUT SCH (08:31)
--- NOTE | 2017-11-07 09:35 | CR ---
Chest: Portable view of the chest was obtained. Comparison: Prior chest x-ray of 11/06/17. Slight atelectasis is seen within the left retrocardiac region. Minimal atelectasis within the left midlung is seen. Lungs otherwise are clear. Heart size appears within normal limits for portable technique. Slight tortuosity of the thoracic aorta is seen. Mild scoliosis is noted with minimal degenerative change. Impression: 1. Slight areas of atelectasis. Other incidental findings. Nothing acute is otherwise seen. Diagnostic code #3
[2017-11-07] MEDS: Budesonide 0.5 MG/2 ML Neb Susp INH SCH ×2 (09:40→21:37)
[2017-11-07] MEDS: cefTRIAXone 1 GM in Sodium Chloride 0.9% 100 ML IV SCH (12:35)
[2017-11-07] MEDS: Azithromycin 250 MG Tab PO SCH (14:59)
[2017-11-07] MEDS: Rosuvastatin 10 MG Tab PO SCH (17:46)
[2017-11-07] MEDS ORDERED: Levofloxacin/Dextrose 5%-Water 750 MG in Premix Bag 1 BAG IV ONE (21:20)
[2017-11-07] MEDS: OLANZapine 5 MG Tab PO SCH (22:47)
[2017-11-08] MEDS ORDERED: guaiFENesin/Dextromethorphan 100-10 MG/5 ML Soln 5 ML Cup PO PRN (02:17)
[2017-11-08] MEDS: Albuterol/Ipratropium 3.0-0.5 MG/3 ML Neb Soln NEB SCH ×2 (03:17→08:52)
[2017-11-08] MEDS: Levothyroxine 100 MCG Tab PO SCH (05:20)
[2017-11-08] MEDS: Calcium Carbonate/Vitamin D3 1500 MG-200 Units Tab PO SCH (08:17)
[2017-11-08] MEDS: Divalproex Sodium Delayed-Release 500 MG Tab.CR PO SCH (08:18)
[2017-11-08] MEDS: Aspirin 81 MG Tab.EC PO SCH (08:18)
[2017-11-08] MEDS: Multivitamins,Therapeutic Tab PO SCH (08:18)
[2017-11-08] MEDS: guaiFENesin 600 MG Tab.ER PO SCH (08:19)
[2017-11-08] MEDS: Famotidine 20 MG Tab PO SCH (08:19)
[2017-11-08] MEDS: Losartan 25 MG Tab PO SCH (08:20)
[2017-11-08] MEDS: Magnesium Oxide 400 MG Tab PO SCH (08:20)
[2017-11-08] MEDS: Insulin Detemir 100 Units/ML 3 ML Pen SUBCUT SCH (08:23)
[2017-11-08] MEDS: Insulin Aspart 100 Units/ML 3 ML Pen SUBCUT SCH ×4 (08:24→12:19)
[2017-11-08] MEDS: Enoxaparin 40 MG/0.4 ML Syringe SUBCUT SCH (08:25)
[2017-11-08] MEDS: Nystatin Crm 30 GM Tube TOP SCH (08:26)
[2017-11-08] MEDS: PALIPERIDONE 12 MG PO SCH (08:27)
[2017-11-08] MEDS: methylPREDNISolone Sodium Succinate 40 MG/1 ML SDV IVPUSH SCH (08:34)
[2017-11-08] MEDS: Budesonide 0.5 MG/2 ML Neb Susp INH SCH (08:52)
[2017-11-08] MEDS ORDERED: Levofloxacin/Dextrose 5%-Water 750 MG in Premix Bag 1 BAG IV SCH (09:00)
--- NOTE | 2017-11-08 12:18 | PCM.DCSUM1 ---
Discharge Summary - Hospital Course Brief History: Malika Walker is a 76 yo female who is well known to this service. She presented to our ED today (11/04/17) from [facility] with a fever 101.9 that began around 10:30 this morning. This is treated with Tylenol. She normally utilizes oxygen at night with sats in the low 90s. It is reported she has been using more oxygen to keep her sats in the low 90s. Upon EMS arrival showed a temperature of 100.6 and was 84% on 4 L via nasal cannula. She is alert and confused. She is orientated to person place and time however her conversations do not make sense. This is her baseline. She denies any pain and does not know why she is here. Denies any nausea vomiting chest pain or shortness of breath. She recently hospitalized in August for pneumonia. - Discharge Data Discharge Date: 11/08/17 Discharge Disposition: Home, Self-Care 01 Condition: Good - Discharge Diagnosis/Problem(s) (1) UTI (urinary tract infection) SNOMED Code(s): 41744321 ICD Code: N39.0 - URINARY TRACT INFECTION, SITE NOT SPECIFIED Status: Acute Priority: High Qualifiers: Urinary tract infection type: site unspecified Hematuria presence: without hematuria Qualified Code(s): N39.0 - Urinary tract infection, site not specified (2) Bronchitis SNOMED Code(s): 57441991 ICD Code: J40 - BRONCHITIS, NOT SPECIFIED ACUTE OR CHRONIC Status: Acute Priority: High - Patient Summary/Data Operative Procedure(s) Performed: None Complications: None Consults: Consultations 11/04/17 17:32 Consult to Case Management [CONS] Routine Consult to Project Program Manager [CONS] Routine OT Evaluation and Treatment [CONS] Routine PT Evaluation and Treatment [CONS] Routine Respiratory Care Assess and Treatment [CONS] Routine 11/05/17 07:56 Consult to Speech Language Pathology [[employer] Evaluation and Treatment] [CONS] Routine Labs Pending at D/C: None Recommended Follow-up Testing/Procedures: None Planned Operative Procedure(s) after DC: None Hospital Course: Patient was primarily admitted for medical evaluation of febrile illness. She was found to have bronchitis and urinary tract infection on this admission. Her chest x-ray showed no acute abnormal findings except for noted atelectasis. She was negative for influenza screening, mycoplasma pneumoniae ag test, strep pneumoniae ag test and blood cultures. However her urine culture grew enterococcal faecalis sensitive to quinolones. Her hospital course was uncomplicated. The rest of her chronic medical illness remained stable during this admission. Patient was clinically stable upon discharge. She was provided additional course of oral levaquin along with probiotic to complete her treatment. She was advised to follow-up with her primary care in [address] Bonilla was called and updated regarding discharge care plan on the day of discharge. - Patient Instructions Diet: Heart Healthy Diet, Usual Diet as Tolerated, Diabetic Diet, Weight Loss Diet Activity: As Tolerated Driving: Do Not Drive Showering/Bathing: May Shower, No Tub Bathing/Swimming Notify Provider of: Fever, Increased Pain, Nausea and/or Vomiting Other/Special Instructions: - Please take all new medications as directed. - Resume all home medications as usual. - Use Incentive Spirometry Q2H. - Call or follow up with your doctor for any questions or concerns after discharge. - Follow up with your doctor in 1 week - Discharge Plan Prescriptions/Med Rec: Levofloxacin [Levaquin] 750 mg PO DAILY #3 tab Saccharomyces Boulardii [Florastor] 250 mg PO DAILY #3 cap Home Medications: Home Meds Acetaminophen 650 mg PO Q4H PRN 09/03/17 [History] Albuterol/Ipratropium [DuoNeb 3.0-0.5 MG/3 ML] 3 ml NEB BID 09/03/17 [History] Budesonide [Pulmicort] 0.5 mg IH BID 09/03/17 [History] Calcium Carbonate/Vitamin D3 [Calcium 600 + Vit D 200] 1 each PO BID 09/03/17 [ History] Cranberry Extract [Cranberry] 400 mg PO BID 09/03/17 [History] Insulin Aspart [Novolog Flexpen] 18 unit SQ TIDMEALS 09/03/17 [History] Insulin Detemir [Levemir] 40 unit SQ QAM 09/03/17 [History] Levothyroxine [Synthroid] 100 mcg PO 0600 09/03/17 [History] Liraglutide [Victoza] 1.8 mg SUBCUT BEDTIME 09/03/17 [History] Magnesium Oxide [Magnesium] 400 mg PO BID 09/03/17 [History] Multivitamin [Daily Multiple Vitamin] 1 tab PO DAILY 09/03/17 [History] OLANZapine [Zyprexa] 15 mg PO BEDTIME 09/03/17 [History] Paliperidone [Invega] 12 mg PO DAILY 09/03/17 [History] Ranitidine [Zantac] 150 mg PO BID 09/03/17 [History] Rosuvastatin [Crestor] 10 mg PO QPM 09/03/17 [History] guaiFENesin [Mucinex] 600 mg PO BID 09/03/17 [History] Albuterol/Ipratropium [DuoNeb 3.0-0.5 MG/3 ML] 3 ml INH QID PRN 09/08/17 [ History] Divalproex Sodium [Depakote] 500 mg PO BID 09/08/17 [History] Ondansetron [Zofran ODT] 4 mg PO Q4H PRN 09/08/17 [History] Aspirin [Halfprin] 81 mg PO DAILY 11/04/17 [History] Losartan [Cozaar] 25 mg PO DAILY 11/04/17 [History] Nystatin [Nystatin Crm] 30 gm TOP BID 11/04/17 [History] Levofloxacin [Levaquin] 750 mg PO DAILY #3 tab 11/08/17 [Rx] Saccharomyces Boulardii [Florastor] 250 mg PO DAILY #3 cap 11/08/17 [Rx] Patient Handouts: Acute Bronchitis, Adult, [id number], Urinary Tract Infection, Adult Referrals: Ray Bonilla MD [Primary Care Provider] - (Follow up with PCP in 7-10 days.) - Discharge Summary/Plan Comment DC Time >30 min.: Yes (45 mins) Discharge Summary/Plan Comment: Discharge back to [facility] - General Info Date of Service: 11/08/17 Admission Dx/Problem (Free Text: Admission Diagnosis/Problem Admission Diagnosis/Problem Pneumonia Subjective Update: Follow Up Functional Status: Reports: Pain Controlled, Tolerating Diet, Ambulating, Urinating - Review of Systems General: Denies: Fever, Weakness, Fatigue, Malaise, Chills HEENT: Reports: No Symptoms Pulmonary: Denies: Shortness of Breath Cardiovascular: Reports: No Symptoms Gastrointestinal: Reports: Flatus. Denies: Abdominal Pain, Constipation, Decreased Appetite, Diarrhea, Difficulty Swallowing, Nausea, Vomiting Genitourinary: Reports: No Symptoms Musculoskeletal: Reports: No Symptoms Skin: Denies: Cyanosis, Mottled, Pallor, Diaphoresis Neurological: Reports: Difficulty Walking, Gait Disturbance. Denies: Weakness Psychiatric: Denies: Depression, Anxiety, Agitation, Cravings, Hallucinations Systems Review Comment: No significant overnight or acute issues. She is doing just fine. She states she does not feel good but tells me she has not been up in the chair. She reports no respiratory or bladder complaints. Her coughing is better. - Patient Data Vitals - Most Recent: Last Vital Signs Temp 36.5 C 11/08/17 07:57 Pulse 82 11/08/17 08:13 Resp 32 H 11/08/17 07:57 BP 109/51 L 11/08/17 07:57 Pulse Ox 95 11/08/17 08:52 Weight - Most Recent: 97.613 kg I&O - Last 24 hours: Intake & Output 11/07/17 11/08/17 11/08/17 22:59 06:59 14:59 Intake Total 620 450 120 Balance 620 450 120 Lab Results - Last 24 hrs: Laboratory Results - last 24 hr 11/07/17 11/07/17 11/08/17 Range/Units 17:44 20:59 06:16 WBC 10.12 H (3.98-10.04) K/mm3 RBC 4.21 (3.98-5.22) M/mm3 Hgb 13.8 (11.2-15.7) gm/L Hct 43.6 (34.1-44.9) % MCV 103.6 H (79.4-94.8) fl MCH 32.8 H (25.6-32.2) pg MCHC 31.7 L (32.2-35.5) g/dl RDW Std Deviation 55.0 H (36.4-46.3) fL Plt Count 216 (182-369) K/mm3 MPV 8.7 L (9.4-12.3) fl Neut % (Auto) 79.7 H (34.0-71.1) % Lymph % (Auto) 10.4 L (19.3-51.7) % [place] % (Auto) 9.1 (4.7-12.5) % Eos % (Auto) 0.1 L (0.7-5.8) Baso % (Auto) 0.0 L (0.1-1.2) % Neut # (Auto) 8.07 H (1.56-6.13) K/mm3 Lymph # (Auto) 1.05 L (1.18-3.74) K/mm3 [place] # (Auto) 0.92 H (0.24-0.36) K/mm3 Eos # (Auto) 0.01 L (0.04-0.36) K/mm3 Baso # (Auto) 0.00 L (0.01-0.08) K/mm3 Sodium (136-145) mEq/L Potassium (3.5-5.1) mEq/L Chloride (98-107) mEq/L Carbon Dioxide (21-32) mEq/L Anion Gap (5-15) BUN (7-18) mg/dL Creatinine (0.55-1.02) mg/dL Est Cr Clr Drug Dosing mL/min Estimated GFR (MDRD) (>60) mL/min BUN/Creatinine Ratio (14-18) Glucose (83-115) mg/dL POC Glucose 190 H 187 H (83-110) mg/dL Calcium (8.5-10.1) mg/dL Magnesium (1.8-2.4) mg/dl C-Reactive Protein (<1.0) mg/dL 11/08/17 11/08/17 11/08/17 Range/Units 06:16 06:58 11:57 WBC (3.98-10.04) K/mm3 RBC (3.98-5.22) M/mm3 Hgb (11.2-15.7) gm/L Hct (34.1-44.9) % MCV (79.4-94.8) fl MCH (25.6-32.2) pg MCHC (32.2-35.5) g/dl RDW Std Deviation (36.4-46.3) fL Plt Count (182-369) K/mm3 MPV (9.4-12.3) fl Neut % (Auto) (34.0-71.1) % Lymph % (Auto) (19.3-51.7) % [place] % (Auto) (4.7-12.5) % Eos % (Auto) (0.7-5.8) Baso % (Auto) (0.1-1.2) % Neut # (Auto) (1.56-6.13) K/mm3 Lymph # (Auto) (1.18-3.74) K/mm3 [place] # (Auto) (0.24-0.36) K/mm3 Eos # (Auto) (0.04-0.36) K/mm3 Baso # (Auto) (0.01-0.08) K/mm3 Sodium 144 (136-145) mEq/L Potassium 4.4 (3.5-5.1) mEq/L Chloride 103 (98-107) mEq/L Carbon Dioxide 36 H (21-32) mEq/L Anion Gap 9.4 (5-15) BUN 18 (7-18) mg/dL Creatinine 0.6 (0.55-1.02) mg/dL Est Cr Clr Drug Dosing 78.78 mL/min Estimated GFR (MDRD) > 60 (>60) mL/min BUN/Creatinine Ratio 30.0 H (14-18) Glucose 131 H (83-115) mg/dL POC Glucose 159 H 161 H (83-110) mg/dL Calcium 9.2 (8.5-10.1) mg/dL Magnesium 2.2 (1.8-2.4) mg/dl C-Reactive Protein < 0.2 (<1.0) mg/dL Med Orders - Current: Current Medications Acetaminophen (Tylenol) 650 mg PO Q4H PRN PRN Reason: Pain (Mild 1-3)/fever Hydrocodone Bitart/Acetaminophen ([place] 325-5 Mg) 1 tab PO Q4H PRN PRN Reason: Pain (moderate 4-6) Albuterol (Proventil Neb Soln) 2.5 mg NEB Q2H PRN PRN Reason: Shortness Of Breath/wheezing Albuterol/Ipratropium (Duoneb 3.0-0.5 Mg/3 Ml) 3 ml NEB Q6HRRT [facility] Last Admin: 11/08/17 08:52 Dose: 3 ml Albuterol/Ipratropium (Duoneb 3.0-0.5 Mg/3 Ml) 3 ml INH QID PRN PRN Reason: Dyspnea Aspirin (Halfprin) 81 mg PO DAILY [facility] Last Admin: 11/08/17 08:18 Dose: 81 mg Azithromycin (Zithromax) 250 mg PO Q24H [facility] Last Admin: 11/07/17 14:59 Dose: 250 mg Bisacodyl (Dulcolax) 5 mg PO DAILY PRN PRN Reason: Constipation Budesonide (Pulmicort) 0.5 mg INH BID@0900,2100 [facility] Last Admin: 11/08/17 08:52 Dose: 0.5 mg Calcium Carbonate (Calcium Carbonate/Vitamin D 1500 Mg-200 Unit) 1 tab PO BID [facility] Last Admin: 11/08/17 08:17 Dose: 1 tab Dextrose/Water (Dextrose 50% In Water) 50 ml IVPUSH ASDIRECTED PRN PRN Reason: Hypoglycemia Divalproex Sodium (Depakote) 500 mg PO BID [facility] Last Admin: 11/08/17 08:18 Dose: 500 mg Docusate Sodium (Colace) 100 mg PO BID PRN PRN Reason: Constipation Enoxaparin Sodium (Lovenox) 40 mg SUBCUT DAILY [facility] Last Admin: 11/08/17 08:25 Dose: 40 mg Famotidine (Pepcid) 20 mg PO BID [facility] Last Admin: 11/08/17 08:19 Dose: 20 mg Guaifenesin (Mucinex) 600 mg PO BID [facility] Last Admin: 11/08/17 08:19 Dose: 600 mg Guaifenesin/Phenylephrine HCl (Robitussin Dm) 10 ml PO QID PRN PRN Reason: Cough Hydralazine HCl (Apresoline) 10 mg IVPUSH Q6H PRN PRN Reason: Hypertension Levofloxacin/Dextrose 750 mg/ (Premix) 150 mls @ 100 mls/hr IV Q24H [facility] Last Admin: 11/08/17 08:28 Dose: 100 mls/hr Insulin Aspart (Novolog) 0 unit SUBCUT QIDACANDBED [facility] PRN Reason: Protocol Last Admin: 11/08/17 08:25 Dose: 1 unit Insulin Aspart (Novolog) 18 unit SUBCUT TIDMEALS [facility] Last Admin: 11/08/17 08:24 Dose: 18 units Insulin Detemir (Levemir) 40 unit SUBCUT QAM [facility] Last Admin: 11/08/17 08:23 Dose: 40 units Levothyroxine Sodium (Synthroid) 100 mcg PO ACBRK [facility] Last Admin: 11/08/17 05:20 Dose: 100 mcg Losartan Potassium (Cozaar) 25 mg PO DAILY [facility] Last Admin: 11/08/17 08:20 Dose: 25 mg Magnesium Oxide (Magnesium Oxide) 400 mg PO BID [facility] Last Admin: 11/08/17 08:20 Dose: 400 mg Magnesium Sulfate (Pharmacy To Dose - Magnesium Replacement) 1 dose .XX ASDIRECTED [facility] Methylprednisolone Sodium Succinate (Solu-Medrol) 40 mg IVPUSH Q12H [facility] Last Admin: 11/08/17 08:34 Dose: 40 mg Metoprolol Tartrate (Lopressor) 5 mg IVPUSH Q4H PRN PRN Reason: Tachycardia Multivitamins (Thera) 1 each PO DAILY [facility] Last Admin: 11/08/17 08:18 Dose: 1 each Nystatin (Nystatin Crm) 0 gm TOP BID [facility] Last Admin: 11/08/17 08:26 Dose: 1 applic Olanzapine (Zyprexa) 15 mg PO BEDTIME [facility] Last Admin: 11/07/17 22:47 Dose: 15 mg Ondansetron HCl (Zofran) 4 mg IV Q6H PRN PRN Reason: Nausea/Vomiting Ondansetron HCl (Zofran Odt) 4 mg PO Q4H PRN PRN Reason: Nausea Liraglutide 1.8 Mg 0 each SUBCUT BEDTIME [facility] Last Admin: 11/07/17 22:47 Dose: Not Given Paliperidone [Invega (] 12 Mg) 0 each PO DAILY [facility] Last Admin: 11/08/17 08:27 Dose: Not Given Polyethylene Glycol (Miralax) 17 gm PO DAILY PRN PRN Reason: Constipation Potassium Chloride (Pharmacy To Dose - Potassium Replacement) 1 dose .XX ASDIRECTED [facility] Rosuvastatin Calcium (Crestor) 10 mg PO QPM [facility] Last Admin: 11/07/17 17:46 Dose: 10 mg Senna/Docusate Sodium (Senna Plus) 1 tab PO BID PRN PRN Reason: Constipation Sodium Chloride (Saline Flush) 10 ml FLUSH ASDIRECTED PRN PRN Reason: Keep Vein Open Last Admin: 11/04/17 14:33 Dose: 10 ml Discontinued Medications Acetaminophen (Tylenol) 650 mg PO Q4H PRN PRN Reason: Fever Albuterol/Ipratropium (Duoneb 3.0-0.5 Mg/3 Ml) 3 ml NEB ONETIME ONE Stop: 11/04/17 16:10 Last Admin: 11/04/17 16:23 Dose: 3 ml Albuterol/Ipratropium (Duoneb 3.0-0.5 Mg/3 Ml) 3 ml NEB BID [facility] Budesonide (Pulmicort) 0.5 mg INH BIDRT [facility] Fluconazole (Diflucan) 100 mg PO DAILY [facility] Last Admin: 11/06/17 09:00 Dose: 100 mg Levofloxacin/Dextrose 750 mg/ (Premix) 150 mls @ 100 mls/hr IV ONETIME ONE Stop: 11/04/17 17:05 Last Admin: 11/04/17 16:11 Dose: 100 mls/hr Levofloxacin/Dextrose 750 mg/ (Premix) 150 mls @ 100 mls/hr IV Q24H [facility] Ceftriaxone Sodium 1 gm/ (Sodium Chloride) 100 mls @ 200 mls/hr IV Q24H [facility] Last Admin: 11/07/17 12:35 Dose: 200 mls/hr Azithromycin 500 mg/ Sodium (Chloride) 250 mls @ 250 mls/hr IV Q24H [facility] Last Admin: 11/05/17 14:48 Dose: 250 mls/hr Levofloxacin/Dextrose 750 mg/ (Premix) 150 mls @ 100 mls/hr IV ONETIME ONE Stop: 11/07/17 22:49 Last Admin: 11/07/17 22:48 Dose: 100 mls/hr Methylprednisolone Sodium Succinate (Solu-Medrol) 40 mg IVPUSH Q8H [facility] Last Admin: 11/06/17 10:16 Dose: 40 mg Non-Formulary Medication (Cranberry Extract [Cranberry]) 400 mg PO BID [facility] Ondansetron HCl (Zofran Odt) 4 mg PO Q6H PRN PRN Reason: nausea, able to take PO - Exam Quality Assessment: Reports: Supplemental Oxygen General: Reports: Alert, Cooperative, No Acute Distress, Other (Obese) HEENT: Reports: Pupils Equal, Pupils Reactive, EOMI, Mucous Membr. Moist/[place] Neck: Reports: Supple, Trachea Midline, No JVD, No Thyromegaly, Other (short and thick) Lungs: Reports: Normal Respiratory Effort, Decreased Breath Sounds Cardiovascular: Reports: Regular Rate, Regular Rhythm GI/Abdominal Exam: Normal Bowel Sounds, Soft, Non-Tender, No Organomegaly, No Distention, No Abnormal Bruit, No Mass (Female) Exam: Deferred Rectal (Female) Exam: Deferred Back Exam: Reports: Normal Inspection, Decreased Range of Motion Extremities: Normal Inspection, Normal Range of Motion, Non-Tender, No Pedal Edema, Normal Capillary Refill Skin: Reports: Warm, Dry, Intact Neurological: Reports: No New Focal Deficit Psy/Mental Status: Reports: Alert, Normal Affect, Normal Mood *Q Meaningful Use (DIS) - VTE *Q VTE Criteria *Q: - Stroke *Q Stroke Criteria *Q: - AMI *Q AMI Criteria *Q:
[2017-11-08] MEDS: Azithromycin 250 MG Tab PO SCH ×2 (12:20→13:16)
[2017-11-08 12:28] VITALS: BP 117/66
== END 2017-11-08 13:30 | disposition home or self-care (01) | DRG 202 ==
LOC: JD.ED 13:11 → JD.MS 16:58 → UNDOADMIN 16:58 → JD.MS 17:17
PROVIDERS: ADMIT Internal Medicine; ATTEND Internal Medicine
DX: J40 Bronchitis, not specified as acute or chronic (principal); N39.0 Urinary tract infection, site not specified; E11.9 Type 2 diabetes mellitus without complications; Z79.82 Long term (current) use of aspirin; F41.9 Anxiety disorder, unspecified; E78.00 Pure hypercholesterolemia, unspecified; F22 Delusional disorders; R09.02 Hypoxemia; E11.40 Type 2 diabetes mellitus with diabetic neuropathy, unspecified; Z79.4 Long term (current) use of insulin; E78.5 Hyperlipidemia, unspecified; I11.0 Hypertensive heart disease with heart failure; I50.9 Heart failure, unspecified; E03.9 Hypothyroidism, unspecified; E66.9 Obesity, unspecified; K86.9 Disease of pancreas, unspecified; F20.9 Schizophrenia, unspecified; J44.9 Chronic obstructive pulmonary disease, unspecified; R32 Unspecified urinary incontinence; E55.9 Vitamin D deficiency, unspecified; M19.90 Unspecified osteoarthritis, unspecified site; Z68.34 Body mass index [BMI] 34.0-34.9, adult; Z66 Do not resuscitate; R25.9 Unspecified abnormal involuntary movements; B95.2 Enterococcus as the cause of diseases classified elsewhere; Z99.81 Dependence on supplemental oxygen; Z79.899 Other long term (current) drug therapy; Z88.1 Allergy status to other antibiotic agents; Z91.02 Food additives allergy status
CPT/HCPCS: 36415; 71045; 80053; 81001; 83605; 83880; 85025; 86140; 86738; 87040 ×2; 87077; 87086; 87186; 87899; 94640; 96365; 99285; J1956; J7050; P9612; 80048; 82962; 83735; 87804; 92610-GN; 94667; 94668; 94760; 94761; 97110-GO; 97110-GP; 97161-GP; 97167-GO; 97530-GO; 99284; A9270-GY; J0456; J0696; J1650; J1815-GY; J2920; J7030

== ENCOUNTER 2018-06-12 10:50 | Emergency (ER) | payer MEDICARE, MEDICAID ==
[2018-06-12 11:10] VITALS: BP 112/46
--- NOTE | 2018-06-12 11:29 | EDM.PDOC ---
ED HPI GENERAL MEDICAL PROBLEM - General Chief Complaint: Respiratory Problem Stated Complaint: [facility] Time Seen by Provider: 06/12/18 11:05 Source of Information: Reports: Patient, EMS History Limitations: Reports: Altered Mental Status - History of Present Illness INITIAL COMMENTS - FREE TEXT/NARRATIVE: 77 y/o F with hx COPD, CHF, chronic oxygen requirement, schizophrenia, DM, recent admission for pneumonia, DNR/DNI [place] resident presents with AMS/ hypoxia. Per EMS, this morning she was difficult to arouse and seemed short of breath. Was hypoxic on usual 4L [place]. EMS started her on CPAP, gave neb, gave 40mg lasix, 125 mg solu-medrol, and transported. Her mental status improved en route. EMS is unsure whether she was compliant with bipap overnight last night. Patient has no complaint. She denies pain. Hx is limited by AMS (?dementia?). EMS reports that her mental status is much improved after starting CPAP. Chart review indicates that she was discharged yesterday and is being treated for pneumonia with cephalexin and azithromycin. She has a baseline O2 requirement of 4L/min. - Related Data Allergies Allergy/AdvReac Type Severity Reaction Status Date / Time clindamycin Allergy unknown Verified 06/12/18 22:33 herbs in pizza Allergy Cannot Uncoded 06/12/18 22:33 Remember Home Meds: Home Meds Albuterol/Ipratropium [DuoNeb 3.0-0.5 MG/3 ML] 3 ml NEB BID 09/03/17 [History] Budesonide [Pulmicort] 0.5 mg IH BID 09/03/17 [History] Calcium Carbonate/Vitamin D3 [Calcium 600 + Vit D 200] 1 each PO BID 09/03/17 [ History] Cranberry Extract [Cranberry] 400 mg PO BID 09/03/17 [History] Insulin Aspart [Novolog Flexpen] 18 unit SQ TIDMEALS 09/03/17 [History] Insulin Detemir [Levemir] 40 unit SQ QAM 09/03/17 [History] Levothyroxine [Synthroid] 100 mcg PO DAILY 09/03/17 [History] Liraglutide [Victoza] 1.8 mg SUBCUT BEDTIME 09/03/17 [History] Magnesium Oxide [Magnesium] 400 mg PO BID 09/03/17 [History] Multivitamin [Daily Multiple Vitamin] 1 tab PO DAILY 09/03/17 [History] OLANZapine [Zyprexa] 15 mg PO BEDTIME 09/03/17 [History] Paliperidone [Invega] 12 mg PO DAILY 09/03/17 [History] Ranitidine [Zantac] 150 mg PO BID 09/03/17 [History] Rosuvastatin [Crestor] 10 mg PO QPM 09/03/17 [History] guaiFENesin [Mucinex] 600 mg PO BID 09/03/17 [History] Albuterol/Ipratropium [DuoNeb 3.0-0.5 MG/3 ML] 3 ml INH QID PRN 09/08/17 [ History] Divalproex Sodium [Depakote] 500 mg PO BID 09/08/17 [History] Aspirin [Halfprin] 81 mg PO DAILY 11/04/17 [History] Losartan [Cozaar] 25 mg PO DAILY 11/04/17 [History] guaiFENesin [Tussin] 15 ml PO DAILY PRN 06/08/18 [History] Azithromycin [Zithromax] 250 mg PO DAILY@1700 #7 tablet 06/11/18 [Rx] Saccharomyces Boulardii [Florastor] 500 mg PO DAILY #20 cap 06/11/18 [Rx] cephALEXin [Keflex] 500 mg PO Q12H #14 cap 06/11/18 [Rx] Past Medical History HEENT History: Reports: Cataract Cardiovascular History: Reports: Heart Failure, High Cholesterol, Hypertension Other Cardiovascular History: edema, hyponatremia Respiratory History: Reports: COPD, Pneumonia, Recurrent, Other (See Below) Other Respiratory History: oxygen use at home, hypoxemia Gastrointestinal History: Reports: Pancreatitis, Other (See Below) Other Gastrointestinal History: pancreatic mass Genitourinary History: Reports: Urinary Incontinence Musculoskeletal History: Reports: Arthritis Other Musculoskeletal History: ingrown nail Neurological History: Reports: Neuropathy, Diabetic Other Neuro History: resting tremor left arm Psychiatric History: Reports: Anxiety, Schizophrenia Other Psychiatric History: delusional disorder Endocrine/Metabolic History: Reports: Diabetes, Type II, Hypothyroidism, Obesity /BMI 30+, Vitamin D Deficiency Oncologic (Cancer) History: Reports: Other (See Below) Other Oncologic History: Pancreatic mass (dx 2013) of unknown etiology - no tx desired Dermatologic History: Reports: Other (See Below) Other Dermatologic History: rash and other nonspecific skin eruption-bilateral groins - Infectious Disease History Infectious Disease History: Reports: MRSA - Past Surgical History Other Oncologic Surgeries/Procedures: PANCREATIC MASS Social & Family History - Family History Family Medical History: Noncontributory - Tobacco Use Smoking Status *Q: Unknown Ever Smoked - Caffeine Use Caffeine Use: Reports: None - Living Situation & Occupation Living situation: Reports: Extended Care Facility Occupation: Retired ED ROS GENERAL - Review of Systems Review Of Systems: See Below Constitutional: Denies: Fever HEENT: Reports: No Symptoms Respiratory: Reports: Shortness of Breath Cardiovascular: Denies: Chest Pain Endocrine: Reports: No Symptoms GI/Abdominal: Reports: No Symptoms : Reports: No Symptoms Musculoskeletal: Reports: No Symptoms Skin: Reports: No Symptoms Neurological: Reports: Confusion Psychiatric: Reports: No Symptoms ED EXAM, GENERAL - Physical Exam Exam: See Below Exam Limited By: No Limitations General Appearance: Alert, No Apparent Distress, Other (mildly confused, seems hard of hearing) Eye Exam: Bilateral Eye: Normal Inspection Ears: Normal External Exam Nose: Normal Inspection Throat/Mouth: Normal Inspection, Normal Oropharynx, Normal Voice, No Airway Compromise Head: Atraumatic, Normocephalic Neck: Normal Inspection, Supple, Non-Tender, Full Range of Motion Respiratory/Chest: Other (mild tachypnea, diminished sounds throughout, no wheezing/crackles, wet sounding non=-productive cough observed, no distress) Cardiovascular: Normal Peripheral Pulses, Regular Rate, Rhythm, No Murmur GI/Abdominal: Soft, Non-Tender, No Distention Extremities: Normal Inspection. No: Pedal Edema Neurological: Alert, No Motor/Sensory Deficits, Other (pleasantly confused. ) Psychiatric: Normal Affect, Normal Mood Skin Exam: Warm, Dry, Intact, Normal Color, No Rash Course - Vital Signs Last Recorded V/S: Last Vital Signs Temp 36.6 C 06/12/18 11:07 Pulse 82 06/12/18 11:07 Resp 31 H 06/12/18 11:07 BP 112/46 L 06/12/18 11:07 Pulse Ox 90 L 06/12/18 12:28 - Orders/Labs/Meds Orders: Active Orders 24 hr Category Date Time Status EKG 12 Lead [EKG Documentation Completion] [RC] STAT Care 06/12/18 11:05 Active Peripheral IV Care [RC] . DIRECTED Care 06/12/18 11:06 Active Peripheral IV Care [RC] . DIRECTED Care 06/12/18 11:06 Active RT Aerosol Therapy [RC] ASDIRECTED Care 06/12/18 12:28 Active CTA Chest W WO Contrast [Ang Chest] [CT] Stat Exams 06/12/18 12:31 Taken Chest 1V Frontal [CR] Stat Exams 06/12/18 11:05 Taken Peripheral IV Insertion Adult [OM.PC] Routine Oth 06/12/18 11:06 Ordered Labs: Laboratory Tests 06/12/18 06/12/18 06/12/18 Range/Units 11:06 11:20 11:20 WBC 7.23 (3.98-10.04) K/mm3 RBC 3.58 L (3.98-5.22) M/mm3 Hgb 11.9 (11.2-15.7) gm/L Hct 37.0 (34.1-44.9) % MCV 103.4 H (79.4-94.8) fl MCH 33.2 H (25.6-32.2) pg MCHC 32.2 (32.2-35.5) g/dl RDW Std Deviation 50.3 H (36.4-46.3) fL Plt Count 178 L (182-369) K/mm3 MPV 8.2 L (9.4-12.3) fl Neut % (Auto) 72.4 H (34.0-71.1) % Lymph % (Auto) 16.9 L (19.3-51.7) % Lyon % (Auto) 8.4 (4.7-12.5) % Eos % (Auto) 1.9 (0.7-5.8) Baso % (Auto) 0.1 (0.1-1.2) % Neut # (Auto) 5.23 (1.56-6.13) K/mm3 Lymph # (Auto) 1.22 (1.18-3.74) K/mm3 Lyon # (Auto) 0.61 H (0.24-0.36) K/mm3 Eos # (Auto) 0.14 (0.04-0.36) K/mm3 Baso # (Auto) 0.01 (0.01-0.08) K/mm3 Puncture Site Lt radial ABG pH 7.38 (7.35-7.45) ABG pCO2 62.7 H (35.0-45.0) mmHg ABG pO2 108.0 H (80.0-100.0) mmHg ABG HCO3 36.0 H (22.0-26.0) meq/L ABG O2 Saturation 98.5 H (96.0-97.0) % ABG Base Excess 9.3 H (-2-2.0) Ryan Test Positive A-a Gradient 454 mmHg O2 Delivery Device Cpap Oxygen Flow Rate 15.0 Sodium 142 (136-145) mEq/L Potassium 3.6 (3.5-5.1) mEq/L Chloride 104 (98-107) mEq/L Carbon Dioxide 36 H (21-32) mEq/L Anion Gap 5.6 (5-15) BUN 14 (7-18) mg/dL Creatinine 0.6 (0.55-1.02) mg/dL Est Cr Clr Drug Dosing 65.98 mL/min Estimated GFR (MDRD) > 60 (>60) mL/min BUN/Creatinine Ratio 23.3 H (14-18) Glucose 72 L (83-115) mg/dL POC Glucose (83-110) mg/dL Calcium 9.1 (8.5-10.1) mg/dL Magnesium 1.9 (1.8-2.4) mg/dl Total Bilirubin 0.3 (0.2-1.0) mg/dL AST 11 L (15-37) U/L ALT 13 L (14-59) U/L Alkaline Phosphatase 48 (46-116) U/L Troponin I < 0.017 (0.00-0.056) ng/mL Total Protein 6.6 (6.4-8.2) g/dl Albumin 2.5 L (3.4-5.0) g/dl Globulin 4.1 gm/dL Albumin/Globulin Ratio 0.6 L (1-2) Urine Color (Yellow) Urine Appearance (Clear) Urine pH (5.0-8.0) Ur Specific Pringle (1.005-1.030) Urine Protein (Negative) Urine Glucose (UA) (Negative) Urine Ketones (Negative) Urine Occult Blood (Negative) Urine Nitrite (Negative) Urine Bilirubin (Negative) Urine Urobilinogen (0.2-1.0) Ur Leukocyte Esterase (Negative) Urine RBC (0-5) /hpf Urine WBC (0-5) /hpf Ur Epithelial Cells (0-5) /hpf Urine Bacteria (FEW) /hpf Urine Mucus (FEW) /hpf 06/12/18 06/12/18 Range/Units 11:50 14:10 WBC (3.98-10.04) K/mm3 RBC (3.98-5.22) M/mm3 Hgb (11.2-15.7) gm/L Hct (34.1-44.9) % MCV (79.4-94.8) fl MCH (25.6-32.2) pg MCHC (32.2-35.5) g/dl RDW Std Deviation (36.4-46.3) fL Plt Count (182-369) K/mm3 MPV (9.4-12.3) fl Neut % (Auto) (34.0-71.1) % Lymph % (Auto) (19.3-51.7) % Lyon % (Auto) (4.7-12.5) % Eos % (Auto) (0.7-5.8) Baso % (Auto) (0.1-1.2) % Neut # (Auto) (1.56-6.13) K/mm3 Lymph # (Auto) (1.18-3.74) K/mm3 Lyon # (Auto) (0.24-0.36) K/mm3 Eos # (Auto) (0.04-0.36) K/mm3 Baso # (Auto) (0.01-0.08) K/mm3 Puncture Site ABG pH (7.35-7.45) ABG pCO2 (35.0-45.0) mmHg ABG pO2 (80.0-100.0) mmHg ABG HCO3 (22.0-26.0) meq/L ABG O2 Saturation (96.0-97.0) % ABG Base Excess (-2-2.0) Ryan Test A-a Gradient mmHg O2 Delivery Device Oxygen Flow Rate Sodium (136-145) mEq/L Potassium (3.5-5.1) mEq/L Chloride (98-107) mEq/L Carbon Dioxide (21-32) mEq/L Anion Gap (5-15) BUN (7-18) mg/dL Creatinine (0.55-1.02) mg/dL Est Cr Clr Drug Dosing mL/min Estimated GFR (MDRD) (>60) mL/min BUN/Creatinine Ratio (14-18) Glucose (83-115) mg/dL POC Glucose 80 L (83-110) mg/dL Calcium (8.5-10.1) mg/dL Magnesium (1.8-2.4) mg/dl Total Bilirubin (0.2-1.0) mg/dL AST (15-37) U/L ALT (14-59) U/L Alkaline Phosphatase (46-116) U/L Troponin I (0.00-0.056) ng/mL Total Protein (6.4-8.2) g/dl Albumin (3.4-5.0) g/dl Globulin gm/dL Albumin/Globulin Ratio (1-2) Urine Color Yellow (Yellow) Urine Appearance Clear (Clear) Urine pH 6.5 (5.0-8.0) Ur Specific Pringle 1.020 (1.005-1.030) Urine Protein Negative (Negative) Urine Glucose (UA) Negative (Negative) Urine Ketones Negative (Negative) Urine Occult Blood Negative (Negative) Urine Nitrite Negative (Negative) Urine Bilirubin Negative (Negative) Urine Urobilinogen 0.2 (0.2-1.0) Ur Leukocyte Esterase Negative (Negative) Urine RBC Not seen (0-5) /hpf Urine WBC 0-5 (0-5) /hpf Ur Epithelial Cells 0-5 (0-5) /hpf Urine Bacteria Rare (FEW) /hpf Urine Mucus Not seen (FEW) /hpf Meds: Medications Discontinued Medications Generic Name Dose Route Start Last Admin Trade Name Freq PRN Reason Stop Dose Admin Albuterol/Ipratropium 3 ml 06/12/18 12:28 06/12/18 12:37 Duoneb 3.0-0.5 Mg/3 Ml NEB 06/12/18 12:29 3 ml ONETIME ONE Administration Sodium Chloride 60 mls @ 4 mls/sec 06/12/18 12:52 06/12/18 13:44 Normal Saline IV 06/12/18 12:53 4 mls/sec ONETIME ONE Administration Iopamidol 100 ml 06/12/18 12:52 06/12/18 13:43 Isovue-370 (76%) IVPUSH 06/12/18 12:53 100 ml ONETIME ONE Administration Iopamidol 40 ml 06/12/18 12:52 06/12/18 13:44 Isovue-370 (76%) IVPUSH 06/12/18 12:53 40 ml ONETIME ONE Administration Sodium Chloride 10 ml 06/12/18 11:05 06/12/18 13:44 Saline Flush FLUSH 10 ml ASDIRECTED PRN Administration Keep Vein Open - Re-Assessments/Exams Free Text/Narrative Re-Assessment/Exam: 06/12/18 12:36 EKG shows NSR, cxr shoes mildly enlarged cardiac silhouette, no focal infiltrate. Labs show normal arterial Ph at 7.38, mild CO2 retention at 62 which appears to be chronic given normal PH. CBC and chemistry are normal. Trop neg. EKG shows NSR, abnormal R wave progression, nonspecific T wave flattening inferior and lateral leads, no significant ST abnormality. 06/12/18 14:12 Feeling better. Normal mental status. SpO2 89% on 4L (usual requirement), no respiratory distress. CTA chest shows LLL consolidation, no PE, otherwise normal. Appears to be at her baseline. She is on antibiotics for CAP. Clinically , she does not appear to be volume overloaded. She has been stable here off CPAP for hours. Hospitalist who discharged the patient came by to speak with me to let me know that she was frequently non-compliant with Bipap during her stay and speculates that this may be contributing to her episodes of AMS that quickly improve with positive pressure. Will dc back to [place]. 06/13/18 07:13 06/13/18 07:15 Departure - Departure Time of Disposition: 14:13 Disposition: Home, Self-Care 01 Clinical Impression: Altered mental status Qualifiers: Altered mental status type: disorientation Qualified Code(s): R41.0 - Disorientation, unspecified Pneumonia Qualifiers: Pneumonia type: due to unspecified organism Laterality: left Lung location: lower lobe of lung Qualified Code(s): J18.1 - Lobar pneumonia, unspecified organism - Discharge Information Instructions: Community-Acquired Pneumonia, Adult Referrals: Ray Bonilla MD [Primary Care Provider] - Forms: ED Department Discharge Additional Instructions: 1. Continue to use Bipap every night = this is important to help Malika clear her CO2. 2. Continue antibiotics from previous admission. 3. Use albuterol as needed for shortness of breath. 4. Follow up with PCP as soon as possible 5. Return to the ED as needed for any worsening shortness of breath, mental status change, fever, or other concerning condition - My Orders Last 24 Hours: My Active Orders 06/12/18 11:05 EKG 12 Lead [EKG Documentation Completion] [RC] STAT Chest 1V Frontal [CR] Stat 06/12/18 11:06 Peripheral IV Care [RC] . DIRECTED Peripheral IV Care [RC] . DIRECTED Peripheral IV Insertion Adult [OM.PC] Routine 06/12/18 12:28 RT Aerosol Therapy [RC] ASDIRECTED 06/12/18 12:31 CTA Chest W WO Contrast [Ang Chest] [CT] Stat - Assessment/Plan Last 24 Hours: My Active Orders 06/12/18 11:05 EKG 12 Lead [EKG Documentation Completion] [RC] STAT Chest 1V Frontal [CR] Stat 06/12/18 11:06 Peripheral IV Care [RC] . DIRECTED Peripheral IV Care [RC] . DIRECTED Peripheral IV Insertion Adult [OM.PC] Routine 06/12/18 12:28 RT Aerosol Therapy [RC] ASDIRECTED 06/12/18 12:31 CTA Chest W WO Contrast [Ang Chest] [CT] Stat
[2018-06-12] MEDS ORDERED: Albuterol/Ipratropium 3.0-0.5 MG/3 ML Neb Soln NEB ONE (12:28)
[2018-06-12] MEDS ORDERED: Iopamidol 755 MG/ML 50 ML Bottle IVPUSH ONE (12:52)
[2018-06-12] MEDS ORDERED: Sodium Chloride 0.9% 60 ML IV ONE (12:52)
[2018-06-12] MEDS: Sodium Chloride 0.9% 10 ML Syringe FLUSH PRN ×2 (12:57→13:44)
[2018-06-12] MEDS: Iopamidol 755 Mg/ML 100 ML Bottle IVPUSH ONE ×2 (13:43→13:44)
--- NOTE | 2018-06-13 17:18 | CR ---
Chest: Portable view of the chest was obtained. Comparison: Prior chest x-ray of 06/10/18. Slight parenchymal density within the left lung base is seen. Findings are fairly stable from prior exam. Right lung is clear. Heart size appears within normal limits for portable technique. Degenerative change noted within the spine. Bony structures are osteopenic. Impression: 1. Slight parenchymal density within the left lung base. Findings could represent atelectasis as well as pneumonia. Diagnostic code #3
--- NOTE | 2018-06-13 17:30 | CT ---
CT chest Technique: Multiple axial sections were obtained from above the lung apices inferiorly through the lung bases. Intravenous contrast was utilized. Study has been performed as a pulmonary angiogram protocol. Comparison: Prior CT chest of 02/02/17 is available. Findings: Pulmonary arteries are not well opacified. No filling defects are seen within the main or segmental branches. Subsegmental pulmonary emboli could be missed. Consolidation seen posteriorly within the left lung base. Very small left sided pleural effusion is seen. Chronic change noted posteriorly within the right lung base. Mild coronary artery calcification is seen. Calcified gallstones are seen within the gallbladder. Mediastinum and hilar regions show no adenopathy or mass. Mild parenchymal densities seen within both upper lungs most likely representing scarring. Bone window settings were reviewed which show scattered degenerative endplate spurring within the spine. Impression: 1. Less than optimal opacification of the pulmonary arteries. No findings of pulmonary embolism within the main or segmental branches. Smaller subsegmental pulmonary emboli could be missed. 2. Consolidation within the left lung base either due to atelectasis or pneumonia. 3. Chronic change within the right lung base. Increased density within both upper lungs believed to represent scarring. Diagnostic code #3 I agree with preliminary report issued by [facility] ([facility] report finalized on 06/12/18, 3:03 PM Central Time)
== END 2018-06-12 15:48 | disposition home or self-care (01) ==
LOC: JD.ED 10:50
DX: J18.9 Pneumonia, unspecified organism (principal); R41.0 Disorientation, unspecified; I11.0 Hypertensive heart disease with heart failure; I50.9 Heart failure, unspecified; E11.9 Type 2 diabetes mellitus without complications; J44.9 Chronic obstructive pulmonary disease, unspecified; F20.9 Schizophrenia, unspecified; E78.00 Pure hypercholesterolemia, unspecified; Z79.4 Long term (current) use of insulin; Z79.899 Other long term (current) drug therapy; Z88.1 Allergy status to other antibiotic agents; Z91.018 Allergy to other foods
CPT/HCPCS: 36415; 36600; 71045; 71275; 80053; 81001; 82803; 82962; 83735; 84484; 85025; 93005; 94640; 99285; J7030; J7050; Q9967; 99284-25; J7620-GY

== ENCOUNTER 2018-06-12 22:18 | Emergency (ER) | payer MEDICARE, MEDICAID ==
[2018-06-12 22:32] VITALS: BP 140/84
--- NOTE | 2018-06-12 22:35 | EDM.PDOC ---
ED HPI GENERAL MEDICAL PROBLEM - General Chief Complaint: Respiratory Problem Stated Complaint: [facility] Time Seen by Provider: 06/12/18 22:27 Source of Information: Reports: Patient History Limitations: Reports: No Limitations - History of Present Illness INITIAL COMMENTS - FREE TEXT/NARRATIVE: 77-year-old female with chronic schizophrenia presents to the ED for the second time today with respiratory distress. Patient was hospitalized on the of this month for 3 days due to pneumonia left lung. Associated hypoxia and hyper [place]. She was treated with BiPAP with increased pressures which improved her sats and O2 levels. Discharged back to [facility] yesterday. She was seen earlier this morning with above symptoms. In fact have a CT scan of her chest carried out with contrast. The timing of the contrast material associated with some movement artifact limited ability to appreciate pulmonary embolism but no pop no PE was detected in the main left or right pulmonary arteries on the first order branches. More than the peripheral second-order branches could not be adequately assessed. There is consolidation throughout much of the left lower lobe. There is right basilar atelectasis is a small left pleural effusion and trace right pleural effusion. No pneumothorax identified. Visualized portions of the abdomen revealed multiple gallstones within the gallbladder. O2 sats apparently went down into the 80s this evening and improved only transiently with both attempts at oxygen at 5 L/m by nasal cannula and BiPAP. The BiPAP peptic seem to make her worse. She has a paroxysmal productive sounding wet cough. She is afebrile mildly pallid. O2 sats are 84% on 3 L per nasal cannula. CODE STATUS is DO NOT RESUSCITATE. It's unclear whether she is DNI. Apparently he always uses BiPAP during the night as she has obstructive sleep apnea as well. Onset: Gradual Onset Date: 06/06/18 Duration: Day(s): Location: Reports: Chest (Paroxysmal productive cough and increased shortness of breath.) Quality: Reports: Other Severity: Severe (Severe dysmenorrhea.) Improves with: Denies: None, Cold Therapy, Eating, Heat Therapy, Immobilization Worsens with: Reports: Movement Context: Denies: Activity, Exercise, Lifting, Sick Contact, Trauma, Other Associated Symptoms: Reports: Cough, cough w sputum, Diaphoresis, Malaise, Shortness of Breath, Other (He is on oxygen at 3 L/m by nasal cannula at all times and BiPAP during the night.). Denies: Confusion, Chest Pain, Fever/Chills , Headaches Treatments RN FAMILY PRACTICE: Reports: Other (see below) (Multiple attempts at manipulating BiPAP and O2 by nasal cannula have been tried over the last 2 hours to improve her oxygenation. The best PaO2 achieved by pulse oximetry was 86%) - Related Data Allergies Allergy/AdvReac Type Severity Reaction Status Date / Time clindamycin Allergy unknown Verified 06/12/18 22:33 herbs in pizza Allergy Cannot Uncoded 06/12/18 22:33 Remember Home Meds: Home Meds Albuterol/Ipratropium [DuoNeb 3.0-0.5 MG/3 ML] 3 ml NEB BID 09/03/17 [History] Budesonide [Pulmicort] 0.5 mg IH BID 09/03/17 [History] Calcium Carbonate/Vitamin D3 [Calcium 600 + Vit D 200] 1 each PO BID 09/03/17 [ History] Cranberry Extract [Cranberry] 400 mg PO BID 09/03/17 [History] Insulin Aspart [Novolog Flexpen] 18 unit SQ TIDMEALS 09/03/17 [History] Insulin Detemir [Levemir] 40 unit SQ QAM 09/03/17 [History] Levothyroxine [Synthroid] 100 mcg PO DAILY 09/03/17 [History] Liraglutide [Victoza] 1.8 mg SUBCUT BEDTIME 09/03/17 [History] Magnesium Oxide [Magnesium] 400 mg PO BID 09/03/17 [History] Multivitamin [Daily Multiple Vitamin] 1 tab PO DAILY 09/03/17 [History] OLANZapine [Zyprexa] 15 mg PO BEDTIME 09/03/17 [History] Paliperidone [Invega] 12 mg PO DAILY 09/03/17 [History] Ranitidine [Zantac] 150 mg PO BID 09/03/17 [History] Rosuvastatin [Crestor] 10 mg PO QPM 09/03/17 [History] guaiFENesin [Mucinex] 600 mg PO BID 09/03/17 [History] Albuterol/Ipratropium [DuoNeb 3.0-0.5 MG/3 ML] 3 ml INH QID PRN 09/08/17 [ History] Divalproex Sodium [Depakote] 500 mg PO BID 09/08/17 [History] Aspirin [Halfprin] 81 mg PO DAILY 11/04/17 [History] Losartan [Cozaar] 25 mg PO DAILY 11/04/17 [History] guaiFENesin [Tussin] 15 ml PO DAILY PRN 06/08/18 [History] Azithromycin [Zithromax] 250 mg PO DAILY@1700 #7 tablet 06/11/18 [Rx] Saccharomyces Boulardii [Florastor] 500 mg PO DAILY #20 cap 06/11/18 [Rx] cephALEXin [Keflex] 500 mg PO Q12H #14 cap 06/11/18 [Rx] Past Medical History HEENT History: Reports: Cataract Cardiovascular History: Reports: Heart Failure, High Cholesterol, Hypertension Other Cardiovascular History: edema, hyponatremia Respiratory History: Reports: COPD, Pneumonia, Recurrent, Other (See Below) Other Respiratory History: oxygen use at home, hypoxemia Gastrointestinal History: Reports: Pancreatitis, Other (See Below) Other Gastrointestinal History: pancreatic mass Genitourinary History: Reports: Urinary Incontinence Musculoskeletal History: Reports: Arthritis Other Musculoskeletal History: ingrown nail Neurological History: Reports: Neuropathy, Diabetic Other Neuro History: resting tremor left arm Psychiatric History: Reports: Anxiety, Schizophrenia Other Psychiatric History: delusional disorder Endocrine/Metabolic History: Reports: Diabetes, Type II, Hypothyroidism, Obesity /BMI 30+, Vitamin D Deficiency Oncologic (Cancer) History: Reports: Other (See Below) Other Oncologic History: Pancreatic mass (dx 2013) of unknown etiology - no tx desired Dermatologic History: Reports: Other (See Below) Other Dermatologic History: rash and other nonspecific skin eruption-bilateral groins - Infectious Disease History Infectious Disease History: Reports: MRSA - Past Surgical History Other Oncologic Surgeries/Procedures: PANCREATIC MASS Social & Family History - Family History Family Medical History: Noncontributory - Caffeine Use Caffeine Use: Reports: None - Living Situation & Occupation Living situation: Reports: Extended Care Facility Occupation: Retired Social History Comment: Patient apparently has no living relatives. She is a jones of the state with power of corporate associate attorney from the government. ED ROS GENERAL - Review of Systems Review Of Systems: See Below Constitutional: Reports: Malaise, Weakness, Fatigue, Decreased Appetite Respiratory: Reports: Shortness of Breath, Wheezing, Cough, Sputum. Denies: Hemoptysis Cardiovascular: Reports: Chest Pain, Blood Pressure Problem, Dyspnea on Exertion , Edema, Orthopnea. Denies: Claudication Endocrine: Reports: High Glucose GI/Abdominal: Reports: Decreased Appetite, Distension : Reports: Frequency, Incontinence Musculoskeletal: Reports: Back Pain, Joint Pain ( knees and neck.) Skin: Reports: No Symptoms Neurological: Reports: Confusion, Other Psychiatric: Reports: Anxiety ED EXAM, GENERAL - Physical Exam Exam: See Below Exam Limited By: Respiratory Distress (severe) General Appearance: Alert, Anxious, Lethargic, Severe Distress Eye Exam: Bilateral Eye: Normal Inspection Ears: Normal TMs Throat/Mouth: Other (tongue is dry and coated.) Head: Atraumatic, Normocephalic Neck: Limited Range of Motion. No: Full Range of Motion, Lymphadenopathy (L), Lymphadenopathy (R) Respiratory/Chest: Respiratory Distress ( tachpneic at 28/min), Rhonchi (Lt lung field. harsh productive cough.), Wheezing (mild on expiration.) Cardiovascular: No Murmur, No Rub, Tachycardia (106/min) Peripheral Pulses: 1+: Posterior Tibial (L), Posterior Tibial (R), Dorsalis Pedis (L), Dorsalis Pedis (R) GI/Abdominal: No Abnormal Bruit, No Mass, Pelvis Stable, Distended (Diffuse tympanitic to percussion due to aerophagia.), Other (palpation of solid organs limited by abdominal girth.) Extremities: Pedal Edema (trace distal legs.) Neurological: Alert, CN II-XII Intact, Normal Cognition, Disoriented ( to time.) Psychiatric: Anxious Skin Exam: Warm, Dry, Intact, Pallor (mild) EKG INTERPRETATION EKG Date: 06/12/18 Time: 22:40 Rhythm: NSR Rate (Beats/Min): 96 [place]: LAD-Left Boissevain Deviation (- 28) P-Wave: Present QRS: Other (Early R-wave transition but with right ventricular hypertrophy pattern. There is reversal of the normal R-wave progression. There are Q waves leads 3 and aVF suggesting an old inferior wall myocardial infarction.) ST-T: Normal QT: Normal EKG Interpretation Comments: abnormal ECG Course - Vital Signs Last Recorded V/S: Last Vital Signs Temp 36.4 C 06/12/18 22:24 Pulse 98 06/12/18 22:24 Resp 22 H 06/12/18 22:24 BP 140/84 06/12/18 22:24 Pulse Ox 85 L 06/12/18 22:24 - Orders/Labs/Meds Orders: Active Orders 24 hr Category Date Time Status EKG Documentation Completion [RC] STAT Care 06/12/18 22:29 Active Merrill Catheter Insertion [Insert Urinary Catheter] [OM. Care 06/12/18 23:52 Ordered PC] Q24H Oxygen Therapy [RC] ASDIRECTED Care 06/12/18 22:29 Active RT Ventilator, Adult [RC] ASDIRECTED Care 06/12/18 23:45 Active Urinary Catheter Assessment [RC] ASDIRECTED Care 06/12/18 23:52 Active Chest 1V Frontal [CR] Stat Exams 06/12/18 22:47 Taken Chest 1V Frontal [CR] Stat Exams 06/12/18 23:39 Taken Chest 1V Frontal [CR] Stat Exams 06/12/18 23:39 Taken C DIFFICILE BY PCR W/NAP1 [MOLEC] Stat Lab 06/13/18 00:13 Ordered LACTIC ACID [CHEM] Stat Lab 06/13/18 00:26 Ordered URINALYSIS W/MICROSCOPIC [UA W/MICROSCOPIC] [URIN] Stat Lab 06/13/18 00:12 Ordered Norepinephrine 4 MG in D5W @ 2 MCG/MIN(250ml) Med 06/13/18 00:30 Ordered Norepinephrine [Levophed] 4 mg Dextrose 5% in Water 246 ml IV TITRATE Vancomycin 2 gm Med 06/13/18 00:30 Active Sodium Chloride 0.9% [Normal Saline] 500 ml IV ONETIME Nasogastric Orogastric Tube Insertion [OM.PC] Routine Oth 06/12/18 23:59 Ordered Medication Orders Norepinephrine Bitartrate 4 mg (/ Dextrose/Water) 250 mls @ 7.5 mls/hr IV TITRATE FITO; Protocol Vancomycin HCl 2 gm/ Sodium (Chloride) 500 mls @ 200 mls/hr IV ONETIME ONE Stop: 06/13/18 02:47 Last Admin: 06/13/18 00:37 Dose: 200 mls/hr Labs: Laboratory Tests 06/12/18 06/12/18 06/12/18 Range/Units 22:45 22:45 22:45 WBC 6.83 (3.98-10.04) K/mm3 RBC 3.52 L (3.98-5.22) M/mm3 Hgb 11.6 (11.2-15.7) gm/L Hct 36.3 (34.1-44.9) % MCV 103.1 H (79.4-94.8) fl MCH 33.0 H (25.6-32.2) pg MCHC 32.0 L (32.2-35.5) g/dl RDW Std Deviation 48.8 H (36.4-46.3) fL Plt Count 179 L (182-369) K/mm3 MPV 8.5 L (9.4-12.3) fl Neutrophils % (Manual) 86 H (40-60) % Band Neutrophils % 1 (0-10) % Lymphocytes % (Manual) 9 L (20-40) % Atypical Lymphs % 0 % Monocytes % (Manual) 4 (2-10) % Eosinophils % (Manual) 0 L (0.7-5.8) % Basophils % (Manual) 0 L (0.1-1.2) Platelet Estimate Adequate Anisocytosis 1+ slight Macrocytosis 1+ slight RBC Morph Comment Not Reportable ESR (0-20) mm/hr PT 10.6 (9.5-12.1) SECONDS INR 0.97 Puncture Site ABG pH (7.35-7.45) ABG pCO2 (35.0-45.0) mmHg ABG pO2 (80.0-100.0) mmHg ABG HCO3 (22.0-26.0) meq/L ABG O2 Saturation (96.0-97.0) % ABG Base Excess (-2-2.0) A-a Gradient mmHg O2 Delivery Device Oxygen Flow Rate FiO2 (21.00-100.00) % Sodium 140 (136-145) mEq/L Potassium 3.8 (3.5-5.1) mEq/L Chloride 101 (98-107) mEq/L Carbon Dioxide 36 H (21-32) mEq/L Anion Gap 6.8 (5-15) BUN 20 H (7-18) mg/dL Creatinine 0.8 (0.55-1.02) mg/dL Est Cr Clr Drug Dosing TNP Estimated GFR (MDRD) > 60 (>60) mL/min BUN/Creatinine Ratio 25.0 H (14-18) Glucose 350 H (83-115) mg/dL Calcium 9.0 (8.5-10.1) mg/dL Magnesium 2.2 (1.8-2.4) mg/dl Total Bilirubin 0.2 (0.2-1.0) mg/dL AST 16 (15-37) U/L ALT 20 (14-59) U/L Alkaline Phosphatase 51 (46-116) U/L Troponin I < 0.017 (0.00-0.056) ng/mL C-Reactive Protein 18.5 H* (<1.0) mg/dL NT-Pro-B Natriuret Pep (0-450) pg/mL Total Protein 6.9 (6.4-8.2) g/dl Albumin 2.5 L (3.4-5.0) g/dl Globulin 4.4 gm/dL Albumin/Globulin Ratio 0.6 L (1-2) 06/12/18 06/12/18 06/12/18 Range/Units 22:45 22:45 22:50 WBC (3.98-10.04) K/mm3 RBC (3.98-5.22) M/mm3 Hgb (11.2-15.7) gm/L Hct (34.1-44.9) % MCV (79.4-94.8) fl MCH (25.6-32.2) pg MCHC (32.2-35.5) g/dl RDW Std Deviation (36.4-46.3) fL Plt Count (182-369) K/mm3 MPV (9.4-12.3) fl Neutrophils % (Manual) (40-60) % Band Neutrophils % (0-10) % Lymphocytes % (Manual) (20-40) % Atypical Lymphs % % Monocytes % (Manual) (2-10) % Eosinophils % (Manual) (0.7-5.8) % Basophils % (Manual) (0.1-1.2) Platelet Estimate Anisocytosis Macrocytosis RBC Morph Comment ESR 95 H (0-20) mm/hr PT (9.5-12.1) SECONDS INR Puncture Site Rt radial ABG pH 7.39 (7.35-7.45) ABG pCO2 60.2 H (35.0-45.0) mmHg ABG pO2 53.0 L (80.0-100.0) mmHg ABG HCO3 35.5 H (22.0-26.0) meq/L ABG O2 Saturation 84.0 L (96.0-97.0) % ABG Base Excess 9.0 H (-2-2.0) A-a Gradient 102 mmHg O2 Delivery Device Cannula Oxygen Flow Rate 4.0 FiO2 36.00 (21.00-100.00) % Sodium (136-145) mEq/L Potassium (3.5-5.1) mEq/L Chloride (98-107) mEq/L Carbon Dioxide (21-32) mEq/L Anion Gap (5-15) BUN (7-18) mg/dL Creatinine (0.55-1.02) mg/dL Est Cr Clr Drug Dosing Estimated GFR (MDRD) (>60) mL/min BUN/Creatinine Ratio (14-18) Glucose (83-115) mg/dL Calcium (8.5-10.1) mg/dL Magnesium (1.8-2.4) mg/dl Total Bilirubin (0.2-1.0) mg/dL AST (15-37) U/L ALT (14-59) U/L Alkaline Phosphatase (46-116) U/L Troponin I (0.00-0.056) ng/mL C-Reactive Protein (<1.0) mg/dL NT-Pro-B Natriuret Pep 548 H (0-450) pg/mL Total Protein (6.4-8.2) g/dl Albumin (3.4-5.0) g/dl Globulin gm/dL Albumin/Globulin Ratio (1-2) Meds: Medications Generic Name Dose Route Start Last Admin Trade Name Freq PRN Reason Stop Dose Admin Norepinephrine Bitartrate 4 mg 250 mls @ 7.5 mls/hr 06/13/18 00:30 / Dextrose/Water IV TITRATE FITO Protocol 2 MCG/MIN Vancomycin HCl 2 gm/ Sodium 500 mls @ 200 mls/hr 06/13/18 00:30 06/13/18 00: 37 Chloride IV 06/13/18 02:47 200 mls/hr ONETIME ONE Administration Discontinued Medications Generic Name Dose Route Start Last Admin Trade Name Freq PRN Reason Stop Dose Admin Etomidate 30 mg 06/12/18 23:20 06/12/18 23:41 Amidate IVPUSH 06/12/18 23:21 30 mg ONETIME ONE Administration Furosemide 40 mg 06/13/18 00:45 Lasix IVPUSH 06/13/18 00:46 NOW ONE Propofol Confirm 06/12/18 23:15 06/12/18 23:42 Diprivan 100 Ml Administered 06/12/18 23:16 30 mls/hr Dose Administration 100 mls @ as directed .ROUTE .STK-MED ONE Linezolid 600 mg/ Premix 300 mls @ 300 mls/hr 06/12/18 23:21 06/12/18 23:44 IV 06/13/18 00:20 300 mls/hr ONETIME ONE Administration Lidocaine HCl Confirm 06/12/18 23:27 06/12/18 23:40 Xylocaine-Mpf 1% Administered 06/12/18 23:28 Not Given Dose 2 mls @ as directed .ROUTE .STK-MED ONE Vancomycin HCl 2 gm/ Sodium 250 mls @ 250 mls/hr 06/13/18 00:18 06/13/18 00: 40 Chloride IV 06/13/18 01:17 Not Given ONETIME ONE Sodium Chloride Confirm 06/13/18 00:31 Normal Saline Administered 06/13/18 00:32 Dose 500 mls @ as directed .ROUTE .STK-MED ONE Insulin Human Regular 15 unit 06/12/18 23:57 06/13/18 00:05 Humulin R SUBCUT 06/12/18 23:58 15 units ONETIME ONE Administration Lidocaine HCl 150 mg 06/12/18 23:17 06/12/18 23:41 Xylocaine 2% IVPUSH 06/12/18 23:18 150 mg ONETIME ONE Administration Midazolam HCl 3 mg 06/12/18 23:18 06/12/18 23:41 Versed 1 Mg/Ml IVPUSH 06/12/18 23:19 3 mg ONETIME ONE Administration Succinylcholine Chloride 140 mg 06/12/18 23:18 06/12/18 23:43 Quelicin IV 06/12/18 23:19 140 mg ONETIME ONE Administration Vancomycin HCl Confirm 06/13/18 00:25 06/13/18 00:40 Vancomycin Administered 06/13/18 00:26 Not Given Dose 1 gm .ROUTE .STK-MED ONE Vecuronium [place] 10 mg 06/13/18 00:17 06/13/18 00:29 Vecuronium IVPUSH 06/13/18 00:18 10 mg ONETIME ONE Administration - Radiology Interpretation Free Text/Narrative:: 77-year-old female presented to the ED from [facility] with comfort in [place]. Patient was here earlier today and has an extensive left-sided pneumonia. She was noted to hospital June 08 and kept here until June 11 with a diagnosis of left-sided pneumonia. She was initially treated with Rocephin intravenously and azithromycin. She was discharged on azithromycin and cephalexin. Patient still O2 sats continued to deteriorate as the day has gone on. Unable to maintain O2 sats greater than 86% on 4 L by nasal cannula and/or BiPAP at 10/5. BiPAP actually seemed to make her more hypoxic. Patient has a DO NOT RESUSCITATE order however is unclear whether she is a DNI. Since she has extensive pneumonia I believe only trace she has to be intubated with hopes of bringing the pneumonia under control with intravenous antibiotics. Patient has a history of chronic schizophrenia. She does not have any living relatives. Unable to get a hold of power of corporate associate attorney. Plan ABGs. One view chest x-ray to be repeated to make sure she does not developed a pneumothorax. Routine labs. - Re-Assessments/Exams Free Text/Narrative Re-Assessment/Exam: 06/12/18 23:05: ABGs reveal a pH of 7.39. PCO2 is 60.1. PO2 is 53. O2 sats 84% which corresponds to the pulse oximetry. This is on 3 L by nasal cannula. Portable chest x-ray confirms left-sided pneumonia. No pneumothorax. 06/12/18 23:20: Labs reveal a white count of 6.83 with 86% neutrophils and 1% bands. Hemoglobin is 11.6 with hematocrit of 36.3. MCV is elevated at 103.1. Posaconazole 179,000. PT is 10.6 with an INR of 0.97. Sodium 140 with potassium of 3.8. Chloride 101 with a bicarbonate of 36. And a gap is 6.8. BUNs 20 with a creatinine of 0.8. GFR remains greater than 60. Glucose is 350 she has a known type II diabetic. Calcium 9.0. Magnesium 2.2. Total bilirubin 0.2. Liver function otherwise normal. Troponin I is less than 0.017. C-reactive protein is markedly elevated at 18.5. BNP is 548. Albumin fraction is slightly low at 2.5. Decision made after discussion with our hospitalist to intubate her since she has extensive pneumonia and a chance of survival with IV antibiotics. Dr. Ca however feels that she will need pulmonology treatment and management and a bigger hospital and suggest transfer to [place]. Ordered IV Zyvox 600 mg IV. 06/12/18 23:32: Patient was given Versed 3 mg IV. This was followed by lidocaine 150 mg IV. This was followed by etomidate 30 mg IV. This was followed by succinylcholine 140 mg IV. Intubation achieved with a 7.5 ET tube on first attempt. Taped initially at 23 cm the corner of her right mouth. NG tube to be placed due to significant abdominal distention with air. 06/12/18 23:48 portable chest x-ray reveals ET tube to be entering the right mainstem bronchus. There is now decreased air entry to the left lung field as compared to initial assessment. ET tube may have drifted downwards at time of taping. It will be withdrawn 2 cm. NG tube is coiled in the stomach. 06/12/18 23:54 ET tube withdrawn 2 cm and repeat chest x-ray reveals it to be 1.5 cm above the sukh. There is evidence of collapse of the left upper lobe of the lung. Suspect he was because of right mainstem intubation. FiO2 is currently 100% with O2 sats of 99%. Heart rate is 90. BP is 139/93. PCO2 is 45. Current vent settings are tidal volume of 550. PEEP of 5. Rate of 14. FiO2 of 100%. Due to blood sugar being elevated at 350 she will be given 15 units of regular insulin subcutaneous. The catheter placed for monitoring. Nasogastric tube to low intermittent suction. Vecuronium 0.1 mg/kg. Given 10 mg IV. 06/13/18 00:15: Spoke with Dr. Linn--form drafter at [facility] and he has graciously accepted care. She will be transported to that institution per ground ambulance. Of note while she was here and under ventilation. She started to have loose brown diarrhea stool. A sample was sent for C. difficile enteritis. 06/13/18 00:46 Lactic acid is pending.It was apparently omitted on initial orders. Urinalysis ordered at time of merrill placement. BNP did come back elevated at 548. Apparently it was only 238 this morning. Given Lasix 40 mg IV. Departure - Departure Time of Disposition: 00:48 Disposition: DC/Tfer to [facility] 02 Condition: Critical Clinical Impression: Hypoxemia Pneumonia Qualifiers: Pneumonia type: due to unspecified organism Laterality: left Lung location: lower lobe of lung Qualified Code(s): J18.1 - Lobar pneumonia, unspecified organism Hyperglycemia due to type 2 diabetes mellitus Qualifiers: Diabetes mellitus ocean transportation intermediary insulin use: with ocean transportation intermediary use Qualified Code(s): E11.65 - Type 2 diabetes mellitus with hyperglycemia; Z79.4 - intermediate card tender (current ) use of insulin Respiratory failure Qualifiers: Chronicity: acute on chronic Respiratory failure complication: hypoxia and hypercapnia Qualified Code(s): J96.21 - Acute and chronic respiratory failure with hypoxia; J96.22 - Acute and chronic respiratory failure with hypercapnia CHF (congestive heart failure), NYHA class I Qualifiers: Congestive heart failure type: unspecified Qualified Code(s): I50.9 - Heart failure, unspecified - Discharge Information *PRESCRIPTION DRUG MONITORING PROGRAM REVIEWED*: Not Applicable *COPY OF PRESCRIPTION DRUG MONITORING REPORT IN PATIENT DAYAMI: Not Applicable Referrals: PCP,Unknown [Ordering Only Provider] - Forms: ED Department Discharge Additional Instructions: Patient transferred to [facility] in [facility] to the intensive care unit. Patient has a history of chronic schizophrenia but she was alert and oriented and able to carry on a normal conversation in the ED. She has a power of corporate associate attorney which were unable to contact. Apparently this is state sponsored as she has no living relatives. Patient advised that only recourse would be to be intubated in the hopes of clearing her pneumonia with IV antibiotics to prevent . Consented to treatment. - My Orders Last 24 Hours: My Active Orders 06/12/18 22:29 EKG Documentation Completion [RC] STAT Oxygen Therapy [RC] ASDIRECTED 06/12/18 22:47 Chest 1V Frontal [CR] Stat 06/12/18 23:39 Chest 1V Frontal [CR] Stat Chest 1V Frontal [CR] Stat 06/12/18 23:45 RT Ventilator, Adult [RC] ASDIRECTED 06/12/18 23:52 Merrill Catheter Insertion [Insert Urinary Catheter] [OM.PC] Q24H Urinary Catheter Assessment [RC] ASDIRECTED 06/12/18 23:59 Nasogastric Orogastric Tube Insertion [OM.PC] Routine 06/13/18 00:12 URINALYSIS W/MICROSCOPIC [UA W/MICROSCOPIC] [URIN] Stat 06/13/18 00:13 C DIFFICILE BY PCR W/NAP1 [MOLEC] Stat 06/13/18 00:26 LACTIC ACID [CHEM] Stat 06/13/18 00:30 Norepinephrine 4 MG in D5W @ 2 MCG/MIN(250ml) Norepinephrine [Levophed] 4 mg Dextrose 5% in Water 246 ml IV TITRATE Vancomycin 2 gm Sodium Chloride 0.9% [Normal Saline] 500 ml IV ONETIME - Assessment/Plan Last 24 Hours: My Active Orders 06/12/18 22:29 EKG Documentation Completion [RC] STAT Oxygen Therapy [RC] ASDIRECTED 06/12/18 22:47 Chest 1V Frontal [CR] Stat 06/12/18 23:39 Chest 1V Frontal [CR] Stat Chest 1V Frontal [CR] Stat 06/12/18 23:45 RT Ventilator, Adult [RC] ASDIRECTED 06/12/18 23:52 Merrill Catheter Insertion [Insert Urinary Catheter] [OM.PC] Q24H Urinary Catheter Assessment [RC] ASDIRECTED 06/12/18 23:59 Nasogastric Orogastric Tube Insertion [OM.PC] Routine 06/13/18 00:12 URINALYSIS W/MICROSCOPIC [UA W/MICROSCOPIC] [URIN] Stat 06/13/18 00:13 C DIFFICILE BY PCR W/NAP1 [MOLEC] Stat 06/13/18 00:26 LACTIC ACID [CHEM] Stat 06/13/18 00:30 Norepinephrine 4 MG in D5W @ 2 MCG/MIN(250ml) Norepinephrine [Levophed] 4 mg Dextrose 5% in Water 246 ml IV TITRATE Vancomycin 2 gm Sodium Chloride 0.9% [Normal Saline] 500 ml IV ONETIME
[2018-06-12] MEDS ORDERED: Lidocaine 2% 100 MG/5 ML Syringe IVPUSH ONE (23:17)
[2018-06-12] MEDS ORDERED: Succinylcholine 200 MG/10 ML MDV IV ONE (23:18)
[2018-06-12] MEDS ORDERED: Midazolam 1 MG/ML 2 ML SDV IVPUSH ONE (23:18)
[2018-06-12] MEDS ORDERED: Etomidate 2 MG/ML 20 ML SDV IVPUSH ONE (23:20)
[2018-06-12] MEDS ORDERED: Linezolid 600 MG in Premix Bag 1 BAG IV ONE (23:21)
[2018-06-12] MEDS: Lidocaine 1% 0 ML ONE ×2 (23:27→23:40)
[2018-06-12] MEDS ORDERED: Lidocaine 1% PF 2 ML SDV ONE (23:55)
[2018-06-12] MEDS ORDERED: Midazolam 1 MG/ML 5 ML SDV ONE (23:55)
[2018-06-12] MEDS ORDERED: Insulin Regular, Human 100 Units/ML 3 ML Vial SUBCUT ONE (23:57)
[2018-06-13] MEDS ORDERED: Vancomycin 1 GM SDV ONE (00:25)
[2018-06-13] MEDS ORDERED: Norepinephrine 4 MG in Dextrose 5% in Water 246 ML IV SCH ×2 (00:30)
[2018-06-13] MEDS ORDERED: Vancomycin 2 GM in Sodium Chloride 0.9% 500 ML IV ONE (00:30)
[2018-06-13] MEDS ORDERED: Sodium Chloride 0.9% 500 ML ONE (00:31)
[2018-06-13] MEDS ORDERED: Furosemide 40 MG/4 ML VIAL IVPUSH ONE (00:45)
--- NOTE | 2018-06-13 17:02 | CR ---
Chest: Portable supine view of the chest was obtained. Comparison: Prior chest x-ray performed earlier on the same day (10:56 PM). Increased density within the left lung base is noted. Findings are similar to most recent exam. Chronic change within the right lung base again noted. Heart size and mediastinum are within normal limits. Nasogastric tube is seen with tip coursing off the inferior edge of the film into the stomach. Endotracheal tube is noted with tip lying at the level of the clavicles. Impression: 1. Endotracheal tube and nasogastric tube. These appear satisfactory in position. 2. Continuing parenchymal density within the left lung base. Diagnostic code #3
--- NOTE | 2018-06-13 17:03 | CR ---
Chest: Portable view of the chest was obtained. Comparison: Prior chest CT performed earlier on the same day (12:18 PM and prior chest x-ray also performed earlier on the same day 10:13 AM). Heart size and mediastinum are within normal limits for portable technique. Parenchymal density noted within the left base which appears slightly more prominent than on previous chest x-ray. Mild chronic changes in the right base. Lungs otherwise are clear. Bony structures show scattered degenerative change within the spine with osteopenia. Impression: 1. Slight increasing parenchymal density within the left lung base from prior chest x-ray. Findings compatible with atelectasis and/or pneumonia. 2. Other incidental findings. Diagnostic code #3
--- NOTE | 2018-06-13 17:18 | CR ---
Chest: Portable supine view of the chest is obtained. Comparison: Prior chest x-ray performed earlier on the same day (11:42 PM). Opacified left chest is seen which is an interval change from prior chest x-ray. Slight chronic change within the right base. Right lung is otherwise clear. Mediastinum is shifted into the left chest. Endotracheal tube is satisfactory in position. Nasogastric tube courses off the inferior edge of the film into the stomach. Impression: 1. Opacified left chest with shifting of the mediastinum into the left chest compatible with left lung collapse. 2. Satisfactory position of tubes and catheters. Diagnostic code #5
== END 2018-06-13 00:57 ==
LOC: JD.ED 22:18
DX: J18.9 Pneumonia, unspecified organism (principal); J96.21 Acute and chronic respiratory failure with hypoxia; J96.22 Acute and chronic respiratory failure with hypercapnia; E11.65 Type 2 diabetes mellitus with hyperglycemia; I50.9 Heart failure, unspecified; Z79.4 Long term (current) use of insulin; Z79.899 Other long term (current) drug therapy; E11.42 Type 2 diabetes mellitus with diabetic polyneuropathy; Z79.82 Long term (current) use of aspirin; Z88.1 Allergy status to other antibiotic agents; Z91.048 Other nonmedicinal substance allergy status
CPT/HCPCS: 31500; 36415; 36600; 51702; 71045; 80053; 81001; 82803; 83605; 83735; 83880; 84484; 85007; 85027; 85610; 85652; 86140; 87493; 93005; 96365; 96372; 96375; 99285; J0330; J1815; J1940; J2001; J2020; J2250; J2704; J3370; J3490; J7040

== ENCOUNTER 2019-03-13 16:34 | Observation (INO) | payer MEDICARE, MEDICAID ==
[2019-03-13] MEDS ORDERED: Albuterol/Ipratropium 3.0-0.5 MG/3 ML Neb Soln NEB ONE (17:40)
--- NOTE | 2019-03-13 19:33 | EDM.PDOC ---
ED HPI GENERAL MEDICAL PROBLEM - General Chief Complaint: Respiratory Problem Stated Complaint: Low O2 sats Time Seen by Provider: 03/13/19 16:48 Source of Information: Reports: Patient, [facility] Records History Limitations: Reports: No Limitations - History of Present Illness INITIAL COMMENTS - FREE TEXT/NARRATIVE: Patient is a 78-year-old female who presents to the ED for the evaluation of a cough and low O2 sats. The patient lives at [facility]. The patient' s [facility] s[facility] 85[facility] She does wear chronic oxygen. They noted a low-grade temp, however she does not have a temperature at time of ER triage. She does have a history of COPD and does take normal nebulizer treatments. The patient is pleasantly demented, so history is limited. She does have a dry cough on time of examination. - Related Data Allergies Allergy/AdvReac Type Severity Reaction Status Date / Time clindamycin Allergy unknown Verified 03/13/19 16:46 herbs in pizza Allergy Cannot Uncoded 06/12/18 22:33 Remember Home Meds: Home Meds Albuterol/Ipratropium [DuoNeb 3.0-0.5 MG/3 ML] 3 ml NEB BID 09/03/17 [History] Budesonide [Pulmicort] 0.5 mg IH BID 09/03/17 [History] Calcium Carbonate/Vitamin D3 [Calcium 600 + Vit D 200] 1 each PO BID 09/03/17 [ History] Cranberry Fruit Extract [Cranberry] 400 mg PO BID 09/03/17 [History] Insulin Aspart [Novolog Flexpen] 18 unit SQ TIDMEALS 09/03/17 [History] Insulin Detemir [Levemir] 40 unit SQ QAM 09/03/17 [History] Levothyroxine [Synthroid] 100 mcg PO DAILY 09/03/17 [History] Liraglutide [Victoza] 1.8 mg SUBCUT BEDTIME 09/03/17 [History] Magnesium Oxide [Magnesium] 400 mg PO BID 09/03/17 [History] Multivitamin [Daily Multiple Vitamin] 1 tab PO DAILY 09/03/17 [History] OLANZapine [Zyprexa] 15 mg PO BEDTIME 09/03/17 [History] Paliperidone [Invega] 12 mg PO DAILY 09/03/17 [History] Ranitidine [Zantac] 150 mg PO BID 09/03/17 [History] Rosuvastatin [Crestor] 10 mg PO QPM 09/03/17 [History] guaiFENesin [Mucinex] 600 mg PO BID 09/03/17 [History] Albuterol/Ipratropium [DuoNeb 3.0-0.5 MG/3 ML] 3 ml INH QID PRN 09/08/17 [ History] Divalproex Sodium [Depakote] 500 mg PO BID 09/08/17 [History] Aspirin [Halfprin] 81 mg PO DAILY 11/04/17 [History] Losartan [Cozaar] 25 mg PO DAILY 11/04/17 [History] guaiFENesin [Tussin] 15 ml PO DAILY PRN 06/08/18 [History] Azithromycin [Zithromax] 250 mg PO DAILY@1700 #7 tablet 06/11/18 [Rx] Saccharomyces Boulardii [Florastor] 500 mg PO DAILY #20 cap 06/11/18 [Rx] cephALEXin [Keflex] 500 mg PO Q12H #14 cap 06/11/18 [Rx] Past Medical History HEENT History: Reports: Cataract Cardiovascular History: Reports: Heart Failure, High Cholesterol, Hypertension Other Cardiovascular History: edema, hyponatremia Respiratory History: Reports: COPD, Pneumonia, Recurrent, Other (See Below) Other Respiratory History: oxygen use at home, hypoxemia Gastrointestinal History: Reports: Pancreatitis, Other (See Below) Other Gastrointestinal History: pancreatic mass Genitourinary History: Reports: Urinary Incontinence Musculoskeletal History: Reports: Arthritis Other Musculoskeletal History: ingrown nail Neurological History: Reports: Neuropathy, Diabetic Other Neuro History: resting tremor left arm Psychiatric History: Reports: Anxiety, Schizophrenia Other Psychiatric History: delusional disorder Endocrine/Metabolic History: Reports: Diabetes, Type II, Hypothyroidism, Obesity /BMI 30+, Vitamin D Deficiency Oncologic (Cancer) History: Reports: Other (See Below) Other Oncologic History: Pancreatic mass (dx 2013) of unknown etiology - no tx desired Dermatologic History: Reports: Other (See Below) Other Dermatologic History: rash and other nonspecific skin eruption-bilateral groins - Infectious Disease History Infectious Disease History: Reports: MRSA - Past Surgical History Other Oncologic Surgeries/Procedures: PANCREATIC MASS Social & Family History - Family History Family Medical History: Noncontributory - Caffeine Use Caffeine Use: Reports: None - Living Situation & Occupation Living situation: Reports: Extended Care Facility Occupation: Retired ED ROS GENERAL - Review of Systems Review Of Systems: See Below Constitutional: Denies: Fever, Chills HEENT: Reports: No Symptoms Respiratory: Reports: Cough. Denies: Shortness of Breath, Wheezing, Sputum Cardiovascular: Denies: Chest Pain Endocrine: Reports: No Symptoms GI/Abdominal: Reports: No Symptoms : Reports: No Symptoms Musculoskeletal: Reports: No Symptoms Skin: Reports: No Symptoms Neurological: Reports: Other (dementia) Psychiatric: Reports: No Symptoms Hematologic/Lymphatic: Reports: No Symptoms ED EXAM, GENERAL - Physical Exam Exam: See Below Exam Limited By: No Limitations General Appearance: Alert, WD/WN, No Apparent Distress Eye Exam: Bilateral Eye: Normal Inspection Respiratory/Chest: No Respiratory Distress, Lungs Clear, No Accessory Muscle Use , Chest Non-Tender, Decreased Breath Sounds (diffuse bilaterally) Cardiovascular: Normal Peripheral Pulses, Regular Rate, Rhythm, No Murmur Peripheral Pulses: 3+: Radial (L), Radial (R) Extremities: Normal Inspection, Normal Capillary Refill Neurological: Alert, No Motor/Sensory Deficits Psychiatric: Normal Affect, Normal Mood Skin Exam: Warm, Dry, Intact, Normal Color (generalized pallor), No Rash EKG INTERPRETATION EKG Date: 03/13/19 Time: 17:03 Rhythm: NSR Rate (Beats/Min): 85 [place]: Normal P-Wave: Present QRS: Normal ST-T: Normal QT: Prolonged (QTc 522) EKG Interpretation Comments: reviewed with Dr. Dominguez. Course - Vital Signs Last Recorded V/S: Last Vital Signs Temp 97.1 F 03/13/19 16:40 Pulse 87 03/13/19 16:40 Resp 15 03/13/19 16:40 BP 111/78 03/13/19 16:40 Pulse Ox 94 L 03/13/19 17:40 - Orders/Labs/Meds Orders: Active Orders 24 hr Category Date Time Status Admission Status [Patient Status] [ADT] Routine ADT 03/13/19 19:50 Ordered EKG Documentation Completion [RC] STAT Care 03/13/19 16:49 Active RT Aerosol Therapy [RC] ASDIRECTED Care 03/13/19 17:40 Active Chest 2V [CR] Stat Exams 03/13/19 16:49 Taken Labs: Laboratory Tests 03/13/19 03/13/19 03/13/19 Range/Units 17:05 17:05 17:05 WBC 8.34 (3.98-10.04) K/mm3 RBC 3.99 (3.98-5.22) M/mm3 Hgb 13.2 D (11.2-15.7) gm/L Hct 41.3 (34.1-44.9) % MCV 103.5 H (79.4-94.8) fl MCH 33.1 H (25.6-32.2) pg MCHC 32.0 L (32.2-35.5) g/dl RDW Std Deviation 52.3 H (36.4-46.3) fL Plt Count 211 (182-369) K/mm3 MPV 9.0 L (9.4-12.3) fl Neutrophils % (Manual) 71 H (40-60) % Band Neutrophils % 0 (0-10) % Lymphocytes % (Manual) 21 (20-40) % Atypical Lymphs % 0 % Monocytes % (Manual) 7 (2-10) % Eosinophils % (Manual) 1 (0.7-5.8) % Basophils % (Manual) 0 L (0.1-1.2) Platelet Estimate Adequate RBC Morph Comment Normal Sodium 142 (136-145) mEq/L Potassium 3.4 L (3.5-5.1) mEq/L Chloride 104 (98-107) mEq/L Carbon Dioxide 35 H (21-32) mEq/L Anion Gap 6.4 (5-15) BUN 25 H (7-18) mg/dL Creatinine 0.8 (0.55-1.02) mg/dL Est Cr Clr Drug Dosing 57.27 mL/min Estimated GFR (MDRD) > 60 (>60) mL/min BUN/Creatinine Ratio 31.3 H (14-18) Glucose 164 H (83-115) mg/dL Calcium 8.8 (8.5-10.1) mg/dL Total Bilirubin 0.4 (0.2-1.0) mg/dL AST 10 L (15-37) U/L ALT 13 L (14-59) U/L Alkaline Phosphatase 51 (46-116) U/L Troponin I < 0.017 (0.00-0.056) ng/mL NT-Pro-B Natriuret Pep 282 (0-450) pg/mL Total Protein 6.1 L (6.4-8.2) g/dl Albumin 2.8 L (3.4-5.0) g/dl Globulin 3.3 gm/dL Albumin/Globulin Ratio 0.9 L (1-2) Meds: Medications Discontinued Medications Generic Name Dose Route Start Last Admin Trade Name Freq PRN Reason Stop Dose Admin Albuterol/Ipratropium 3 ml 03/13/19 17:40 03/13/19 18:06 Duoneb 3.0-0.5 Mg/3 Ml NEB 03/13/19 17:41 3 ml ONETIME ONE Administration - Re-Assessments/Exams Free Text/Narrative Re-Assessment/Exam: 03/13/19 17:05 Patient presents to the ED for the evaluation of a cough and low O2 sats. Did order CBC, CMP, BNP, troponin, EKG, DuoNeb nebulizer for initial management. 03/13/19 19:58 Patient's EKG is within normal limits, and labs are also within normal limits. Her chest x-ray does not demonstrate any sign of pneumonia or infective process. She is likely suffering from a COPD exacerbation have discussed the case with Dr. Moseley and he accepts for observation at this time. Patient is a DNR/DNI. Departure - Departure Time of Disposition: 19:59 Disposition: Refer to Observation Condition: Fair Clinical Impression: COPD exacerbation - Discharge Information *PRESCRIPTION DRUG MONITORING PROGRAM REVIEWED*: No *COPY OF PRESCRIPTION DRUG MONITORING REPORT IN PATIENT DAYAMI: No Forms: ED Department Discharge - My Orders Last 24 Hours: My Active Orders 03/13/19 16:49 EKG Documentation Completion [RC] STAT Chest 2V [CR] Stat 03/13/19 17:40 RT Aerosol Therapy [RC] ASDIRECTED 03/13/19 19:50 Admission Status [Patient Status] [ADT] Routine - Assessment/Plan Last 24 Hours: My Active Orders 03/13/19 16:49 EKG Documentation Completion [RC] STAT Chest 2V [CR] Stat 03/13/19 17:40 RT Aerosol Therapy [RC] ASDIRECTED 03/13/19 19:50 Admission Status [Patient Status] [ADT] Routine
[2019-03-13] MEDS ORDERED: Ondansetron 4 MG Tab.DIS PO PRN (21:04)
[2019-03-13] MEDS ORDERED: Albuterol 0.083% 2.5 MG/3 ML Neb Soln NEB PRN (21:04)
[2019-03-13] MEDS ORDERED: Acetaminophen 325 MG Tab PO PRN (21:04)
[2019-03-13] MEDS ORDERED: predniSONE 20 MG Tab PO STA (21:14)
--- NOTE | 2019-03-13 21:21 | PCM.HP ---
H&P History of Present Illness - General Date of Service: 03/13/19 Admit Problem/Dx: Admission Diagnosis/Problem Admission Diagnosis/Problem COPD, Mild chronic obstructive pulmonary disease - History of Present Illness Initial Comments - Free Text/Narative: 78-year-old patient who lives in senior care presented to the emergency room after she was found to have a low pulse ox. They noted "a low grade temp," however she did not have a temperature in the emergency room. She hasn't history of severe COPD and is on 5 L nasal cannula of O2 at the senior care. She does state she has a mild cough. In the emergency room she received nebulizers and they increased her SPO2 to 6 L per nasal cannula. I walked into the emergency room she was satting 95-97% on 6 L start down to 95% and she stayed in the low to mid 90s. EKG is reported as normal, do not have it available to me. I did review the chest x-ray which showed no acute infiltrate. There does appear to be a left pleural effusion consistent with what was seen on CT scan in January. BNP was 282 with troponin less than 0.017. Potassium was slightly low at 3.4. White count was normal. - Related Data Allergies/Adverse Reactions: Allergies Allergy/AdvReac Type Severity Reaction Status Date / Time clindamycin Allergy unknown Verified 03/13/19 21:19 herbs in pizza Allergy Cannot Uncoded 03/13/19 21:19 Remember Home Medications: Home Meds Albuterol/Ipratropium [DuoNeb 3.0-0.5 MG/3 ML] 3 ml NEB BID 09/03/17 [History] Budesonide [Pulmicort] 0.5 mg IH BID 09/03/17 [History] Calcium Carbonate/Vitamin D3 [Calcium 600 + Vit D 200] 1 each PO BID 09/03/17 [ History] Cranberry Fruit Extract [Cranberry] 400 mg PO BID 09/03/17 [History] Insulin Aspart [Novolog Flexpen] 18 unit SQ TIDMEALS 09/03/17 [History] Insulin Detemir [Levemir] 40 unit SQ QAM 09/03/17 [History] Levothyroxine [Synthroid] 100 mcg PO DAILY 09/03/17 [History] Liraglutide [Victoza] 1.8 mg SUBCUT BEDTIME 09/03/17 [History] Magnesium Oxide [Magnesium] 400 mg PO BID 09/03/17 [History] Multivitamin [Daily Multiple Vitamin] 1 tab PO DAILY 09/03/17 [History] OLANZapine [Zyprexa] 15 mg PO BEDTIME 09/03/17 [History] Paliperidone [Invega] 12 mg PO DAILY 09/03/17 [History] Ranitidine [Zantac] 150 mg PO BID 09/03/17 [History] Rosuvastatin [Crestor] 10 mg PO QPM 09/03/17 [History] guaiFENesin [Mucinex] 600 mg PO BID 09/03/17 [History] Albuterol/Ipratropium [DuoNeb 3.0-0.5 MG/3 ML] 3 ml INH QID PRN 09/08/17 [ History] Divalproex Sodium [Depakote] 500 mg PO BID 09/08/17 [History] Aspirin [Halfprin] 81 mg PO DAILY 11/04/17 [History] Losartan [Cozaar] 25 mg PO DAILY 11/04/17 [History] guaiFENesin [Tussin] 15 ml PO DAILY PRN 06/08/18 [History] Azithromycin [Zithromax] 250 mg PO DAILY@1700 #7 tablet 06/11/18 [Rx] Saccharomyces Boulardii [Florastor] 500 mg PO DAILY #20 cap 06/11/18 [Rx] cephALEXin [Keflex] 500 mg PO Q12H #14 cap 06/11/18 [Rx] Past Medical History HEENT History: Reports: Cataract Cardiovascular History: Reports: Heart Failure, High Cholesterol, Hypertension Other Cardiovascular History: edema, hyponatremia Respiratory History: Reports: COPD, Pneumonia, Recurrent, Other (See Below) Other Respiratory History: oxygen use at home, hypoxemia Gastrointestinal History: Reports: Pancreatitis, Other (See Below) Other Gastrointestinal History: pancreatic mass Genitourinary History: Reports: Urinary Incontinence Musculoskeletal History: Reports: Arthritis Other Musculoskeletal History: ingrown nail Neurological History: Reports: Neuropathy, Diabetic Other Neuro History: resting tremor left arm Psychiatric History: Reports: Anxiety, Schizophrenia Other Psychiatric History: delusional disorder Endocrine/Metabolic History: Reports: Diabetes, Type II, Hypothyroidism, Obesity /BMI 30+, Vitamin D Deficiency Oncologic (Cancer) History: Reports: Other (See Below) Other Oncologic History: Pancreatic mass (dx 2013) of unknown etiology - no tx desired Dermatologic History: Reports: Other (See Below) Other Dermatologic History: rash and other nonspecific skin eruption-bilateral groins - Infectious Disease History Infectious Disease History: Reports: MRSA - Past Surgical History Other Oncologic Surgeries/Procedures: PANCREATIC MASS Social & Family History - Family History Family Medical History: Noncontributory - Caffeine Use Caffeine Use: Reports: None - Living Situation & Occupation Living situation: Reports: Extended Care Facility Occupation: Retired H&P Review of Systems - Review of Systems: Review Of Systems: See Below General: Reports: No Symptoms. Denies: Chills HEENT: Reports: No Symptoms Pulmonary: Reports: Shortness of Breath, Cough Cardiovascular: Reports: No Symptoms Gastrointestinal: Reports: No Symptoms Musculoskeletal: Reports: No Symptoms Psychiatric: Denies: Depression Neurological: Reports: No Symptoms Exam - Exam Exam: See Below - Vital Signs Vital Signs: Last Vital Signs Temp 97.1 F 03/13/19 16:40 Pulse 87 03/13/19 16:40 Resp 15 03/13/19 16:40 BP 111/78 03/13/19 16:40 Pulse Ox 94 L 03/13/19 17:40 Weight: 208 lb - Exam Quality Assessment: Supplemental Oxygen General: Alert, Oriented HEENT: Conjunctiva Clear, Mucosa Moist & [place] Neck: Supple, Trachea Midline Lungs: Clear to Auscultation, Normal Respiratory Effort Cardiovascular: Regular Rate, Regular Rhythm GI/Abdominal Exam: Normal Bowel Sounds, Soft, Non-Tender, No Distention Extremities: Normal Inspection, Normal Range of Motion, Non-Tender, No Pedal Edema Skin: Warm, Dry, Intact Neuro Extensive - Mental Status: Alert Psychiatric: Alert, Normal Affect, Normal Mood - Patient Data Lab Results Last 24 hrs: Laboratory Results - last 24 hr 03/13/19 03/13/19 03/13/19 Range/Units 17:05 17:05 17:05 WBC 8.34 (3.98-10.04) K/mm3 RBC 3.99 (3.98-5.22) M/mm3 Hgb 13.2 D (11.2-15.7) gm/L Hct 41.3 (34.1-44.9) % MCV 103.5 H (79.4-94.8) fl MCH 33.1 H (25.6-32.2) pg MCHC 32.0 L (32.2-35.5) g/dl RDW Std Deviation 52.3 H (36.4-46.3) fL Plt Count 211 (182-369) K/mm3 MPV 9.0 L (9.4-12.3) fl Neutrophils % (Manual) 71 H (40-60) % Band Neutrophils % 0 (0-10) % Lymphocytes % (Manual) 21 (20-40) % Atypical Lymphs % 0 % Monocytes % (Manual) 7 (2-10) % Eosinophils % (Manual) 1 (0.7-5.8) % Basophils % (Manual) 0 L (0.1-1.2) Platelet Estimate Adequate RBC Morph Comment Normal Sodium 142 (136-145) mEq/L Potassium 3.4 L (3.5-5.1) mEq/L Chloride 104 (98-107) mEq/L Carbon Dioxide 35 H (21-32) mEq/L Anion Gap 6.4 (5-15) BUN 25 H (7-18) mg/dL Creatinine 0.8 (0.55-1.02) mg/dL Est Cr Clr Drug Dosing 57.27 mL/min Estimated GFR (MDRD) > 60 (>60) mL/min BUN/Creatinine Ratio 31.3 H (14-18) Glucose 164 H (83-115) mg/dL Calcium 8.8 (8.5-10.1) mg/dL Total Bilirubin 0.4 (0.2-1.0) mg/dL AST 10 L (15-37) U/L ALT 13 L (14-59) U/L Alkaline Phosphatase 51 (46-116) U/L Troponin I < 0.017 (0.00-0.056) ng/mL NT-Pro-B Natriuret Pep 282 (0-450) pg/mL Total Protein 6.1 L (6.4-8.2) g/dl Albumin 2.8 L (3.4-5.0) g/dl Globulin 3.3 gm/dL Albumin/Globulin Ratio 0.9 L (1-2) Result Diagrams: 03/13/19 17:05 03/13/19 17:05 - Problem List (1) COPD exacerbation SNOMED Code(s): 990380826 ICD Code: J44.1 - CHRONIC OBSTRUCTIVE PULMONARY DISEASE W (ACUTE) EXACERBATION Status: Acute Current Visit: Yes (2) Hyperglycemia due to type 2 diabetes mellitus SNOMED Code(s): 740050122029821, 417050964414468 ICD Code: E11.65 - TYPE 2 DIABETES MELLITUS WITH HYPERGLYCEMIA Status: Acute Current Visit: No Qualifiers: Diabetes mellitus mcfp insulin use: with exterminator helper use Qualified Code( s): E11.65 - Type 2 diabetes mellitus with hyperglycemia; Z79.4 - [facility] ( current) use of insulin Problem List Initiated/Reviewed/Updated: Yes Orders Last 24hrs: Active Orders 24 hr Category Date Time Status Admission Status [Patient Status] [ADT] Routine ADT 03/13/19 19:50 Active Antiembolic Devices [RC] PER UNIT ROUTINE Care 03/13/19 21:06 Ordered Oxygen Therapy [RC] PRN Care 03/13/19 21:05 Ordered RT Aerosol Therapy [RC] ASDIRECTED Care 03/13/19 17:40 Active RT Aerosol Therapy [RC] ASDIRECTED Care 03/13/19 21:06 Ordered Up ad Molly [RC] ASDIRECTED Care 03/13/19 21:04 Ordered VTE/DVT Education [RC] PER UNIT ROUTINE Care 03/13/19 21:05 Ordered Vital Signs [RC] Q4H Care 03/13/19 21:05 Ordered Regular Diet [DIET] Diet 03/14/19 Breakfast Ordered Chest 2V [CR] Stat Exams 03/13/19 16:49 Taken ABG [BLOOD GAS ARTERIAL] [BG] Urgent Lab 03/13/19 21:02 Ordered C-REACTIVE PROTEIN [CHEM] AM Lab 03/14/19 05:11 Ordered CBC WITH AUTO DIFF [HEME] AM Lab 03/14/19 05:11 Ordered COMPREHENSIVE METABOLIC PN,CMP [CHEM] AM Lab 03/14/19 05:11 Ordered CULTURE SPUTUM + SMEAR [RM] Routine Lab 03/13/19 21:15 Ordered MAGNESIUM [CHEM] AM Lab 03/14/19 05:11 Ordered Acetaminophen [Tylenol] Med 03/13/19 21:04 Ordered 650 mg PO Q4H PRN Albuterol [Proventil Neb Soln] Med 03/13/19 21:04 Ordered 2.5 mg NEB Q2H PRN Albuterol/Ipratropium [DuoNeb 3.0-0.5 MG/3 ML] Med 03/14/19 03:00 Ordered 3 ml NEB Q6HRRT Ondansetron [Zofran ODT] Med 03/13/19 21:04 Ordered 4 mg PO Q4H PRN cefTRIAXone [Rocephin] 2 gm Med 03/13/19 21:15 Ordered Sodium Chloride 0.9% [Normal Saline] 100 ml IV Q24H predniSONE Med 03/13/19 21:14 Stat 40 mg PO NOW STA predniSONE Med 03/14/19 07:00 Ordered 40 mg PO WITHBREAKFAST Sequential Compression Device [OM.PC] Per Unit Routine Oth 03/13/19 21:05 Ordered Resuscitation Status Routine Resus Stat 03/13/19 21:04 Ordered Medication Orders Acetaminophen (Tylenol) 650 mg PO Q4H PRN PRN Reason: Pain (Mild 1-3)/fever Albuterol (Proventil Neb Soln) 2.5 mg NEB Q2H PRN PRN Reason: Shortness Of Breath/wheezing Albuterol/Ipratropium (Duoneb 3.0-0.5 Mg/3 Ml) 3 ml NEB Q6HRRT FITO Ceftriaxone Sodium 2 gm/ (Sodium Chloride) 100 mls @ 200 mls/hr IV Q24H FITO Ondansetron HCl (Zofran Odt) 4 mg PO Q4H PRN PRN Reason: nausea, able to take PO Prednisone (Prednisone) 40 mg PO WITHBREAKFAST FITO Prednisone (Prednisone) 40 mg PO NOW STA Stop: 03/13/19 21:15 Assessment/Plan Comment:: Assessment * 78-year-old female with oxygen dependent COPD on 5 L per patient at baseline is admitted to observation for exacerbation of COPD. * Chronic medical history: CHF, diabetes, hypertension, hyperlipidemia, hypothyroidism, obesity, schizophrenia * Chest x-ray demonstrates chronic pleural effusions Plan * observation status * oral steroids, nebulizers with albuterol and ipratropium bromide, O2 support, ABG, repeat labs in the morning. * Rocephin 2 g every 24 hours for exacerbation of COPD * Await official reading of chest x-ray * Sputum cultures * CODE STATUS: DNR/DNI
[2019-03-13] MEDS ORDERED: Potassium Chloride 20 MEQ Tab.ER PO ONE (21:28)
[2019-03-13] MEDS ORDERED: cefTRIAXone 2 GM in Sodium Chloride 0.9% 100 ML IV SCH (22:00)
[2019-03-13] MEDS: Insulin Lispro 100 Units/ML 3 ML Vial SUBCUT SCH (22:24)
[2019-03-13] MEDS: Divalproex Sodium Delayed-Release 500 MG Tab.CR PO SCH (23:59)
[2019-03-14] MEDS: Albuterol/Ipratropium 3.0-0.5 MG/3 ML Neb Soln NEB SCH ×2 (02:41→08:41)
[2019-03-14] MEDS ORDERED: predniSONE 20 MG Tab PO SCH (07:00)
[2019-03-14] MEDS ORDERED: Insulin Glarg,Human.Rec.Analog 100 UNIT/ML ML SUBCUT SCH (08:00)
[2019-03-14 08:12] LABS: HEMOGLOBIN A1C 6.1 % (4.50-6.20)
[2019-03-14] MEDS ORDERED: Insulin Glarg,Human.Rec.Analog 100 UNIT/ML ML ONE (08:20)
[2019-03-14] MEDS: Insulin Lispro 100 Units/ML 3 ML Vial SUBCUT SCH ×4 (08:26→12:14)
[2019-03-14] MEDS: Divalproex Sodium Delayed-Release 500 MG Tab.CR PO SCH (08:28)
[2019-03-14] MEDS ORDERED: guaiFENesin 600 MG Tab.ER PO SCH (09:00)
[2019-03-14] MEDS ORDERED: Aspirin 81 MG Tab.EC PO SCH (09:00)
[2019-03-14] MEDS ORDERED: Magnesium Oxide 400 MG Tab PO SCH (09:00)
[2019-03-14] MEDS ORDERED: PALIPERIDONE 12 MG PO SCH (09:00)
--- NOTE | 2019-03-14 09:07 | CR ---
Chest: Two views of the chest are obtained. Comparison: Prior chest x-ray of 06/12/19. Heart is slightly enlarged. Tortuous thoracic aorta is seen. Mild parenchymal density is noted within the left lung base possibly chronic. No acute parenchymal change is suspected. Bony structures show scattered degenerative change within the spine with osteopenia. Mild scoliosis is also seen. Impression: 1. Findings believed to be incidental as described above. Nothing acute is suspected. Diagnostic code #2
--- NOTE | 2019-03-14 11:43 | PCM.DCSUM1 ---
Discharge Summary - Hospital Course HPI Initial Comments: 78-year-old patient who lives in detention presented to the emergency room after she was found to have a low pulse ox. They noted "a low grade temp," however she did not have a temperature in the emergency room. She hasn't history of severe COPD and is on 5 L nasal cannula of O2 at the detention. She does state she has a mild cough. In the emergency room she received nebulizers and they increased her SPO2 to 6 L per nasal cannula. I walked into the emergency room she was satting 95-97% on 6 L start down to 95% and she stayed in the low to mid 90s. EKG is reported as normal, do not have it available to me. I did review the chest x-ray which showed no acute infiltrate. There does appear to be a left pleural effusion consistent with what was seen on CT scan in January. BNP was 282 with troponin less than 0.017. Potassium was slightly low at 3.4. White count was normal. Brief History: patient was admitted to observation and given 2 g Rocephin and prednisone 40 mg by mouth last night and 40 mg this morning. Patient is doing well on back on her baseline 5 L/min nasal cannula O2. She is ready for discharge. 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 Qualified Code( s): E11.65 - Type 2 diabetes mellitus with hyperglycemia; 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 - Patient Instructions Diet: Diabetic Diet Activity: As Tolerated Driving: Do Not Drive Showering/Bathing: January Shower Notify Provider of: Fever - Discharge Plan *PRESCRIPTION DRUG MONITORING PROGRAM REVIEWED*: No *COPY OF PRESCRIPTION DRUG MONITORING REPORT IN PATIENT DAYAMI: No Prescriptions/Med Rec: Amoxicillin/Clavulanate K [Augmentin 875-125 MG] 1 tab PO Q12H #4 tablet Home Medications: Home Meds Calcium Carbonate/Vitamin D3 [Calcium 600 + Vit D 200] 1 each PO BID 09/03/17 [ History] Cranberry Fruit Extract [Cranberry] 400 mg PO BID 09/03/17 [History] Insulin Aspart [Novolog Flexpen] 18 unit SQ TIDMEALS 09/03/17 [History] Insulin Detemir [Levemir] 40 unit SQ QAM 09/03/17 [History] Liraglutide [Victoza] 1.8 mg SUBCUT BEDTIME 09/03/17 [History] Magnesium Oxide [Magnesium] 400 mg PO BID 09/03/17 [History] Multivitamin [Daily Multiple Vitamin] 1 tab PO DAILY 09/03/17 [History] OLANZapine [Zyprexa] 15 mg PO BEDTIME 09/03/17 [History] Paliperidone [Invega] 12 mg PO DAILY 09/03/17 [History] Ranitidine [Zantac] 150 mg PO BID 09/03/17 [History] guaiFENesin [Mucinex] 600 mg PO BID 09/03/17 [History] Albuterol/Ipratropium [DuoNeb 3.0-0.5 MG/3 ML] 3 ml INH QID PRN 09/08/17 [ History] Divalproex Sodium [Depakote] 500 mg PO BID 09/08/17 [History] Aspirin [Halfprin] 81 mg PO DAILY 11/04/17 [History] Acetaminophen [Pain Reliever] 650 mg PO QID PRN 03/13/19 [History] Furosemide [Lasix] 20 mg PO BID 03/13/19 [History] Sennosides [Senna] 2 tab PO BID 03/13/19 [History] Acetaminophen [Tylenol] 650 mg PO Q4H PRN tablet 03/14/19 [Rx] Albuterol [Proventil Neb Soln] 2.5 mg NEB Q2H PRN neb 03/14/19 [Rx] Albuterol/Ipratropium [DuoNeb 3.0-0.5 MG/3 ML] 3 ml NEB Q6HRRT neb 03/14/19 [Rx ] Amoxicillin/Clavulanate K [Augmentin 875-125 MG] 1 tab PO Q12H #4 tablet [Rx] Oxygen Flow Rate (L/min): 5 Forms: ED Department Discharge Referrals: Ray Bonilla MD [Primary Care Provider] - - Discharge Summary/Plan Comment DC Time >30 min.: No Discharge Summary/Plan Comment: discharge patient on Augmentin. Follow-up with primary care this week. - General Info Date of Service: 03/14/19 Admission Dx/Problem (Free Text: Admission Diagnosis/Problem Admission Diagnosis/Problem COPD, Mild chronic obstructive pulmonary disease Subjective Update: patient is doing much better. She is ready to discharge back home. Functional Status: Reports: Pain Controlled - Review of Systems General: Reports: No Symptoms HEENT: Reports: No Symptoms Pulmonary: Reports: Shortness of Breath Cardiovascular: Reports: No Symptoms. Denies: Chest Pain, Dyspnea on Exertion Gastrointestinal: Reports: No Symptoms Skin: Reports: No Symptoms Neurological: Reports: No Symptoms - Patient Data Vitals - Most Recent: Last Vital Signs Temp 97.7 F 03/14/19 08:37 Pulse 87 03/14/19 08:37 Resp 20 03/14/19 08:37 BP 118/67 03/14/19 08:37 Pulse Ox 97 03/14/19 08:41 Weight - Most Recent: 206 lb 9.6 oz I&O - Last 24 hours: Intake & Output 03/13/19 03/14/19 03/14/19 22:59 06:59 14:59 Intake Total 142 Balance 142 Lab Results - Last 24 hrs: Laboratory Results - last 24 hr 03/13/19 03/13/19 03/13/19 Range/Units 17:05 17:05 17:05 WBC 8.34 (3.98-10.04) K/mm3 RBC 3.99 (3.98-5.22) M/mm3 Hgb 13.2 D (11.2-15.7) gm/L Hct 41.3 (34.1-44.9) % MCV 103.5 H (79.4-94.8) fl MCH 33.1 H (25.6-32.2) pg MCHC 32.0 L (32.2-35.5) g/dl RDW Std Deviation 52.3 H (36.4-46.3) fL Plt Count 211 (182-369) K/mm3 MPV 9.0 L (9.4-12.3) fl Neut % (Auto) (34.0-71.1) % Lymph % (Auto) (19.3-51.7) % [place] % (Auto) (4.7-12.5) % Eos % (Auto) (0.7-5.8) Baso % (Auto) (0.1-1.2) % Neut # (Auto) (1.56-6.13) K/mm3 Lymph # (Auto) (1.18-3.74) K/mm3 [place] # (Auto) (0.24-0.36) K/mm3 Eos # (Auto) (0.04-0.36) K/mm3 Baso # (Auto) (0.01-0.08) K/mm3 Neutrophils % (Manual) 71 H (40-60) % Band Neutrophils % 0 (0-10) % Lymphocytes % (Manual) 21 (20-40) % Atypical Lymphs % 0 % Monocytes % (Manual) 7 (2-10) % Eosinophils % (Manual) 1 (0.7-5.8) % Basophils % (Manual) 0 L (0.1-1.2) Manual Slide Review Platelet Estimate Adequate RBC Morph Comment Normal Puncture Site ABG pH (7.35-7.45) ABG pCO2 (35.0-45.0) mmHg ABG pO2 (80.0-100.0) mmHg ABG HCO3 (22.0-26.0) meq/L ABG O2 Saturation (96.0-97.0) % ABG Base Excess (-2-2.0) Ryan Test A-a Gradient mmHg O2 Delivery Device Oxygen Flow Rate FiO2 (21.00-100.00) % Sodium 142 (136-145) mEq/L Potassium 3.4 L (3.5-5.1) mEq/L Chloride 104 (98-107) mEq/L Carbon Dioxide 35 H (21-32) mEq/L Anion Gap 6.4 (5-15) BUN 25 H (7-18) mg/dL Creatinine 0.8 (0.55-1.02) mg/dL Est Cr Clr Drug Dosing 57.27 mL/min Estimated GFR (MDRD) > 60 (>60) mL/min BUN/Creatinine Ratio 31.3 H (14-18) Glucose 164 H (83-115) mg/dL POC Glucose (83-110) mg/dL Hemoglobin A1c (4.50-6.20) % Calcium 8.8 (8.5-10.1) mg/dL Magnesium (1.8-2.4) mg/dl Total Bilirubin 0.4 (0.2-1.0) mg/dL AST 10 L (15-37) U/L ALT 13 L (14-59) U/L Alkaline Phosphatase 51 (46-116) U/L Troponin I < 0.017 (0.00-0.056) ng/mL C-Reactive Protein (<1.0) mg/dL NT-Pro-B Natriuret Pep 282 (0-450) pg/mL Total Protein 6.1 L (6.4-8.2) g/dl Albumin 2.8 L (3.4-5.0) g/dl Globulin 3.3 gm/dL Albumin/Globulin Ratio 0.9 L (1-2) 03/13/19 03/13/19 03/14/19 Range/Units 21:40 22:16 05:16 WBC 7.40 (3.98-10.04) K/mm3 RBC 3.88 L (3.98-5.22) M/mm3 Hgb 12.8 (11.2-15.7) gm/L Hct 40.0 (34.1-44.9) % MCV 103.1 H (79.4-94.8) fl MCH 33.0 H (25.6-32.2) pg MCHC 32.0 L (32.2-35.5) g/dl RDW Std Deviation 50.5 H (36.4-46.3) fL Plt Count 195 (182-369) K/mm3 MPV 8.9 L (9.4-12.3) fl Neut % (Auto) 87.1 H (34.0-71.1) % Lymph % (Auto) 9.7 L (19.3-51.7) % [place] % (Auto) 2.8 L (4.7-12.5) % Eos % (Auto) 0.1 L (0.7-5.8) Baso % (Auto) 0.0 L (0.1-1.2) % Neut # (Auto) 6.44 H (1.56-6.13) K/mm3 Lymph # (Auto) 0.72 L (1.18-3.74) K/mm3 [place] # (Auto) 0.21 L (0.24-0.36) K/mm3 Eos # (Auto) 0.01 L (0.04-0.36) K/mm3 Baso # (Auto) 0.00 L (0.01-0.08) K/mm3 Neutrophils % (Manual) (40-60) % Band Neutrophils % (0-10) % Lymphocytes % (Manual) (20-40) % Atypical Lymphs % % Monocytes % (Manual) (2-10) % Eosinophils % (Manual) (0.7-5.8) % Basophils % (Manual) (0.1-1.2) Manual Slide Review Abnormal smear Platelet Estimate RBC Morph Comment Puncture Site Lt radial ABG pH 7.42 (7.35-7.45) ABG pCO2 55.4 H (35.0-45.0) mmHg ABG pO2 68.0 L (80.0-100.0) mmHg ABG HCO3 34.9 H (22.0-26.0) meq/L ABG O2 Saturation 93.4 L (96.0-97.0) % ABG Base Excess 8.7 H (-2-2.0) Ryan Test Positive A-a Gradient 119 mmHg O2 Delivery Device Cannula Oxygen Flow Rate 5.0 FiO2 40.00 (21.00-100.00) % Sodium (136-145) mEq/L Potassium (3.5-5.1) mEq/L Chloride (98-107) mEq/L Carbon Dioxide (21-32) mEq/L Anion Gap (5-15) BUN (7-18) mg/dL Creatinine (0.55-1.02) mg/dL Est Cr Clr Drug Dosing mL/min Estimated GFR (MDRD) (>60) mL/min BUN/Creatinine Ratio (14-18) Glucose (83-115) mg/dL POC Glucose 96 (83-110) mg/dL Hemoglobin A1c (4.50-6.20) % Calcium (8.5-10.1) mg/dL Magnesium (1.8-2.4) mg/dl Total Bilirubin (0.2-1.0) mg/dL AST (15-37) U/L ALT (14-59) U/L Alkaline Phosphatase (46-116) U/L Troponin I (0.00-0.056) ng/mL C-Reactive Protein (<1.0) mg/dL NT-Pro-B Natriuret Pep (0-450) pg/mL Total Protein (6.4-8.2) g/dl Albumin (3.4-5.0) g/dl Globulin gm/dL Albumin/Globulin Ratio (1-2) 03/14/19 03/14/19 03/14/19 Range/Units 05:16 05:16 05:26 WBC (3.98-10.04) K/mm3 RBC (3.98-5.22) M/mm3 Hgb (11.2-15.7) gm/L Hct (34.1-44.9) % MCV (79.4-94.8) fl MCH (25.6-32.2) pg MCHC (32.2-35.5) g/dl RDW Std Deviation (36.4-46.3) fL Plt Count (182-369) K/mm3 MPV (9.4-12.3) fl Neut % (Auto) (34.0-71.1) % Lymph % (Auto) (19.3-51.7) % [place] % (Auto) (4.7-12.5) % Eos % (Auto) (0.7-5.8) Baso % (Auto) (0.1-1.2) % Neut # (Auto) (1.56-6.13) K/mm3 Lymph # (Auto) (1.18-3.74) K/mm3 [place] # (Auto) (0.24-0.36) K/mm3 Eos # (Auto) (0.04-0.36) K/mm3 Baso # (Auto) (0.01-0.08) K/mm3 Neutrophils % (Manual) (40-60) % Band Neutrophils % (0-10) % Lymphocytes % (Manual) (20-40) % Atypical Lymphs % % Monocytes % (Manual) (2-10) % Eosinophils % (Manual) (0.7-5.8) % Basophils % (Manual) (0.1-1.2) Manual Slide Review Platelet Estimate RBC Morph Comment Puncture Site ABG pH (7.35-7.45) ABG pCO2 (35.0-45.0) mmHg ABG pO2 (80.0-100.0) mmHg ABG HCO3 (22.0-26.0) meq/L ABG O2 Saturation (96.0-97.0) % ABG Base Excess (-2-2.0) Ryan Test A-a Gradient mmHg O2 Delivery Device Oxygen Flow Rate FiO2 (21.00-100.00) % Sodium 144 (136-145) mEq/L Potassium 4.6 (3.5-5.1) mEq/L Chloride 105 (98-107) mEq/L Carbon Dioxide 32 (21-32) mEq/L Anion Gap 11.6 (5-15) BUN 27 H (7-18) mg/dL Creatinine 0.6 (0.55-1.02) mg/dL Est Cr Clr Drug Dosing 73.51 mL/min Estimated GFR (MDRD) > 60 (>60) mL/min BUN/Creatinine Ratio 45.0 H (14-18) Glucose 195 H (83-115) mg/dL POC Glucose 188 H (83-110) mg/dL Hemoglobin A1c 6.10 (4.50-6.20) % Calcium 8.8 (8.5-10.1) mg/dL Magnesium 2.3 (1.8-2.4) mg/dl Total Bilirubin 0.3 (0.2-1.0) mg/dL AST 11 L (15-37) U/L ALT 13 L (14-59) U/L Alkaline Phosphatase 50 (46-116) U/L Troponin I (0.00-0.056) ng/mL C-Reactive Protein 3.1 H* (<1.0) mg/dL NT-Pro-B Natriuret Pep (0-450) pg/mL Total Protein 6.1 L (6.4-8.2) g/dl Albumin 2.6 L (3.4-5.0) g/dl Globulin 3.5 gm/dL Albumin/Globulin Ratio 0.7 L (1-2) 03/14/19 Range/Units 10:43 WBC (3.98-10.04) K/mm3 RBC (3.98-5.22) M/mm3 Hgb (11.2-15.7) gm/L Hct (34.1-44.9) % MCV (79.4-94.8) fl MCH (25.6-32.2) pg MCHC (32.2-35.5) g/dl RDW Std Deviation (36.4-46.3) fL Plt Count (182-369) K/mm3 MPV (9.4-12.3) fl Neut % (Auto) (34.0-71.1) % Lymph % (Auto) (19.3-51.7) % [place] % (Auto) (4.7-12.5) % Eos % (Auto) (0.7-5.8) Baso % (Auto) (0.1-1.2) % Neut # (Auto) (1.56-6.13) K/mm3 Lymph # (Auto) (1.18-3.74) K/mm3 [place] # (Auto) (0.24-0.36) K/mm3 Eos # (Auto) (0.04-0.36) K/mm3 Baso # (Auto) (0.01-0.08) K/mm3 Neutrophils % (Manual) (40-60) % Band Neutrophils % (0-10) % Lymphocytes % (Manual) (20-40) % Atypical Lymphs % % Monocytes % (Manual) (2-10) % Eosinophils % (Manual) (0.7-5.8) % Basophils % (Manual) (0.1-1.2) Manual Slide Review Platelet Estimate RBC Morph Comment Puncture Site ABG pH (7.35-7.45) ABG pCO2 (35.0-45.0) mmHg ABG pO2 (80.0-100.0) mmHg ABG HCO3 (22.0-26.0) meq/L ABG O2 Saturation (96.0-97.0) % ABG Base Excess (-2-2.0) Ryan Test A-a Gradient mmHg O2 Delivery Device Oxygen Flow Rate FiO2 (21.00-100.00) % Sodium (136-145) mEq/L Potassium (3.5-5.1) mEq/L Chloride (98-107) mEq/L Carbon Dioxide (21-32) mEq/L Anion Gap (5-15) BUN (7-18) mg/dL Creatinine (0.55-1.02) mg/dL Est Cr Clr Drug Dosing mL/min Estimated GFR (MDRD) (>60) mL/min BUN/Creatinine Ratio (14-18) Glucose (83-115) mg/dL POC Glucose 272 H (83-110) mg/dL Hemoglobin A1c (4.50-6.20) % Calcium (8.5-10.1) mg/dL Magnesium (1.8-2.4) mg/dl Total Bilirubin (0.2-1.0) mg/dL AST (15-37) U/L ALT (14-59) U/L Alkaline Phosphatase (46-116) U/L Troponin I (0.00-0.056) ng/mL C-Reactive Protein (<1.0) mg/dL NT-Pro-B Natriuret Pep (0-450) pg/mL Total Protein (6.4-8.2) g/dl Albumin (3.4-5.0) g/dl Globulin gm/dL Albumin/Globulin Ratio (1-2) Med Orders - Current: Current Medications Acetaminophen (Tylenol) 650 mg PO Q4H PRN PRN Reason: Pain (Mild 1-3)/fever Albuterol (Proventil Neb Soln) 2.5 mg NEB Q2H PRN PRN Reason: Shortness Of Breath/wheezing Albuterol/Ipratropium (Duoneb 3.0-0.5 Mg/3 Ml) 3 ml NEB Q6HRRT [facility] Last Admin: 03/14/19 08:41 Dose: 3 ml Aspirin (Halfprin) 81 mg PO DAILY [facility] Last Admin: 03/14/19 08:28 Dose: 81 mg Divalproex Sodium (Depakote) 500 mg PO BID [facility] Last Admin: 03/14/19 08:28 Dose: 500 mg Guaifenesin (Mucinex) 600 mg PO BID [facility] Last Admin: 03/14/19 08:28 Dose: 600 mg Ceftriaxone Sodium 2 gm/ (Sodium Chloride) 100 mls @ 200 mls/hr IV Q24H [facility] Last Admin: 03/13/19 23:36 Dose: 200 mls/hr Insulin Glargine (Lantus) 40 unit SUBCUT QAM [facility] Last Admin: 03/14/19 08:29 Dose: 40 units Insulin Human Lispro (Humalog) 0 unit SUBCUT QIDACANDBED [facility]; Protocol Last Admin: 03/14/19 08:26 Dose: 2 units Insulin Human Lispro (Humalog) 10 unit SUBCUT TIDAC [facility] Last Admin: 03/14/19 08:27 Dose: 10 units Magnesium Oxide (Magnesium Oxide) 400 mg PO BID [facility] Last Admin: 03/14/19 08:29 Dose: 400 mg Olanzapine (Zyprexa) 15 mg PO BEDTIME [facility] Ondansetron HCl (Zofran Odt) 4 mg PO Q4H PRN PRN Reason: nausea, able to take PO Paliperidone [Invega (] 12 Mg) 0 each PO DAILY [facility] Last Admin: 03/14/19 08:35 Dose: Not Given Prednisone (Prednisone) 40 mg PO WITHBREAKFAST [facility] Last Admin: 03/14/19 08:29 Dose: 40 mg Discontinued Medications Albuterol/Ipratropium (Duoneb 3.0-0.5 Mg/3 Ml) 3 ml NEB ONETIME ONE Stop: 03/13/19 17:41 Last Admin: 03/13/19 18:06 Dose: 3 ml Potassium Chloride (Klor-Con M20) 40 meq PO ONETIME ONE Stop: 03/13/19 21:29 Last Admin: 03/13/19 22:23 Dose: 40 meq Prednisone (Prednisone) 40 mg PO NOW STA Stop: 03/13/19 21:15 Last Admin: 03/13/19 22:24 Dose: 40 mg - Exam Quality Assessment: Reports: Supplemental Oxygen General: Reports: Alert, Oriented HEENT: Reports: Pupils Equal Neck: Reports: Supple Lungs: Reports: Clear to Auscultation, Normal Respiratory Effort, Decreased Breath Sounds Cardiovascular: Reports: Regular Rate, Regular Rhythm GI/Abdominal Exam: Normal Bowel Sounds, Soft, Non-Tender, No Organomegaly, No Distention Skin: Reports: Warm, Dry, Intact Psy/Mental Status: Reports: Alert, Normal Affect, Normal Mood
[2019-03-14 12:21] VITALS: BP 106/70
[2019-03-14] MEDS ORDERED: OLANZapine 5 MG Tab PO SCH (21:00)
== END 2019-03-14 14:20 ==
LOC: JD.ED 16:34 → JD.MS 20:19
PROVIDERS: ADMIT Family Medicine; ATTEND Family Medicine
DX: J44.1 Chronic obstructive pulmonary disease with (acute) exacerbation (principal); E11.65 Type 2 diabetes mellitus with hyperglycemia; I11.0 Hypertensive heart disease with heart failure; I50.9 Heart failure, unspecified; E11.40 Type 2 diabetes mellitus with diabetic neuropathy, unspecified; E78.00 Pure hypercholesterolemia, unspecified; E03.9 Hypothyroidism, unspecified; E66.9 Obesity, unspecified; F20.9 Schizophrenia, unspecified; Z99.81 Dependence on supplemental oxygen; Z66 Do not resuscitate; Z91.02 Food additives allergy status; Z79.4 Long term (current) use of insulin; Z79.82 Long term (current) use of aspirin; Z79.899 Other long term (current) drug therapy
CPT/HCPCS: 36415; 36600; 71046; 80053; 82803; 82962; 83036; 83735; 83880; 84484; 85007; 85025; 85027; 86140; 87070; 93005; 94640; 94761; 99285; A9270; J0696; J1815; J7030; 93010; 96365; 99283; G0378; J7620-GY

== ENCOUNTER 2019-06-10 08:06 | Emergency (ER) | payer MEDICARE, MEDICAID ==
[2019-06-10 08:21] VITALS: BP 96/48; PULSE 95
[2019-06-10] MEDS ORDERED: Sodium Chloride 0.9% 1,000 ML IV SCH (08:45)
--- NOTE | 2019-06-10 08:45 | EDM.PDOC ---
ED HPI GENERAL MEDICAL PROBLEM - General Chief Complaint: Respiratory Problem Stated Complaint: [facility] Time Seen by Provider: 06/10/19 08:42 Source of Information: Reports: Patient, EMS History Limitations: Reports: Physical Impairment (Mildly hard of hearing. He have to repeat herself quite a bit with her to get an answer but for the most part I believe her answers are tooth full and correct.) - History of Present Illness INITIAL COMMENTS - FREE TEXT/NARRATIVE: 78-year-old female from [place] home with comfort sent down to the hospital for evaluation of persistent hypoxia. Apparently she is on 5 L of oxygen at all times and they could not keep her sats above 85% all night long. In the ambulance it was around 96%. In the ER it is 92-93% on 5 L/m at rest. Blood pressure is bit on the low side with 95 systolic. She states she doesn't feel well but she has diffuse abdominal discomfort. She's had no bad chills. She denies any cough or sputum production. She's been eating and drinking normally. She is bedridden or wheelchair bound. She does not walk anymore. She denies having any diarrhea nausea vomiting. She is an insulin-dependent diabetic. Has not ate or drink taken any of her meds yet today. Onset: Sudden Onset Date: 06/09/19 (Or C-arm reports difficulties keeping her O2 sats greater than 85% all night long.) Duration: Hour(s):, Constant Location: Reports: Other (Sent to the ED for evaluation of persistent hypoxemia with O2 sats of only 80 5D6 percent on 5 L/m at all times. Note she is on 5 L of oxygen at all times due to underlying emphysematous change in her lungs.) Quality: Reports: Other Severity: Moderate (Dyspnea and hypoxemia by report.) Improves with: Reports: Other (Her O2 sats here are improved to 91-93% on 5 L which is her norm.) Worsens with: Reports: Movement Context: Denies: Activity (Activity), Exercise, Lifting, Sick Contact, Trauma Associated Symptoms: Reports: Confusion, Cough, Malaise, Shortness of Breath, Weakness (Chronically). Denies: No Other Symptoms, Chest Pain (Nonproductive), cough w sputum, Diaphoresis, Fever/Chills, Headaches (Denies fever or chills.), Loss of Appetite, Nausea/Vomiting, Rash, Seizure Treatments [facility] ADMINISTRATOR: Reports: Other (see below) (Oxygen at 5 L/m all times.) - Related Data Allergies Allergy/AdvReac Type Severity Reaction Status Date / Time clindamycin Allergy unknown Verified 06/10/19 08:21 herbs in pizza Allergy Cannot Uncoded 06/10/19 08:21 Remember Home Meds: Home Meds Calcium Carbonate/Vitamin D3 [Calcium 600 + Vit D 200] 1 each PO BID 09/03/17 [ History] Cranberry Fruit Extract [Cranberry] 400 mg PO BID 09/03/17 [History] Insulin Aspart [Novolog Flexpen] 18 unit SQ TIDMEALS 09/03/17 [History] Insulin Detemir [Levemir] 40 unit SQ QAM 09/03/17 [History] Liraglutide [Victoza] 1.8 mg SUBCUT BEDTIME 09/03/17 [History] Magnesium Oxide [Magnesium] 400 mg PO BID 09/03/17 [History] Multivitamin [Daily Multiple Vitamin] 1 tab PO DAILY 09/03/17 [History] OLANZapine [Zyprexa] 15 mg PO BEDTIME 09/03/17 [History] Paliperidone [Invega] 12 mg PO DAILY 09/03/17 [History] Ranitidine [Zantac] 150 mg PO BID 09/03/17 [History] guaiFENesin [Mucinex] 600 mg PO BID 09/03/17 [History] Albuterol/Ipratropium [DuoNeb 3.0-0.5 MG/3 ML] 3 ml INH QID PRN 09/08/17 [ History] Divalproex Sodium [Depakote] 500 mg PO BID 09/08/17 [History] Aspirin [Halfprin] 81 mg PO DAILY 11/04/17 [History] Acetaminophen [Pain Reliever] 650 mg PO QID PRN 03/13/19 [History] Furosemide [Lasix] 20 mg PO BID 03/13/19 [History] Sennosides [Senna] 2 tab PO BID 03/13/19 [History] Acetaminophen [Tylenol] 650 mg PO Q4H PRN tablet 03/14/19 [Rx] Albuterol [Proventil Neb Soln] 2.5 mg NEB Q2H PRN neb 03/14/19 [Rx] Amoxicillin/Clavulanate K [Augmentin 875-125 MG] 1 tab PO Q12H #4 tablet [Rx] Budesonide [Pulmicort] 2 ml NEB BID 03/14/19 [History] Ipratropium/Albuterol Sulfate [Iprat-Albut 0.5-3(2.5) mg/3 ml] 3 ml NEB Q6HR 10/02 [History] Doxycycline [Vibramycin] 100 mg PO BID #18 cap 06/10/19 [Rx] Past Medical History HEENT History: Reports: Cataract Cardiovascular History: Reports: Heart Failure, High Cholesterol, Hypertension Other Cardiovascular History: edema, hyponatremia Respiratory History: Reports: COPD, Pneumonia, Recurrent, Other (See Below) Other Respiratory History: oxygen use at home, hypoxemia Gastrointestinal History: Reports: Pancreatitis, Other (See Below) Other Gastrointestinal History: pancreatic mass Genitourinary History: Reports: Urinary Incontinence Musculoskeletal History: Reports: Arthritis Other Musculoskeletal History: ingrown nail Neurological History: Reports: Neuropathy, Diabetic Other Neuro History: resting tremor left arm Psychiatric History: Reports: Anxiety, Schizophrenia Other Psychiatric History: delusional disorder Endocrine/Metabolic History: Reports: Diabetes, Type II, Hypothyroidism, Obesity /BMI 30+, Vitamin D Deficiency Oncologic (Cancer) History: Reports: Other (See Below) Other Oncologic History: Pancreatic mass (dx 2013) of unknown etiology - no tx desired Dermatologic History: Reports: Other (See Below) Other Dermatologic History: rash and other nonspecific skin eruption-bilateral groins - Infectious Disease History Infectious Disease History: Reports: MRSA - Past Surgical History Other Oncologic Surgeries/Procedures: PANCREATIC MASS Social & Family History - Family History Family Medical History: Noncontributory - Caffeine Use Caffeine Use: Reports: None - Living Situation & Occupation Living situation: Reports: Extended Care Facility Occupation: Retired ED ROS GENERAL - Review of Systems Review Of Systems: See Below Constitutional: Reports: Malaise, Weakness, Fatigue. Denies: Fever, Chills HEENT: Reports: Other Respiratory: Reports: Shortness of Breath (Mild macular degeneration degeneration in her history.), Cough, Other (Nonproductive). Denies: Wheezing, Pleuritic Chest Pain Cardiovascular: Reports: Blood Pressure Problem, Dyspnea on Exertion (HAS a trace edema both lower extremities), Edema. Denies: Chest Pain ( emphysema and oxygen dependency at 5 L/m all times.), Claudication, Lightheadedness, Orthopnea Endocrine: Reports: Fatigue GI/Abdominal: Reports: Abdominal Pain (Diffuse upper abdominal discomfort today. ), Constipation. Denies: Nausea, Vomiting : Reports: Frequency, Incontinence (Both stress and urge components.) Musculoskeletal: Reports: Neck Pain (Both knees both hips.), Shoulder Pain, Back Pain, Joint Pain Skin: Reports: No Symptoms Neurological: Reports: Confusion (Occasional confusion episodes.), Difficulty Walking, Weakness. Denies: Seizure, Syncope, Tingling, Tremors, Trouble Speaking (She no longer walks. She is wheelchair dependent), Change in Speech, Gait Disturbance Psychiatric: Reports: Anxiety Hematologic/Lymphatic: Reports: No Symptoms Immunologic: Reports: No Symptoms ED EXAM, GENERAL - Physical Exam Exam: See Below Exam Limited By: No Limitations General Appearance: Alert, WD/WN, No Apparent Distress, Other (Temperature is 36.9 by nurse recording pulse is 95. Respiratory 20 with sats of 93% on 5 L/m. BP 96/48 which is a little low for her.) Eye Exam: Bilateral Eye: Normal Inspection (Mild bifrontal pallor.) Throat/Mouth: Normal Inspection, Normal Oropharynx (Lips are dry and chapped. Tongue is fairly moist.), Other Head: Atraumatic, Normocephalic Neck: Normal Inspection, Supple, Non-Tender, Full Range of Motion. No: Lymphadenopathy (L), Lymphadenopathy (R) Respiratory/Chest: Lungs Clear, Normal Breath Sounds, Respiratory Distress, Decreased Breath Sounds (Mild tachypnea. Researched to the lower 25% lung doran bilaterally.). No: Rales, Rhonchi, Wheezing Cardiovascular: Normal Peripheral Pulses, Regular Rate, Rhythm, No Gallop, No JVD, No Murmur. No: No Edema Peripheral Pulses: 1+: Posterior Tibial (L), Posterior Tibial (R), Dorsalis Pedis (L), Dorsalis Pedis (R) GI/Abdominal: Normal Bowel Sounds, Distended (Creatinine is very firm to palpation and distended. Slight tympany to percussion upper abdomen due to aerophagia.), Tender (Tender periumbilically.), Other. No: Guarding, Rigid, Rebound Back Exam: Decreased Range of Motion Extremities: Pedal Edema (Trace pedal edema bilaterally.), Joint Swelling (Both knees are warm to palpation with very limited internal/external rotation of either hip due to arthritis.) Neurological: Alert, Oriented, CN II-XII Intact, Normal Cognition. No: Normal Gait (No longer walks.), Normal Reflexes Psychiatric: Normal Affect, Normal Mood Skin Exam: Warm, Dry, Intact, Pallor (Marked pallor but that his norm.) EKG INTERPRETATION EKG Date: 06/10/19 Time: 08:52 Rhythm: NSR Rate (Beats/Min): 90 [place]: LAD-Left [place] Deviation (-25) P-Wave: Present QRS: Other (Early R-wave transition suspect right ventricular prickly pattern. 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 There is decreased voltage throughout the limb leads.) ST-T: Other (T-wave flattening in V1 leads 3 and aVF.) QT: Prolonged (Mildly prolonged.) EKG Interpretation Comments: Abnormal ECG. Course - Vital Signs Last Recorded V/S: Last Vital Signs Temp 36.9 C 06/10/19 08:16 Pulse 95 06/10/19 08:16 Resp 20 06/10/19 08:16 BP 96/48 L 06/10/19 08:16 Pulse Ox 93 L 06/10/19 12:04 - Orders/Labs/Meds Orders: Active Orders 24 hr Category Date Time Status Blood Glucose Check, Bedside [RC] ONETIME Care 06/10/19 08:54 Active EKG Documentation Completion [RC] STAT Care 06/10/19 08:43 Active [place] Catheter Insertion [Insert Urinary Catheter] [OM. Care 06/10/19 10:54 Ordered PC] Stat RT Aerosol Therapy [RC] ASDIRECTED Care 06/10/19 11:53 Active Urinary Catheter Assessment [RC] ASDIRECTED Care 06/10/19 10:55 Active CULTURE BLOOD [BC] Stat Lab 06/10/19 09:15 Received CULTURE BLOOD [BC] Stat Lab 06/10/19 09:30 Received Sodium Chloride 0.9% [Normal Saline] 1,000 ml Med 06/10/19 08:45 Active IV ASDIRECTED Blood Culture x2 Reflex Set [OM.PC] Stat Oth 06/10/19 08:44 Ordered Medication Orders Sodium Chloride (Normal Saline) 1,000 mls @ 125 mls/hr IV ASDIRECTED FITO Last Admin: 06/10/19 09:45 Dose: 125 mls/hr Labs: Laboratory Tests 06/10/19 06/10/19 06/10/19 Range/Units 09:15 09:15 09:15 WBC 7.47 (3.98-10.04) K/mm3 RBC 3.77 L (3.98-5.22) M/mm3 Hgb 12.3 (11.2-15.7) gm/dl Hct 40.1 (34.1-44.9) % MCV 106.4 H D (79.4-94.8) fl MCH 32.6 H (25.6-32.2) pg MCHC 30.7 L (32.2-35.5) g/dl RDW Std Deviation 55.8 H (36.4-46.3) fL Plt Count 160 L (182-369) K/mm3 MPV 8.5 L (9.4-12.3) fl Neutrophils % (Manual) 89 H (40-60) % Band Neutrophils % 2 (0-10) % Lymphocytes % (Manual) 3 L (20-40) % Atypical Lymphs % 0 % Monocytes % (Manual) 3 (2-10) % Eosinophils % (Manual) 3 (0.7-5.8) % Basophils % (Manual) 0 L (0.1-1.2) Platelet Estimate Adequate Anisocytosis 1+ slight Macrocytosis 1+ slight RBC Morph Comment Abnormal ESR (0-20) mm/hr PT 10.8 (9.7-12.0) SECONDS INR 0.99 APTT (22-31) SECONDS Sodium 143 (136-145) mEq/L Potassium 4.1 (3.5-5.1) mEq/L Chloride 105 (98-107) mEq/L Carbon Dioxide 36 H (21-32) mEq/L Anion Gap 6.1 (5-15) BUN 14 (7-18) mg/dL Creatinine 0.6 (0.55-1.02) mg/dL Est Cr Clr Drug Dosing TNP Estimated GFR (MDRD) > 60 (>60) mL/min BUN/Creatinine Ratio 23.3 H (14-18) Glucose 114 (83-115) mg/dL POC Glucose (83-110) mg/dL Calcium 8.2 L (8.5-10.1) mg/dL Magnesium 2.1 (1.8-2.4) mg/dl Total Bilirubin 0.3 (0.2-1.0) mg/dL AST 15 (15-37) U/L ALT 22 (14-59) U/L Alkaline Phosphatase 50 (46-116) U/L CK-MB (CK-2) < 0.5 (0-3.6) ng/ml Troponin I < 0.017 (0.00-0.056) ng/mL C-Reactive Protein 4.9 H* (<1.0) mg/dL NT-Pro-B Natriuret Pep (0-450) pg/mL Total Protein 6.2 L (6.4-8.2) g/dl Albumin 2.5 L (3.4-5.0) g/dl Globulin 3.7 gm/dL Albumin/Globulin Ratio 0.7 L (1-2) Urine Color (Yellow) Urine Appearance (Clear) Urine pH (5.0-8.0) Ur Specific Goodrich (1.005-1.030) Urine Protein (Negative) Urine Glucose (UA) (Negative) Urine Ketones (Negative) Urine Occult Blood (Negative) Urine Nitrite (Negative) Urine Bilirubin (Negative) Urine Urobilinogen (0.2-1.0) Ur Leukocyte Esterase (Negative) Urine RBC (0-5) /hpf Urine WBC (0-5) /hpf Ur Squamous Epith Cells (0-5) /hpf Urine Bacteria (FEW) /hpf Urine Mucus (FEW) /hpf 06/10/19 06/10/19 06/10/19 Range/Units 09:15 09:15 09:15 WBC (3.98-10.04) K/mm3 RBC (3.98-5.22) M/mm3 Hgb (11.2-15.7) gm/dl Hct (34.1-44.9) % MCV (79.4-94.8) fl MCH (25.6-32.2) pg MCHC (32.2-35.5) g/dl RDW Std Deviation (36.4-46.3) fL Plt Count (182-369) K/mm3 MPV (9.4-12.3) fl Neutrophils % (Manual) (40-60) % Band Neutrophils % (0-10) % Lymphocytes % (Manual) (20-40) % Atypical Lymphs % % Monocytes % (Manual) (2-10) % Eosinophils % (Manual) (0.7-5.8) % Basophils % (Manual) (0.1-1.2) Platelet Estimate Anisocytosis Macrocytosis RBC Morph Comment ESR 42 H (0-20) mm/hr PT (9.7-12.0) SECONDS INR APTT 35 H (22-31) SECONDS Sodium (136-145) mEq/L Potassium (3.5-5.1) mEq/L Chloride (98-107) mEq/L Carbon Dioxide (21-32) mEq/L Anion Gap (5-15) BUN (7-18) mg/dL Creatinine (0.55-1.02) mg/dL Est Cr Clr Drug Dosing Estimated GFR (MDRD) (>60) mL/min BUN/Creatinine Ratio (14-18) Glucose (83-115) mg/dL POC Glucose (83-110) mg/dL Calcium (8.5-10.1) mg/dL Magnesium (1.8-2.4) mg/dl Total Bilirubin (0.2-1.0) mg/dL AST (15-37) U/L ALT (14-59) U/L Alkaline Phosphatase (46-116) U/L CK-MB (CK-2) (0-3.6) ng/ml Troponin I (0.00-0.056) ng/mL C-Reactive Protein (<1.0) mg/dL NT-Pro-B Natriuret Pep 172 (0-450) pg/mL Total Protein (6.4-8.2) g/dl Albumin (3.4-5.0) g/dl Globulin gm/dL Albumin/Globulin Ratio (1-2) Urine Color (Yellow) Urine Appearance (Clear) Urine pH (5.0-8.0) Ur Specific Good[place] (1.005-1.030) Urine Protein (Negative) Urine Glucose (UA) (Negative) Urine Ketones (Negative) Urine Occult Blood (Negative) Urine Nitrite (Negative) Urine Bilirubin (Negative) Urine Urobilinogen (0.2-1.0) Ur Leukocyte Esterase (Negative) Urine RBC (0-5) /hpf Urine WBC (0-5) /hpf Ur Squamous Epith Cells (0-5) /hpf Urine Bacteria (FEW) /hpf Urine Mucus (FEW) /hpf 06/10/19 06/10/19 Range/Units 09:45 10:45 WBC (3.98-10.04) K/mm3 RBC (3.98-5.22) M/mm3 Hgb (11.2-15.7) gm/dl Hct (34.1-44.9) % MCV (79.4-94.8) fl MCH (25.6-32.2) pg MCHC (32.2-35.5) g/dl RDW Std Deviation (36.4-46.3) fL Plt Count (182-369) K/mm3 MPV (9.4-12.3) fl Neutrophils % (Manual) (40-60) % Band Neutrophils % (0-10) % Lymphocytes % (Manual) (20-40) % Atypical Lymphs % % Monocytes % (Manual) (2-10) % Eosinophils % (Manual) (0.7-5.8) % Basophils % (Manual) (0.1-1.2) Platelet Estimate Anisocytosis Macrocytosis RBC Morph Comment ESR (0-20) mm/hr PT (9.7-12.0) SECONDS INR APTT (22-31) SECONDS Sodium (136-145) mEq/L Potassium (3.5-5.1) mEq/L Chloride (98-107) mEq/L Carbon Dioxide (21-32) mEq/L Anion Gap (5-15) BUN (7-18) mg/dL Creatinine (0.55-1.02) mg/dL Est Cr Clr Drug Dosing Estimated GFR (MDRD) (>60) mL/min BUN/Creatinine Ratio (14-18) Glucose (83-115) mg/dL POC Glucose 99 (83-110) mg/dL Calcium (8.5-10.1) mg/dL Magnesium (1.8-2.4) mg/dl Total Bilirubin (0.2-1.0) mg/dL AST (15-37) U/L ALT (14-59) U/L Alkaline Phosphatase (46-116) U/L CK-MB (CK-2) (0-3.6) ng/ml Troponin I (0.00-0.056) ng/mL C-Reactive Protein (<1.0) mg/dL NT-Pro-B Natriuret Pep (0-450) pg/mL Total Protein (6.4-8.2) g/dl Albumin (3.4-5.0) g/dl Globulin gm/dL Albumin/Globulin Ratio (1-2) Urine Color Yellow (Yellow) Urine Appearance Clear (Clear) Urine pH 5.5 (5.0-8.0) Ur Specific [place] > or = 1.030 (1.005-1.030) Urine Protein Negative (Negative) Urine Glucose (UA) Negative (Negative) Urine Ketones Trace H (Negative) Urine Occult Blood Negative (Negative) Urine Nitrite Positive H (Negative) Urine Bilirubin Negative (Negative) Urine Urobilinogen 0.2 (0.2-1.0) Ur Leukocyte Esterase Negative (Negative) Urine RBC 0-5 (0-5) /hpf Urine WBC 0-5 (0-5) /hpf Ur Squamous Epith Cells 0-5 (0-5) /hpf Urine Bacteria Few (FEW) /hpf Urine Mucus Rare (FEW) /hpf Meds: Medications Generic Name Dose Route Start Last Admin Trade Name Freq PRN Reason Stop Dose Admin Sodium Chloride 1,000 mls @ 125 mls/hr 06/10/19 08:45 06/10/19 09:45 Normal Saline IV 125 mls/hr ASDIRECTED FITO Administration Discontinued Medications Generic Name Dose Route Start Last Admin Trade Name Freq PRN Reason Stop Dose Admin Albuterol/Ipratropium 3 ml 06/10/19 11:52 06/10/19 12:03 Duoneb 3.0-0.5 Mg/3 Ml NEB 06/10/19 11:53 3 ml ONETIME ONE Administration Doxycycline Hyclate 200 mg 06/10/19 11:50 06/10/19 12:00 Vibramycin PO 06/10/19 11:51 200 mg ONETIME ONE Administration - Radiology Interpretation Free Text/Narrative:: 78-year-old female presents to the ED from [facility] due to reported hypoxemia with sats staying 8586% all night long. She is on 5 L of oxygen at all times because of underlying emphysema. O2 sats here and in the emesis on 5 L is around 92-93%. Her blood pressures a bit on the low side. Currently 99/51. Her abdomen feels very worn palpation but her face feels cool. Nurses documented temperature 36.9. She will have a chest x-ray done. Septic workup will be completed and dictated to rule out a urinalysis a urinary tract infection. However as far as her dyspnea goes it appears to be unchanged in her O2 sats are satisfactory with current oxygen at 5 L/m. IV will be normal saline at 125 mils per hour. Is an insulin-dependent diabetic. Blood sugar will be obtained. - Re-Assessments/Exams Free Text/Narrative Re-Assessment/Exam: 06/10/19 09:53 . Chest x-ray is abnormal. There appears to be a chronic infiltrate right lower lobe adjacent to the right heart border. There is prominence of the heart in a boot site shape with the apex of the heart nearly abutting the left costal margin. There appears to be a nodular lesion right perihilar area. For this reason a CT of her chest will be performed without contrast. Appears to have a diffuse pulmonary fibrosis pattern. 06/10/19 10:27 Labs reveal a normal white count at 7.47. 89% neutrophils and 2% band cells identified on the slide. Hemoglobin is 12.3 with hematocrit of 40.1. MCV is elevated at 106.4. Platelet count 160,000. PT is 10.8 with an INR of 0.99. PTT was 35. Sodium is 143 with a potassium of 4.1. Chloride is 105 with a bicarbonate of 36. And a gap is 6.1 with a BUN of 14. Creatinine is 0.6. BUN/ creatinine ratio is elevated at 23.3. Glucose 114. Calcium was 8.2. Magnesium is 2.1. Liver function is normal. CK-MB fraction is less than 0.5. Troponin I is less than 0.017. C-reactive protein is 4.9. BNP is 172. Total protein 6.2 with a low albumin at 2.5. 02 Sats have remained 89-94%. His 92 in sinus. Current BP is inaccurate as it reads 150 02/13/40. 06/10/19 11:26 Urinalysis is partially back in terms shows a trace of ketones and positive nitrates and negative leukocyte esterase. Micro is pending. Pressure is running low at 93/46 but on checking with the skilled nursing she usually runs below [address] of the chest is been completed and reveals increased interstitial change and early alveolar densities within both lungs. Findings have increased in amount from previous examination. Small mediastinal lymph nodes are seen believed to be within normal limits. No axillary adenopathy is seen. Heart is mildly enlarged. Small portion of the upper abdominal structures that are seen appear to be normal aorta shows no aneurysm. Mild atherosclerotic calcination noted within the aorta. Bone window settings show scattered degenerative changes throughout the thoracic spine. Impression interstitial and early alveolar changes within both lungs increased in prominence when compared to prior chest CT. Findings could represent pulmonary vascular congestion and early pulmonary edema which appears atypical due to the superimposed pulmonary fibrosis. Findings could also be infectious in etiology. 06/10/19 11:46 micro-on the urine is negative for infection. The presumption is that she may have a possible exacerbation of COPD with bronchitis. With her elevated CRP decision made to put her on antibiotic doxycycline 100 mg twice daily for 10 days. She will receive initial dose in the ED. Probably to allow her to come back to the skilled nursing since she is afebrile and her hypotension appears to be chronic. Her sats have remained 91-94% on 5 L. and going to give her a DuoNeb while she's in the ED see if this improves her O2 sats at all. 06/10/19 13:02 DuoNeb did not improve her O2 sats at all. Patient be discharged back to the skilled nursing. She will be placed on doxycycline as above. Follow-up with primary care physician in 10 days' time Departure - Departure Time of Disposition: 13:03 Disposition: Home, Self-Care 01 Condition: Fair Clinical Impression: Idiopathic diffuse interstitial pulmonary fibrosis, Hypoxemic respiratory failure, chronic, Pneumonitis - Discharge Information *PRESCRIPTION DRUG MONITORING PROGRAM REVIEWED*: Not Applicable *COPY OF PRESCRIPTION DRUG MONITORING REPORT IN PATIENT DAYAMI: Not Applicable Prescriptions: Doxycycline [Vibramycin] 100 mg PO BID #18 cap Referrals: Ray Bonilla MD [Primary Care Provider] - Forms: ED Department Discharge Additional Instructions: Evaluation in the emergency him today in regards to reported low oxygen levels which is not necessarily new for you. Judi levels throughout the night staying around 88% as reported by the nurses at [facility]. In the emergency room and in the ambulance the O2 sat stayed around 91-93%. This is where they are expected to stay due to current underlying lung disease with pulmonary fibrosis. There is no doubt that the pulmonary fibrosis is getting worse. This is confirmed by CT of your chest today. The white blood cell count was mildly elevated and therefore it is hypothesized that he may have a very low-grade infection hiding in your lungs at this time. Call this pneumonitis. Therefore it is suggested that you take a course of antibiotic oxide cream 100 mg twice daily for the next 9 days to clear up any infection in the lungs. No other abnormalities were identified on laboratory workup. Oxygen is to remain at 5 L/m by nasal cannula at all times. Suggest follow-up with your primary care physician in 10 days' time. - My Orders Last 24 Hours: My Active Orders 06/10/19 08:43 EKG Documentation Completion [RC] STAT 06/10/19 08:44 Blood Culture x2 Reflex Set [OM.PC] Stat 06/10/19 08:45 Sodium Chloride 0.9% [Normal Saline] 1,000 ml IV ASDIRECTED 06/10/19 08:54 Blood Glucose Check, Bedside [RC] ONETIME 06/10/19 09:15 CULTURE BLOOD [BC] Stat 06/10/19 09:30 CULTURE BLOOD [BC] Stat 06/10/19 10:54 Lagunas Catheter Insertion [Insert Urinary Catheter] [OM.PC] Stat 06/10/19 10:55 Urinary Catheter Assessment [RC] ASDIRECTED 06/10/19 11:53 RT Aerosol Therapy [RC] ASDIRECTED - Assessment/Plan Last 24 Hours: My Active Orders 06/10/19 08:43 EKG Documentation Completion [RC] STAT 06/10/19 08:44 Blood Culture x2 Reflex Set [OM.PC] Stat 06/10/19 08:45 Sodium Chloride 0.9% [Normal Saline] 1,000 ml IV ASDIRECTED 06/10/19 08:54 Blood Glucose Check, Bedside [RC] ONETIME 06/10/19 09:15 CULTURE BLOOD [BC] Stat 06/10/19 09:30 CULTURE BLOOD [BC] Stat 06/10/19 10:54 Lagunas Catheter Insertion [Insert Urinary Catheter] [OM.PC] Stat 06/10/19 10:55 Urinary Catheter Assessment [RC] ASDIRECTED 06/10/19 11:53 RT Aerosol Therapy [RC] ASDIRECTED
--- NOTE | 2019-06-10 10:12 | CR ---
Chest: Portable view of the chest was obtained. Comparison: Prior chest x-ray of 03/13/19. Parenchymal density within the left base is seen and this has a somewhat nodular appearance. Nodularity also noted within the inferior right hilar region. Increased interstitial change is noted within both lungs. Heart size is normal. Tortuous thoracic aorta is seen. Impression: 1. Increased interstitial change on both sides of the chest, differential includes bronchitis as well as superimposed interstitial fibrosis and pulmonary vascular congestion. 2. Findings within both lung bases as noted above which are most likely chronic. Diagnostic code #3
--- NOTE | 2019-06-10 11:09 | CT ---
CT chest Technique: Multiple axial sections through the chest were obtained. Intravenous contrast was not utilized. Comparison: Prior chest x-ray performed earlier on the same day as well as chest CT exam of 06/12/18. Findings: Increased interstitial change and early alveolar densities are seen within both lungs. Findings have increased in amount from previous exam. Small mediastinal lymph nodes are seen believed to be within normal limits. No axillary adenopathy is seen. Heart is mildly enlarged. Small portion of the upper abdominal structures that are seen appear within normal limits. Aorta shows no aneurysm. Mild atherosclerotic calcification noted within the aorta. Bone window settings show scattered degenerative change within the spine. Impression: 1. Interstitial and early alveolar change within both lungs increased in prominence when compared to prior chest CT. Findings could represent pulmonary vascular congestion and early pulmonary edema which appears atypical due to superimposed pulmonary fibrosis. Findings could also be infectious in etiology. 2. Other findings believed to be incidental as noted above. Diagnostic code #3
[2019-06-10] MEDS ORDERED: Doxycycline 100 MG Cap PO ONE (11:50)
[2019-06-10] MEDS ORDERED: Albuterol/Ipratropium 3.0-0.5 MG/3 ML Neb Soln NEB ONE (11:52)
== END 2019-06-10 14:30 | disposition home or self-care (01) ==
LOC: JD.ED 08:06
DX: J84.10 Pulmonary fibrosis, unspecified (principal); J96.91 Respiratory failure, unspecified with hypoxia; J18.9 Pneumonia, unspecified organism; I11.0 Hypertensive heart disease with heart failure; I50.9 Heart failure, unspecified; E11.40 Type 2 diabetes mellitus with diabetic neuropathy, unspecified; J44.9 Chronic obstructive pulmonary disease, unspecified; F20.9 Schizophrenia, unspecified; F41.9 Anxiety disorder, unspecified; E66.9 Obesity, unspecified; M19.90 Unspecified osteoarthritis, unspecified site; Z99.81 Dependence on supplemental oxygen; Z79.899 Other long term (current) drug therapy; Z79.82 Long term (current) use of aspirin; Z79.51 Long term (current) use of inhaled steroids; Z79.4 Long term (current) use of insulin; Z88.1 Allergy status to other antibiotic agents; Z91.018 Allergy to other foods
CPT/HCPCS: 36415; 71045; 71250; 80053; 81001; 82553; 82962; 83735; 83880; 84484; 85007; 85027; 85610; 85652; 85730; 86140; 87040; 93005; 94640; 96360; 96361; 99285; A9270; J7040; J7620-GY

== ENCOUNTER 2019-08-06 20:43 | Inpatient (IN) | payer MEDICARE, MEDICAID ==
--- NOTE | 2019-08-06 21:10 | EDM.PDOC ---
ED HPI GENERAL MEDICAL PROBLEM - General Chief Complaint: Respiratory Problem Stated Complaint: [facility] Time Seen by Provider: 08/06/19 20:44 Source of Information: Reports: Patient, EMS, Penitentiary Records History Limitations: Reports: Other (Patient is schizophrenic so her history isn 't always accurate) - History of Present Illness INITIAL COMMENTS - FREE TEXT/NARRATIVE: This is a 78-year-old female. She is from the [facility] in [place]. Apparently this evening she was having increasing difficulty in breathing and the ambulance was called and brought to the ER. When they arrived her pulse ox is about 80% on room air. They put her on some CPAP and brought the pulse ox up to about 90% and they transported her to the ER. The patient tell me that she was short of breath but that's about the best she can give us. Apparently she's been short of breath for most of the day and this evening it got worse. She is status post cholecystectomy and she does have a drain in her right upper quadrant. She has a long history of congestive heart failure COPD insulin- dependent diabetes and hypertension. She is also diagnosed schizophrenia and she is wheelchair bound. He is also a DNR. Additional history from EMS as when they arrived she was short of breath very shallow breathing she had some wheezing in her lungs they did give her a breathing treatment as well that seemed to ease that up. She is been in this hospital several times in the past due to exacerbation of her COPD as well as due to congestive heart failure. Is no history of her running a fever though she does have a history of a mild cough recently. The patient is very pleasant and does not appear to be in acute distress. The patient is a DNR and DNI. - Related Data Allergies Allergy/AdvReac Type Severity Reaction Status Date / Time clindamycin Allergy unknown Verified 08/06/19 21:20 herbs in pizza Allergy Cannot Uncoded 08/06/19 21:20 Remember Home Meds: Home Meds Calcium Carbonate/Vitamin D3 [Calcium 600 + Vit D 200] 1 tab PO BID 09/03/17 [ History] Cranberry Fruit Extract [Cranberry] 400 mg PO BID 09/03/17 [History] Insulin Aspart [Novolog Flexpen] 18 unit SQ TIDMEALS 09/03/17 [History] Insulin Detemir [Levemir] 15 unit SQ QAM 09/03/17 [History] Liraglutide [Victoza] 1.8 mg SUBCUT BEDTIME 09/03/17 [History] Magnesium Oxide [Magnesium] 400 mg PO BID 09/03/17 [History] Multivitamin [Daily Multiple Vitamin] 1 tab PO DAILY 09/03/17 [History] OLANZapine [Zyprexa] 15 mg PO BEDTIME 09/03/17 [History] Paliperidone [Invega] 12 mg PO DAILY 09/03/17 [History] Ranitidine [Zantac] 150 mg PO BID 09/03/17 [History] guaiFENesin [Mucinex] 600 mg PO BID 09/03/17 [History] Divalproex Sodium [Depakote] 500 mg PO BID 09/08/17 [History] Aspirin [Halfprin] 81 mg PO DAILY 11/04/17 [History] Furosemide [Lasix] 20 mg PO BID 03/13/19 [History] Albuterol [Proventil Neb Soln] 2.5 mg NEB Q2H PRN neb 03/14/19 [Rx] Budesonide [Pulmicort] 2 ml NEB BID 03/14/19 [History] Ipratropium/Albuterol Sulfate [Iprat-Albut 0.5-3(2.5) mg/3 ml] 3 ml NEB Q6HR 10/02 [History] Levothyroxine [Synthroid] 100 mcg PO DAILY 07/27/19 [History] Losartan [Cozaar] 25 mg PO DAILY 07/27/19 [History] Rosuvastatin [Crestor] 10 mg PO BEDTIME 07/27/19 [History] Sennosides/Docusate Sodium [Senna-Docusate Sodium Tablet] 2 tab PO BID 07/27/19 [History] levoFLOXacin [Levaquin] 500 mg PO DAILY #7 tab 07/27/19 [Rx] Acetaminophen [Tylenol] 650 mg PO QID PRN 08/06/19 [History] Amoxicillin/Clavulanate K [Augmentin 875-125 MG] 1 tab PO BID 08/06/19 [History] Past Medical History HEENT History: Reports: Cataract Cardiovascular History: Reports: Heart Failure, High Cholesterol, Hypertension Other Cardiovascular History: edema, hyponatremia Respiratory History: Reports: COPD (chronic O2 5L/NC), Pulmonary Fibrosis ( possible) Other Respiratory History: 5L oxygen use at home, hypoxemia Gastrointestinal History: Reports: Pancreatitis, Other (See Below) Other Gastrointestinal History: pancreatic mass Genitourinary History: Reports: Urinary Incontinence JAWBONE BREAKER History: Reports: None Musculoskeletal History: Reports: Arthritis Other Musculoskeletal History: ingrown nail Neurological History: Reports: Neuropathy, Diabetic, Other (See Below) ( Dementia. LUE resting tremor.) Other Neuro History: resting tremor left arm Psychiatric History: Reports: Anxiety, Schizophrenia Other Psychiatric History: delusional disorder Endocrine/Metabolic History: Reports: Diabetes, Type II, Hypothyroidism, Obesity /BMI 30+, Vitamin D Deficiency Hematologic History: Reports: None Immunologic History: Reports: None Oncologic (Cancer) History: Reports: Other (See Below) Other Oncologic History: Pancreatic mass (dx 2013) of unknown etiology - no tx desired Dermatologic History: Reports: Other (See Below) Other Dermatologic History: rash and other nonspecific skin eruption-bilateral groins - Infectious Disease History Infectious Disease History: Reports: MRSA - Past Surgical History Other Oncologic Surgeries/Procedures: PANCREATIC MASS Social & Family History - Family History Family Medical History: Noncontributory - Caffeine Use Caffeine Use: Reports: None Other Caffeine Use: Pt unable to answer RNs questions appropriately due to confusion. - Living Situation & Occupation Living situation: Reports: Extended Care Facility Occupation: Retired ED ROS GENERAL - Review of Systems Review Of Systems: See Below Constitutional: Denies: Fever, Chills HEENT: Denies: Rhinitis Respiratory: Reports: Shortness of Breath, Wheezing, Cough Cardiovascular: Denies: Chest Pain Endocrine: Reports: High Glucose GI/Abdominal: Denies: Abdominal Pain : Reports: No Symptoms Musculoskeletal: Reports: Other (Patient is wheelchair bound and cannot ambulate , she also has massive swelling of her lower extremities and even her hands) Skin: Reports: Other (Brawny skin changes in the lower extremities) Neurological: Denies: Confusion, Headache Psychiatric: Reports: Other (History of schizophrenia and a delusional state at times). Denies: Agitation, Anxiety ED EXAM, GENERAL - Physical Exam Exam: See Below Exam Limited By: No Limitations General Appearance: Alert, WD/WN, No Apparent Distress, Obese, Other (Patient is not presently in acute respiratory distress) Eye Exam: Bilateral Eye: Normal Inspection Ears: Normal External Exam, Normal Canal, Normal TMs Nose: Normal Inspection. No: Clear Rhinorrhea Throat/Mouth: Normal Lips, Normal Voice, No Airway Compromise Head: Normocephalic Neck: Supple, Other (She moves her head with no difficulty) Respiratory/Chest: Crackles, Wheezing, Other (To have some wheezing in the upper lung doran and decreased breath sounds in the lower lung doran, she has good air exchange otherwise with some crackles noted) Cardiovascular: Regular Rate, Rhythm, No Murmur GI/Abdominal: Soft, Non-Tender, Other (Patient has extreme morbidly obese) Back Exam: Decreased Range of Motion Extremities: Limited Range of Motion, Other (She has 3-4+ edema feet and legs to 2+ in the lateral thighs up into her hips, she even has 1+ to 2+ edema in her hands and her forearms bilaterally) Neurological: Alert, Other (Patient is very pleasant and conversational but she doesn't know time and she is not certain of place) Psychiatric: Normal Affect, Normal Mood Skin Exam: Warm, Dry EKG INTERPRETATION EKG Date: 08/06/19 Time: 21:15 EKG Interpretation Comments: EKG shows a normal sinus rhythm rate of 88, no acute ST or T-wave changes, no ischemia noted, appears to have 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 Course - Vital Signs Last Recorded V/S: Last Vital Signs Temp 96.8 F 08/06/19 20:51 Pulse 89 08/06/19 20:51 Resp 20 08/06/19 20:51 BP 91/37 L 08/06/19 20:51 Pulse Ox 91 L 08/06/19 20:51 - Orders/Labs/Meds Orders: Active Orders 24 hr Category Date Time Status BIPAP Adult [RT BiPAP/CPAP] [RC] ASDIRECTED Care 08/06/19 20:56 Active EKG 12 Lead [EKG Documentation Completion] [RC] STAT Care 08/06/19 20:55 Active CXR [Chest 1V Frontal] [CR] Stat Exams 08/06/19 20:54 Taken CULTURE BLOOD [BC] Stat Lab 08/06/19 22:25 Received CULTURE BLOOD [BC] Stat Lab 08/06/19 22:33 Received Blood Culture x2 Reflex Set [OM.PC] Stat Oth 08/06/19 22:05 Ordered Medication Orders Acetaminophen (Tylenol) 650 mg PO Q4H PRN PRN Reason: Pain (Mild 1-3)/fever Albuterol (Proventil Neb Soln) 2.5 mg NEB Q2H PRN PRN Reason: Shortness Of Breath/wheezing Albuterol/Ipratropium (Duoneb 3.0-0.5 Mg/3 Ml) 3 ml NEB Q4HRRT FITO Aspirin (Halfprin) 81 mg PO DAILY FITO Budesonide (Pulmicort) 0.5 mg NEB BIDRT FITO Dextrose/Water (Dextrose 50% In Water) 50 ml IVPUSH ASDIRECTED PRN PRN Reason: Hypoglycemia Divalproex Sodium (Depakote) 500 mg PO BID FITO Enoxaparin Sodium (Lovenox) 40 mg SUBCUT DAILY FITO Famotidine (Pepcid) 20 mg PO BEDTIME FITO Furosemide (Lasix) 20 mg PO BIDDIURETIC FITO Guaifenesin (Mucinex) 600 mg PO BID FITO Insulin Glargine (Lantus) 10 unit SUBCUT DAILY [facility] Insulin Human Lispro (Humalog) 0 unit SUBCUT QIDACANDBED FITO; Protocol Levothyroxine Sodium (Synthroid) 100 mcg PO ACBREAKFAST [facility] Losartan Potassium (Cozaar) 25 mg PO DAILY [facility] Magnesium Oxide (Magnesium Oxide) 400 mg PO BID [facility] Non-Formulary Medication (Paliperidone [Invega]) 12 mg PO DAILY FITO Olanzapine (Zyprexa) 15 mg PO BEDTIME FITO Ondansetron HCl (Zofran) 4 mg IV Q4H PRN PRN Reason: Nausea/Vomiting Rosuvastatin Calcium (Crestor) 10 mg PO BEDTIME FITO Senna/Docusate Sodium (Senna Plus) 2 tab PO BID [facility] Labs: Laboratory Tests 08/06/19 08/06/19 08/06/19 Range/Units 21:10 21:10 21:10 WBC 10.98 H (3.98-10.04) K/mm3 RBC 3.47 L (3.98-5.22) M/mm3 Hgb 11.2 (11.2-15.7) gm/dl Hct 35.5 (34.1-44.9) % MCV 102.3 H (79.4-94.8) fl MCH 32.3 H (25.6-32.2) pg MCHC 31.5 L (32.2-35.5) g/dl RDW Std Deviation 57.8 H (36.4-46.3) fL Plt Count 266 (182-369) K/mm3 MPV 7.9 L (9.4-12.3) fl Neut % (Auto) 74.5 H (34.0-71.1) % Lymph % (Auto) 16.0 L (19.3-51.7) % Wallace % (Auto) 5.6 (4.7-12.5) % Eos % (Auto) 2.3 (0.7-5.8) Baso % (Auto) 0.1 (0.1-1.2) % Neut # (Auto) 8.19 H (1.56-6.13) K/mm3 Lymph # (Auto) 1.76 (1.18-3.74) K/mm3 Wallace # (Auto) 0.61 H (0.24-0.36) K/mm3 Eos # (Auto) 0.25 (0.04-0.36) K/mm3 Baso # (Auto) 0.01 (0.01-0.08) K/mm3 Manual Slide Review Normal smear Puncture Site ABG pH (7.35-7.45) ABG pCO2 (35.0-45.0) mmHg ABG pO2 (80.0-100.0) mmHg ABG HCO3 (22.0-26.0) meq/L ABG O2 Saturation (96.0-97.0) % ABG Base Excess (-2-2.0) Ryan Test A-a Gradient mmHg O2 Delivery Device FiO2 (21.00-100.00) % Blood Gas Comments Sodium 142 (136-145) mEq/L Potassium 3.7 (3.5-5.1) mEq/L Chloride 107 (98-107) mEq/L Carbon Dioxide 38 H (21-32) mEq/L Anion Gap 0.7 L (5-15) BUN 5 L (7-18) mg/dL Creatinine 0.5 L (0.55-1.02) mg/dL Est Cr Clr Drug Dosing TNP Estimated GFR (MDRD) > 60 (>60) mL/min BUN/Creatinine Ratio 10.0 L (14-18) Glucose 163 H (83-115) mg/dL Lactic Acid 0.7 (0.4-2.0) mmol/L Calcium 8.4 L (8.5-10.1) mg/dL Total Bilirubin 0.2 (0.2-1.0) mg/dL AST 30 (15-37) U/L ALT 52 (14-59) U/L Alkaline Phosphatase 80 (46-116) U/L Troponin I < 0.017 (0.00-0.056) ng/mL NT-Pro-B Natriuret Pep (0-450) pg/mL Total Protein 5.3 L (6.4-8.2) g/dl Albumin 1.6 L (3.4-5.0) g/dl Globulin 3.7 gm/dL Albumin/Globulin Ratio 0.4 L (1-2) Valproic Acid 38.8 L (50.0-100.0) ug/mL 08/06/19 08/06/19 Range/Units 21:10 22:05 WBC (3.98-10.04) K/mm3 RBC (3.98-5.22) M/mm3 Hgb (11.2-15.7) gm/dl Hct (34.1-44.9) % MCV (79.4-94.8) fl MCH (25.6-32.2) pg MCHC (32.2-35.5) g/dl RDW Std Deviation (36.4-46.3) fL Plt Count (182-369) K/mm3 MPV (9.4-12.3) fl Neut % (Auto) (34.0-71.1) % Lymph % (Auto) (19.3-51.7) % Wallace % (Auto) (4.7-12.5) % Eos % (Auto) (0.7-5.8) Baso % (Auto) (0.1-1.2) % Neut # (Auto) (1.56-6.13) K/mm3 Lymph # (Auto) (1.18-3.74) K/mm3 Wallace # (Auto) (0.24-0.36) K/mm3 Eos # (Auto) (0.04-0.36) K/mm3 Baso # (Auto) (0.01-0.08) K/mm3 Manual Slide Review Puncture Site Lt radial ABG pH 7.42 (7.35-7.45) ABG pCO2 57.5 H (35.0-45.0) mmHg ABG pO2 149.0 H (80.0-100.0) mmHg ABG HCO3 36.2 H (22.0-26.0) meq/L ABG O2 Saturation 99.1 H (96.0-97.0) % ABG Base Excess 10.1 H (-2-2.0) Ryan Test Positive A-a Gradient 351 mmHg O2 Delivery Device Bipap FiO2 80.00 (21.00-100.00) % Blood Gas Comments 30/05 Sodium (136-145) mEq/L Potassium (3.5-5.1) mEq/L Chloride (98-107) mEq/L Carbon Dioxide (21-32) mEq/L Anion Gap (5-15) BUN (7-18) mg/dL Creatinine (0.55-1.02) mg/dL Est Cr Clr Drug Dosing Estimated GFR (MDRD) (>60) mL/min BUN/Creatinine Ratio (14-18) Glucose (83-115) mg/dL Lactic Acid (0.4-2.0) mmol/L Calcium (8.5-10.1) mg/dL Total Bilirubin (0.2-1.0) mg/dL AST (15-37) U/L ALT (14-59) U/L Alkaline Phosphatase (46-116) U/L Troponin I (0.00-0.056) ng/mL NT-Pro-B Natriuret Pep 947 H (0-450) pg/mL Total Protein (6.4-8.2) g/dl Albumin (3.4-5.0) g/dl Globulin gm/dL Albumin/Globulin Ratio (1-2) Valproic Acid (50.0-100.0) ug/mL Meds: Medications Generic Name Dose Route Start Last Admin Trade Name Freq PRN Reason Stop Dose Admin Acetaminophen 650 mg 08/06/19 23:28 Tylenol PO Q4H PRN Pain (Mild 1-3)/fever Albuterol 2.5 mg 08/06/19 23:29 Proventil Neb Soln NEB Q2H PRN Shortness Of Breath/wheezing Albuterol/Ipratropium 3 ml 08/07/19 02:00 Duoneb 3.0-0.5 Mg/3 Ml NEB Q4HRRT FITO Aspirin 81 mg 08/07/19 09:00 Halfprin PO DAILY [facility] Budesonide 0.5 mg 08/07/19 06:00 Pulmicort NEB BIDRT FITO Dextrose/Water 50 ml 08/06/19 23:35 Dextrose 50% In Water IVPUSH ASDIRECTED PRN Hypoglycemia Divalproex Sodium 500 mg 08/06/19 23:45 Depakote PO BID [facility] Enoxaparin Sodium 40 mg 08/07/19 09:00 Lovenox SUBCUT DAILY [facility] Famotidine 20 mg 08/07/19 21:00 Pepcid PO BEDTIME [facility] Furosemide 20 mg 08/07/19 06:00 Lasix PO BIDDIURETIC [facility] Guaifenesin 600 mg 08/07/19 09:00 Mucinex PO BID [facility] Insulin Glargine 10 unit 08/07/19 09:00 Lantus SUBCUT DAILY [facility] Insulin Human Lispro 0 unit 08/07/19 07:00 Humalog SUBCUT QIDACANDBED [facility] Protocol Levothyroxine Sodium 100 mcg 08/07/19 06:00 Synthroid PO ACBREAKFAST [facility] Losartan Potassium 25 mg 08/07/19 09:00 Cozaar PO DAILY [facility] Magnesium Oxide 400 mg 08/07/19 09:00 Magnesium Oxide PO BID [facility] Non-Formulary Medication 12 mg 08/07/19 09:00 Paliperidone [Invega] PO DAILY [facility] Olanzapine 15 mg 08/06/19 21:00 Zyprexa PO BEDTIME [facility] Ondansetron HCl 4 mg 08/06/19 23:28 Zofran IV Q4H PRN Nausea/Vomiting Rosuvastatin Calcium 10 mg 08/07/19 21:00 Crestor PO BEDTIME [facility] Senna/Docusate Sodium 2 tab 08/07/19 09:00 Senna Plus PO BID [facility] Discontinued Medications Generic Name Dose Route Start Last Admin Trade Name Freq PRN Reason Stop Dose Admin Cefepime HCl 2 gm/ Premix 50 mls @ 100 mls/hr 08/06/19 22:34 08/06/19 22:52 IV 08/06/19 23:03 100 mls/hr ONETIME ONE Administration Levofloxacin/Dextrose 750 mg/ 150 mls @ 100 mls/hr 08/06/19 22:34 08/06/19 22 :51 Premix IV 08/07/19 00:03 100 mls/hr ONETIME ONE Administration Vancomycin HCl 1 gm/ Sodium 250 mls @ 250 mls/hr 08/06/19 22:35 08/06/19 23: 46 Chloride IV 08/06/19 23:34 250 mls/hr ONETIME ONE Administration - Radiology Interpretation Free Text/Narrative:: Chest x-ray still shows the chronic changes but they actually look better than the chest x-ray on the - Re-Assessments/Exams Free Text/Narrative Re-Assessment/Exam: 08/06/19 22:49 Patient has been doing well in the ER with the BiPAP. The blood gas looks exceptionally good and we'll try to switch her over to maybe CPAP instead of BiPAP and see how she tolerates that. Her blood work white count is 10.9, lactic acid 0.7, troponin was normal, like gas shows a pH 7.43, CO2 of 57 . 08/06/19 22:[address] Moseley and he will admit the patient for further evaluation and treatment. Departure - Departure Time of Disposition: 22:51 Disposition: Admitted As Inpatient 67 Condition: Poor Clinical Impression: COPD exacerbation, Hypoxemia, Insulin dependent diabetes mellitus, History of congestive heart failure, Morbid obesity, Wheelchair bound, DNR no code (do not resuscitate) Acute bronchitis Qualifiers: Bronchitis organism: unspecified organism Qualified Code(s): J20.9 - Acute bronchitis, unspecified - Discharge Information ED Communication - ED Communication Date/Time Date: 08/06/19 Time Called: 22:50 - Discussed Case With (1) Discussed Case With (1): Admitting Provider Person/s Notified (1): Sada Moseley III (He will admit for further evaluation and treatment) - My Orders Last 24 Hours: My Active Orders 08/06/19 20:54 CXR [Chest 1V Frontal] [CR] Stat 08/06/19 20:55 EKG 12 Lead [EKG Documentation Completion] [RC] STAT 08/06/19 20:56 BIPAP Adult [RT BiPAP/CPAP] [RC] ASDIRECTED 08/06/19 22:05 Blood Culture x2 Reflex Set [OM.PC] Stat 08/06/19 22:25 CULTURE BLOOD [BC] Stat 08/06/19 22:33 CULTURE BLOOD [BC] Stat - Assessment/Plan Last 24 Hours: My Active Orders 08/06/19 20:54 CXR [Chest 1V Frontal] [CR] Stat 08/06/19 20:55 EKG 12 Lead [EKG Documentation Completion] [RC] STAT 08/06/19 20:56 BIPAP Adult [RT BiPAP/CPAP] [] ASDIRECTED 08/06/19 22:05 Blood Culture x2 Reflex Set [OM.PC] Stat 08/06/19 22:25 CULTURE BLOOD [BC] Stat 08/06/19 22:33 CULTURE BLOOD [BC] Stat
[2019-08-06] MEDS ORDERED: Levofloxacin/Dextrose 5%-Water 750 MG in Premix Bag 1 BAG IV ONE (22:34)
[2019-08-06] MEDS ORDERED: Cefepime 2 GM in Premix Bag 1 BAG IV ONE (22:34)
[2019-08-06] MEDS ORDERED: Ondansetron 4 MG/2 ML SDV IV PRN (23:28)
[2019-08-06] MEDS ORDERED: Acetaminophen 325 MG Tab PO PRN (23:28)
[2019-08-06] MEDS ORDERED: Albuterol 0.083% 2.5 MG/3 ML Neb Soln NEB PRN (23:29)
[2019-08-06] MEDS ORDERED: 50% Dextrose in Water 50 ML Syringe IVPUSH PRN (23:35)
--- NOTE | 2019-08-06 23:38 | PCM.HP.2 ---
H&P History of Present Illness - General Date of Service: 08/06/19 Admit Problem/Dx: Admission Diagnosis/Problem Admission Diagnosis/Problem Chronic obstructive pulmonary disease - History of Present Illness Initial Comments - Free Text/Narative: Patient is a poor historians because of her schizophrenia, therefore history mostly obtained through emergency room notes. Patient is a 78-year-old female history of schizophrenia who lives at [facility] in [place]. Patient has had increasing difficulty breathing and was brought to the emergency room via EMS. When EMS arrived her pulse ox was approximately 80% on room air. She was placed on CPAP and that brought her pulse ox to approximately 90%. When she arrived in the emergency room she was short of breath and stated she was short of breath most of the day. Patient recently had a cholecystectomy in [place] and still has a drain in her right upper quadrant. Patient was noted to be wheezing and have shallow breathing. No history of fever but does have a mild cough. Patient was apparently pleasant for the emergency room physician, but when I interviewed her she was not. In the emergency room patient had EKG that showed normal sinus rhythm with ventricular rate of [address]-T wave changes. Patient was placed on BiPAP in the emergency room and her blood gas showed a pH of 7.43, PCO2 57. - Related Data Allergies/Adverse Reactions: Allergies Allergy/AdvReac Type Severity Reaction Status Date / Time clindamycin Allergy unknown Verified 08/07/19 01:50 herbs in pizza Allergy Cannot Uncoded 08/07/19 01:50 Remember Home Medications: Home Meds Calcium Carbonate/Vitamin D3 [Calcium 600 + Vit D 200] 1 tab PO BID 09/03/17 [ History] Cranberry Fruit Extract [Cranberry] 400 mg PO BID 09/03/17 [History] Insulin Aspart [Novolog Flexpen] 18 unit SQ TIDMEALS 09/03/17 [History] Insulin Detemir [Levemir] 15 unit SQ QAM 09/03/17 [History] Liraglutide [Victoza] 1.8 mg SUBCUT BEDTIME 09/03/17 [History] Magnesium Oxide [Magnesium] 400 mg PO BID 09/03/17 [History] Multivitamin [Daily Multiple Vitamin] 1 tab PO DAILY 09/03/17 [History] OLANZapine [Zyprexa] 15 mg PO BEDTIME 09/03/17 [History] Paliperidone [Invega] 12 mg PO DAILY 09/03/17 [History] Ranitidine [Zantac] 150 mg PO BID 09/03/17 [History] guaiFENesin [Mucinex] 600 mg PO BID 09/03/17 [History] Divalproex Sodium [Depakote] 500 mg PO BID 09/08/17 [History] Aspirin [Halfprin] 81 mg PO DAILY 11/04/17 [History] Furosemide [Lasix] 20 mg PO BID 03/13/19 [History] Albuterol [Proventil Neb Soln] 2.5 mg NEB Q2H PRN neb 03/14/19 [Rx] Budesonide [Pulmicort] 2 ml NEB BID 03/14/19 [History] Ipratropium/Albuterol Sulfate [Iprat-Albut 0.5-3(2.5) mg/3 ml] 3 ml NEB Q6HR 10/02 [History] Levothyroxine [Synthroid] 100 mcg PO DAILY 07/27/19 [History] Losartan [Cozaar] 25 mg PO DAILY 07/27/19 [History] Rosuvastatin [Crestor] 10 mg PO BEDTIME 07/27/19 [History] Sennosides/Docusate Sodium [Senna-Docusate Sodium Tablet] 2 tab PO BID 07/27/19 [History] levoFLOXacin [Levaquin] 500 mg PO DAILY #7 tab 07/27/19 [Rx] Acetaminophen [Tylenol] 650 mg PO QID PRN 08/06/19 [History] Amoxicillin/Clavulanate K [Augmentin 875-125 MG] 1 tab PO BID 08/06/19 [History] Past Medical History HEENT History: Reports: Cataract Cardiovascular History: Reports: Heart Failure, High Cholesterol, Hypertension Other Cardiovascular History: edema, hyponatremia Respiratory History: Reports: COPD (chronic O2 5L/NC), Pulmonary Fibrosis ( possible) Other Respiratory History: 5L oxygen use at home, hypoxemia Gastrointestinal History: Reports: Pancreatitis, Other (See Below) Other Gastrointestinal History: pancreatic mass Genitourinary History: Reports: Urinary Incontinence SYSTEMS TECHNOLOGIST History: Reports: None Musculoskeletal History: Reports: Arthritis Other Musculoskeletal History: ingrown nail Neurological History: Reports: Neuropathy, Diabetic, Other (See Below) ( Dementia. LUE resting tremor.) Other Neuro History: resting tremor left arm Psychiatric History: Reports: Anxiety, Schizophrenia Other Psychiatric History: delusional disorder Endocrine/Metabolic History: Reports: Diabetes, Type II, Hypothyroidism, Obesity /BMI 30+, Vitamin D Deficiency Hematologic History: Reports: None Immunologic History: Reports: None Oncologic (Cancer) History: Reports: Other (See Below) Other Oncologic History: Pancreatic mass (dx 2013) of unknown etiology - no tx desired Dermatologic History: Reports: Other (See Below) Other Dermatologic History: rash and other nonspecific skin eruption-bilateral groins - Infectious Disease History Infectious Disease History: Reports: MRSA - Past Surgical History Other Oncologic Surgeries/Procedures: PANCREATIC MASS Social & Family History - Family History Family Medical History: Noncontributory - Tobacco Use Smoking Status *Q: Unknown Ever Smoked - Caffeine Use Caffeine Use: Reports: None Other Caffeine Use: Pt unable to answer RNs questions appropriately due to confusion. - Living Situation & Occupation Living situation: Reports: Extended Care Facility Occupation: Retired H&P Review of Systems - Review of Systems: Review Of Systems: Unable To Obtain Reason Not Obtained: patient not cooperative Exam - Exam Exam: See Below - Vital Signs Vital Signs: Last Vital Signs Temp 96.8 F 08/06/19 20:51 Pulse 89 08/06/19 20:51 Resp 20 08/06/19 20:51 BP 91/37 L 08/06/19 20:51 Pulse Ox 91 L 08/06/19 20:51 Weight: 210 lb 8 oz - Exam Quality Assessment: Supplemental Oxygen General: Alert, Oriented, 4 HEENT: Conjunctiva Clear Neck: Supple, Trachea Midline, 2 Lungs: Decreased Breath Sounds, Crackles, Wheezing. No: Normal Respiratory Effort (Increased use of intercostal muscles) Cardiovascular: Regular Rate, Regular Rhythm GI/Abdominal Exam: Normal Bowel Sounds, Soft, Non-Tender, No Organomegaly Back Exam: Normal Inspection Extremities: Pedal Edema (3+) Neurological: Cranial Nerves Intact Neuro Extensive - Mental Status: Alert, Other (Would not follow commands.) Psychiatric: Alert - Patient Data Lab Results Last 24 hrs: Laboratory Results - last 24 hr 08/06/19 08/06/19 08/06/19 Range/Units 21:10 21:10 21:10 WBC 10.98 H (3.98-10.04) K/mm3 RBC 3.47 L (3.98-5.22) M/mm3 Hgb 11.2 (11.2-15.7) gm/dl Hct 35.5 (34.1-44.9) % MCV 102.3 H (79.4-94.8) fl MCH 32.3 H (25.6-32.2) pg MCHC 31.5 L (32.2-35.5) g/dl RDW Std Deviation 57.8 H (36.4-46.3) fL Plt Count 266 (182-369) K/mm3 MPV 7.9 L (9.4-12.3) fl Neut % (Auto) 74.5 H (34.0-71.1) % Lymph % (Auto) 16.0 L (19.3-51.7) % Giles % (Auto) 5.6 (4.7-12.5) % Eos % (Auto) 2.3 (0.7-5.8) Baso % (Auto) 0.1 (0.1-1.2) % Neut # (Auto) 8.19 H (1.56-6.13) K/mm3 Lymph # (Auto) 1.76 (1.18-3.74) K/mm3 Giles # (Auto) 0.61 H (0.24-0.36) K/mm3 Eos # (Auto) 0.25 (0.04-0.36) K/mm3 Baso # (Auto) 0.01 (0.01-0.08) K/mm3 Manual Slide Review Normal smear Puncture Site ABG pH (7.35-7.45) ABG pCO2 (35.0-45.0) mmHg ABG pO2 (80.0-100.0) mmHg ABG HCO3 (22.0-26.0) meq/L ABG O2 Saturation (96.0-97.0) % ABG Base Excess (-2-2.0) Ryan Test A-a Gradient mmHg O2 Delivery Device FiO2 (21.00-100.00) % Blood Gas Comments Sodium 142 (136-145) mEq/L Potassium 3.7 (3.5-5.1) mEq/L Chloride 107 (98-107) mEq/L Carbon Dioxide 38 H (21-32) mEq/L Anion Gap 0.7 L (5-15) BUN 5 L (7-18) mg/dL Creatinine 0.5 L (0.55-1.02) mg/dL Est Cr Clr Drug Dosing TNP Estimated GFR (MDRD) > 60 (>60) mL/min BUN/Creatinine Ratio 10.0 L (14-18) Glucose 163 H (83-115) mg/dL Lactic Acid 0.7 (0.4-2.0) mmol/L Calcium 8.4 L (8.5-10.1) mg/dL Total Bilirubin 0.2 (0.2-1.0) mg/dL AST 30 (15-37) U/L ALT 52 (14-59) U/L Alkaline Phosphatase 80 (46-116) U/L Troponin I < 0.017 (0.00-0.056) ng/mL NT-Pro-B Natriuret Pep (0-450) pg/mL Total Protein 5.3 L (6.4-8.2) g/dl Albumin 1.6 L (3.4-5.0) g/dl Globulin 3.7 gm/dL Albumin/Globulin Ratio 0.4 L (1-2) Valproic Acid 38.8 L (50.0-100.0) ug/mL 08/06/19 08/06/19 Range/Units 21:10 22:05 WBC (3.98-10.04) K/mm3 RBC (3.98-5.22) M/mm3 Hgb (11.2-15.7) gm/dl Hct (34.1-44.9) % MCV (79.4-94.8) fl MCH (25.6-32.2) pg MCHC (32.2-35.5) g/dl RDW Std Deviation (36.4-46.3) fL Plt Count (182-369) K/mm3 MPV (9.4-12.3) fl Neut % (Auto) (34.0-71.1) % Lymph % (Auto) (19.3-51.7) % Giles % (Auto) (4.7-12.5) % Eos % (Auto) (0.7-5.8) Baso % (Auto) (0.1-1.2) % Neut # (Auto) (1.56-6.13) K/mm3 Lymph # (Auto) (1.18-3.74) K/mm3 Giles # (Auto) (0.24-0.36) K/mm3 Eos # (Auto) (0.04-0.36) K/mm3 Baso # (Auto) (0.01-0.08) K/mm3 Manual Slide Review Puncture Site Lt radial ABG pH 7.42 (7.35-7.45) ABG pCO2 57.5 H (35.0-45.0) mmHg ABG pO2 149.0 H (80.0-100.0) mmHg ABG HCO3 36.2 H (22.0-26.0) meq/L ABG O2 Saturation 99.1 H (96.0-97.0) % ABG Base Excess 10.1 H (-2-2.0) Ryan Test Positive A-a Gradient 351 mmHg O2 Delivery Device Bipap FiO2 80.00 (21.00-100.00) % Blood Gas Comments 16/9 Sodium (136-145) mEq/L Potassium (3.5-5.1) mEq/L Chloride (98-107) mEq/L Carbon Dioxide (21-32) mEq/L Anion Gap (5-15) BUN (7-18) mg/dL Creatinine (0.55-1.02) mg/dL Est Cr Clr Drug Dosing Estimated GFR (MDRD) (>60) mL/min BUN/Creatinine Ratio (14-18) Glucose (83-115) mg/dL Lactic Acid (0.4-2.0) mmol/L Calcium (8.5-10.1) mg/dL Total Bilirubin (0.2-1.0) mg/dL AST (15-37) U/L ALT (14-59) U/L Alkaline Phosphatase (46-116) U/L Troponin I (0.00-0.056) ng/mL NT-Pro-B Natriuret Pep 947 H (0-450) pg/mL Total Protein (6.4-8.2) g/dl Albumin (3.4-5.0) g/dl Globulin gm/dL Albumin/Globulin Ratio (1-2) Valproic Acid (50.0-100.0) ug/mL Result Diagrams: 08/07/19 04:54 08/07/19 04:54 Imaging Impressions Last 24 hrs: Chest x-ray: August 06, 2019: Atelectasis in both bases right worse left. It could be a bit of infiltrate on the right. Problem List Initiated/Reviewed/Updated: Yes Orders Last 24hrs: Active Orders 24 hr Category Date Time Status Patient Status [ADT] Routine ADT 08/06/19 23:14 Active BIPAP Adult [RT BiPAP/CPAP] [RC] ASDIRECTED Care 08/06/19 20:56 Active Blood Glucose Check, Bedside [RC] QIDACANDBED Care 08/06/19 23:29 Ordered Blood Glucose Check, Bedside [RC] QIDACANDBED Care 08/06/19 23:35 Ordered EKG 12 Lead [EKG Documentation Completion] [RC] STAT Care 08/06/19 20:55 Active Oxygen Therapy [RC] PRN Care 08/06/19 23:28 Ordered RT Aerosol Therapy [RC] ASDIRECTED Care 08/06/19 23:31 Ordered Up With Assistance [RC] ASDIRECTED Care 08/06/19 23:28 Ordered VTE/DVT Education [RC] PER UNIT ROUTINE Care 08/06/19 23:28 Ordered Vital Signs [RC] Q4H Care 08/06/19 23:28 Ordered Respiratory Care Assess and Treatment [CONS] Routine Cons 08/06/19 23:29 Ordered Consistent Carbohydrate Diet [DIET] Diet 08/07/19 Breakfast Ordered CXR [Chest 1V Frontal] [CR] Stat Exams 08/06/19 20:54 Taken C-REACTIVE PROTEIN [CHEM] AM Lab 08/07/19 05:11 Ordered C-REACTIVE PROTEIN [CHEM] AM Lab 08/08/19 05:11 Ordered C-REACTIVE PROTEIN [CHEM] AM Lab 08/09/19 05:11 Ordered CBC WITH AUTO DIFF [HEME] AM Lab 08/07/19 05:11 Ordered CBC WITH AUTO DIFF [HEME] AM Lab 08/08/19 05:11 Ordered CBC WITH AUTO DIFF [HEME] AM Lab 08/09/19 05:11 Ordered COMPREHENSIVE METABOLIC PN,CMP [CHEM] AM Lab 08/07/19 05:11 Ordered COMPREHENSIVE METABOLIC PN,CMP [CHEM] AM Lab 08/08/19 05:11 Ordered COMPREHENSIVE METABOLIC PN,CMP [CHEM] AM Lab 08/09/19 05:11 Ordered CULTURE BLOOD [BC] Stat Lab 08/06/19 22:25 Received CULTURE BLOOD [BC] Stat Lab 08/06/19 22:33 Received CULTURE SPUTUM + SMEAR [RM] Stat Lab 08/06/19 23:29 Ordered GLYCOSYLATED HEMOGLOBIN,HGBA1C [CHEM] AM Lab 08/07/19 05:11 Ordered MAGNESIUM [CHEM] AM Lab 08/07/19 05:11 Ordered MAGNESIUM [CHEM] AM Lab 08/08/19 05:11 Ordered MAGNESIUM [CHEM] AM Lab 08/09/19 05:11 Ordered TSH [CHEM] AM Lab 08/07/19 05:11 Ordered Acetaminophen [Tylenol] Med 08/06/19 23:28 Ordered 650 mg PO Q4H PRN Albuterol [Proventil Neb Soln] Med 08/06/19 23:29 Ordered 2.5 mg NEB Q2H PRN Albuterol/Ipratropium [DuoNeb 3.0-0.5 MG/3 ML] Med 08/06/19 23:30 Ordered 3 ml NEB Q4H Aspirin [Halfprin] Med 08/07/19 09:00 Ordered 81 mg PO DAILY Budesonide [Pulmicort] Med 08/07/19 09:00 Ordered 0.5 mg NEB BID Dextrose 50% in Water Med 08/06/19 23:35 Ordered 50 ml IVPUSH ASDIRECTED PRN Divalproex Sodium [Depakote] Med 08/06/19 23:45 Ordered 500 mg PO BID Docusate Sodium/Sennosides [Senna Plus] Med 08/07/19 09:00 Ordered 2 tab PO BID Enoxaparin [Lovenox] Med 08/07/19 09:00 Ordered 40 mg SUBCUT DAILY Furosemide [Lasix] Med 08/07/19 09:00 Ordered 20 mg PO BID Insulin Glarg,Human.Rec.Analog [LantUS] Med 08/07/19 09:00 Ordered 10 unit SUBCUT DAILY Insulin Lispro [HumaLOG] Med 08/07/19 07:00 Ordered See Protocol SUBCUT QIDACANDBED Levofloxacin/Dextrose 5%-Water [Levaquin in D5W 750 MG/ Med 08/06/19 22:34 Active 150 ML] 750 mg Premix Bag 1 bag IV ONETIME Levothyroxine [Synthroid] Med 08/07/19 09:00 Ordered 100 mcg PO DAILY Losartan [Cozaar] Med 08/07/19 09:00 Ordered 25 mg PO DAILY Magnesium Oxide [Magnesium] Med 08/07/19 09:00 Ordered 400 mg PO BID OLANZapine [Zyprexa] Med 08/06/19 21:00 Ordered 15 mg PO BEDTIME Ondansetron [Zofran] Med 08/06/19 23:28 Ordered 4 mg IV Q4H PRN Paliperidone [Invega] Med 08/07/19 09:00 Ordered 12 mg PO DAILY Ranitidine Med 08/07/19 09:00 Ordered 150 mg PO BID Rosuvastatin [Crestor] Med 08/07/19 21:00 Ordered 10 mg PO BEDTIME guaiFENesin [Mucinex] Med 08/07/19 09:00 Ordered 600 mg PO BID Blood Culture x2 Reflex Set [OM.PC] Stat Oth 08/06/19 22:05 Ordered Resuscitation Status Routine Resus Stat 08/06/19 23:28 Ordered Medication Orders Acetaminophen (Tylenol) 650 mg PO Q4H PRN PRN Reason: Pain (Mild 1-3)/fever Albuterol (Proventil Neb Soln) 2.5 mg NEB Q2H PRN PRN Reason: Shortness Of Breath/wheezing Albuterol/Ipratropium (Duoneb 3.0-0.5 Mg/3 Ml) 3 ml NEB Q4H FITO Aspirin (Halfprin) 81 mg PO DAILY [facility] Budesonide (Pulmicort) 0.5 mg NEB BID [facility] Dextrose/Water (Dextrose 50% In Water) 50 ml IVPUSH ASDIRECTED PRN PRN Reason: Hypoglycemia Divalproex Sodium (Depakote) 500 mg PO BID [facility] Enoxaparin Sodium (Lovenox) 40 mg SUBCUT DAILY [facility] Furosemide (Lasix) 20 mg PO BID [facility] Guaifenesin (Mucinex) 600 mg PO BID [facility] Levofloxacin/Dextrose 750 mg/ (Premix) 150 mls @ 100 mls/hr IV ONETIME ONE Stop: 08/07/19 00:03 Last Admin: 08/06/19 22:51 Dose: 100 mls/hr Insulin Glargine (Lantus) 10 unit SUBCUT DAILY [facility] Insulin Human Lispro (Humalog) 0 unit SUBCUT QIDACANDBED [facility]; Protocol Levothyroxine Sodium (Synthroid) 100 mcg PO DAILY [facility] Losartan Potassium (Cozaar) 25 mg PO DAILY [facility] Non-Formulary Medication (Magnesium Oxide [Magnesium]) 400 mg PO BID [facility] Non-Formulary Medication (Olanzapine [Zyprexa]) 15 mg PO BEDTIME [facility]O Non-Formulary Medication (Paliperidone [Invega]) 12 mg PO DAILY [facility] Non-Formulary Medication (Ranitidine) 150 mg PO BID [facility] Ondansetron HCl (Zofran) 4 mg IV Q4H PRN PRN Reason: Nausea/Vomiting Rosuvastatin Calcium (Crestor) 10 mg PO BEDTIME [facility] Senna/Docusate Sodium (Senna Plus) 2 tab PO BID [facility] Assessment/Plan Comment:: Assessment * Possible right lower lobe healthcare associated pneumonia with exacerbation of COPD * Chest x-ray does show some atelectasis versus pneumonia in the right side. Patient also has an elevated white count, increased work of breathing, and is in respiratory failure. * Patient recently was discharged from the hospital with a drain in place from her gallbladder. * respiratory failure * Initially needing BiPAP, now improving * Recent cholecystectomy * patient continues to have it drained. * We'll need operative notes and discharge summary * Congestive heart failure * BNP 947 * Home Lasix 20 mg twice a day and losartan 25 mg daily * no recent echocardiogram * Insulin-dependent diabetes * hemoglobin A1c in March of 6.1 * history of hypertension, hyperlipidemia, hypothyroidism,obesity, and schizophrenia Plan * admit to [facility] on telemetry * vancomycin, cefepime, and Levaquin for presumed healthcare associated ammonia * FiO2 to keep SPO2 between 90 and 94% * DuoNeb every 4 hours and albuterol neb every 2 hours when necessary. * Continue budesonide 0.5 mg twice a day. * Lantus 10 units subcutaneous daily with sliding scale insulin * repeat hemoglobin A1c in the morning * CBC, CMP, and magnesium daily * VTE prophylaxis with Lovenox * CODE STATUS: Full code * Length of stay anticipated 3-4 days. - Mortality Measure Prognosis:: Poor
[2019-08-07] MEDS: Divalproex Sodium Delayed-Release 500 MG Tab.CR PO SCH ×3 (00:35→21:23)
[2019-08-07] MEDS: OLANZapine 5 MG Tab PO SCH ×2 (00:35→21:23)
[2019-08-07] MEDS: Albuterol/Ipratropium 3.0-0.5 MG/3 ML Neb Soln NEB SCH ×6 (03:06→22:13)
[2019-08-07] MEDS ORDERED: Levothyroxine 100 MCG Tab PO SCH (06:00)
[2019-08-07] MEDS: Budesonide 0.5 MG/2 ML Neb Susp NEB SCH ×2 (06:47→22:13)
[2019-08-07 06:54] LABS: HEMOGLOBIN A1C 5.4 % (4.50-6.20)
[2019-08-07] MEDS: Furosemide 20 MG Tab PO SCH ×2 (06:59→13:31)
[2019-08-07] MEDS: Insulin Lispro 100 Units/ML 3 ML Vial SUBCUT SCH ×4 (07:00→21:24)
[2019-08-07] MEDS: Insulin Glarg,Human.Rec.Analog 100 UNIT/ML ML SUBCUT SCH (08:26)
[2019-08-07] MEDS: Enoxaparin 40 MG/0.4 ML Syringe SUBCUT SCH (08:26)
[2019-08-07] MEDS: guaiFENesin 600 MG Tab.ER PO SCH ×2 (08:28→21:23)
[2019-08-07] MEDS: Magnesium Oxide 400 MG Tab PO SCH ×2 (08:28→21:23)
[2019-08-07] MEDS: Aspirin 81 MG Tab.EC PO SCH (08:29)
[2019-08-07] MEDS: Losartan 25 MG Tab PO SCH (08:29)
[2019-08-07] MEDS ORDERED: PALIPERIDONE 12 MG PO SCH (09:00)
--- NOTE | 2019-08-07 16:33 | PCM.PN ---
- General Info Date of Service: 08/07/19 Admission Dx/Problem (Free Text): Admission Diagnosis/Problem Admission Diagnosis/Problem Chronic obstructive pulmonary disease Subjective Update: patient continues to not cooperate with me. She continued to yell while I was in the room and I was unable to examine her. She did not receive her Paliperidone this morning because it is not on formulary and [facility] refuses to bring it for her. - Review of Systems General: Reports: Other (Unable to obtain due to not being cooperative.) - Patient Data Vitals - Most Recent: Last Vital Signs Temp 98.1 F 08/07/19 15:54 Pulse 79 08/07/19 16:04 Resp 28 H 08/07/19 15:54 BP 101/50 L 08/07/19 15:54 Pulse Ox 92 L 08/07/19 16:04 Weight - Most Recent: 210 lb 8 oz I&O - Last 24 Hours: Intake & Output 08/07/19 08/07/19 08/07/19 06:59 14:59 22:59 Intake Total 550 120 Output Total 50 Balance 500 120 Lab Results Last 24 Hours: Laboratory Results - last 24 hr 08/06/19 08/06/19 08/06/19 Range/Units 21:10 21:10 21:10 WBC 10.98 H (3.98-10.04) K/mm3 RBC 3.47 L (3.98-5.22) M/mm3 Hgb 11.2 (11.2-15.7) gm/dl Hct 35.5 (34.1-44.9) % MCV 102.3 H (79.4-94.8) fl MCH 32.3 H (25.6-32.2) pg MCHC 31.5 L (32.2-35.5) g/dl RDW Std Deviation 57.8 H (36.4-46.3) fL Plt Count 266 (182-369) K/mm3 MPV 7.9 L (9.4-12.3) fl Neut % (Auto) 74.5 H (34.0-71.1) % Lymph % (Auto) 16.0 L (19.3-51.7) % [place] % (Auto) 5.6 (4.7-12.5) % Eos % (Auto) 2.3 (0.7-5.8) Baso % (Auto) 0.1 (0.1-1.2) % Neut # (Auto) 8.19 H (1.56-6.13) K/mm3 Lymph # (Auto) 1.76 (1.18-3.74) K/mm3 [place] # (Auto) 0.61 H (0.24-0.36) K/mm3 Eos # (Auto) 0.25 (0.04-0.36) K/mm3 Baso # (Auto) 0.01 (0.01-0.08) K/mm3 Manual Slide Review Normal smear Puncture Site ABG pH (7.35-7.45) ABG pCO2 (35.0-45.0) mmHg ABG pO2 (80.0-100.0) mmHg ABG HCO3 (22.0-26.0) meq/L ABG O2 Saturation (96.0-97.0) % ABG Base Excess (-2-2.0) Ryan Test A-a Gradient mmHg O2 Delivery Device FiO2 (21.00-100.00) % Blood Gas Comments Sodium 142 (136-145) mEq/L Potassium 3.7 (3.5-5.1) mEq/L Chloride 107 (98-107) mEq/L Carbon Dioxide 38 H (21-32) mEq/L Anion Gap 0.7 L (5-15) BUN 5 L (7-18) mg/dL Creatinine 0.5 L (0.55-1.02) mg/dL Est Cr Clr Drug Dosing TNP Estimated GFR (MDRD) > 60 (>60) mL/min BUN/Creatinine Ratio 10.0 L (14-18) Glucose 163 H (83-115) mg/dL POC Glucose (83-110) mg/dL Hemoglobin A1c (4.50-6.20) % Lactic Acid 0.7 (0.4-2.0) mmol/L Calcium 8.4 L (8.5-10.1) mg/dL Magnesium (1.8-2.4) mg/dl Total Bilirubin 0.2 (0.2-1.0) mg/dL AST 30 (15-37) U/L ALT 52 (14-59) U/L Alkaline Phosphatase 80 (46-116) U/L Troponin I < 0.017 (0.00-0.056) ng/mL C-Reactive Protein (<1.0) mg/dL NT-Pro-B Natriuret Pep (0-450) pg/mL Total Protein 5.3 L (6.4-8.2) g/dl Albumin 1.6 L (3.4-5.0) g/dl Globulin 3.7 gm/dL Albumin/Globulin Ratio 0.4 L (1-2) TSH 3rd Generation (0.358-3.74) uIU/mL Valproic Acid 38.8 L (50.0-100.0) ug/mL 08/06/19 08/06/19 08/07/19 Range/Units 21:10 22:05 04:54 WBC 9.86 (3.98-10.04) K/mm3 RBC 3.45 L (3.98-5.22) M/mm3 Hgb 11.1 L (11.2-15.7) gm/dl Hct 35.4 (34.1-44.9) % MCV 102.6 H (79.4-94.8) fl MCH 32.2 (25.6-32.2) pg MCHC 31.4 L (32.2-35.5) g/dl RDW Std Deviation 57.6 H (36.4-46.3) fL Plt Count 266 (182-369) K/mm3 MPV 8.3 L (9.4-12.3) fl Neut % (Auto) 71.9 H (34.0-71.1) % Lymph % (Auto) 15.5 L (19.3-51.7) % [place] % (Auto) 9.0 (4.7-12.5) % Eos % (Auto) 2.1 (0.7-5.8) Baso % (Auto) 0.1 (0.1-1.2) % Neut # (Auto) 7.08 H (1.56-6.13) K/mm3 Lymph # (Auto) 1.53 (1.18-3.74) K/mm3 [place] # (Auto) 0.89 H (0.24-0.36) K/mm3 Eos # (Auto) 0.21 (0.04-0.36) K/mm3 Baso # (Auto) 0.01 (0.01-0.08) K/mm3 Manual Slide Review Abnormal smear Puncture Site Lt radial ABG pH 7.42 (7.35-7.45) ABG pCO2 57.5 H (35.0-45.0) mmHg ABG pO2 149.0 H (80.0-100.0) mmHg ABG HCO3 36.2 H (22.0-26.0) meq/L ABG O2 Saturation 99.1 H (96.0-97.0) % ABG Base Excess 10.1 H (-2-2.0) Ryan Test Positive A-a Gradient 351 mmHg O2 Delivery Device Bipap FiO2 80.00 (21.00-100.00) % Blood Gas Comments 30/05 Sodium (136-145) mEq/L Potassium (3.5-5.1) mEq/L Chloride (98-107) mEq/L Carbon Dioxide (21-32) mEq/L Anion Gap (5-15) BUN (7-18) mg/dL Creatinine (0.55-1.02) mg/dL Est Cr Clr Drug Dosing Estimated GFR (MDRD) (>60) mL/min BUN/Creatinine Ratio (14-18) Glucose (83-115) mg/dL POC Glucose (83-110) mg/dL Hemoglobin A1c (4.50-6.20) % Lactic Acid (0.4-2.0) mmol/L Calcium (8.5-10.1) mg/dL Magnesium (1.8-2.4) mg/dl Total Bilirubin (0.2-1.0) mg/dL AST (15-37) U/L ALT (14-59) U/L Alkaline Phosphatase (46-116) U/L Troponin I (0.00-0.056) ng/mL C-Reactive Protein (<1.0) mg/dL NT-Pro-B Natriuret Pep 947 H (0-450) pg/mL Total Protein (6.4-8.2) g/dl Albumin (3.4-5.0) g/dl Globulin gm/dL Albumin/Globulin Ratio (1-2) TSH 3rd Generation (0.358-3.74) uIU/mL Valproic Acid (50.0-100.0) ug/mL 08/07/19 08/07/19 08/07/19 Range/Units 04:54 04:54 06:58 WBC (3.98-10.04) K/mm3 RBC (3.98-5.22) M/mm3 Hgb (11.2-15.7) gm/dl Hct (34.1-44.9) % MCV (79.4-94.8) fl MCH (25.6-32.2) pg MCHC (32.2-35.5) g/dl RDW Std Deviation (36.4-46.3) fL Plt Count (182-369) K/mm3 MPV (9.4-12.3) fl Neut % (Auto) (34.0-71.1) % Lymph % (Auto) (19.3-51.7) % [place] % (Auto) (4.7-12.5) % Eos % (Auto) (0.7-5.8) Baso % (Auto) (0.1-1.2) % Neut # (Auto) (1.56-6.13) K/mm3 Lymph # (Auto) (1.18-3.74) K/mm3 [place] # (Auto) (0.24-0.36) K/mm3 Eos # (Auto) (0.04-0.36) K/mm3 Baso # (Auto) (0.01-0.08) K/mm3 Manual Slide Review Puncture Site ABG pH (7.35-7.45) ABG pCO2 (35.0-45.0) mmHg ABG pO2 (80.0-100.0) mmHg ABG HCO3 (22.0-26.0) meq/L ABG O2 Saturation (96.0-97.0) % ABG Base Excess (-2-2.0) Ryan Test A-a Gradient mmHg O2 Delivery Device FiO2 (21.00-100.00) % Blood Gas Comments Sodium 142 (136-145) mEq/L Potassium 3.8 (3.5-5.1) mEq/L Chloride 103 (98-107) mEq/L Carbon Dioxide 36 H (21-32) mEq/L Anion Gap 6.8 (5-15) BUN 5 L (7-18) mg/dL Creatinine 0.5 L (0.55-1.02) mg/dL Est Cr Clr Drug Dosing 91.63 Estimated GFR (MDRD) > 60 (>60) mL/min BUN/Creatinine Ratio 10.0 L (14-18) Glucose 115 (83-115) mg/dL POC Glucose 120 H (83-110) mg/dL Hemoglobin A1c 5.40 (4.50-6.20) % Lactic Acid (0.4-2.0) mmol/L Calcium 8.5 (8.5-10.1) mg/dL Magnesium 1.8 (1.8-2.4) mg/dl Total Bilirubin 0.3 (0.2-1.0) mg/dL AST 29 (15-37) U/L ALT 46 (14-59) U/L Alkaline Phosphatase 78 (46-116) U/L Troponin I (0.00-0.056) ng/mL C-Reactive Protein 3.0 H* (<1.0) mg/dL NT-Pro-B Natriuret Pep (0-450) pg/mL Total Protein 5.1 L (6.4-8.2) g/dl Albumin 1.6 L (3.4-5.0) g/dl Globulin 3.5 gm/dL Albumin/Globulin Ratio 0.5 L (1-2) TSH 3rd Generation 8.872 H (0.358-3.74) uIU/mL Valproic Acid (50.0-100.0) ug/mL 08/07/19 Range/Units 11:18 WBC (3.98-10.04) K/mm3 RBC (3.98-5.22) M/mm3 Hgb (11.2-15.7) gm/dl Hct (34.1-44.9) % MCV (79.4-94.8) fl MCH (25.6-32.2) pg MCHC (32.2-35.5) g/dl RDW Std Deviation (36.4-46.3) fL Plt Count (182-369) K/mm3 MPV (9.4-12.3) fl Neut % (Auto) (34.0-71.1) % Lymph % (Auto) (19.3-51.7) % [place] % (Auto) (4.7-12.5) % Eos % (Auto) (0.7-5.8) Baso % (Auto) (0.1-1.2) % Neut # (Auto) (1.56-6.13) K/mm3 Lymph # (Auto) (1.18-3.74) K/mm3 [place] # (Auto) (0.24-0.36) K/mm3 Eos # (Auto) (0.04-0.36) K/mm3 Baso # (Auto) (0.01-0.08) K/mm3 Manual Slide Review Puncture Site ABG pH (7.35-7.45) ABG pCO2 (35.0-45.0) mmHg ABG pO2 (80.0-100.0) mmHg ABG HCO3 (22.0-26.0) meq/L ABG O2 Saturation (96.0-97.0) % ABG Base Excess (-2-2.0) Ryan Test A-a Gradient mmHg O2 Delivery Device FiO2 (21.00-100.00) % Blood Gas Comments Sodium (136-145) mEq/L Potassium (3.5-5.1) mEq/L Chloride (98-107) mEq/L Carbon Dioxide (21-32) mEq/L Anion Gap (5-15) BUN (7-18) mg/dL Creatinine (0.55-1.02) mg/dL Est Cr Clr Drug Dosing Estimated GFR (MDRD) (>60) mL/min BUN/Creatinine Ratio (14-18) Glucose (83-115) mg/dL POC Glucose 165 H (83-110) mg/dL Hemoglobin A1c (4.50-6.20) % Lactic Acid (0.4-2.0) mmol/L Calcium (8.5-10.1) mg/dL Magnesium (1.8-2.4) mg/dl Total Bilirubin (0.2-1.0) mg/dL AST (15-37) U/L ALT (14-59) U/L Alkaline Phosphatase (46-116) U/L Troponin I (0.00-0.056) ng/mL C-Reactive Protein (<1.0) mg/dL NT-Pro-B Natriuret Pep (0-450) pg/mL Total Protein (6.4-8.2) g/dl Albumin (3.4-5.0) g/dl Globulin gm/dL Albumin/Globulin Ratio (1-2) TSH 3rd Generation (0.358-3.74) uIU/mL Valproic Acid (50.0-100.0) ug/mL Gene Results Last 24 Hours: Microbiology 08/06/19 22:25 Anaerobic Blood Culture - Final Blood - Venous Med Orders - Current: Current Medications Acetaminophen (Tylenol) 650 mg PO Q4H PRN PRN Reason: Pain (Mild 1-3)/fever Albuterol (Proventil Neb Soln) 2.5 mg NEB Q2H PRN PRN Reason: Shortness Of Breath/wheezing Albuterol/Ipratropium (Duoneb 3.0-0.5 Mg/3 Ml) 3 ml NEB Q4HRRT [facility] Last Admin: 08/07/19 14:22 Dose: 3 ml Aspirin (Halfprin) 81 mg PO DAILY [facility] Last Admin: 08/07/19 08:29 Dose: 81 mg Budesonide (Pulmicort) 0.5 mg NEB BIDRT [facility] Last Admin: 08/07/19 06:47 Dose: 0.5 mg Dextrose/Water (Dextrose 50% In Water) 50 ml IVPUSH ASDIRECTED PRN PRN Reason: Hypoglycemia Divalproex Sodium (Depakote) 500 mg PO BID [facility] Last Admin: 08/07/19 08:28 Dose: 500 mg Enoxaparin Sodium (Lovenox) 40 mg SUBCUT DAILY [facility] Last Admin: 08/07/19 08:26 Dose: 40 mg Famotidine (Pepcid) 20 mg PO BEDTIME FITO Furosemide (Lasix) 20 mg PO BIDDIURETIC [facility] Last Admin: 08/07/19 13:31 Dose: 20 mg Guaifenesin (Mucinex) 600 mg PO BID [facility] Last Admin: 08/07/19 08:28 Dose: 600 mg Insulin Glargine (Lantus) 10 unit SUBCUT DAILY [facility] Last Admin: 08/07/19 08:26 Dose: 10 units Insulin Human Lispro (Humalog) 0 unit SUBCUT QIDACANDBED [facility]; Protocol Last Admin: 08/07/19 13:32 Dose: 2 units Levothyroxine Sodium (Levothyroxine) 125 mcg PO ACBREAKFAST [facility] Losartan Potassium (Cozaar) 25 mg PO DAILY [facility] Last Admin: 08/07/19 08:29 Dose: 25 mg Magnesium Oxide (Magnesium Oxide) 400 mg PO BID [facility] Last Admin: 08/07/19 08:28 Dose: 400 mg Olanzapine (Zyprexa) 15 mg PO BEDTIME [facility] Last Admin: 08/07/19 00:35 Dose: 15 mg Ondansetron HCl (Zofran) 4 mg IV Q4H PRN PRN Reason: Nausea/Vomiting Paliperidone [Invega (] 12 Mg) 0 each PO DAILY [facility] Last Admin: 08/07/19 10:39 Dose: Not Given Rosuvastatin Calcium (Crestor) 10 mg PO BEDTIME [facility] Senna/Docusate Sodium (Senna Plus) 2 tab PO BID [facility] Last Admin: 08/07/19 08:28 Dose: 2 tab Discontinued Medications Cefepime HCl 2 gm/ Premix 50 mls @ 100 mls/hr IV ONETIME ONE Stop: 08/06/19 23:03 Last Admin: 08/06/19 22:52 Dose: 100 mls/hr Levofloxacin/Dextrose 750 mg/ (Premix) 150 mls @ 100 mls/hr IV ONETIME ONE Stop: 08/07/19 00:03 Last Admin: 08/06/19 22:51 Dose: 100 mls/hr Vancomycin HCl 1 gm/ Sodium (Chloride) 250 mls @ 250 mls/hr IV ONETIME ONE Stop: 08/06/19 23:34 Last Admin: 08/06/19 23:46 Dose: 250 mls/hr Levothyroxine Sodium (Synthroid) 100 mcg PO ACBREAKFAST [facility] Last Admin: 08/07/19 06:59 Dose: 100 mcg - Exam General: Alert. No: Oriented Lungs: Other (unable to exam) - Problem List Review Problem List Initiated/Reviewed/Updated: Yes - My Orders Last 24 Hours: My Active Orders 08/06/19 21:00 OLANZapine [ZyPREXA] 15 mg PO BEDTIME 08/06/19 23:28 Oxygen Therapy [RC] PRN Up With Assistance [RC] ASDIRECTED VTE/DVT Education [RC] PER UNIT ROUTINE Vital Signs [RC] Q4HR Acetaminophen [Tylenol] 650 mg PO Q4H PRN Ondansetron [Zofran] 4 mg IV Q4H PRN Resuscitation Status Routine 08/06/19 23:29 Blood Glucose Check, Bedside [RC] QIDACANDBED Respiratory Care Assess and Treatment [CONS] Routine CULTURE SPUTUM + SMEAR [RM] Stat Albuterol [Proventil Neb Soln] 2.5 mg NEB Q2H PRN 08/06/19 23:31 RT Aerosol Therapy [RC] ASDIRECTED 08/06/19 23:35 Dextrose 50% in Water 50 ml IVPUSH ASDIRECTED PRN 08/06/19 23:45 Divalproex Sodium [Depakote] 500 mg PO BID 08/07/19 02:00 Albuterol/Ipratropium [DuoNeb 3.0-0.5 MG/3 ML] 3 ml NEB Q4HRRT 08/07/19 06:00 Budesonide [Pulmicort] 0.5 mg NEB BIDRT Furosemide [Lasix] 20 mg PO BIDDIURETIC 08/07/19 07:00 Insulin Lispro [HumaLOG] See Protocol SUBCUT QIDACANDBED 08/07/19 09:00 Aspirin [Halfprin] 81 mg PO DAILY Docusate Sodium/Sennosides [Senna Plus] 2 tab PO BID Enoxaparin [Lovenox] 40 mg SUBCUT DAILY Insulin Glarg,Human.Rec.Analog [LantUS] 10 unit SUBCUT DAILY Losartan [Cozaar] 25 mg PO DAILY Magnesium Oxide 400 mg PO BID Patient's Own Medication [Ptom] 0 each PO DAILY guaiFENesin [Mucinex] 600 mg PO BID 08/07/19 15:25 Communication Order [RC] ROUTINE 08/07/19 21:00 Famotidine [Pepcid] 20 mg PO BEDTIME Rosuvastatin [Crestor] 10 mg PO BEDTIME 08/07/19 Breakfast Consistent Carbohydrate Diet [DIET] 08/08/19 05:11 C-REACTIVE PROTEIN [CHEM] AM CBC WITH AUTO DIFF [HEME] AM COMPREHENSIVE METABOLIC PN,CMP [CHEM] AM MAGNESIUM [CHEM] AM 08/08/19 06:00 Levothyroxine 125 mcg PO ACBREAKFAST 08/09/19 05:11 C-REACTIVE PROTEIN [CHEM] AM CBC WITH AUTO DIFF [HEME] AM COMPREHENSIVE METABOLIC PN,CMP [CHEM] AM MAGNESIUM [CHEM] AM - Plan Plan:: Assessment * Possible right lower lobe healthcare associated pneumonia with exacerbation of COPD * Chest x-ray does show some atelectasis versus pneumonia in the right side. Patient also has an elevated white count, increased work of breathing, and is in respiratory failure. * Patient recently was discharged from the hospital with a drain in place from her gallbladder. * respiratory failure * Off BiPAP, improving * Recent cholecystectomy * patient continues to have it drained. * We'll need operative notes and discharge summary * Congestive heart failure * BNP 947 * Home Lasix 20 mg twice a day and losartan 25 mg daily * no recent echocardiogram * Insulin-dependent diabetes * hemoglobin A1c 5.4 * history of hypertension, hyperlipidemia, hypothyroidism,obesity, and * Schizophrenia * Pt. non-cooperative due to not getting paliperidone. Plan * admit to [facility] on telemetry * I called [place] for an explanation why we could not obtain her paliperidone and the [facility] did not return my call. Will ask case management to look into this tomorrow. * vancomycin, cefepime, and Levaquin for presumed healthcare associated ammonia * FiO2 to keep SPO2 between 90 and 94% * DuoNeb every 4 hours and albuterol neb every 2 hours when necessary. * Continue budesonide 0.5 mg twice a day. * DM overly corrected at [place]. * Lantus 10 units subcutaneous daily with sliding scale insulin * Give extra dose of Lasix * CBC, CMP, and magnesium daily * VTE prophylaxis with Lovenox * CODE STATUS: Full code * Length of stay anticipated 3-4 days.
--- NOTE | 2019-08-07 16:34 | CR ---
Chest: Portable view of the chest was obtained. Comparison: Prior chest x-ray of 08/02/[address] performed on the same day. Mild increased density is noted within both lung bases which is felt compatible with atelectasis. Lungs show no acute parenchymal change. Heart size is normal. Scoliosis is noted within the spine. Pigtail catheter is seen within the upper right abdomen. Impression: 1. Mild atelectasis. Other findings as noted above. 2. Nothing acute is definitely appreciated on portable chest x-ray. Diagnostic code #2
[2019-08-07] MEDS: INVEGA 6 MG PO SCH (17:42)
[2019-08-07] MEDS: Cefepime 2 GM in Premix Bag 1 BAG IV SCH (17:42)
[2019-08-07] MEDS ORDERED: Vancomycin 1.5 GM in Sodium Chloride 0.9% 500 ML IV SCH (18:30)
[2019-08-07] MEDS: Rosuvastatin 10 MG Tab PO SCH (21:24)
[2019-08-07] MEDS: Famotidine 20 MG Tab PO SCH (21:24)
[2019-08-07] MEDS ORDERED: Levofloxacin/Dextrose 5%-Water 750 MG in Premix Bag 1 BAG IV SCH (22:00)
[2019-08-08] MEDS: Cefepime 2 GM in Premix Bag 1 BAG IV SCH ×2 (01:33→08:31)
[2019-08-08] MEDS: Vancomycin 1.5 GM in Sodium Chloride 0.9% 500 ML IV SCH ×2 (02:11→16:00)
[2019-08-08] MEDS: Albuterol/Ipratropium 3.0-0.5 MG/3 ML Neb Soln NEB SCH ×4 (03:43→21:36)
[2019-08-08] MEDS: Insulin Lispro 100 Units/ML 3 ML Vial SUBCUT SCH ×4 (06:02→22:33)
[2019-08-08] MEDS: Furosemide 20 MG Tab PO SCH (06:41)
[2019-08-08] MEDS: Levothyroxine 125 MCG Tab PO SCH (06:41)
[2019-08-08] MEDS: Divalproex Sodium Delayed-Release 500 MG Tab.CR PO SCH ×2 (08:29→20:09)
[2019-08-08] MEDS: Magnesium Oxide 400 MG Tab PO SCH ×2 (08:29→20:09)
[2019-08-08] MEDS: guaiFENesin 600 MG Tab.ER PO SCH ×2 (08:29→20:09)
[2019-08-08] MEDS: Enoxaparin 40 MG/0.4 ML Syringe SUBCUT SCH (08:29)
[2019-08-08] MEDS: INVEGA 6 MG PO SCH (08:30)
[2019-08-08] MEDS: Losartan 25 MG Tab PO SCH (08:30)
[2019-08-08] MEDS: Insulin Glarg,Human.Rec.Analog 100 UNIT/ML ML SUBCUT SCH (08:30)
[2019-08-08] MEDS: Aspirin 81 MG Tab.EC PO SCH (08:30)
[2019-08-08] MEDS: Budesonide 0.5 MG/2 ML Neb Susp NEB SCH ×2 (09:09→21:37)
[2019-08-08] MEDS ORDERED: Furosemide 40 MG/4 ML VIAL IVPUSH ONE ×2 (12:23→15:15)
--- NOTE | 2019-08-08 14:24 | PCM.PN ---
- General Info Date of Service: 08/08/19 Admission Dx/Problem (Free Text): Admission Diagnosis/Problem Admission Diagnosis/Problem Chronic obstructive pulmonary disease Subjective Update: Malika is feeling well without control. Functional Status: Reports: Pain Controlled - Review of Systems General: Reports: No Symptoms HEENT: Reports: No Symptoms Pulmonary: Reports: No Symptoms Cardiovascular: Reports: No Symptoms Gastrointestinal: Reports: No Symptoms - Patient Data Vitals - Most Recent: Last Vital Signs Temp 97.5 F 08/08/19 08:23 Pulse 69 08/08/19 08:23 Resp 20 08/08/19 08:23 BP 110/65 08/08/19 08:30 Pulse Ox 91 L 08/08/19 14:05 Weight - Most Recent: 231 lb I&O - Last 24 Hours: Intake & Output 08/07/19 08/08/19 08/08/19 22:59 06:59 14:59 Intake Total 370 800 120 Output Total 50 60 Balance 320 740 120 Lab Results Last 24 Hours: Laboratory Results - last 24 hr 08/07/19 08/07/19 08/07/19 Range/Units 17:35 18:04 21:20 WBC (3.98-10.04) K/mm3 RBC (3.98-5.22) M/mm3 Hgb (11.2-15.7) gm/dl Hct (34.1-44.9) % MCV (79.4-94.8) fl MCH (25.6-32.2) pg MCHC (32.2-35.5) g/dl RDW Std Deviation (36.4-46.3) fL Plt Count (182-369) K/mm3 MPV (9.4-12.3) fl Neut % (Auto) (34.0-71.1) % Lymph % (Auto) (19.3-51.7) % [place] % (Auto) (4.7-12.5) % Eos % (Auto) (0.7-5.8) Baso % (Auto) (0.1-1.2) % Neut # (Auto) (1.56-6.13) K/mm3 Lymph # (Auto) (1.18-3.74) K/mm3 [place] # (Auto) (0.24-0.36) K/mm3 Eos # (Auto) (0.04-0.36) K/mm3 Baso # (Auto) (0.01-0.08) K/mm3 Manual Slide Review Sodium (136-145) mEq/L Potassium (3.5-5.1) mEq/L Chloride (98-107) mEq/L Carbon Dioxide (21-32) mEq/L Anion Gap (5-15) BUN (7-18) mg/dL Creatinine (0.55-1.02) mg/dL Est Cr Clr Drug Dosing mL/min Estimated GFR (MDRD) (>60) mL/min BUN/Creatinine Ratio (14-18) Glucose (83-115) mg/dL POC Glucose 159 H 165 H (83-110) mg/dL Calcium (8.5-10.1) mg/dL Magnesium (1.8-2.4) mg/dl Total Bilirubin (0.2-1.0) mg/dL AST (15-37) U/L ALT (14-59) U/L Alkaline Phosphatase (46-116) U/L C-Reactive Protein (<1.0) mg/dL Total Protein (6.4-8.2) g/dl Albumin (3.4-5.0) g/dl Globulin gm/dL Albumin/Globulin Ratio (1-2) Vancomycin Trough (10.0-20.0) MRSA (PCR) Positive H 08/08/19 08/08/19 08/08/19 Range/Units 05:53 05:55 05:55 WBC 8.27 (3.98-10.04) K/mm3 RBC 3.35 L (3.98-5.22) M/mm3 Hgb 10.7 L (11.2-15.7) gm/dl Hct 34.3 (34.1-44.9) % MCV 102.4 H (79.4-94.8) fl MCH 31.9 (25.6-32.2) pg MCHC 31.2 L (32.2-35.5) g/dl RDW Std Deviation 56.9 H (36.4-46.3) fL Plt Count 247 (182-369) K/mm3 MPV 8.4 L (9.4-12.3) fl Neut % (Auto) 67.5 (34.0-71.1) % Lymph % (Auto) 19.5 (19.3-51.7) % [place] % (Auto) 8.5 (4.7-12.5) % Eos % (Auto) 2.9 (0.7-5.8) Baso % (Auto) 0.0 L (0.1-1.2) % Neut # (Auto) 5.59 (1.56-6.13) K/mm3 Lymph # (Auto) 1.61 (1.18-3.74) K/mm3 [place] # (Auto) 0.70 H (0.24-0.36) K/mm3 Eos # (Auto) 0.24 (0.04-0.36) K/mm3 Baso # (Auto) 0.00 L (0.01-0.08) K/mm3 Manual Slide Review Abnormal smear Sodium 142 (136-145) mEq/L Potassium 3.9 (3.5-5.1) mEq/L Chloride 103 (98-107) mEq/L Carbon Dioxide 36 H (21-32) mEq/L Anion Gap 6.9 (5-15) BUN 8 (7-18) mg/dL Creatinine 0.5 L (0.55-1.02) mg/dL Est Cr Clr Drug Dosing 91.63 mL/min Estimated GFR (MDRD) > 60 (>60) mL/min BUN/Creatinine Ratio 16.0 (14-18) Glucose 114 (83-115) mg/dL POC Glucose 97 (83-110) mg/dL Calcium 8.3 L (8.5-10.1) mg/dL Magnesium 2.0 (1.8-2.4) mg/dl Total Bilirubin 0.2 (0.2-1.0) mg/dL AST 25 (15-37) U/L ALT 38 (14-59) U/L Alkaline Phosphatase 65 (46-116) U/L C-Reactive Protein 2.1 H* (<1.0) mg/dL Total Protein 5.0 L (6.4-8.2) g/dl Albumin 1.6 L (3.4-5.0) g/dl Globulin 3.4 gm/dL Albumin/Globulin Ratio 0.5 L (1-2) Vancomycin Trough (10.0-20.0) MRSA (PCR) 08/08/19 08/08/19 Range/Units 09:19 12:26 WBC (3.98-10.04) K/mm3 RBC (3.98-5.22) M/mm3 Hgb (11.2-15.7) gm/dl Hct (34.1-44.9) % MCV (79.4-94.8) fl MCH (25.6-32.2) pg MCHC (32.2-35.5) g/dl RDW Std Deviation (36.4-46.3) fL Plt Count (182-369) K/mm3 MPV (9.4-12.3) fl Neut % (Auto) (34.0-71.1) % Lymph % (Auto) (19.3-51.7) % [place] % (Auto) (4.7-12.5) % Eos % (Auto) (0.7-5.8) Baso % (Auto) (0.1-1.2) % Neut # (Auto) (1.56-6.13) K/mm3 Lymph # (Auto) (1.18-3.74) K/mm3 [place] # (Auto) (0.24-0.36) K/mm3 Eos # (Auto) (0.04-0.36) K/mm3 Baso # (Auto) (0.01-0.08) K/mm3 Manual Slide Review Sodium (136-145) mEq/L Potassium (3.5-5.1) mEq/L Chloride (98-107) mEq/L Carbon Dioxide (21-32) mEq/L Anion Gap (5-15) BUN (7-18) mg/dL Creatinine (0.55-1.02) mg/dL Est Cr Clr Drug Dosing mL/min Estimated GFR (MDRD) (>60) mL/min BUN/Creatinine Ratio (14-18) Glucose (83-115) mg/dL POC Glucose 184 H (83-110) mg/dL Calcium (8.5-10.1) mg/dL Magnesium (1.8-2.4) mg/dl Total Bilirubin (0.2-1.0) mg/dL AST (15-37) U/L ALT (14-59) U/L Alkaline Phosphatase (46-116) U/L C-Reactive Protein (<1.0) mg/dL Total Protein (6.4-8.2) g/dl Albumin (3.4-5.0) g/dl Globulin gm/dL Albumin/Globulin Ratio (1-2) Vancomycin Trough 21.1 H (10.0-20.0) MRSA (PCR) Gene Results Last 24 Hours: Microbiology 08/06/19 22:33 Aerobic Blood Culture - Preliminary Blood - Venous - Lab Draw NO GROWTH AFTER 1 DAY Anaerobic Blood Culture - Preliminary NO GROWTH AFTER 1 DAY 08/06/19 22:25 Aerobic Blood Culture - Preliminary Blood - Venous NO GROWTH AFTER 1 DAY Anaerobic Blood Culture - Final Med Orders - Current: Current Medications Acetaminophen (Tylenol) 650 mg PO Q4H PRN PRN Reason: Pain (Mild 1-3)/fever Albuterol (Proventil Neb Soln) 2.5 mg NEB Q2H PRN PRN Reason: Shortness Of Breath/wheezing Albuterol/Ipratropium (Duoneb 3.0-0.5 Mg/3 Ml) 3 ml NEB Q6HRRT [facility] Last Admin: 08/08/19 14:04 Dose: 3 ml Aspirin (Halfprin) 81 mg PO DAILY [facility] Last Admin: 08/08/19 08:30 Dose: 81 mg Budesonide (Pulmicort) 0.5 mg NEB BID [facility] Last Admin: 08/08/19 09:09 Dose: 0.5 mg Dextrose/Water (Dextrose 50% In Water) 50 ml IVPUSH ASDIRECTED PRN PRN Reason: Hypoglycemia Divalproex Sodium (Depakote) 500 mg PO BID [facility] Last Admin: 08/08/19 08:29 Dose: 500 mg Doxycycline Hyclate (Vibramycin) 100 mg PO Q12H [facility] Enoxaparin Sodium (Lovenox) 40 mg SUBCUT DAILY [facility] Last Admin: 08/08/19 08:29 Dose: 40 mg Famotidine (Pepcid) 20 mg PO BEDTIME [facility] Last Admin: 08/07/19 21:24 Dose: 20 mg Furosemide (Lasix) 20 mg IVPUSH BID [facility] Stop: 08/09/19 21:01 Furosemide (Lasix) 20 mg PO BIDDIURETIC [facility] Guaifenesin (Mucinex) 600 mg PO BID [facility] Last Admin: 08/08/19 08:29 Dose: 600 mg Insulin Glargine (Lantus) 10 unit SUBCUT DAILY [facility] Last Admin: 08/08/19 08:30 Dose: 10 units Insulin Human Lispro (Humalog) 0 unit SUBCUT QIDACANDBED [facility]; Protocol Last Admin: 08/08/19 12:28 Dose: 2 units Levofloxacin (Levaquin) 750 mg PO Q24H [facility] Levothyroxine Sodium (Levothyroxine) 125 mcg PO ACBREAKFAST [facility] Last Admin: 08/08/19 06:41 Dose: 125 mcg Losartan Potassium (Cozaar) 25 mg PO DAILY [facility] Last Admin: 08/08/19 08:30 Dose: 25 mg Magnesium Oxide (Magnesium Oxide) 400 mg PO BID [facility] Last Admin: 08/08/19 08:29 Dose: 400 mg Olanzapine (Zyprexa) 15 mg PO BEDTIME [facility] Last Admin: 08/07/19 21:23 Dose: 15 mg Ondansetron HCl (Zofran) 4 mg IV Q4H PRN PRN Reason: Nausea/Vomiting Invega 6 Mg Caps *Pt (Own Med*) 0 each PO DAILY [facility] Last Admin: 08/08/19 08:30 Dose: 2 each Rosuvastatin Calcium (Crestor) 10 mg PO BEDTIME [facility] Last Admin: 08/07/19 21:24 Dose: 10 mg Senna/Docusate Sodium (Senna Plus) 2 tab PO BID [facility] Last Admin: 08/08/19 08:31 Dose: Not Given Discontinued Medications Albuterol/Ipratropium (Duoneb 3.0-0.5 Mg/3 Ml) 3 ml NEB Q4HRRT [facility] Last Admin: 08/07/19 18:30 Dose: 3 ml Budesonide (Pulmicort) 0.5 mg NEB BIDRT [facility] Last Admin: 08/07/19 22:13 Dose: 0.5 mg Furosemide (Lasix) 20 mg PO BIDDIURETIC [facility] Last Admin: 08/08/19 06:41 Dose: 20 mg Furosemide (Lasix) 40 mg IVPUSH NOW ONE Stop: 08/08/19 12:24 Cefepime HCl 2 gm/ Premix 50 mls @ 100 mls/hr IV ONETIME ONE Stop: 08/06/19 23:03 Last Admin: 08/06/19 22:52 Dose: 100 mls/hr Levofloxacin/Dextrose 750 mg/ (Premix) 150 mls @ 100 mls/hr IV ONETIME ONE Stop: 08/07/19 00:03 Last Admin: 08/06/19 22:51 Dose: 100 mls/hr Vancomycin HCl 1 gm/ Sodium (Chloride) 250 mls @ 250 mls/hr IV ONETIME ONE Stop: 08/06/19 23:34 Last Admin: 08/06/19 23:46 Dose: 250 mls/hr Cefepime HCl 2 gm/ Premix 50 mls @ 100 mls/hr IV Q8H [facility] Last Admin: 08/08/19 08:31 Dose: 100 mls/hr Levofloxacin/Dextrose 750 mg/ (Premix) 150 mls @ 100 mls/hr IV Q24H [facility] Last Admin: 08/07/19 21:25 Dose: 100 mls/hr Vancomycin HCl 1.5 gm/ Sodium (Chloride) 250 mls @ 125 mls/hr IV Q8H [facility] Last Admin: 08/07/19 18:40 Dose: 125 mls/hr Vancomycin HCl 1.5 gm/ Sodium (Chloride) 500 mls @ 250 mls/hr IV Q8H [facility] Last Admin: 08/07/19 19:08 Dose: Not Given Vancomycin HCl 1.5 gm/ Sodium (Chloride) 250 mls @ 125 mls/hr IV ONETIME ONE Stop: 08/07/19 20:44 Last Admin: 08/07/19 18:49 Dose: Not Given Vancomycin HCl 1.5 gm/ Sodium (Chloride) 500 mls @ 250 mls/hr IV Q8H [facility] Last Admin: 08/08/19 02:11 Dose: 250 mls/hr Levothyroxine Sodium (Synthroid) 100 mcg PO ACBREAKFAST [facility] Last Admin: 08/07/19 06:59 Dose: 100 mcg Paliperidone [Invega (] 12 Mg) 0 each PO DAILY [facility] Last Admin: 08/07/19 10:39 Dose: Not Given Vancomycin HCl (Pharmacy To Dose - Vancomycin) 1 dose .XX ASDIRECTED PRN PRN Reason: RX TO DOSE VANCO - Exam Quality Assessment: Supplemental Oxygen General: Alert, Oriented HEENT: Pupils Equal Neck: Supple Lungs: Decreased Breath Sounds, Rales Cardiovascular: Regular Rate, Regular Rhythm GI/Abdominal Exam: Normal Bowel Sounds, Soft, Non-Tender, No Distention Back Exam: Normal Inspection Extremities: Normal Inspection, Non-Tender, Pedal Edema Skin: Warm, Dry, Intact Psy/Mental Status: Alert, Normal Affect, Normal Mood - Problem List Review Problem List Initiated/Reviewed/Updated: Yes - My Orders Last 24 Hours: My Active Orders 08/07/19 15:25 Communication Order [RC] ROUTINE 08/07/19 16:37 Consult to Case Management/Joiner Helper [CONS] Routine 08/07/19 17:30 Patient's Own Medication [Ptom] 0 each PO DAILY 08/07/19 21:00 Famotidine [Pepcid] 20 mg PO BEDTIME Rosuvastatin [Crestor] 10 mg PO BEDTIME 08/07/19 23:00 Albuterol/Ipratropium [DuoNeb 3.0-0.5 MG/3 ML] 3 ml NEB Q6HRRT 08/08/19 06:00 Levothyroxine 125 mcg PO ACBREAKFAST 08/08/19 09:00 Budesonide [Pulmicort] 0.5 mg NEB BID 08/08/19 17:00 Doxycycline [Vibramycin] 100 mg PO Q12H 08/08/19 21:00 levoFLOXacin [Levaquin] 750 mg PO Q24H 08/09/19 05:11 C-REACTIVE PROTEIN [CHEM] AM CBC WITH AUTO DIFF [HEME] AM COMPREHENSIVE METABOLIC PN,CMP [CHEM] AM MAGNESIUM [CHEM] AM 08/09/19 09:00 Furosemide [Lasix] 20 mg IVPUSH BID 08/10/19 06:00 Furosemide [Lasix] 20 mg PO BIDDIURETIC - Plan Plan:: Assessment * Possible right lower lobe healthcare associated pneumonia with exacerbation of COPD * Chest x-ray does show some atelectasis versus pneumonia in the right side. Patient also has an elevated white count, increased work of breathing, and is in respiratory failure. * Patient recently was discharged from the hospital with a cholecystostomy tube. * respiratory failure - resolved * Off BiPAP, improving * cholecystostomy tube placed on August 02, 2019 * Received Hospital records. Recommendations were for patient to return 1 month later for repeat cholangiogram and drain exchange. * Congestive heart failure * BNP 947 * Home Lasix 20 mg twice a day and losartan 25 mg daily * no recent echocardiogram * Increased LE swelling * Insulin-dependent diabetes * hemoglobin A1c 5.4 * [place] controlled. * Decrease insulin * history of hypertension, hyperlipidemia, hypothyroidism,obesity, and schizophrenia Plan * admit to [facility] on telemetry * Lasix 40 mg IV x1 then 20 mg bid * Echo ordered * vancomycin, cefepime, and Levaquin for presumed healthcare associated pneumonia * FiO2 to keep SPO2 between 90 and 94% * DuoNeb every 6 hours and albuterol neb every 2 hours when necessary. * Continue budesonide 0.5 mg twice a day. * DM overly corrected at DC. Decrease dose of insulin. * Lantus 10 units subcutaneous daily with sliding scale insulin * Give extra dose of Lasix * CBC, CMP, and magnesium daily * VTE prophylaxis with Lovenox * CODE STATUS: Full code * Length of stay anticipated 3-4 days.
--- NOTE | 2019-08-08 14:46 | PCM.SN ---
- Free Text/Narrative Note: Diagnosis: Poor Vascular Access Treatment: Peripheral IV insertion under ultrasound guidance Patient with high BMI and known history of a very difficult IV start. 4 previous unsuccessful attempt to start an IV by RNs. 2 additional attempts by D[employer] MANAGER at right antecubital area. Successful 20G 1.88 inch catheter insertion under Ultrasound guidance at patient's right antebrachial vein at the forearm area. Start: 14:00 End: 14:20 Lucian Schultz CRNA
[2019-08-08] MEDS: Doxycycline 100 MG Cap PO SCH (17:10)
[2019-08-08] MEDS: OLANZapine 5 MG Tab PO SCH (20:08)
[2019-08-08] MEDS: Famotidine 20 MG Tab PO SCH (20:09)
[2019-08-08] MEDS: Rosuvastatin 10 MG Tab PO SCH (20:09)
[2019-08-08] MEDS ORDERED: Levofloxacin 750 MG Tab PO SCH (21:00)
[2019-08-09] MEDS: Albuterol/Ipratropium 3.0-0.5 MG/3 ML Neb Soln NEB SCH ×3 (03:56→14:26)
[2019-08-09] MEDS: Levothyroxine 125 MCG Tab PO SCH (06:01)
[2019-08-09] MEDS: Doxycycline 100 MG Cap PO SCH (06:01)
[2019-08-09] MEDS: Insulin Lispro 100 Units/ML 3 ML Vial SUBCUT SCH ×2 (06:25→11:42)
[2019-08-09] MEDS ORDERED: Furosemide 20 MG/2 ML VIAL IVPUSH SCH (09:00)
[2019-08-09] MEDS: Budesonide 0.5 MG/2 ML Neb Susp NEB SCH (09:17)
[2019-08-09] MEDS: Divalproex Sodium Delayed-Release 500 MG Tab.CR PO SCH (10:00)
[2019-08-09] MEDS: Magnesium Oxide 400 MG Tab PO SCH (10:01)
[2019-08-09] MEDS: guaiFENesin 600 MG Tab.ER PO SCH (10:02)
[2019-08-09] MEDS: Aspirin 81 MG Tab.EC PO SCH (10:02)
[2019-08-09] MEDS: Losartan 25 MG Tab PO SCH (10:03)
[2019-08-09] MEDS: Insulin Glarg,Human.Rec.Analog 100 UNIT/ML ML SUBCUT SCH (10:16)
[2019-08-09] MEDS: Enoxaparin 40 MG/0.4 ML Syringe SUBCUT SCH (10:16)
[2019-08-09] MEDS: INVEGA 6 MG PO SCH (10:23)
--- NOTE | 2019-08-09 12:23 | PCM.DCSUM1 ---
Discharge Summary - Hospital Course HPI Initial Comments: Patient is a poor historians because of her schizophrenia, therefore history mostly obtained through emergency room notes. Patient is a 78-year-old female history of schizophrenia who lives at [facility] in [place]. Patient has had increasing difficulty breathing and was brought to the emergency room via EMS. When EMS arrived her pulse ox was approximately 80% on room air. She was placed on CPAP and that brought her pulse ox to approximately 90%. When she arrived in the emergency room she was short of breath and stated she was short of breath most of the day. Patient recently had a cholecystectomy in [place] and still has a drain in her right upper quadrant. Patient was noted to be wheezing and have shallow breathing. No history of fever but does have a mild cough. Patient was apparently pleasant for the emergency room physician, but when I interviewed her she was not. In the emergency room patient had EKG that showed normal sinus rhythm with ventricular rate of [address]-T wave changes. Patient was placed on BiPAP in the emergency room and her blood gas showed a pH of 7.43, PCO2 57. Diagnosis: Stroke: No - Discharge Data Discharge Date: 08/09/19 (Admit: 08/06/19) Discharge Disposition: DC/Tfer to SNF 03 Condition: Good - Referral to Home Health Primary Care Physician: Ray Bonilla MD - Discharge Diagnosis/Problem(s) (1) Acute bronchitis SNOMED Code(s): 16619219 ICD Code: J20.9 - ACUTE BRONCHITIS, UNSPECIFIED Status: Acute Priority: High Current Visit: Yes Qualifiers: Bronchitis organism: unspecified organism Qualified Code(s): J20.9 - Acute bronchitis, unspecified (2) COPD exacerbation SNOMED Code(s): 905021587 ICD Code: J44.1 - CHRONIC OBSTRUCTIVE PULMONARY DISEASE W (ACUTE) EXACERBATION Status: Acute Priority: High Current Visit: Yes (3) History of congestive heart failure SNOMED Code(s): 619758810 ICD Code: Z86.79 - PERSONAL HISTORY OF OTHER DISEASES OF THE CIRCULATORY SYSTEM Status: Chronic Priority: Medium Current Visit: No (4) Hypoxemia SNOMED Code(s): 969091245 ICD Code: R09.02 - HYPOXEMIA Status: Acute Priority: High Current Visit : Yes (5) Insulin dependent diabetes mellitus SNOMED Code(s): 20270311 ICD Code: E11.9 - TYPE 2 DIABETES MELLITUS WITHOUT COMPLICATIONS; Z79.4 - PAI GOW MANAGER (CURRENT) USE OF INSULIN Status: Chronic Priority: Medium Current Visit: Yes (6) Morbid obesity SNOMED Code(s): 354011883 ICD Code: E66.01 - MORBID (SEVERE) OBESITY DUE TO EXCESS CALORIES Status: Chronic Priority: Medium Current Visit: No (7) Wheelchair bound SNOMED Code(s): 760364220, 663884229 ICD Code: Z99.3 - DEPENDENCE ON WHEELCHAIR Status: Chronic Priority: Medium Current Visit: No (8) Delusional disorder SNOMED Code(s): 95785109 ICD Code: F22 - DELUSIONAL DISORDERS Status: Chronic Priority: Medium Current Visit: No (9) HLD (hyperlipidemia) SNOMED Code(s): 72233146 ICD Code: E78.5 - HYPERLIPIDEMIA, UNSPECIFIED Status: Chronic Priority: Low Current Visit: No Qualifiers: Hyperlipidemia type: unspecified Qualified Code(s): E78.5 - Hyperlipidemia , unspecified (10) HTN (hypertension) SNOMED Code(s): 02840148 ICD Code: I10 - ESSENTIAL (PRIMARY) HYPERTENSION Status: Chronic Priority : Low Current Visit: No Qualifiers: Hypertension type: essential hypertension Qualified Code(s): I10 - Essential (primary) hypertension (11) Hypothyroidism SNOMED Code(s): 47848307 ICD Code: E03.9 - HYPOTHYROIDISM, UNSPECIFIED Status: Chronic Priority: Low Current Visit: No Qualifiers: Hypothyroidism type: unspecified Qualified Code(s): E03.9 - Hypothyroidism , unspecified (12) Schizophrenia SNOMED Code(s): 32096970 ICD Code: F20.9 - SCHIZOPHRENIA, UNSPECIFIED Status: Chronic Priority: Medium Current Visit: No Qualifiers: Schizophrenia type: unspecified Qualified Code(s): F20.9 - Schizophrenia, unspecified - Patient Summary/Data Consults: Consultations 08/06/19 23:29 Respiratory Care Assess and Treatment [CONS] Routine 08/07/19 16:37 Consult to Case Management/Crystal Slicer [CONS] Routine Labs Pending at D/C: None Recommended Follow-up Testing/Procedures: Follow-up with PCP within 7-10 days of discharge, sooner if needed. Hospital Course: Malika is a 78yo female as admitted to the floor with possible right lower lobe healthcare acquired pneumonia and COPD exacerbation. She was noted to have been mildly elevated white count and CRP on admission. Saturations were initially in the 80s and she was placed on BiPAP in the ED. She was able to be weaned off of this.she was initially started on IV Maxipime, Levaquin, and vancomycin. MRSA screen was positive. She was quick to respond to treatment and was able to be weaned back to her normal 5 L of home oxygen. She was also switched to oral twice a day doxycycline and Levaquin. her legs did appear more swollen than normal and she was given several IV pushes of Lasix. She was switched back to her home dose prior to discharge. TSH was obtained and was quite high so her levothyroxine was increased as well to 125 g. Prior to discharge her white count did normalize. Lung sounds and pedal edema also improved. she reported she did feel pretty good, although with her schizophrenia she is sometimes difficult to communicate with as her ideas change rapidly. Hemoglobin A1c was obtained and was found to be 5.4. Her blood sugars will likely elevated due to the Levaquin. PCP should look at possibly decreasing her insulin once she completes treatment. Home medications were otherwise continued including nebulized Pulmicort and albuterol. she was discharged on 4 more doses 750 mg Levaquin, with her first dose tonight. She was also discharged on 7 more doses of 100 mg twice a day doxycycline, with her first dose tonight. she will discharge back to [facility]. Recommend she follow-up with her primary care provider within 5-7 days of discharge, sooner if needed. Of note, throughout her stay she did have an abdominal drain s/p cholecystostomy that was placed on 08/02/19. It was recommended on that discharge that she return in one month for a repeat cholangiogram and drain exchange. - Patient Instructions Diet: Diabetic Diet Activity: As Tolerated Driving: Do Not Drive Showering/Bathing: May Shower Notify Provider of: Fever, Increased Pain, Nausea and/or Vomiting Other/Special Instructions: Follow-up with PCP within 5-7 days of discharge, sooner if needed. Resume home medications as ordered. Levothyroxine dose was increased based on lab results. Continue home oxygen at 5L. Take all of your antibiotic until completed, even if you feel 100% better. Continue to wear your CPAP as before. Should symptoms return or worsen, contact PCP or return to the Emergency Department. - Discharge Plan *PRESCRIPTION DRUG MONITORING PROGRAM REVIEWED*: No *COPY OF PRESCRIPTION DRUG MONITORING REPORT IN PATIENT DAYAMI: No Prescriptions/Med Rec: Doxycycline [Vibramycin] 100 mg PO Q12H #7 cap levoFLOXacin [Levaquin] 750 mg PO Q24H #4 tablet Levothyroxine 125 mcg PO ACBREAKFAST #20 tablet Home Medications: Home Meds Calcium Carbonate/Vitamin D3 [Calcium 600 + Vit D 200] 1 tab PO BID 09/03/17 [ History] Cranberry Fruit Extract [Cranberry] 400 mg PO BID 09/03/17 [History] Insulin Aspart [Novolog Flexpen] 18 unit SQ TIDMEALS 09/03/17 [History] Insulin Detemir [Levemir] 15 unit SQ QAM 09/03/17 [History] Liraglutide [Victoza] 1.8 mg SUBCUT BEDTIME 09/03/17 [History] Magnesium Oxide [Magnesium] 400 mg PO BID 09/03/17 [History] Multivitamin [Daily Multiple Vitamin] 1 tab PO DAILY 09/03/17 [History] OLANZapine [Zyprexa] 15 mg PO BEDTIME 09/03/17 [History] Paliperidone [Invega] 12 mg PO DAILY 09/03/17 [History] Ranitidine [Zantac] 150 mg PO BID 09/03/17 [History] guaiFENesin [Mucinex] 600 mg PO BID 09/03/17 [History] Divalproex Sodium [Depakote] 500 mg PO BID 09/08/17 [History] Aspirin [Halfprin] 81 mg PO DAILY 11/04/17 [History] Furosemide [Lasix] 20 mg PO BID 03/13/19 [History] Albuterol [Proventil Neb Soln] 2.5 mg NEB Q2H PRN neb 03/14/19 [Rx] Budesonide [Pulmicort] 2 ml NEB BID 03/14/19 [History] Ipratropium/Albuterol Sulfate [Iprat-Albut 0.5-3(2.5) mg/3 ml] 3 ml NEB Q6HR 10/02 [History] Losartan [Cozaar] 25 mg PO DAILY 07/27/19 [History] Rosuvastatin [Crestor] 10 mg PO BEDTIME 07/27/19 [History] Sennosides/Docusate Sodium [Senna-Docusate Sodium Tablet] 2 tab PO BID 07/27/19 [History] Acetaminophen [Tylenol] 650 mg PO QID PRN 08/06/19 [History] Doxycycline [Vibramycin] 100 mg PO Q12H #7 cap 08/09/19 [Rx] Levothyroxine 125 mcg PO ACBREAKFAST #20 tablet 08/09/19 [Rx] levoFLOXacin [Levaquin] 750 mg PO Q24H #4 tablet 08/09/19 [Rx] Oxygen Therapy Mode: Nasal Cannula Oxygen Flow Rate (L/min): 5 Maintain SpO2% greater than: 88 Patient Handouts: Chronic Obstructive Pulmonary Disease Exacerbation, Easy-to- Read Referrals: Ray Bonilla MD [Primary Care Provider] - 08/18/19 1:00 am (Please follow-up with Dr. Bonilla on August 18 at 1:00.) - Discharge Summary/Plan Comment DC Time >30 min.: Yes (45 mins ) - General Info Date of Service: 08/09/19 Admission Dx/Problem (Free Text: Admission Diagnosis/Problem Admission Diagnosis/Problem Chronic obstructive pulmonary disease Functional Status: Reports: Pain Controlled, Tolerating Diet, Urinating. Denies : Ambulating, New Symptoms - Review of Systems General: Reports: No Symptoms. Denies: Fever, Weakness, Fatigue, Malaise, Chills HEENT: Reports: No Symptoms. Denies: Headaches, Sore Throat Pulmonary: Reports: Shortness of Breath (at baseline ). Denies: Pleuritic Chest Pain, Cough, Wheezing Cardiovascular: Reports: Edema. Denies: Chest Pain, Palpitations Gastrointestinal: Reports: No Symptoms. Denies: Abdominal Pain, Constipation, Diarrhea, Nausea, Vomiting Genitourinary: Reports: No Symptoms. Denies: Pain Musculoskeletal: Reports: No Symptoms Skin: Reports: No Symptoms Neurological: Reports: Confusion (Baseline schizophrenia ), Pre-Existing Deficit Psychiatric: Reports: Mood Lability. Denies: Agitation, Homicidal Ideation - Patient Data Vitals - Most Recent: Last Vital Signs Temp 98.4 F 08/09/19 02:11 Pulse 67 08/09/19 02:11 Resp 20 08/09/19 02:11 BP 118/62 08/09/19 10:03 Pulse Ox 91 L 08/09/19 09:19 Weight - Most Recent: 225 lb 1.6 oz I&O - Last 24 hours: Intake & Output 08/08/19 08/09/19 08/09/19 22:59 06:59 14:59 Intake Total 510 100 120 Balance 510 100 120 Lab Results - Last 24 hrs: Laboratory Results - last 24 hr 08/08/19 08/08/19 08/08/19 Range/Units 12:26 17:09 21:10 WBC (3.98-10.04) K/mm3 RBC (3.98-5.22) M/mm3 Hgb (11.2-15.7) gm/dl Hct (34.1-44.9) % MCV (79.4-94.8) fl MCH (25.6-32.2) pg MCHC (32.2-35.5) g/dl RDW Std Deviation (36.4-46.3) fL Plt Count (182-369) K/mm3 MPV (9.4-12.3) fl Neut % (Auto) (34.0-71.1) % Lymph % (Auto) (19.3-51.7) % [place] % (Auto) (4.7-12.5) % Eos % (Auto) (0.7-5.8) Baso % (Auto) (0.1-1.2) % Neut # (Auto) (1.56-6.13) K/mm3 Lymph # (Auto) (1.18-3.74) K/mm3 [place] # (Auto) (0.24-0.36) K/mm3 Eos # (Auto) (0.04-0.36) K/mm3 Baso # (Auto) (0.01-0.08) K/mm3 Manual Slide Review Sodium (136-145) mEq/L Potassium (3.5-5.1) mEq/L Chloride (98-107) mEq/L Carbon Dioxide (21-32) mEq/L Anion Gap (5-15) BUN (7-18) mg/dL Creatinine (0.55-1.02) mg/dL Est Cr Clr Drug Dosing mL/min Estimated GFR (MDRD) (>60) mL/min BUN/Creatinine Ratio (14-18) Glucose (83-115) mg/dL POC Glucose 184 H 192 H 242 H (83-110) mg/dL Calcium (8.5-10.1) mg/dL Magnesium (1.8-2.4) mg/dl Total Bilirubin (0.2-1.0) mg/dL AST (15-37) U/L ALT (14-59) U/L Alkaline Phosphatase (46-116) U/L C-Reactive Protein (<1.0) mg/dL Total Protein (6.4-8.2) g/dl Albumin (3.4-5.0) g/dl Globulin gm/dL Albumin/Globulin Ratio (1-2) 08/09/19 08/09/19 08/09/19 Range/Units 06:04 06:50 06:50 WBC 6.71 (3.98-10.04) K/mm3 RBC 3.23 L (3.98-5.22) M/mm3 Hgb 10.6 L (11.2-15.7) gm/dl Hct 33.0 L (34.1-44.9) % MCV 102.2 H (79.4-94.8) fl MCH 32.8 H (25.6-32.2) pg MCHC 32.1 L (32.2-35.5) g/dl RDW Std Deviation 57.0 H (36.4-46.3) fL Plt Count 233 (182-369) K/mm3 MPV 8.6 L (9.4-12.3) fl Neut % (Auto) 67.1 (34.0-71.1) % Lymph % (Auto) 18.2 L (19.3-51.7) % [place] % (Auto) 8.9 (4.7-12.5) % Eos % (Auto) 4.2 (0.7-5.8) Baso % (Auto) 0.1 (0.1-1.2) % Neut # (Auto) 4.50 (1.56-6.13) K/mm3 Lymph # (Auto) 1.22 (1.18-3.74) K/mm3 [place] # (Auto) 0.60 H (0.24-0.36) K/mm3 Eos # (Auto) 0.28 (0.04-0.36) K/mm3 Baso # (Auto) 0.01 (0.01-0.08) K/mm3 Manual Slide Review Abnormal smear Sodium 140 (136-145) mEq/L Potassium 3.8 (3.5-5.1) mEq/L Chloride 102 (98-107) mEq/L Carbon Dioxide 36 H (21-32) mEq/L Anion Gap 5.8 (5-15) BUN 9 (7-18) mg/dL Creatinine 0.4 L (0.55-1.02) mg/dL Est Cr Clr Drug Dosing 114.54 mL/min Estimated GFR (MDRD) > 60 (>60) mL/min BUN/Creatinine Ratio 22.5 H (14-18) Glucose 120 H (83-115) mg/dL POC Glucose 115 H (83-110) mg/dL Calcium 8.1 L (8.5-10.1) mg/dL Magnesium 2.0 (1.8-2.4) mg/dl Total Bilirubin 0.2 (0.2-1.0) mg/dL AST 18 (15-37) U/L ALT 27 (14-59) U/L Alkaline Phosphatase 61 (46-116) U/L C-Reactive Protein 1.6 H* (<1.0) mg/dL Total Protein 4.8 L (6.4-8.2) g/dl Albumin 1.6 L (3.4-5.0) g/dl Globulin 3.2 gm/dL Albumin/Globulin Ratio 0.5 L (1-2) 08/09/19 Range/Units 11:25 WBC (3.98-10.04) K/mm3 RBC (3.98-5.22) M/mm3 Hgb (11.2-15.7) gm/dl Hct (34.1-44.9) % MCV (79.4-94.8) fl MCH (25.6-32.2) pg MCHC (32.2-35.5) g/dl RDW Std Deviation (36.4-46.3) fL Plt Count (182-369) K/mm3 MPV (9.4-12.3) fl Neut % (Auto) (34.0-71.1) % Lymph % (Auto) (19.3-51.7) % [place] % (Auto) (4.7-12.5) % Eos % (Auto) (0.7-5.8) Baso % (Auto) (0.1-1.2) % Neut # (Auto) (1.56-6.13) K/mm3 Lymph # (Auto) (1.18-3.74) K/mm3 [place] # (Auto) (0.24-0.36) K/mm3 Eos # (Auto) (0.04-0.36) K/mm3 Baso # (Auto) (0.01-0.08) K/mm3 Manual Slide Review Sodium (136-145) mEq/L Potassium (3.5-5.1) mEq/L Chloride (98-107) mEq/L Carbon Dioxide (21-32) mEq/L Anion Gap (5-15) BUN (7-18) mg/dL Creatinine (0.55-1.02) mg/dL Est Cr Clr Drug Dosing mL/min Estimated GFR (MDRD) (>60) mL/min BUN/Creatinine Ratio (14-18) Glucose (83-115) mg/dL POC Glucose 213 H (83-110) mg/dL Calcium (8.5-10.1) mg/dL Magnesium (1.8-2.4) mg/dl Total Bilirubin (0.2-1.0) mg/dL AST (15-37) U/L ALT (14-59) U/L Alkaline Phosphatase (46-116) U/L C-Reactive Protein (<1.0) mg/dL Total Protein (6.4-8.2) g/dl Albumin (3.4-5.0) g/dl Globulin gm/dL Albumin/Globulin Ratio (1-2) FAUSTINO Results - Last 24 hrs: Microbiology 08/06/19 22:33 Aerobic Blood Culture - Preliminary Blood - Venous - Lab Draw NO GROWTH AFTER 2 DAYS Anaerobic Blood Culture - Preliminary NO GROWTH AFTER 2 DAYS 08/06/19 22:25 Aerobic Blood Culture - Preliminary Blood - Venous NO GROWTH AFTER 2 DAYS Anaerobic Blood Culture - Final Med Orders - Current: Current Medications Acetaminophen (Tylenol) 650 mg PO Q4H PRN PRN Reason: Pain (Mild 1-3)/fever Albuterol (Proventil Neb Soln) 2.5 mg NEB Q2H PRN PRN Reason: Shortness Of Breath/wheezing Albuterol/Ipratropium (Duoneb 3.0-0.5 Mg/3 Ml) 3 ml NEB Q6HRRT [facility] Last Admin: 08/09/19 09:17 Dose: 3 ml Aspirin (Halfprin) 81 mg PO DAILY [facility] Last Admin: 08/09/19 10:02 Dose: 81 mg Budesonide (Pulmicort) 0.5 mg NEB BID [facility] Last Admin: 08/09/19 09:17 Dose: 0.5 mg Dextrose/Water (Dextrose 50% In Water) 50 ml IVPUSH ASDIRECTED PRN PRN Reason: Hypoglycemia Divalproex Sodium (Depakote) 500 mg PO BID [facility] Last Admin: 08/09/19 10:00 Dose: 500 mg Doxycycline Hyclate (Vibramycin) 100 mg PO Q12H [facility] Last Admin: 08/09/19 06:01 Dose: 100 mg Enoxaparin Sodium (Lovenox) 40 mg SUBCUT DAILY [facility] Last Admin: 08/09/19 10:16 Dose: 40 mg Famotidine (Pepcid) 20 mg PO BEDTIME [facility] Last Admin: 08/08/19 20:09 Dose: 20 mg Furosemide (Lasix) 20 mg IVPUSH BID [facility] Stop: 08/09/19 21:01 Last Admin: 08/09/19 10:13 Dose: 20 mg Furosemide (Lasix) 20 mg PO BIDDIURETIC [facility] Guaifenesin (Mucinex) 600 mg PO BID [facility] Last Admin: 08/09/19 10:02 Dose: 600 mg Insulin Glargine (Lantus) 10 unit SUBCUT DAILY [facility] Last Admin: 08/09/19 10:16 Dose: 10 units Insulin Human Lispro (Humalog) 0 unit SUBCUT QIDACANDBED [facility]; Protocol Last Admin: 08/09/19 11:42 Dose: 4 units Levofloxacin (Levaquin) 750 mg PO Q24H [facility] Last Admin: 08/08/19 20:09 Dose: 750 mg Levothyroxine Sodium (Levothyroxine) 125 mcg PO ACBREAKFAST [facility] Last Admin: 08/09/19 06:01 Dose: 125 mcg Losartan Potassium (Cozaar) 25 mg PO DAILY [facility] Last Admin: 08/09/19 10:03 Dose: 25 mg Magnesium Oxide (Magnesium Oxide) 400 mg PO BID [facility] Last Admin: 08/09/19 10:01 Dose: 400 mg Olanzapine (Zyprexa) 15 mg PO BEDTIME [facility] Last Admin: 08/08/19 20:08 Dose: 15 mg Ondansetron HCl (Zofran) 4 mg IV Q4H PRN PRN Reason: Nausea/Vomiting Invega 6 Mg Caps *Pt (Own Med*) 0 each PO DAILY [facility] Last Admin: 08/09/19 10:23 Dose: 2 each Rosuvastatin Calcium (Crestor) 10 mg PO BEDTIME [facility] Last Admin: 08/08/19 20:09 Dose: 10 mg Senna/Docusate Sodium (Senna Plus) 2 tab PO BID [facility] Last Admin: 08/09/19 10:11 Dose: 2 tab Discontinued Medications Albuterol/Ipratropium (Duoneb 3.0-0.5 Mg/3 Ml) 3 ml NEB Q4HRRT [facility] Last Admin: 08/07/19 18:30 Dose: 3 ml Budesonide (Pulmicort) 0.5 mg NEB BIDRT [facility] Last Admin: 08/07/19 22:13 Dose: 0.5 mg Furosemide (Lasix) 20 mg PO BIDDIURETIC [facility] Last Admin: 08/08/19 06:41 Dose: 20 mg Furosemide (Lasix) 40 mg IVPUSH NOW ONE Stop: 08/08/19 12:24 Last Admin: 08/08/19 15:24 Dose: 40 mg Furosemide (Lasix) 40 mg IVPUSH NOW ONE Stop: 08/08/19 15:16 Last Admin: 08/08/19 15:25 Dose: Not Given Cefepime HCl 2 gm/ Premix 50 mls @ 100 mls/hr IV ONETIME ONE Stop: 08/06/19 23:03 Last Admin: 08/06/19 22:52 Dose: 100 mls/hr Levofloxacin/Dextrose 750 mg/ (Premix) 150 mls @ 100 mls/hr IV ONETIME ONE Stop: 08/07/19 00:03 Last Admin: 08/06/19 22:51 Dose: 100 mls/hr Vancomycin HCl 1 gm/ Sodium (Chloride) 250 mls @ 250 mls/hr IV ONETIME ONE Stop: 08/06/19 23:34 Last Admin: 08/06/19 23:46 Dose: 250 mls/hr Cefepime HCl 2 gm/ Premix 50 mls @ 100 mls/hr IV Q8H [facility] Last Admin: 08/08/19 08:31 Dose: 100 mls/hr Levofloxacin/Dextrose 750 mg/ (Premix) 150 mls @ 100 mls/hr IV Q24H [facility] Last Admin: 08/07/19 21:25 Dose: 100 mls/hr Vancomycin HCl 1.5 gm/ Sodium (Chloride) 250 mls @ 125 mls/hr IV Q8H [facility] Last Admin: 08/07/19 18:40 Dose: 125 mls/hr Vancomycin HCl 1.5 gm/ Sodium (Chloride) 500 mls @ 250 mls/hr IV Q8H [facility] Last Admin: 08/07/19 19:08 Dose: Not Given Vancomycin HCl 1.5 gm/ Sodium (Chloride) 250 mls @ 125 mls/hr IV ONETIME ONE Stop: 08/07/19 20:44 Last Admin: 08/07/19 18:49 Dose: Not Given Vancomycin HCl 1.5 gm/ Sodium (Chloride) 500 mls @ 250 mls/hr IV Q8H [facility] Last Admin: 08/08/19 16:00 Dose: Not Given Levothyroxine Sodium (Synthroid) 100 mcg PO ACBREAKFAST [facility] Last Admin: 08/07/19 06:59 Dose: 100 mcg Paliperidone [Invega (] 12 Mg) 0 each PO DAILY [facility] Last Admin: 08/07/19 10:39 Dose: Not Given Vancomycin HCl (Pharmacy To Dose - Vancomycin) 1 dose .XX ASDIRECTED PRN PRN Reason: RX TO DOSE VANCO - Exam Quality Assessment: Reports: Supplemental Oxygen (Baseline 5L ), DVT Prophylaxis General: Reports: Alert, Oriented (at times ), Cooperative, No Acute Distress HEENT: Reports: Pupils Equal, Pupils Reactive, EOMI, Mucous Membr. Moist/[place] Neck: Reports: Supple, Trachea Midline Lungs: Reports: Normal Respiratory Effort, Decreased Breath Sounds, Rales ( minor ). Denies: Wheezing Cardiovascular: Reports: Regular Rate, Regular Rhythm GI/Abdominal Exam: Normal Bowel Sounds, Soft, Non-Tender, No Distention, No Abnormal Bruit (Female) Exam: Deferred Rectal (Female) Exam: Deferred Back Exam: Reports: Normal Inspection, Decreased Range of Motion Extremities: Non-Tender, Normal Capillary Refill, Pedal Edema (improved ), Limited Range of Motion Skin: Reports: Warm, Dry, Intact Neurological: Reports: No New Focal Deficit Psy/Mental Status: Reports: Alert, Labile Mood (schizophrenia ). Denies: Agitated
[2019-08-09 16:05] VITALS: BP 116/52; PULSE 76
[2019-08-10] MEDS ORDERED: Furosemide 20 MG Tab PO SCH (06:00)
== END 2019-08-09 16:57 | DRG 193 ==
LOC: JD.ED 20:43 → JD.MS 23:14
PROVIDERS: ADMIT Family Medicine; ATTEND Family Medicine
PROC: 5A09357 Assistance with Respiratory Ventilation, Less than 24 Consecutive Hours, Continuous Positive Airway Pressure (ICD-10-PCS; principal; 2019-08-06)
PROC: 05HY33Z Insertion of Infusion Device into Upper Vein, Percutaneous Approach (ICD-10-PCS; 2019-08-08)
DX: J18.9 Pneumonia, unspecified organism (principal); J96.90 Respiratory failure, unspecified, unspecified whether with hypoxia or hypercapnia; J44.0 Chronic obstructive pulmonary disease with (acute) lower respiratory infection; R09.02 Hypoxemia; E11.9 Type 2 diabetes mellitus without complications; J44.1 Chronic obstructive pulmonary disease with (acute) exacerbation; J20.9 Acute bronchitis, unspecified; E66.01 Morbid (severe) obesity due to excess calories; Z66 Do not resuscitate; E78.00 Pure hypercholesterolemia, unspecified; M19.90 Unspecified osteoarthritis, unspecified site; F22 Delusional disorders; E78.5 Hyperlipidemia, unspecified; E03.9 Hypothyroidism, unspecified; E55.9 Vitamin D deficiency, unspecified; F20.9 Schizophrenia, unspecified; Z79.890 Hormone replacement therapy; B95.62 Methicillin resistant Staphylococcus aureus infection as the cause of diseases classified elsewhere; J84.10 Pulmonary fibrosis, unspecified; E11.40 Type 2 diabetes mellitus with diabetic neuropathy, unspecified; F03.90 Unspecified dementia, unspecified severity, without behavioral disturbance, psychotic disturbance, mood disturbance, and anxiety; F41.9 Anxiety disorder, unspecified; I11.0 Hypertensive heart disease with heart failure; I50.9 Heart failure, unspecified; Z90.49 Acquired absence of other specified parts of digestive tract; Z86.79 Personal history of other diseases of the circulatory system; Z79.4 Long term (current) use of insulin; Z99.3 Dependence on wheelchair; Z79.899 Other long term (current) drug therapy; Z79.82 Long term (current) use of aspirin; Z88.1 Allergy status to other antibiotic agents; Z91.018 Allergy to other foods; Z99.81 Dependence on supplemental oxygen; Z68.35 Body mass index [BMI] 35.0-35.9, adult
CPT/HCPCS: 36415; 36600; 71045; 80053; 80164; 82803; 83605; 83880; 84484; 85025; 87040 ×2; 93005; 94660; 96365; 96368; 99285; J0692; J1956; 80202; 82962; 83036; 83735; 84443; 86140; 87641; 93010; 93306; 94640; 94761; A9270-GY; J1650; J1815-GY; J1940; J3370; J7040; J7050; J7620-GY

== ENCOUNTER 2019-10-02 15:54 | Emergency (ER) | payer MEDICAID, MEDICARE ==
[2019-10-02 16:06] VITALS: BP 110/76; PULSE 85
[2019-10-02] MEDS ORDERED: Sodium Chloride 0.9% 10 ML Syringe FLUSH PRN ×2 (16:12→17:40)
--- NOTE | 2019-10-02 16:12 | EDM.PDOC ---
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 Upon arrival emergency department patient is not in any acute distress however patient is pleasantly confused Abdomen Pain Score (Numeric/FACES): 7 - Related Data Allergies Allergy/AdvReac Type Severity Reaction Status Date / Time clindamycin Allergy unknown Verified 08/07/19 01:50 herbs in pizza Allergy Cannot Uncoded 08/07/19 01:50 Remember Home Meds: Home Meds Calcium Carbonate/Vitamin D3 [Calcium 600 + Vit D 200] 1 tab PO BID 09/03/17 [ History] Cranberry Fruit Extract [Cranberry] 400 mg PO BID 09/03/17 [History] Insulin Aspart [Novolog Flexpen] 18 unit SQ TIDMEALS 09/03/17 [History] Insulin Detemir [Levemir] 15 unit SQ QAM 09/03/17 [History] Liraglutide [Victoza] 1.8 mg SUBCUT BEDTIME 09/03/17 [History] Magnesium Oxide [Magnesium] 400 mg PO BID 09/03/17 [History] Multivitamin [Daily Multiple Vitamin] 1 tab PO DAILY 09/03/17 [History] OLANZapine [Zyprexa] 15 mg PO BEDTIME 09/03/17 [History] Paliperidone [Invega] 12 mg PO DAILY 09/03/17 [History] Ranitidine [Zantac] 150 mg PO BID 09/03/17 [History] guaiFENesin [Mucinex] 600 mg PO BID 09/03/17 [History] Divalproex Sodium [Depakote] 500 mg PO BID 09/08/17 [History] Aspirin [Halfprin] 81 mg PO DAILY 11/04/17 [History] Furosemide [Lasix] 20 mg PO BID 03/13/19 [History] Albuterol [Proventil Neb Soln] 2.5 mg NEB Q2H PRN neb 03/14/19 [Rx] Budesonide [Pulmicort] 2 ml NEB BID 03/14/19 [History] Ipratropium/Albuterol Sulfate [Iprat-Albut 0.5-3(2.5) mg/3 ml] 3 ml NEB Q6HR 10/02 [History] Losartan [Cozaar] 25 mg PO DAILY 07/27/19 [History] Rosuvastatin [Crestor] 10 mg PO BEDTIME 07/27/19 [History] Sennosides/Docusate Sodium [Senna-Docusate Sodium Tablet] 2 tab PO BID 07/27/19 [History] Acetaminophen [Tylenol] 650 mg PO QID PRN 08/06/19 [History] Doxycycline [Vibramycin] 100 mg PO Q12H #7 cap 08/09/19 [Rx] Levothyroxine 125 mcg PO ACBREAKFAST #20 tablet 08/09/19 [Rx] levoFLOXacin [Levaquin] 750 mg PO Q24H #4 tablet 08/09/19 [Rx] Past Medical History HEENT History: Reports: Cataract Cardiovascular History: Reports: Heart Failure, High Cholesterol, Hypertension Other Cardiovascular History: edema, hyponatremia Respiratory History: Reports: COPD (chronic O2 5L/NC), Pulmonary Fibrosis ( possible) Other Respiratory History: 5L oxygen use at home, hypoxemia Gastrointestinal History: Reports: Pancreatitis, Other (See Below) Other Gastrointestinal History: pancreatic mass Genitourinary History: Reports: Urinary Incontinence [employer] 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 LUE resting tremor.) Other Neuro History: resting tremor left arm Psychiatric History: Reports: Anxiety, Schizophrenia Other Psychiatric History: delusional disorder Endocrine/Metabolic History: Reports: Diabetes, Type II, Hypothyroidism, Obesity /BMI 30+, Vitamin D Deficiency Hematologic History: Reports: None Immunologic History: Reports: None Oncologic (Cancer) History: Reports: Other (See Below) Other Oncologic History: Pancreatic mass (dx 2013) of unknown etiology - no tx desired Dermatologic History: Reports: Other (See Below) Other Dermatologic History: rash and other nonspecific skin eruption-bilateral groins - Infectious Disease History Infectious Disease History: Reports: MRSA - Past Surgical History Other Oncologic Surgeries/Procedures: PANCREATIC MASS Social & Family History - Family History Family Medical History: Noncontributory - Caffeine Use Caffeine Use: Reports: None Other Caffeine Use: Pt unable to answer RNs questions appropriately due to confusion. - Living Situation & Occupation Living situation: Reports: Extended Care Facility Occupation: Retired ED ROS GENERAL - Review of Systems Review Of Systems: See Below Constitutional: Denies: Fever, Chills GI/Abdominal: Denies: Abdominal Pain, Anorexia ED EXAM, GENERAL - Physical Exam Exam: See Below Exam Limited By: Other (confusion) General Appearance: Alert, Obese, Other (Pleasantly confused) Throat/Mouth: Normal Inspection, Normal Lips, Normal Teeth, Normal Gums, Normal Oropharynx, Normal Voice, No Airway Compromise Head: Atraumatic, Normocephalic Respiratory/Chest: No Respiratory Distress, Lungs Clear, Normal Breath Sounds, No Accessory Muscle Use, Chest Non-Tender Cardiovascular: Normal Peripheral Pulses, Regular Rate, Rhythm, No Edema, No Gallop, No JVD, No Murmur, No Rub GI/Abdominal: Normal Bowel Sounds, Soft, Other (Mild periumbilical ecchymosis, right upper quadrant lateral cholecystostomy tube appears intact) Extremities: Normal Inspection, Normal Range of Motion, Non-Tender, Normal Capillary Refill, No Pedal Edema Neurological: Alert, Confused Skin Exam: Warm, Dry ED GENERAL MEDICAL PROCEDURES - Additional/Other Procedure(s) Other (Free Text) Procedure(s): Percutaneous drain removed without any difficulty, patient tolerated procedure well, dressing by nursing Course - Vital Signs Last Recorded V/S: Last Vital Signs Temp 98.2 F 10/02/19 16:03 Pulse 85 10/02/19 16:03 Resp 20 10/02/19 16:03 BP 110/76 10/02/19 16:03 Pulse Ox 96 10/02/19 16:03 - Orders/Labs/Meds Orders: Active Orders 24 hr Category Date Time Status Sodium Chloride 0.9% [Saline Flush] Med 10/02/19 16:12 Active 10 ml FLUSH ASDIRECTED PRN Sodium Chloride 0.9% [Saline Flush] Med 10/02/19 17:40 Active 10 ml FLUSH ONETIME PRN Saline Lock Insert [OM.PC] Stat Oth 10/02/19 16:12 Ordered Medication Orders Sodium Chloride (Saline Flush) 10 ml FLUSH ASDIRECTED PRN PRN Reason: Keep Vein Open Last Admin: 10/02/19 16:20 Dose: 10 ml Sodium Chloride (Saline Flush) 10 ml FLUSH ONETIME PRN PRN Reason: IV FLUSH Last Admin: 10/02/19 18:45 Dose: 10 ml Labs: Laboratory Tests 10/02/19 10/02/19 Range/Units 16:27 16:27 WBC 9.42 (3.98-10.04) K/mm3 RBC 3.30 L (3.98-5.22) M/mm3 Hgb 10.6 L (11.2-15.7) gm/dl Hct 34.9 (34.1-44.9) % MCV 105.8 H D (79.4-94.8) fl MCH 32.1 (25.6-32.2) pg MCHC 30.4 L (32.2-35.5) g/dl RDW Std Deviation 55.6 H (36.4-46.3) fL Plt Count 254 (182-369) K/mm3 MPV 8.3 L (9.4-12.3) fl Neut % (Auto) 75.0 H (34.0-71.1) % Lymph % (Auto) 14.3 L (19.3-51.7) % [place] % (Auto) 8.7 (4.7-12.5) % Eos % (Auto) 1.7 (0.7-5.8) Baso % (Auto) 0.1 (0.1-1.2) % Neut # (Auto) 7.06 H (1.56-6.13) K/mm3 Lymph # (Auto) 1.35 (1.18-3.74) K/mm3 [place] # (Auto) 0.82 H (0.24-0.36) K/mm3 Eos # (Auto) 0.16 (0.04-0.36) K/mm3 Baso # (Auto) 0.01 (0.01-0.08) K/mm3 Manual Slide Review Abnormal smear Sodium 143 (136-145) mEq/L Potassium 4.5 (3.5-5.1) mEq/L Chloride 103 (98-107) mEq/L Carbon Dioxide 35 H (21-32) mEq/L Anion Gap 9.5 (5-15) BUN 17 (7-18) mg/dL Creatinine 0.6 (0.55-1.02) mg/dL Est Cr Clr Drug Dosing 73.51 mL/min Estimated GFR (MDRD) > 60 (>60) mL/min BUN/Creatinine Ratio 28.3 H (14-18) Glucose 86 (83-115) mg/dL Calcium 8.6 (8.5-10.1) mg/dL Total Bilirubin 0.2 (0.2-1.0) mg/dL AST 8 L (15-37) U/L ALT 12 L (14-59) U/L Alkaline Phosphatase 47 (46-116) U/L Total Protein 6.3 L (6.4-8.2) g/dl Albumin 2.2 L (3.4-5.0) g/dl Globulin 4.1 gm/dL Albumin/Globulin Ratio 0.5 L (1-2) Lipase 103 (73-393) U/L Meds: Medications Generic Name Dose Route Start Last Admin Trade Name Freq PRN Reason Stop Dose Admin Sodium Chloride 10 ml 10/02/19 16:12 10/02/19 16:20 Saline Flush FLUSH 10 ml ASDIRECTED PRN Administration Keep Vein Open Sodium Chloride 10 ml 10/02/19 17:40 10/02/19 18:45 Saline Flush FLUSH 10 ml ONETIME PRN Administration IV FLUSH Discontinued Medications Generic Name Dose Route Start Last Admin Trade Name Freq PRN Reason Stop Dose Admin Diatrizoate Meglum/Diatrizoate Sod 120 ml 10/02/19 17:40 10/02/19 18:46 Gastrografin 37% PO 10/02/19 17:41 90 ml ONETIME ONE Administration Iopamidol 100 ml 10/02/19 17:40 10/02/19 18:45 Isovue-300 (61%) IVPUSH 10/02/19 17:41 100 ml ONETIME ONE Administration - Re-Assessments/Exams Free Text/Narrative Re-Assessment/Exam: 10/02/19 19:27 CT abdomen and pelvis shows "impression: #1 small left-sided pleural effusion with possible pneumonia within the left lung base as well as the right lung base. #2 pigtail catheter Gallbladder not within the gallbladder. #3 calcified gallstones within the gallbladder. No gallbladder wall dilatation is seen. Stone within the common bile duct. This stone is stable in appearance from prior exam. Number for stable cystic area within the body of the pancreas. #5 to area of low density within the pancreatic head event due to focal edema from early pancreatitis or due to early development of pancreatic head mass. Recommend follow-up contrast- enhanced CT study in 3 months to further evaluate. #6 Other findings as noted above believed to be chronic and nonacute." 10/02/19 20:10 I suspect the patient has atelectasis and not infiltrate based off of exam charged to home not place patient on antibiotics at this time and have patient return for any worsening condition Free Text/Narrative Re-Assessment/Exam: 10/02/19 20:[address] Amaro (?sp) at [facility] in [place] who recommends removing the percutaneous drain and having patient follow up next week and return for any worsening condition for reevaluation Departure - Departure Time of Disposition: 20:09 Disposition: Home, Self-Care 01 Condition: Fair Clinical Impression: Change or removal of drains - Discharge Information Referrals: Ray Bonilla MD [Primary Care Provider] - Forms: ED Department Discharge Additional Instructions: Return as needed for worsening condition Sepsis Event Note - Evaluation Sepsis Screening Result: No Definite Risk - Focused Exam Vital Signs: Vital Signs Temp Pulse Resp BP Pulse Ox 10/02/19 16:03 98.2 F 85 20 110/76 96 Date Exam was Performed: 10/02/19 Time Exam was Performed: 20:10 - My Orders Last 24 Hours: My Active Orders 10/02/19 16:12 Sodium Chloride 0.9% [Saline Flush] 10 ml FLUSH ASDIRECTED PRN Saline Lock Insert [OM.PC] Stat 10/02/19 17:40 Sodium Chloride 0.9% [Saline Flush] 10 ml FLUSH ONETIME PRN - Assessment/Plan Last 24 Hours: My Active Orders 10/02/19 16:12 Sodium Chloride 0.9% [Saline Flush] 10 ml FLUSH ASDIRECTED PRN Saline Lock Insert [OM.PC] Stat 10/02/19 17:40 Sodium Chloride 0.9% [Saline Flush] 10 ml FLUSH ONETIME PRN
[2019-10-02] MEDS ORDERED: Diatrizoate Meglumine/Diatrizoate Sodium 37% 120 ML Bottle PO ONE (17:40)
[2019-10-02] MEDS ORDERED: Iopamidol 612 MG/ML 100 ML Bottle IVPUSH ONE (17:40)
--- NOTE | 2019-10-02 19:24 | CT ---
CT abdomen and pelvis Technique: Multiple axial sections were obtained from above the dome of the diaphragm inferiorly through the pubic symphysis. Intravenous and oral contrast was utilized. Delayed images were also obtained of the bladder. Comparison: Previous CT abdomen and pelvis exam of 08/02/19. Findings: Small left-sided pleural effusion is seen. Consolidation is noted within the left lung base. Difficult to exclude left basilar pneumonia. Atelectasis is seen within the right lung base. Additional parenchymal density is seen within the right lower lung base and difficult to exclude additional area of pneumonia. Liver contains no focal abnormality. There is a pigtail catheter being seen which appears to be slightly outside the gallbladder next to the gallbladder wall. Gallbladder is decompressed. Multiple calcified gallstones are seen. There is also an apparent stone within the common bile duct which appears stable from previous exam. Adrenal glands show no nodule. Kidneys show symmetric contrast enhancement without hydronephrosis or mass. Cystic area noted within the body the pancreas measuring about 1.5 cm which is stable. Vague low density is also noted within the pancreatic head which appears as an interval change from previous exam. This vague low density area measures approximately 2.1 cm. Uncertain if this is due to focal edema from minimal pancreatitis or represents an early pancreatic head mass. Aorta shows atherosclerotic change without aneurysm. No retroperitoneal adenopathy or mesenteric abnormalities are seen. No pelvic mass or adenopathy is seen. Slight increased stool within the rectum is seen. There is some wall thickening within the rectum which appears to be chronic. Delayed images shows contrast within the distal ureters and within the bladder. Bone window settings show scattered degenerative change throughout the spine. No acute osseous finding is appreciated. Impression: 1. Small left-sided pleural effusion with possible pneumonia within the left lung base as well as within the right lung base. 2. Pigtail catheter next to the gallbladder, not within the gallbladder. 3. Calcified gallstones within the gallbladder. No gallbladder wall dilatation is seen. Stone within the common bile duct. This stone is stable in appearance from prior exam. 4. Stable cystic area within the body of the pancreas. 5. New area of low density within the pancreatic head either due to focal edema from early pancreatitis or due to early development of pancreatic head mass. Recommend follow-up contrast enhanced CT study in 3 months to further evaluate. 6. Other findings as noted above believed to be chronic and nonacute. Diagnostic code #3 This report was dictated in [place] Standard Time
== END 2019-10-02 22:10 | disposition home or self-care (01) ==
LOC: JD.ED 15:54
DX: Z43.5 Encounter for attention to cystostomy (principal); I11.0 Hypertensive heart disease with heart failure; I50.9 Heart failure, unspecified; E78.00 Pure hypercholesterolemia, unspecified; J44.9 Chronic obstructive pulmonary disease, unspecified; M19.90 Unspecified osteoarthritis, unspecified site; F41.9 Anxiety disorder, unspecified; E11.40 Type 2 diabetes mellitus with diabetic neuropathy, unspecified; E03.9 Hypothyroidism, unspecified; E66.9 Obesity, unspecified; Z68.31 Body mass index [BMI] 31.0-31.9, adult; Z88.1 Allergy status to other antibiotic agents; Z91.018 Allergy to other foods; Z79.4 Long term (current) use of insulin; Z79.899 Other long term (current) drug therapy
CPT/HCPCS: 36415; 74177; 80053; 83690; 85025; 99284; Q9963; Q9967; 99283

== ENCOUNTER 2020-05-06 13:42 | Emergency (ER) | payer MEDICARE ==
--- NOTE | 2020-05-06 13:56 | EDM.PDOC ---
ED HPI GENERAL MEDICAL PROBLEM - General Chief Complaint: Respiratory Problem Stated Complaint: [facility] Time Seen by Provider: 05/06/20 13:56 Source of Information: Reports: Patient, Shelter Records - History of Present Illness INITIAL COMMENTS - FREE TEXT/NARRATIVE: 79-year-old female presents to the ED per [facility] from [place] [facility] in [place], [place]. Concern arose apparently due to hypoxia reported at the intermediate this morning with O2 sats in the 80s. Of note the patient has end-stage COPD and is maintained on 5 L of oxygen by nasal cannula at all times. In the ED at the time of presentation she remains at 93 to 94% on 5 L and does not appear to be in any respiratory distress. There is also concern as she was exposed to a COVID positive worker at the intermediate. Patient denies any increased cough or shortness of breath. Initial blood pressure was 93/72. She usually has a low blood pressure. She indicates that she ate breakfast with no problems. There is been no nausea vomiting or diarrhea. At some point time recently she is undergone placement of a right upper quadrant drainage tube presumably in the gallbladder fossa with no drainage in the drainage bag at this time. The drainage tube is covered by dressings. She was able to answer questions quite well other than when she would have had the drain placed by interventional radiology. Patient is a type II diabetic controlled with insulin. Patient's CODE STATUS is DNR/DNI. Onset: Today Onset Date: 05/06/20 (Reportedly had low O2 sats in the 80s on 5 L of oxygen at the intermediate this morning.) Duration: Hour(s): Location: Reports: Other (Ported dyspnea with low O2 sats.) Quality: Reports: Other (She denies feeling any more short of breath than normal.) Severity: Moderate (She has end-stage COPD.) Improves with: Reports: None Worsens with: Reports: None Context: Reports: Sick Contact (Early exposed to a worker in the care center who proved to be COVID positive. It is unclear how long ago this exposure occurred.). Denies: Activity, Exercise, Lifting Associated Symptoms: Reports: Shortness of Breath. 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: Reports: Other (see below) (Her regular meds.) - Related Data Allergies Allergy/AdvReac Type Severity Reaction Status Date / Time clindamycin Allergy Severe unknown Verified 05/06/20 15:46 herbs in pizza Allergy Cannot Uncoded 08/07/19 01:50 Remember Home Meds: Home Meds Calcium Carbonate/Vitamin D3 [Calcium 600 + Vit D 200] 1 tab PO BID 09/03/17 [History] Cranberry Fruit Extract [Cranberry] 400 mg PO BID 09/03/17 [History] Insulin Aspart [Novolog Flexpen] 16 unit SQ TIDMEALS 09/03/17 [History] Insulin Detemir [Levemir] 7 unit SQ QAM 09/03/17 [History] Liraglutide [Victoza] 1.8 mg SUBCUT BEDTIME 09/03/17 [History] Magnesium Oxide [Magnesium] 400 mg PO BID 09/03/17 [History] Multivitamin [Daily Multiple Vitamin] 1 tab PO DAILY 09/03/17 [History] OLANZapine [Zyprexa] 15 mg PO BEDTIME 09/03/17 [History] Paliperidone [Invega] 12 mg PO DAILY 09/03/17 [History] guaiFENesin [Mucinex] 600 mg PO BID 09/03/17 [History] Divalproex Sodium [Depakote] 500 mg PO BID 09/08/17 [History] Aspirin [Halfprin] 81 mg PO DAILY 11/04/17 [History] Furosemide [Lasix] 20 mg PO BID 03/13/19 [History] Albuterol [Proventil Neb Soln] 2.5 mg NEB Q2H PRN neb 03/14/19 [Rx] Budesonide [Pulmicort] 2 ml NEB BID 03/14/19 [History] Ipratropium/Albuterol Sulfate [Iprat-Albut 0.5-3(2.5) mg/3 ml] 3 ml NEB Q6HR 03/14/19 [History] Losartan [Cozaar] 25 mg PO DAILY 07/27/19 [History] Rosuvastatin [Crestor] 10 mg PO BEDTIME 07/27/19 [History] Sennosides/Docusate Sodium [Senna-Docusate Sodium Tablet] 2 tab PO BID 07/27/19 [History] Acetaminophen [Tylenol] 650 mg PO QID PRN 08/06/19 [History] Levothyroxine 125 mcg PO ACBREAKFAST #20 tablet 08/09/19 [Rx] Cefdinir [Omnicef] 300 mg PO BID #14 cap 05/06/20 [Rx] ClonazePAM [KlonoPIN] 0.25 mg PO DAILY 05/06/20 [History] Magnesium Hydroxide [Milk of Magnesia] 30 ml PO ASDIRECTED PRN 05/06/20 [History] Silver Nitrate Applicator 1 each TP ASDIRECTED PRN 05/06/20 [History] Past Medical History HEENT History: Reports: Cataract Cardiovascular History: Reports: Heart Failure, High Cholesterol, Hypertension Other Cardiovascular History: edema, hyponatremia Respiratory History: Reports: COPD (chronic O2 5L/NC), Pulmonary Fibrosis (possible) Other Respiratory History: 5L oxygen use at home, hypoxemia Gastrointestinal History: Reports: Pancreatitis, Other (See Below) Other Gastrointestinal History: pancreatic mass--notes from visit to the ED in September of this year indicates she had a percutaneous cholecystectomy tube placed in [place] on August 02, 2019 and when she was seen here on 02 October the tube had dislodged and was removed. Subsequently she has had a another tube placed. Concern is whether or not there was a pancreatic mass or pancreatic Peñuelas of involving the head of the pancreas at that time. I am not sure if this is been fully elucidated or investigated further. 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 LUE resting tremor.) Other Neuro History: resting tremor left arm Psychiatric History: Reports: Anxiety, Schizophrenia Other Psychiatric History: delusional disorder Endocrine/Metabolic History: Reports: Diabetes, Type II, Hypothyroidism, Obesity/BMI 30+, Vitamin D Deficiency Hematologic History: Reports: None Immunologic History: Reports: None Oncologic (Cancer) History: Reports: Other (See Below) Other Oncologic History: Pancreatic mass (dx 2013) of unknown etiology - no tx desired Dermatologic History: Reports: Other (See Below) Other Dermatologic History: rash and other nonspecific skin eruption-bilateral groins - Infectious Disease History Infectious Disease History: Reports: MRSA - Past Surgical History GI Surgical History: Reports: Other (See Below) (Patient has a drain in the right upper quadrant of the abdomen presumably in the gallbladder fossa placed presumably for acute cholecystitis) Other Oncologic Surgeries/Procedures: PANCREATIC MASS Social & Family History - Family History Family Medical History: Noncontributory - Caffeine Use Caffeine Use: Reports: None Other Caffeine Use: Pt unable to answer RNs questions appropriately due to confusion. - Living Situation & Occupation Living situation: Reports: Extended Care Facility Occupation: Retired ED ROS GENERAL - Review of Systems Review Of Systems: See Below Constitutional: Denies: Fever, Chills, Malaise, Fatigue, Decreased Appetite (She ate a good breakfast. Also ate dinner.), Weight Loss HEENT: Reports: Glasses Respiratory: Reports: Shortness of Breath, Wheezing (Has end-stage COPD and is maintained on oxygen at 5 L/min by nasal cannula at all times.). Denies: Pleuritic Chest Pain ( Usually.), Cough (Nuys cough at this point time) Cardiovascular: Reports: Blood Pressure Problem, Dyspnea on Exertion. Denies: Chest Pain, Claudication (Usually runs low.), Edema, Lightheadedness, Orthopnea Endocrine: Reports: High Glucose GI/Abdominal: Reports: Constipation : Reports: Frequency, Incontinence Musculoskeletal: Reports: Back Pain, Joint Pain (Knees hips neck pain) Skin: Reports: Bruising (Bruises easily.) Neurological: Reports: Confusion (At times. 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 She is in no respiratory distress. O2 sats are 93 to 94% on 5 L/min by nasal cannula. Respiratory rate is 18. Blood pressure initially was a bit low at 80/50 but second blood pressure is 93/72. Temperature is 37.1.) Eye Exam: Bilateral Eye: Normal Inspection (Patient has mild blepharal pallor. No scleral icterus.), PERRL Throat/Mouth: Normal Oropharynx ( Oropharynx is otherwise normal), Other (Tongue is mildly dry and coated.) Head: Atraumatic, Normocephalic, Other (No overt signs of any head or facial trauma.) Neck: Full Range of Motion ( Crepitus on lateral rotation. Range of motion however is full.), Tender Lateral (Planes of pain on palpation of the neck bilaterally.). No: Non-Tender, Carotid Bruit, Lymphadenopathy (L), Lymphadenopathy (R) Respiratory/Chest: Normal Breath Sounds, Decreased Breath Sounds. No: Respiratory Distress, Rhonchi, Wheezing (Decreased breath sounds to the lower 25% lung doran bilaterally without any adventitial sounds today.) Cardiovascular: Regular Rate, Rhythm, No Edema, No Gallop, No Murmur, No Rub Peripheral Pulses: 2+: Carotid (L), Carotid (R), Posterior Tibial (L), Posterior Tibial (R), Dorsalis Pedis (L), Dorsalis Pedis (R) GI/Abdominal: Normal Bowel Sounds, Soft, Non-Tender, No Organomegaly, No Mass, Pelvis Stable, Other (She has a drainage tube in the right upper quadrant of the abdomen presumably in the gallbladder fossa. There is no bilious drainage in the drainage bag at this time. Wound site looks good with no signs of infection.) Extremities: Pedal Edema (His pedal edema both lower extremities.), Other (She has varicose veins both lower extremities. There is slight erythema of both calves but there not showing any signs of infection. Trace edema around the ankles. Dorsal feet are also swollen. She has evidence of osteoarthritic changes in both knees and both hips on exam.) Neurological: Alert, Oriented, CN II-XII Intact, Normal Cognition, No Motor/Sensory Deficits Psychiatric: Other Skin Exam: Warm (Boisterous affect today. Very verbal), Dry, Intact, Normal Color, No Rash EKG INTERPRETATION EKG Date: 05/06/20 Time: 14:06 Rhythm: NSR Rate (Beats/Min): 85 Hellier: LAD-Left Hellier Deviation (-20 degrees.) P-Wave: Enlarged (Suspect left atrial hypertrophy) QRS: Other (Is decreased voltage in both the limb and precordial leads a COPD pattern. There is early R wave transition V2 suggesting right ventricular hypertrophy pattern or cor pulmonale.) ST-T: Other (Baseline irregularity in all leads giving the impression of atrial fib/atrial flutter but she is in sinus rhythm.) QT: Normal EKG Interpretation Comments: Abnormal ECG. Course - Vital Signs Last Recorded V/S: Last Vital Signs Temp 36.7 C 05/06/20 18:32 Pulse 83 05/06/20 18:32 Resp 19 05/06/20 18:32 BP 95/37 L 05/06/20 18:32 Pulse Ox 100 05/06/20 18:32 - Orders/Labs/Meds Orders: Active Orders 24 hr Category Date Time Status CULTURE URINE [RM] Stat Lab 05/06/20 14:40 Received Labs: Laboratory Tests 05/06/20 05/06/20 05/06/20 Range/Units 14:00 14:00 14:00 WBC 10.31 H (3.98-10.04) K/mm3 RBC 3.32 L (3.98-5.22) M/mm3 Hgb 10.7 L (11.2-15.7) gm/dl Hct 34.3 (34.1-44.9) % MCV 103.3 H (79.4-94.8) fl MCH 32.2 (25.6-32.2) pg MCHC 31.2 L (32.2-35.5) g/dl RDW Std Deviation 57.0 H (36.4-46.3) fL Plt Count 339 D (182-369) K/mm3 MPV 8.4 L (9.4-12.3) fl Neut % (Auto) 70.8 (34.0-71.1) % Lymph % (Auto) 16.1 L (19.3-51.7) % Morgan % (Auto) 11.2 (4.7-12.5) % Eos % (Auto) 1.1 (0.7-5.8) Baso % (Auto) 0.1 (0.1-1.2) % Neut # (Auto) 7.31 H (1.56-6.13) K/mm3 Lymph # (Auto) 1.66 (1.18-3.74) K/mm3 Morgan # (Auto) 1.15 H (0.24-0.36) K/mm3 Eos # (Auto) 0.11 (0.04-0.36) K/mm3 Baso # (Auto) 0.01 (0.01-0.08) K/mm3 D-Dimer, Quantitative 0.60 H (0.19-0.50) mg/L Sodium 135 L (136-145) mEq/L Potassium 4.5 (3.5-5.1) mEq/L Chloride 96 L (98-107) mEq/L Carbon Dioxide 36 H (21-32) mEq/L Anion Gap 7.5 (5-15) BUN 19 H (7-18) mg/dL Creatinine 0.8 (0.55-1.02) mg/dL Est Cr Clr Drug Dosing 54.25 mL/min Estimated GFR (MDRD) > 60 (>60) mL/min BUN/Creatinine Ratio 23.8 H (14-18) Glucose 83 (83-115) mg/dL Lactic Acid (0.4-2.0) mmol/L Calcium 8.1 L (8.5-10.1) mg/dL Magnesium 2.7 H (1.8-2.4) mg/dl Ferritin (8-252) ng/ml Total Bilirubin 0.2 (0.2-1.0) mg/dL AST 10 L (15-37) U/L ALT 11 L (14-59) U/L Alkaline Phosphatase 85 (46-116) U/L Lactate Dehydrogenase 166 (81-234) U/L CK-MB (CK-2) < 0.5 (0-3.6) ng/ml Troponin I < 0.017 (0.00-0.056) ng/mL C-Reactive Protein 8.8 H* (<1.0) mg/dL NT-Pro-B Natriuret Pep (0-450) pg/mL Total Protein 6.3 L (6.4-8.2) g/dl Albumin 1.9 L (3.4-5.0) g/dl Globulin 4.4 gm/dL Albumin/Globulin Ratio 0.4 L (1-2) Urine Color (Yellow) Urine Appearance (Clear) Urine pH (5.0-8.0) Ur Specific Chester (1.005-1.030) Urine Protein (Negative) Urine Glucose (UA) (Negative) Urine Ketones (Negative) Urine Occult Blood (Negative) Urine Nitrite (Negative) Urine Bilirubin (Negative) Urine Urobilinogen (0.2-1.0) Ur Leukocyte Esterase (Negative) Urine RBC (0-5) /hpf Urine WBC (0-5) /hpf Ur Squamous Epith Cells (0-5) /hpf Urine Bacteria (FEW) /hpf Urine Mucus (FEW) /hpf SARS Virus RNA (PCR) (NEGATIVE) 05/06/20 05/06/20 05/06/20 Range/Units 14:00 14:00 14:15 WBC (3.98-10.04) K/mm3 RBC (3.98-5.22) M/mm3 Hgb (11.2-15.7) gm/dl Hct (34.1-44.9) % MCV (79.4-94.8) fl MCH (25.6-32.2) pg MCHC (32.2-35.5) g/dl RDW Std Deviation (36.4-46.3) fL Plt Count (182-369) K/mm3 MPV (9.4-12.3) fl Neut % (Auto) (34.0-71.1) % Lymph % (Auto) (19.3-51.7) % Morgan % (Auto) (4.7-12.5) % Eos % (Auto) (0.7-5.8) Baso % (Auto) (0.1-1.2) % Neut # (Auto) (1.56-6.13) K/mm3 Lymph # (Auto) (1.18-3.74) K/mm3 Morgan # (Auto) (0.24-0.36) K/mm3 Eos # (Auto) (0.04-0.36) K/mm3 Baso # (Auto) (0.01-0.08) K/mm3 D-Dimer, Quantitative (0.19-0.50) mg/L Sodium (136-145) mEq/L Potassium (3.5-5.1) mEq/L Chloride (98-107) mEq/L Carbon Dioxide (21-32) mEq/L Anion Gap (5-15) BUN (7-18) mg/dL Creatinine (0.55-1.02) mg/dL Est Cr Clr Drug Dosing mL/min Estimated GFR (MDRD) (>60) mL/min BUN/Creatinine Ratio (14-18) Glucose (83-115) mg/dL Lactic Acid (0.4-2.0) mmol/L Calcium (8.5-10.1) mg/dL Magnesium (1.8-2.4) mg/dl Ferritin 339 H (8-252) ng/ml Total Bilirubin (0.2-1.0) mg/dL AST (15-37) U/L ALT (14-59) U/L Alkaline Phosphatase (46-116) U/L Lactate Dehydrogenase (81-234) U/L CK-MB (CK-2) (0-3.6) ng/ml Troponin I (0.00-0.056) ng/mL C-Reactive Protein (<1.0) mg/dL NT-Pro-B Natriuret Pep 402 (0-450) pg/mL Total Protein (6.4-8.2) g/dl Albumin (3.4-5.0) g/dl Globulin gm/dL Albumin/Globulin Ratio (1-2) Urine Color (Yellow) Urine Appearance (Clear) Urine pH (5.0-8.0) Ur Specific Chester (1.005-1.030) Urine Protein (Negative) Urine Glucose (UA) (Negative) Urine Ketones (Negative) Urine Occult Blood (Negative) Urine Nitrite (Negative) Urine Bilirubin (Negative) Urine Urobilinogen (0.2-1.0) Ur Leukocyte Esterase (Negative) Urine RBC (0-5) /hpf Urine WBC (0-5) /hpf Ur Squamous Epith Cells (0-5) /hpf Urine Bacteria (FEW) /hpf Urine Mucus (FEW) /hpf SARS Virus RNA (PCR) Negative (NEGATIVE) 05/06/20 05/06/20 Range/Units 14:40 14:55 WBC (3.98-10.04) K/mm3 RBC (3.98-5.22) M/mm3 Hgb (11.2-15.7) gm/dl Hct (34.1-44.9) % MCV (79.4-94.8) fl MCH (25.6-32.2) pg MCHC (32.2-35.5) g/dl RDW Std Deviation (36.4-46.3) fL Plt Count (182-369) K/mm3 MPV (9.4-12.3) fl Neut % (Auto) (34.0-71.1) % Lymph % (Auto) (19.3-51.7) % Morgan % (Auto) (4.7-12.5) % Eos % (Auto) (0.7-5.8) Baso % (Auto) (0.1-1.2) % Neut # (Auto) (1.56-6.13) K/mm3 Lymph # (Auto) (1.18-3.74) K/mm3 Morgan # (Auto) (0.24-0.36) K/mm3 Eos # (Auto) (0.04-0.36) K/mm3 Baso # (Auto) (0.01-0.08) K/mm3 D-Dimer, Quantitative (0.19-0.50) mg/L Sodium (136-145) mEq/L Potassium (3.5-5.1) mEq/L Chloride (98-107) mEq/L Carbon Dioxide (21-32) mEq/L Anion Gap (5-15) BUN (7-18) mg/dL Creatinine (0.55-1.02) mg/dL Est Cr Clr Drug Dosing mL/min Estimated GFR (MDRD) (>60) mL/min BUN/Creatinine Ratio (14-18) Glucose (83-115) mg/dL Lactic Acid 2.1 H* (0.4-2.0) mmol/L Calcium (8.5-10.1) mg/dL Magnesium (1.8-2.4) mg/dl Ferritin (8-252) ng/ml Total Bilirubin (0.2-1.0) mg/dL AST (15-37) U/L ALT (14-59) U/L Alkaline Phosphatase (46-116) U/L Lactate Dehydrogenase (81-234) U/L CK-MB (CK-2) (0-3.6) ng/ml Troponin I (0.00-0.056) ng/mL C-Reactive Protein (<1.0) mg/dL NT-Pro-B Natriuret Pep (0-450) pg/mL Total Protein (6.4-8.2) g/dl Albumin (3.4-5.0) g/dl Globulin gm/dL Albumin/Globulin Ratio (1-2) Urine Color Yellow (Yellow) Urine Appearance Slt cloudy H (Clear) Urine pH 6.0 (5.0-8.0) Ur Specific Chester 1.025 (1.005-1.030) Urine Protein 2+ H (Negative) Urine Glucose (UA) Negative (Negative) Urine Ketones Trace H (Negative) Urine Occult Blood 2+ H (Negative) Urine Nitrite Positive H (Negative) Urine Bilirubin Negative (Negative) Urine Urobilinogen 0.2 (0.2-1.0) Ur Leukocyte Esterase 3+ H (Negative) Urine RBC 30-40 H (0-5) /hpf Urine WBC Too numerous to cnt H (0-5) /hpf Ur Squamous Epith Cells 0-5 (0-5) /hpf Urine Bacteria Many H (FEW) /hpf Urine Mucus Not seen (FEW) /hpf SARS Virus RNA (PCR) (NEGATIVE) Meds: Medications Discontinued Medications Generic Name Dose Route Start Last Admin Trade Name Freq PRN Reason Stop Dose Admin Sodium Chloride 1,000 mls @ 75 mls/hr 05/06/20 14:15 05/06/20 15:50 Normal Saline IV 250 mls/hr ASDIRECTED FITO Infusion Ceftriaxone Sodium 1 gm/ 100 mls @ 200 mls/hr 05/06/20 15:37 05/06/20 15:49 Sodium Chloride IV 05/06/20 16:06 200 mls/hr ONETIME ONE Administration Sodium Chloride 1,000 mls @ 250 mls/hr 05/06/20 15:43 Normal Saline IV 05/06/20 19:42 ONETIME ONE - Radiology Interpretation Free Text/Narrative:: 79-year-old female who resides in [facility] with [facility] in [place], [place] presents to our hospital per [facility] [facility]. Reportedly she developed hypoxia with O2 sats in the 80s while at the intermediate today. He is maintained on oxygen at 5 L/min by nasal cannula at all times due to end-stage COPD and cor pulmonale. O2 sats here are 93% on 5 L and she does not appear to be in any respiratory distress. Second concern was exposure of this patient to a COVID-19 positive worker at the intermediate but is unclear when this exposure may have occurred. Patient denies cough or sputum production. Exam reveals clear lung doran and normal sinus rhythm on exam. Her blood pressure initially was a bit low at 80/50 but came up to 93/72 and she usually runs a bit on the low side. Her tongue is mildly dry and coated. Plan IV normal saline at 125 mils per hour. Chest x-ray and COVID 19 screen with routine labs for COVID to be obtained. Blood cultures are withheld at this point time since she is afebrile. - Re-Assessments/Exams Free Text/Narrative Re-Assessment/Exam: 05/06/20 15:06 chest x-ray done portably reveals a poor inspirational view. Mild to moderate cardiomegaly appreciated as the left heart border abuts the left costal margin. Lower lung field on the right side shows minimal basal atelectasis. Slightly tortuous thoracic aorta appreciated. No Pneumonia.White count is slightly elevated at 10.31. The auto differential shows 71% neutrophils hemoglobin slightly low at 10.7 with hematocrit of 34.3. MCV slightly elevated 103.3. Platelet counts 339,000. D-dimer is mildly elevated at 0.60 normal for her age. Sodium is slightly low at 135 with a potassium of 4.5. Chloride is 96 with a bicarb of 36 i.e. CO2 retainer. Anion gap is 7.5. BUN is 19 with a creatinine of 0.8 and a GFR greater than 60. BUN/creatinine ratio is slightly elevated at 23.8. Glucose is 83 calcium is slightly low at 8.1. Magnesium is 2.7 slightly elevated. Serum ferritin is elevated at 339 with normal being up to 52. Bilirubin is 0.2 liver function otherwise normal LDH is 166 which is normal. CK-MB fraction is less than 0.5 troponin I is less than 0.017. C-reactive protein is mildly elevated 8.8. BNP is slightly elevated at 402. Total protein is 6.3 with an albumin fraction very low at 1.9. Urinalysis shows 2+ proteinuria 2+ occult blood positive nitrates and 3+ leukocyte esterase. Micro is pending Free Text/Narrative Re-Assessment/Exam: 05/06/20 15:38 Micro on the urinalysis shows 30-40 RBCs per per field white cells are too numerous to count. Many bacteria appreciated urine culture ordered. COVID-19 screen is negative. She will be given Rocephin 1 gm intravenously while in the department. She will then be discharged with back to [facility] 05/06/20 15:42 Lactic acid returned to 2.1. She does appear to be mildly dehydrated. BNP was 402. Will give to 250 mil fluid bolus. Blood preasure at present is 100/70. Plan will be to place her on Omnicef 300 mg twice daily for 7 more days starting tomorrow to clear up urinary tract infection. Plan will be to have her transferred back to [facility] in [place] where she resides. I believe they will send their bus down to pick her up. 05/06/20 18:30: The Bus is here to pick her up and she will be discharged at this time. There was therefore a significant delay in ability to get the patient back to [facility] as I had discharged her from the ED at 1610 hrs. Departure - Departure Time of Disposition: 18:30 Disposition: DC/Tfer to Skilled Nursing [facility] Condition: Fair Clinical Impression: COPD (chronic obstructive pulmonary disease) with emphysema Qualifiers: Emphysema type: panlobular Qualified Code(s): J43.1 - Panlobular emphysema Urinary tract infection Qualifiers: Urinary tract infection type: acute cystitis Hematuria presence: without hematuria Qualified Code(s): N30.00 - Acute cystitis without hematuria - Discharge Information *PRESCRIPTION DRUG MONITORING PROGRAM REVIEWED*: Not Applicable *COPY OF PRESCRIPTION DRUG MONITORING REPORT IN PATIENT DAYAMI: Not Applicable Prescriptions: Cefdinir [Omnicef] 300 mg PO BID #14 cap Instructions: Chronic Obstructive Pulmonary Disease Referrals: PCP,None [Ordering Only Provider] - Forms: ED Department Discharge Additional Instructions: Evaluation in the emergency room today in regards to reported hypoxemia or low oxygen levels at the intermediate today in the 80s. You have severe emphysema and are on oxygen at 5 L/min at all times. O2 sat stayed 93 to 94% while in our ED on 5 L/min per nasal cannula. White count was minimally elevated. CRP was elevated at 8.8 suggesting an underlying bacterial infection. Catheterized urine specimen proved to be grossly positive with a large amount of pus cells per high-power field which is felt to be causing her current illness. You were therefore treated with a gram of Rocephin intravenously and will need to start oral antibiotic Omnicef 300 mg twice daily tomorrow and this will be carried on for for 7 days. COVID-19 screen proved to be negative. Continue all current medications and Tylenol 650 mg every 6 hours as needed for fever relief if needed. Sepsis Event Note (ED) - Evaluation Sepsis Screening Result: No Definite Risk - Focused Exam Vital Signs: Vital Signs Temp Pulse Resp BP Pulse Ox Pulse Ox 05/06/20 18:32 36.7 C 83 19 95/37 L 100 05/06/20 14:28 37.3 C 82 19 93/72 98 05/06/20 14:23 95 05/06/20 13:52 37.1 C 86 18 140/128 H 93 L - My Orders Last 24 Hours: My Active Orders 05/06/20 14:40 CULTURE URINE [RM] Stat - Assessment/Plan Last 24 Hours: My Active Orders 05/06/20 14:40 CULTURE URINE [RM] Stat
[2020-05-06] MEDS ORDERED: Sodium Chloride 0.9% 1,000 ML IV SCH (14:15)
--- NOTE | 2020-05-06 15:11 | CR ---
Chest: Portable view of the chest was obtained. Comparison: Prior chest x-ray of 08/06/19. Minimal left basilar atelectasis is seen. Lungs otherwise are clear. Heart size is felt to be slightly enlarged. Upper mediastinum is within normal limits for portable technique. Bony structures are grossly intact. Impression: 1. Slight left basilar atelectasis. 2. Nothing acute is otherwise appreciated. Diagnostic code #2 This report was dictated in MDT
[2020-05-06] MEDS ORDERED: cefTRIAXone 1 GM in Sodium Chloride 0.9% 100 ML IV ONE (15:37)
[2020-05-06] MEDS ORDERED: Sodium Chloride 0.9% 1,000 ML IV ONE (15:43)
[2020-05-06 18:35] VITALS: BP 95/37; PULSE 83
== END 2020-05-06 18:27 ==
LOC: JD.ED 13:42
DX: J43.1 Panlobular emphysema (principal); N30.00 Acute cystitis without hematuria; Z20.828 Contact with and (suspected) exposure to other viral communicable diseases; I11.0 Hypertensive heart disease with heart failure; I50.9 Heart failure, unspecified; E11.40 Type 2 diabetes mellitus with diabetic neuropathy, unspecified; E03.9 Hypothyroidism, unspecified; E66.9 Obesity, unspecified; F41.9 Anxiety disorder, unspecified; F20.9 Schizophrenia, unspecified; E78.00 Pure hypercholesterolemia, unspecified; M19.90 Unspecified osteoarthritis, unspecified site; F03.90 Unspecified dementia, unspecified severity, without behavioral disturbance, psychotic disturbance, mood disturbance, and anxiety; Z79.4 Long term (current) use of insulin; Z79.899 Other long term (current) drug therapy; Z79.82 Long term (current) use of aspirin; Z88.1 Allergy status to other antibiotic agents; Z91.018 Allergy to other foods
CPT/HCPCS: 36415; 71045; 80053; 81001; 82553; 82728; 83605; 83615; 83735; 83880; 84484; 85025; 85379; 86140; 87086; 87088; 87186; 94762; 96361; 96365; 99285; J0696; J7030; J7050; U0002; 99284